=== PATIENT | female | born 1940 ===

== ENCOUNTER 2020-01-18 08:56 | Outpatient (REF) | payer MEDICARE, SELFPAY | END 2020-01-18 08:57 | disposition home or self-care (01) | LOC: HO.LAB 08:56 | PROVIDERS: Visit Provider Internal Medicine | DX: Z20.828 Contact with and (suspected) exposure to other viral communicable diseases (principal) | CPT/HCPCS: C9803; U0003 ==

== ENCOUNTER 2020-02-14 12:32 | Outpatient (REF) | payer MEDICARE, SELFPAY | END 2020-02-14 12:33 | disposition home or self-care (01) | LOC: HO.LAB 12:32 | PROVIDERS: Visit Provider Internal Medicine | DX: Z20.828 Contact with and (suspected) exposure to other viral communicable diseases (principal) | CPT/HCPCS: C9803; U0003 ==

== ENCOUNTER → 2020-02-21 10:24 | Outpatient (BNV) | payer MEDICARE, SELFPAY | PROVIDERS: PCP Internal Medicine Geriatric Medicine; Visit Provider Internal Medicine Medical Oncology | DX: D51.9 Vitamin B12 deficiency anemia, unspecified (principal) | CPT/HCPCS: 99212; 99213; 99214; G2252 ==

== ENCOUNTER 2020-03-14 14:54 | Outpatient (REF) | payer MEDICARE, SELFPAY | END 2020-03-14 14:55 | disposition home or self-care (01) | LOC: HO.LAB 14:54 | PROVIDERS: Visit Provider Internal Medicine | DX: Z20.822 Contact with and (suspected) exposure to COVID-19 (principal) | CPT/HCPCS: 36415; C9803; U0003 ==

== ENCOUNTER → 2020-03-18 10:37 | Outpatient (BNVA) | payer MEDICARE, SELFPAY | PROVIDERS: PCP Internal Medicine Geriatric Medicine; Visit Provider Surgery | DX: D05.11 Intraductal carcinoma in situ of right breast (principal); N64.4 Mastodynia | CPT/HCPCS: 99212 ==

== ENCOUNTER 2020-06-03 10:45 | Outpatient (REF) | payer MEDICARE, MEDICAID, SELFPAY ==
--- NOTE | ~2020-06-03 | US_ITS ---
EXAMINATION: US DIAGNOSTIC ULTRASOUND BREAST, RIGHT CLINICAL INFORMATION: Right breast pain/lump upper quadrant. COMPARISON: Mammography of same day as well as studies dating back to November 04, 2011. TECHNIQUE: Ultrasound of the breast is performed with real-time galvan scale imaging and color Doppler. FINDINGS: Targeted right breast ultrasound did not demonstrate any abnormal cystic or solid mass or region of abnormal distal sound shadowing in region of pain/lump. Clinical follow-up is recommended. Results are discussed with the patient at time of visit. US/US breast RT limited IMPRESSION: Stable left breast calcifications. No new mammographic or ultrasound abnormalities of the right breast. Bilateral surgical change. ASSESSMENT: BI-RADS 2: Benign RECOMMENDATION: 1. Patient should be managed based on the clinical impression. 2. Otherwise, routine annual screening mammography.
--- NOTE | ~2020-06-03 | MM_ITS ---
EXAMINATION: MM DIAGNOSTIC DIGITAL BREAST TOMOSYNTHESIS, BILATERAL RIGHT BREAST ULTRASOUND CLINICAL INFORMATION: Right mastodynia. Status post right lumpectomy 2012. COMPARISON: Mammography: 07/21/2018 and studies dating back to 11/04/2011. TECHNIQUE: Digital breast tomosynthesis is performed in both the craniocaudal and mediolateral oblique views along with computer-aided detection (CAD). Synthesized 2D images are generated from the tomosynthesis. Additional left breast spot magnification views in craniocaudal and 90 degree mediolateral views performed. Targeted right breast ultrasound. FINDINGS: There are scattered areas of fibroglandular density (ACR BI-RADS breast composition Category b). LEFT BREAST: There are postsurgical changes again noted within the upper outer aspect of the left breast. There are noted to be calcifications about the upper outer aspect of the left breast difficult to tell if unchanged from previous studies on initial imaging. The calcifications are stable compared to previous study of 06/08/2011 on magnification views. No new abnormal dominant mass or suspicious grouping of microcalcifications. RIGHT BREAST: Postsurgical change is present from previous lumpectomy. No new abnormal dominant mass or suspicious grouping of microcalcifications identified. Targeted right breast ultrasound did not demonstrate any abnormal cystic or solid mass or region of abnormal distal sound shadowing in region of pain/lump. Clinical followup is recommended. Results are discussed with the patient at time of visit. MM/MM tomosynthesis diagnostic BI IMPRESSION: Stable left breast calcifications. No new mammographic or ultrasound abnormalities of the right breast. Bilateral surgical change. ASSESSMENT: BI-RADS 2: Benign. RECOMMENDATION: 1. Patient should be managed based on the clinical impression. 2. Otherwise, routine annual screening mammography. This patient's information was entered into a reminder system with a target due date for their next mammogram.
== END 2020-06-03 10:46 | disposition home or self-care (01) ==
LOC: HO.MAMMO 10:45
PROVIDERS: PCP Internal Medicine Geriatric Medicine; Visit Provider Surgery
DX: N64.4 Mastodynia (principal)
CPT/HCPCS: 76642; 77062; 77066

== ENCOUNTER → 2020-06-20 12:58 | Outpatient (BNVA) | payer MEDICARE, SELFPAY | PROVIDERS: PCP Internal Medicine Geriatric Medicine; Visit Provider Urology | DX: N32.81 Overactive bladder (principal); R39.15 Urgency of urination | CPT/HCPCS: 99212 ==

== ENCOUNTER 2020-12-04 08:45 | Outpatient (REF) | payer MEDICARE, SELFPAY | END 2020-12-04 08:46 | disposition home or self-care (01) | LOC: HO.MAMMO 08:45 | PROVIDERS: PCP Internal Medicine Geriatric Medicine; Visit Provider Surgery | DX: Z13.89 Encounter for screening for other disorder (principal) ==

== ENCOUNTER 2020-12-08 12:10 | Outpatient (REF) | payer MEDICARE, SELFPAY ==
--- NOTE | ~2020-12-08 | MR_ITS ---
EXAMINATION: MR BRAIN WITHOUT AND WITH CONTRAST CLINICAL INFORMATION: Chronic headaches. COMPARISON: MRI scan of the brain 04/06/2019. TECHNIQUE: Multiplanar, multisequence MRI of the brain was obtained before and after the intravenous administration of 8 mL Gadavist. FINDINGS: No diffusion abnormalities are identified to suggest an acute or subacute infarct. No mass effect or midline shift is seen. There is mild commensurate prominence of the ventricles and sulci consistent with diffuse volume loss. There are scattered areas of increased T2 and FLAIR signal in the periventricular and subcortical white matter, which are most consistent with chronic microvascular ischemic changes. No extra-axial fluid collections are seen. The brainstem appears normal. On postcontrast imaging, there is no abnormal parenchymal or leptomeningeal enhancement. There is now a small focus of low gradient signal in the anterior left centrum semiovale body, which is nonspecific. The cerebellar tonsils have normal contour and position, and the craniocervical junction appears normal. Marrow signal is normal. There is a partially empty sella. There have been bilateral lens extractions. The major intracranial flow-voids at the level of the k[place] of [place] are preserved. The dural venous sinus flow-voids are maintained. There has been interval increase in the bilateral mastoid effusions there is mucoperiosteal thickening the bilateral ethmoid sinuses. There may be a small polyp in the posterior left nasal cavity.. MR/MR head/brain wo/w con IMPRESSION: 1. There are no acute bleeds or territorial infarcts. No masses are demonstrated. There is no abnormal enhancement. 2. There are chronic microvascular ischemic changes and there is diffuse volume loss. 3. There has been slight interval increase in the bilateral mastoid effusions. There may be a small polyp in the posterior left nasal cavity. Correlate clinically.
[2020-12-08 12:45] LABS: Blood Urea Nitrogen 20 mg/dL (9-16); Estimated Glomerular Filt Rate 43
== END 2020-12-08 12:11 | disposition home or self-care (01) ==
LOC: HO.MRI 12:10
PROVIDERS: PCP Internal Medicine Geriatric Medicine; Visit Provider Psychiatry & Neurology Neurology
DX: R51.9 Headache, unspecified (principal)
CPT/HCPCS: 36415; 70553; 82565; 84520; A9585

== ENCOUNTER 2021-05-27 10:35 | Outpatient (REF) | payer MEDICARE, MEDICAID, SELFPAY ==
--- NOTE | ~2021-05-27 | XR_ITS ---
EXAMINATION: XR HIP, RIGHT CLINICAL INFORMATION: Pain COMPARISON: None TECHNIQUE: Two views of the right hip. FINDINGS: Bone alignment is normal. No fracture or dislocation is seen. There is a small superior lateral acetabular osteophyte. There may be mild chondrocalcinosis. There is a small soft tissue calcification adjacent to the greater trochanter. XR/XR hip RT min 2V IMPRESSION: Mild degenerative changes of the right hip joint.
== END 2021-05-27 10:36 | disposition home or self-care (01) ==
LOC: HO.XRAY 10:35
PROVIDERS: Absent Provider Internal Medicine Geriatric Medicine; PCP Internal Medicine Geriatric Medicine; Visit Provider Emergency Medicine
DX: M25.551 Pain in right hip (principal)
CPT/HCPCS: 73502

== ENCOUNTER 2021-06-15 10:31 | Outpatient (REF) | payer MEDICARE, MEDICAID, SELFPAY ==
--- NOTE | ~2021-06-15 | MM_ITS ---
EXAMINATION: MM SCREENING DIGITAL BREAST TOMOSYNTHESIS, BILATERAL CLINICAL INFORMATION: Screening. Asymptomatic. Right lumpectomy for breast cancer, 2013. COMPARISON: Mammography: 06/03/2020, 07/21/2018, 05/27/2017, targeted right breast ultrasound 06/03/2020. TECHNIQUE: Digital breast tomosynthesis is performed in both the craniocaudal and mediolateral oblique views along with computer-aided detection (CAD). Synthesized 2D images are generated from the tomosynthesis. FINDINGS: There are scattered areas of fibroglandular density (ACR BI-RADS breast composition Category b). There are post therapy changes on the right with mild reduced breast size and old scarring. Neither breast shows interval developing density or significant mass or interval architectural abnormality. No abnormal calcifications. No significant changes. MM/MM tomosynthesis screening BI IMPRESSION: -No mammographic evidence of malignancy. -Post therapy changes right breast ASSESSMENT: BI-RADS 2: Benign RECOMMENDATION: Routine annual mammography screening. This patient's information was entered into a reminder system with a target due date for their next mammogram.
== END 2021-06-15 10:32 | disposition home or self-care (01) ==
LOC: HO.MAMMO 10:31
PROVIDERS: PCP Internal Medicine Geriatric Medicine; Visit Provider Internal Medicine Geriatric Medicine
DX: Z12.31 Encounter for screening mammogram for malignant neoplasm of breast (principal)
CPT/HCPCS: 77063; 77067

== ENCOUNTER → 2021-06-30 12:51 | Outpatient (BNVA) | payer MEDICARE, MEDICAID, SELFPAY | PROVIDERS: PCP Internal Medicine Geriatric Medicine; Visit Provider Physician Assistant | DX: M54.16 Radiculopathy, lumbar region (principal) | CPT/HCPCS: 99212 ==

== ENCOUNTER 2021-09-02 14:17 | Outpatient (REF) | payer OTHER, SELFPAY ==
--- NOTE | ~2021-09-02 | MM_ITS ---
EXAMINATION: BONE DENSITOMETRY CLINICAL INDICATION: Menopausal. COMPARISON: Previous BD dated 10/06/2018 and baseline BD dated 09/23/2011. TECHNIQUE: Using a JOOR DXA System (software version: 13.1) manufactured by [employer], dual-energy x-ray absorptiometry was performed of the lumbar spine and left hip. The images are of good technical quality. Summary results are attached. FINDINGS: AP SPINE L1-L2 (excluding L3 and L4): The data of L1-L4 has been changed to exclude the L3 and L4 vertebral bodies, because degenerative changes at these levels may cause overestimation of lumbar spine density. Current: BMD 0.930 g/cm2, Z-score -0.4, T-score -2.0, osteopenia, 1.3% increase from previous, 6.2% increase from baseline (<5% change is not significant). Prior: BMD 0.918 g/cm2. Baseline: BMD 0.876 g/cm2. LEFT FEMUR, NECK: Current: BMD 0.725 g/cm2, Z-score -0.2, T-score -2.3, osteopenia. Prior: BMD 0.820 g/cm2. Baseline: BMD 0.815 g/cm2. LEFT FEMUR, TOTAL: Current: BMD 0.793 g/cm2, Z-score 0.2, T-score -1.7, osteopenia, 5.4% decrease from previous, 6.9% decrease from baseline (<5% change is not significant). Prior: BMD 0.838 g/cm2. Baseline: BMD 0.852 g/cm2. IDENTIFIED RISK FACTORS: Menopause. HISTORY OF FRACTURE: None listed. MEDICATIONS: Calcium supplements or multivitamin, vitamin D. MM/XR DEXA axial skeleton IMPRESSION: 1. DIAGNOSIS: Osteopenia based on the lowest T-score value of -2.3 in the femoral neck applying World Health Organization criteria. 2. 10-YEAR FRACTURE RISK PREDICTION, FRAX: Major osteoporotic fracture (clinical spine, forearm, hip or shoulder) 10.6%. Hip fracture 3.5%. 3. Treatment Recommendations: NOF guidelines recommend consideration for treatment in postmenopausal women and men age 50 and older presenting with the following: -A hip or vertebral (clinical or morphometric) fracture. -T-score less than or equal to -2.5 at the femoral neck or spine after appropriate evaluation to exclude secondary causes. -Low bone mass at the hip or spine and a 10-year fracture probability by FRAX of greater than or equal to 3% for hip fracture or greater than or equal to 20% for major osteoporotic fracture based on the [place] adapted WHO algorithm. 4. Other Recommendations: All treatment decisions require clinical judgment and consideration of individual patient factors, including patient preferences, comorbidities, previous drug use, risk factors not captured in the FRAX model (e.g. frailty, falls, vitamin D deficiency, increased bone turnover, interval significant decline in bone density) and possible under or overestimation of fracture risk by FRAX. Additional medical evaluation for secondary cause of low bone mineral density may be appropriate. FUTURE SCAN RECOMMENDATION: People with diagnosed cases of osteoporosis or at high risk for fracture should have regular bone mineral density tests. For patients eligible for Medicare, routine testing is allowed once every 2 years. The testing frequency can be increased to one year for patients who have rapidly progressing disease, those who are receiving or discontinuing medical therapy to restore bone mass, or have additional risk factors.
== END 2021-09-02 14:18 | disposition home or self-care (01) ==
LOC: HO.MAMMO 14:17
PROVIDERS: Visit Provider Registered Nurse
DX: Z13.820 Encounter for screening for osteoporosis (principal); Z78.0 Asymptomatic menopausal state; M85.80 Other specified disorders of bone density and structure, unspecified site
CPT/HCPCS: 77080

== ENCOUNTER 2021-09-21 13:46 | Emergency (ER) | payer OTHER, SELFPAY ==
--- NOTE | ~2021-09-21 | CT_ITS ---
EXAMINATION: CT angio head neck CLINICAL INFORMATION: Cervical spine fracture status post fall. Question dissection. Question bleed. COMPARISON: MRI brain 12/08/2020. TECHNIQUE: Manipulative Therapy Specialist images were obtained. A CT angiogram of the head and neck was performed in the arterial phase after the intravenous administration of 70 mL Omnipaque 350. Pre and delayed postcontrast images of the head were also obtained. MIP reconstructions were generated in multiple orientations at the acquisition workstation. Multiple three-dimensional surface rendered images and maximum intensity projection images were generated on a dedicated 3-D lab workstation. Arterial stenoses are measured in accordance with NASCET criteria or similar method if applicable. This CT examination was performed using dose optimization techniques as appropriate, including one or more of the following: Automated exposure control, iterative reconstruction, and adjustment of technique factors (mA and/or kVp) according to patient size (this includes techniques or standardized protocols for targeted exams where dose is matched to indication/reason for exam). Total exam dose-length product 3160 mGy-cm FINDINGS: Head: There is no acute intracranial hemorrhage or abnormal extra-axial collection. Postcontrast images reveal a small nonspecific focus of intraparenchymal enhancement located within the left temporal lobe best depicted on axial image 48 of 65 series 24. No intracranial mass effect or midline shift. Lateral and third ventricles are normal. No hydrocephalus. Scattered ill-defined foci of hypoattenuation are visualized within the periventricular white matter. Padilla-white matter differentiation is otherwise preserved and there is no evidence of acute territorial infarct. CT angiogram neck: The aortic arch apex is normal. Origins of the major aortic branches are widely patent. Common carotid arteries and carotid bifurcations are normal. No stenosis of the extracranial internal carotid arteries. The cervical vertebral arteries are patent. No evidence of acute vascular dissection within the neck. CT angiogram head: Intracranial internal carotid arteries are normal. The intradural vertebral artery segments and basilar artery are normal. 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 Anterior, middle, and posterior cerebral artery complexes are otherwise unremarkable. Other: There are a few a slightly prominent left level II cervical lymph nodes possibly is secondary to odontogenic disease given the presence of periapical erosions and mixed sclerotic changes within the left mandibular body. Visualized lung apices demonstrate mosaic attenuation with a few areas of atelectasis and/or opacification. 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 The venous drainage is difficult to accurately assess on the basis of this examination. There is no evidence of acute territorial infarct and no acute intraparenchymal hemorrhage. The CT angiogram of the head and neck is unremarkable in that there is no stenosis of the cervical carotid or vertebral arteries. No evidence of acute arterial dissection. No intracranial large vessel occlusion. There is asymmetric adenopathy within the left anterior neck that appears to be reactive and secondary to odontogenic disease. Specifically there are periapical erosions involving multiple maxillary teeth and asymmetric sclerotic changes within the bone marrow of the left mandibular body.
--- NOTE | ~2021-09-21 | CT_ITS ---
EXAMINATION: CT CHEST, ABDOMEN AND PELVIS WITH CONTRAST CLINICAL INFORMATION: Trauma after fall COMPARISON: CT chest 11/27/2015 TECHNIQUE: Multidetector volumetric imaging was performed from the thoracic inlet through the pubic symphysis following administration of 70 mL of Omnipaque 350. Sagittal and coronal reformatted images were obtained on the technologist's workstation. This CT examination was performed using dose optimization techniques as appropriate, variously including the following: *Automated exposure control *Adjustment of mA and/or kV according to patient size (this includes techniques or standardized protocols for targeted exams where dose is matched to indication/reason for exam; i.e. extremities or head) *Use of iterative reconstruction technique DLP: 250 mGy-cm FINDINGS: CHEST: Lung: There are some masslike areas of infiltrate seen in the left upper lobe (35:104) measuring 1.6 x 0.5 x 0.7 cm as well as in the right upper lobe posteriorly measuring about 1.5 x 1.3 x 0.5 cm (35:157). These probably represent resolving infiltrates. Small nodular densities are seen, the largest measuring 6 mm (35:246). Lynne images of all abnormalities have been saved. Mediastinum: The thyroid is enlarged with some nodules including a calcified nodule in the left lower pole. There is mild cardiac enlargement with the heart larger than seen on the 2016 study. The central vascular structures are otherwise unremarkable. No evidence of an aortic tear although evaluation of the aorta is not optimal secondary to timing of contrast. No hilar or mediastinal lymphadenopathy. Pericardium/Pleura: No significant effusion. No pleural mass or thickening. Chest Wall/Axilla: Degenerative changes are present in the thoracic spine. ABDOMEN/PELVIS: Peritoneal Space: No significant free air or free fluid identified. Liver, Gallbladder, Biliary Tree: The liver is normal in size, shape, and attenuation. No focal hepatic lesion or biliary ductal dilatation is present. The gallbladder is unremarkable with no evidence of radiopaque gallstones, gallbladder wall thickening, or obvious pericholecystic inflammatory changes. Pancreas: Unremarkable Spleen: Unremarkable Adrenal Glands: Unremarkable Kidneys and Ureters: The kidneys are normal in size, shape, and attenuation. No hydronephrosis, hydroureter, or calculi seen. No perinephric stranding. Bladder: Unremarkable Gastrointestinal Tract: The small and large bowel are unremarkable. The appendix is unremarkable. Abdominal Wall: No significant hernia is appreciated. Lymph Nodes: No lymphadenopathy. Vascular: The aorta appears normal.. The IVC appears unremarkable. PELVIC VISCERA: Surgically removed OSSEUS STRUCTURES: Marked degenerative changes are noted in the spine at L3-L4. Generative changes present at the facet joints at L4-L5 and L5-S1. No bony destructive lesions are seen. CT/CT abdomen pelvis w con IMPRESSION: 1. No evidence of an acute traumatic injury in the chest abdomen or pelvis. 2. Pulmonary masses/infiltrates. These are new when compared to the prior 2016 CT scan. 2017 Fleischner Society Recommendations for Lung Nodule(s): Follow-Up based on size (average of long- and short-axis diameters). Use most suspicious nodule for followup. Multiple Solid lung nodules > 8 mm: Follow up management based on most suspicious nodule. In a low-risk patient, recommend a non-contrast Chest CT at 3-6 months, then consider another non-contrast Chest CT at 18-24 months. In a high-risk patient, recommend a non-contrast Chest CT at 3-6 months, then another non-contrast Chest CT at 18-24 months. These guidelines do not apply to patients younger than 35 years, immunocompromised patients, and patients with cancer. F/u in patients with significant comorbidities as clinically warranted. For lung cancer screening, adhere to Lung-RADS guidelines. Reference: Radiology. 2017 Hussain; 284(1):228-243 3. Incidental findings as described above including thyroid goiter, mild cardiac enlargement, degenerative changes in the spine and prior hysterectomy. Fleischner guidelines were followed.
--- NOTE | ~2021-09-21 | XR_ITS ---
EXAMINATION: XR SHOULDER, LEFT CLINICAL INFORMATION: Pain post fall COMPARISON: CT scan of the chest partially including the shoulder earlier today TECHNIQUE: AP external rotation, Grashey, and scapular Y views of the left shoulder. FINDINGS: Humeral head is well-seated in the glenoid fossa. I do not appreciate any acute fracture or dislocation. Degenerative changes are seen in the glenohumeral and acromioclavicular joint. Likely calcific tendinitis in the region of the supraspinatus tendon. Visualized left chest and ribs unremarkable XR/XR shoulder LT min 2V IMPRESSION: Degenerative changes in the left shoulder without acute fracture or dislocation.
[2021-09-21 14:11] VITALS: BP 148/64; PULSE 52; O2SAT 96
[2021-09-21 14:15] VITALS: BP 148/64; PULSE 56; RESP 18; TEMP 36.7; O2SAT 96; BMI 30.6
[2021-09-21] MEDS: iohexoL 350 MG/ML 100 ML INFUS..BTL IV (15:19)
--- NOTE | 2021-09-21 15:43 | ECG_ITS ---
Test Reason : fall Blood Pressure : / mmHG Vent. Rate : 066 BPM Atrial Rate : 066 BPM P-R Int : 232 ms QRS Dur : 108 ms QT Int : 432 ms P-R-T Axes : 067 -47 039 degrees QTc Int : 452 ms Sinus rhythm with 1st degree A-V block Left anterior fascicular block Minimal voltage criteria for LVH, may be normal variant ( Josh product ) Poor R wave progression Abnormal ECG When compared with ECG of 24-OCT-2015 09:37, VA interval has increased Referred By: Gabino Bills Electronically Signed By:Vadim Chandra
--- NOTE | 2021-09-21 16:26 | ED_ITS ---
HPI - Fall General Chief Complaint: Fall Stated Complaint: FALL Time Seen by Provider: 09/21/21 14:11 Source: patient Mode of arrival: ambulatory Limitations: no limitations History of Present Illness HPI Narrative: 81-year-old female presents to ED for fall which occurred around 08:00 this morning. patient states this morning he got up her bed and was trying to walk and then she tripped over her sandals which caused her to hit her chin and anterior neck onto the edge of the table which caused her to pass out. Patient admits to having whiplash movement of the neck. Home health aide came to see to patient house later and patient states she woke up but her head was leaning to the left patient denies any rectal bleeding, vomiting blood, chest pain, or abdominal pain since trauma. Related Data Home Medications Medication Instructions Recorded Confirmed ascorbic acid (vitamin C) 500 mg 1 tab PO BEDTIME 02/21/20 03/26/21 tablet (Vitamin C) atorvastatin 40 mg tablet 40 mg PO DAILY 02/21/20 03/26/21 clopidogrel 75 mg tablet 1 tab PO DAILY 02/21/20 03/26/21 donepezil 10 mg tablet 10 mg PO DAILY 02/21/20 03/26/21 esomeprazole magnesium 40 mg 1 cap PO QAM 02/21/20 03/26/21 capsule,delayed release ferrous sulfate 325 mg (65 mg 1 tab PO BEDTIME 02/21/20 03/26/21 iron) tablet glipizide 10 mg tablet, extended 1 tab PO DAILY 02/21/20 03/26/21 release 24 hr metformin 1,000 mg tablet 1 tab PO BID 02/21/20 03/26/21 metoprolol tartrate 25 mg tablet 1 tab PO BID 02/21/20 03/26/21 sertraline 50 mg tablet 1 tab PO QAM 02/21/20 03/26/21 calcium carbonate 600 mg-vitamin 1 tab PO TID 06/19/20 03/26/21 D3 10 mcg (400 unit) tablet (Calcium 600 + D(3)) trazodone 50 mg tablet 25 mg PO BEDTIME PRN Insomnia 06/19/20 03/26/21 tramadol 10 mg PO BID PRN Pain 09/19/20 03/26/21 divalproex 250 mg tablet,delayed 250 mg PO BID 03/26/21 03/26/21 release losartan 25 mg tablet 25 mg PO DAILY 03/26/21 03/26/21 Previous Rx's Medication Instructions Recorded solifenacin 10 mg tablet 10 mg PO DAILY 90 days #90 tabs 07/22/21 Allergies Allergy/AdvReac Type Severity Reaction Status Date / Time aspirin [ASA] AdvReac Unknown Verified 03/26/21 10:22 Review of Systems Review of Systems: Anterior and posterior neck pain. Fall Yes all other systems are reviewed and are negative [facility] Past Medical History Medical History (Updated 09/21/21 @ 18:59 by AKANKSHA Singleton) B12 deficiency Ductal carcinoma in situ (DCIS) of right breast Surgical History History of cystoscopy (~2015) History of lumpectomy of right breast (~10/09/13) Hx of angioplasty Hx of breast biopsy Hx of cataract extraction (~10/11/16) Hx of total hypophysectomy (~1994) Family History Family History (Updated 09/19/20 @ 10:55 by Donya Chambers RN) Maternal Uncle Hx of cancer of lung Mother Hx of cancer of lung Diabetes Sister Diabetes Brother Diabetes Social History Social History (Updated 09/19/20 @ 10:55 by Donya Chambers RN) Alcohol intake: never Patient Tobacco Use Status: Never used Tobacco e-Cigarette/Vaping Use: Never Used Advance Directives: No Advance Directives Information Provided: No Physical Exam Vital Signs: Vital Signs: Last Vital Signs Temp 96.7 F L 09/21/21 18:48 Pulse 58 09/21/21 18:48 Resp 16 09/21/21 18:48 BP 158/81 H 09/21/21 18:48 Pulse Ox 99 09/21/21 18:48 O2 Del Method 09/21/21 18:48 BMI result Body Mass Index 30.6 Const: General: cooperative, healthy appearing, comfortable, no acute distre ss, well developed, alert, awake and Physically active Orientation/consciousness: oriented to time and patient oriented x3 HEENT: Head: Yes normal to inspection, Yes No palpable skull fracture present, Yes normocephalic, Yes atraumatic and No abrasion Eyes: General: appearance normal, both eyes and all related structures Neck: Neck: Yes normal visual inspection, Yes full ROM, Yes no lymphadenopathy, Yes no meningeal signs, Yes trachea midline, Yes supple, No anterior neck swelling and Yes tender Neck images: 1. positive for ecchymosis and tenderness on palpation. Negative for swelling. Patient speaking in full sentences 2. positive for cervical spine tenderness on palpation. patient's head and neck leaning to the left Chest: Chest palpation & inspection: normal inspection of the chest and normal palpation of entire chest wall Resp: Effort & Inspection: normal respiratory effort and able to speak in complete sentences Auscultation: clear to auscultation bilaterally Cardio: Jugular venous distension: no JVD Heart sounds: S1 normal heart sound present and S2 normal heart sound present GI: Inspection: Yes normal to inspection and No abdominal wall ecchymosis Palpation (GI): Soft to palpation, not firm, nontender, no guarding and not rigid : General: No CVA tenderness and Yes no CVA tenderness Back/Spine/Pelvis: Back: no CVA tenderness, No CVA tenderness and No back tenderness Skin: General skin exam: no rashes or lesions noted and elasticity normal Neuro: General: oriented to time, patient oriented x3, gait normal and no meningeal signs Cranial nerves: Yes CN's II-XII intact bilaterally Extrem: General: Yes normal to inspection and Yes full ROM Psych: Appearance: grossly normal, well kempt and not disheveled Course Course Course Narrative: patient sent from the images and labs Reevaluation(s) Reevaluation #1: EKG negative STEMI. Head CT scan cervical spine came back normal and negative for any carotid dissection, cervical spine fracture or subluxation. Patient is neurologically intact has complete range of motion of all extremities. patient eating food and is comfortalbe. Patieint now able to move head in all directions with no leaning of head to the left. Head CT negative for signs of trauma does shows masslike infiltrates that are resolving as per CT scan. patient does not have any URI symptoms. I do not suspect a pneumonia. Patient given copy of labs and images including CT scan of the chest for follow-up of masses for further evaluation and workup. Abdomen CT scan normal. EKG negative STEMI. Troponin negative after falling over 6 hours ago Time: 18:51 MDM - Fall MDM Narrative Medical decision making narrative: fall Lab Data Result diagrams: 09/21/21 17:52 09/21/21 16:35 Labs: Lab Results 09/21/21 09/21/21 09/21/21 Range/Units 16:35 16:35 17:52 WBC 8.8 (4.8-10.8) X10*3/uL RBC 3.68 L (4.20-5.50) X10*6/uL Hgb 10.7 L (12.0-16.0) g/dl Hct 33.5 L (37.0-47.0) % MCV 91.0 (80.0-98.0) fL MCH 29.1 (27.0-33.0) pg MCHC 31.9 (31.0-35.0) g/dl RDW 13.4 (11.0-16.0) % Plt Count 190 (160-400) X10*3/uL MPV 10.5 (9.4-12.3) fL Immature Gran % (Auto) 0.5 H (0.0-0.4) % Neut % (Auto) 72.6 (45-73) % Lymph % (Auto) 16.6 L (20-40) % [place] % (Auto) 8.7 (2-11) % Eos % (Auto) 1.3 (0-4) % Baso % (Auto) 0.3 (0-2) % Lymph # (Auto) 1.5 (1.2-4.9) X10*3/uL [place] # (Auto) 0.8 (0.1-1.2) X10*3/uL Eos # (Auto) 0.1 (0.0-0.4) X10*3/uL Baso # (Auto) 0.0 (0.0-0.2) X10*3/uL Abs Immat Gran (auto) 0.04 H (0.00-0.03) X10*3/uL Absolute Neuts (auto) 6.4 (2.0-8.3) x10*3/uL Absolute Nucleated RBC 0.000 (0.0-0.012) X10*3/uL Nucleated RBC % (auto) 0.0 (0.0-0.2) /100WBC PT (10.0-13.1) SEC INR (0.9-1.1) APTT (24.1-38.0) SEC Sodium 141 (135-145) mmol/L Potassium 5.0 (3.3-5.1) mmol/L Chloride 104 (96-108) mmol/L Carbon Dioxide 29 (22-29) mmol/L Anion Gap 13 (12-20) BUN 23 H (9-16) mg/dL Creatinine 1.13 (0.5-1.4) mg/dL Estim Creat Clear Calc 34.5 Estimated GFR 46 Random Glucose 63 (60-115) mg/dL Calcium 9.1 D (8.4-10.2) mg/dL Total Bilirubin 0.6 (0.0-1.0) mg/dL AST 12 (5-31) U/L ALT 9 (0-31) U/L Alkaline Phosphatase 76 D (39-117) U/L Troponin I High Sens < 3.5 (<3.5-17.0) ng/L Total Protein 6.9 (6.5-8.0) g/dL Albumin 4.5 (3.5-5.0) g/dL 09/21/21 Range/Units 17:52 WBC (4.8-10.8) X10*3/uL RBC (4.20-5.50) X10*6/uL Hgb (12.0-16.0) g/dl Hct (37.0-47.0) % MCV (80.0-98.0) fL MCH (27.0-33.0) pg MCHC (31.0-35.0) g/dl RDW (11.0-16.0) % Plt Count (160-400) X10*3/uL MPV (9.4-12.3) fL Immature Gran % (Auto) (0.0-0.4) % Neut % (Auto) (45-73) % Lymph % (Auto) (20-40) % [place] % (Auto) (2-11) % Eos % (Auto) (0-4) % Baso % (Auto) (0-2) % Lymph # (Auto) (1.2-4.9) X10*3/uL [place] # (Auto) (0.1-1.2) X10*3/uL Eos # (Auto) (0.0-0.4) X10*3/uL Baso # (Auto) (0.0-0.2) X10*3/uL Abs Immat Gran (auto) (0.00-0.03) X10*3/uL Absolute Neuts (auto) (2.0-8.3) x10*3/uL Absolute Nucleated RBC (0.0-0.012) X10*3/uL Nucleated RBC % (auto) (0.0-0.2) /100WBC PT 11.0 (10.0-13.1) SEC INR 1.0 (0.9-1.1) APTT 33.3 (24.1-38.0) SEC Sodium (135-145) mmol/L Potassium (3.3-5.1) mmol/L Chloride (96-108) mmol/L Carbon Dioxide (22-29) mmol/L Anion Gap (12-20) BUN (9-16) mg/dL Creatinine (0.5-1.4) mg/dL Estim Creat Clear Calc Estimated GFR Random Glucose (60-115) mg/dL Calcium (8.4-10.2) mg/dL Total Bilirubin (0.0-1.0) mg/dL AST (5-31) U/L ALT (0-31) U/L Alkaline Phosphatase (39-117) U/L Troponin I High Sens (<3.5-17.0) ng/L Total Protein (6.5-8.0) g/dL Albumin (3.5-5.0) g/dL ECG Data Interpretation: normal sinus rhythm. sinus rhythm with first-degree block. Left anterior fascicular block. Ventricular rate 66. Pr interval 233. QRS on 8. QTC 452. Negative STEMI. Patient has previous EKGs which shows left anterior fascicular block and septal infarct. Discharge Plan Discharge Clinical Impression: Fall, Contusion of neck, Cervical sprain Patient Disposition: Home, Self-Care Instructions: Fall Prevention for Older Adults (ED), Contusion in Adults (ED), Cervical Sprain (ED) Additional Instructions: your images came back negative for any fractures in your chest abdomen or neck. Negative for brain bleed or bleeding elsewhere in the body. Chest CT scan shows masses that will need further workup. He will be given copy of labs and images. Because you on Plavix do not take NSAIDs. Return to the ED immediately for swelling of neck, change in voice, worsening blue discoloration of neck, headache, dizziness, chest pain, shortness of breath, nausea, vomiting, rectal bleeding, vomiting blood, or any other concerning symptoms. Continue to take tramadol for pain relief. Tylenol can also be taking. Prescriptions: No Action solifenacin 10 mg tablet 10 mg PO DAILY 90 Days Qty: 90 2RF atorvastatin 40 mg Tablet 40 mg PO DAILY glipizide 10 mg tablet extended release 24hr 1 tab PO DAILY donepezil 10 mg Tablet 10 mg PO DAILY clopidogrel 75 mg tablet 1 tab PO DAILY ascorbic acid (vitamin C) [Vitamin C] 500 mg tablet 1 tab PO BEDTIME ferrous sulfate 325 mg (65 mg iron) tablet 1 tab PO BEDTIME metformin 1,000 mg tablet 1 tab PO BID esomeprazole magnesium 40 mg capsule,delayed release(DR/EC) 1 cap PO QAM sertraline 50 mg tablet 1 tab PO QAM metoprolol tartrate 25 mg tablet 1 tab PO BID trazodone 50 mg Tablet 25 mg PO BEDTIME PRN (Reason: Insomnia) calcium carbonate-vitamin D3 [Calcium 600 + D(3)] 600 mg(1,500mg) -400 unit Tablet 1 tab PO TID tramadol 10 mg PO BID PRN (Reason: Pain) divalproex 250 mg Tablet,Delayed Release (Dr/Ec) 250 mg PO BID losartan 25 mg Tablet 25 mg PO DAILY Referrals: Name,MD Tyson [Primary Care Provider] - ( Fall. Neck contusion.) Interventions: ED Discharge Assessment Last Done: 09/21/21 19:10 Discharge Date/Time: 09/21/21 19:11 Print Language: [place]
[2021-09-21 17:02] LABS: Alanine Aminotransferase 9 U/L (0-31); Albumin Level 4.5 g/dL (3.5-5.0); Alkaline Phosphatase 76 U/L (39-117); Anion Gap 13 (12-20); Aspartate Amino Transferase 12 U/L (5-31); Bilirubin Total 0.6 mg/dL (0.0-1.0); Blood Urea Nitrogen 23 mg/dL (9-16); Calcium 9.1 mg/dL (8.4-10.2); Carbon Dioxide 29 mmol/L (22-29); Chloride 104 mmol/L (96-108); Creatinine Clr Calc Pharmacy 34.5; Estimated Glomerular Filt Rate 46; Glucose Random 63 mg/dL (60-115); Sodium 141 mmol/L (135-145); Total Protein 6.9 g/dL (6.5-8.0)
[2021-09-21 17:06] LABS: Troponin-I High Sensitivity < 3.5 ng/L (<3.5-17.0)
[2021-09-21 18:03] LABS: Basophils Percent Auto 0.3 % (0-2); Eosinophils Absolute Auto 0.1 X10*3/uL (0.0-0.4); Eosinophils Percent Auto 1.3 % (0-4); Hematocrit 33.5 % (37.0-47.0); Hemoglobin 10.7 g/dl (12.0-16.0); Imm Gran Abs Auto 0.04 X10*3/uL (0.00-0.03); Imm Gran Pct Auto 0.5 % (0.0-0.4); Lymphocytes Absolute Auto 1.5 X10*3/uL (1.2-4.9); Lymphocytes Percent Auto 16.6 % (20-40); Mean Corpuscular HGB Conc 31.9 g/dl (31.0-35.0); Mean Corpuscular Hemoglobin 29.1 pg (27.0-33.0); Mean Platelet Volume 10.5 fL (9.4-12.3); Monocytes Absolute Auto 0.8 X10*3/uL (0.1-1.2); Monocytes Percent Auto 8.7 % (2-11); Neutrophils Absolute Auto 6.4 x10*3/uL (2.0-8.3); Neutrophils Percent Auto 72.6 % (45-73); Platelet Count 190 X10*3/uL (160-400); Red Blood Count 3.68 X10*6/uL (4.20-5.50); Red Cell Distribution Width 13.4 % (11.0-16.0); White Blood Count 8.8 X10*3/uL (4.8-10.8)
[2021-09-21] MEDS: Acetaminophen 325 MG TABLET 975 MG PO (18:06)
[2021-09-21 18:15] LABS: Partial Thromboplastin Time 33.3 SEC (24.1-38.0)
[2021-09-21 18:48] VITALS: BP 158/81; PULSE 58; RESP 16; TEMP 35.9; O2SAT 99
== END 2021-09-21 19:11 | disposition home or self-care (01) ==
PROVIDERS: Physician Assistant; Emergency Provider Emergency Medicine; PCP Internal Medicine Geriatric Medicine
DX: S10.93XA Contusion of unspecified part of neck, initial encounter (principal); S13.9XXA Sprain of joints and ligaments of unspecified parts of neck, initial encounter; M54.2 Cervicalgia; M25.512 Pain in left shoulder; R51.9 Headache, unspecified; W01.0XXA Fall on same level from slipping, tripping and stumbling without subsequent striking against object, initial encounter; Y93.9 Activity, unspecified; Y92.9 Unspecified place or not applicable; Y99.9 Unspecified external cause status; Z79.899 Other long term (current) drug therapy
CPT/HCPCS: 36415; 70496; 70498; 71260; 73030; 74177; 80053; 84484; 85025; 85610; 85730; 93005; 99284; Q9967

== ENCOUNTER → 2021-10-02 14:16 | Outpatient (BNVA) | payer OTHER, SELFPAY | PROVIDERS: PCP Internal Medicine Geriatric Medicine | DX: N32.81 Overactive bladder (principal) | CPT/HCPCS: 51798; 99212 ==

== ENCOUNTER → 2021-11-02 11:19 | Outpatient (BNVA) | payer OTHER, SELFPAY | PROVIDERS: PCP Internal Medicine Geriatric Medicine; Visit Provider Internal Medicine Pulmonary Disease | DX: R93.89 Abnormal findings on diagnostic imaging of other specified body structures (principal); R06.09 Other forms of dyspnea | CPT/HCPCS: 99202 ==

== ENCOUNTER 2021-11-20 16:18 | Outpatient (REF) | payer OTHER, SELFPAY ==
--- NOTE | ~2021-11-20 | CT_ITS ---
EXAMINATION: CT CHEST WITHOUT CONTRAST CLINICAL INFORMATION: Abnormal findings on diagnostic imaging. COMPARISON: CT chest 09/21/2021. TECHNIQUE: Multidetector volumetric CT imaging of the chest was done. Axial MIP volume rendering provided. Sagittal and coronal reformatted images were obtained. This CT examination was performed using dose optimization techniques as appropriate, variously including the following: *Automated exposure control *Adjustment of mA and/or kV according to patient size (this includes techniques or standardized protocols for targeted exams where dose is matched to indication/reason for exam; i.e. extremities or head) *Use of iterative reconstruction technique DLP: 280 mGy-cm FINDINGS: SENIOR DATA QUALITY ANALYST: Unremarkable LUNGS: The lungs are well-expanded with a bandlike density left upper lobe posterior apex measuring 1.4 cm in length and 6 mm in thickness, it appears stable. Subpleural 7 mm ground-glass attenuation seen in right lower lobe axial image 35/8, ill-defined groundglass attenuations right lower lobe axial image 19/5, 20/5, 22/5. Multiple small reticular nodular densities are seen in the right middle lobe, largest nodule measuring 3 mm axial image 242/9, bandlike density/atelectasis seen anteriorly in right middle lobe and lingula. Several small nodules in the range of 2 to 3 mm are seen in both lower lobes. They appear stable. MEDIASTINUM: The thyroid lobes are symmetric and normal. The central trachea and the bronchi are widely patent. The heart size and the great vessels are normal caliber. There is no pericardial effusion. No abnormal size mediastinal or hilar lymph nodes seen. CORONARY ARTERY CALCIFICATION: None visualized on this study. PLEURA: There is no pleural effusion. No pleural mass or thickening. AXILLA: No abnormal axillary lymph nodes seen. UPPER ABDOMEN: Visualized liver, spleen, pancreas appear unremarkable. OSSEOUS STRUCTURES: No aggressive lytic or sclerotic process seen. CT/CT chest wo IV con IMPRESSION: Scattered patchy opacities/masslike are stable compared to previous study. Multiple bilateral lower, right middle and lingular lung nodules and ill-defined ground-glass attenuations are stable. No new findings are seen. Recommend long-term follow up in 6-12 months. Fleischner guidelines were followed.
== END 2021-11-20 16:19 | disposition home or self-care (01) ==
LOC: HO.CT 16:18
PROVIDERS: Visit Provider Internal Medicine Pulmonary Disease
DX: R93.89 Abnormal findings on diagnostic imaging of other specified body structures (principal)
CPT/HCPCS: 71250

== ENCOUNTER → 2022-01-04 10:39 | Outpatient (BNVA) | payer OTHER, SELFPAY | PROVIDERS: PCP Internal Medicine Geriatric Medicine; Visit Provider Internal Medicine Pulmonary Disease | DX: R93.89 Abnormal findings on diagnostic imaging of other specified body structures (principal) | CPT/HCPCS: 99212 ==

== ENCOUNTER 2022-07-23 11:37 | Outpatient (REF) | payer OTHER, SELFPAY ==
--- NOTE | ~2022-07-23 | MM_ITS ---
EXAMINATION: MM SCREENING DIGITAL BREAST TOMOSYNTHESIS, BILATERAL CLINICAL INFORMATION: Due for yearly. Right lumpectomy for breast cancer, 2012. COMPARISON: Mammography: 06/15/2021, 06/03/2020, 07/21/2018 TECHNIQUE: Digital breast tomosynthesis is performed in both the craniocaudal and mediolateral oblique views along with computer-aided detection (CAD). Synthesized 2D images are generated from the tomosynthesis. FINDINGS: There are scattered areas of fibroglandular density (ACR BI-RADS breast composition Category b). Right breast post therapy changes is similar to prior exams. There is mild reduced breast size and stable scarring. Neither breast shows significant changes from prior studies. There is no developing density or interval architectural abnormality, mass, or abnormal calcifications. The axilla are unremarkable. MM/MM tomosynthesis screening BI IMPRESSION: -No significant changes from prior exams. -Post therapy changes right breast. ASSESSMENT: BI-RADS 2: Benign RECOMMENDATION: Routine annual mammography screening. This patient's information was entered into a reminder system with a target due date for their next mammogram.
== END 2022-07-23 11:38 | disposition home or self-care (01) ==
LOC: HO.MAMMO 11:37
PROVIDERS: PCP Internal Medicine Geriatric Medicine; Visit Provider Internal Medicine Geriatric Medicine
DX: Z12.31 Encounter for screening mammogram for malignant neoplasm of breast (principal)
CPT/HCPCS: 77063; 77067

== ENCOUNTER 2022-08-17 15:13 | Outpatient (REF) | payer OTHER, SELFPAY ==
--- NOTE | ~2022-08-17 | CT_ITS ---
EXAMINATION: CT CHEST WITHOUT CONTRAST CLINICAL INFORMATION: Pulmonary nodules COMPARISON: Previous chest CT most recent November 2021 TECHNIQUE: Multidetector volumetric CT imaging of the chest was done. Axial MIP volume rendering provided. Sagittal and coronal reformatted images were obtained. This CT examination was performed using dose optimization techniques as appropriate, variously including the following: *Automated exposure control *Adjustment of mA and/or kV according to patient size (this includes techniques or standardized protocols for targeted exams where dose is matched to indication/reason for exam; i.e. extremities or head) *Use of iterative reconstruction technique DLP: 140 mGy-cm FINDINGS: EMBRYOLOGY PROFESSOR: Unremarkable LUNGS: There is mixed appearance of pulmonary nodules and nodular opacities. There is interval decrease in nodular opacity in the apical posterior segment of the left upper lobe with residual linear scarring for example axial image 107 series 5. There is slight interval decrease in density of the nodular opacity in the posterior segment of the right upper lobe adjacent to the major fissure for example axial image 146 series 5. There is interval increase in tubular branching opacity in the lateral posterior segment of the right upper lobe probably representing bronchial soft tissue opacification axial image 189 series 5, in the lateral right lower lobe axial image 237 series 5, lateral left upper lobe/lingula adjacent to the fissure axial image 237 series 5 and peripheral left lower lobe axial image 263 series 5. Other nodules and nodular opacities are stable. MEDIASTINUM: Stable left thyroid calcification. The mediastinum is normal. CORONARY ARTERY CALCIFICATION: None visualized on this study. PLEURA: There is no pleural effusion. No pleural mass or thickening. AXILLA: No lymphadenopathy. UPPER ABDOMEN: Gallstone. OSSEOUS STRUCTURES: Degenerative changes of the spine. CT/CT chest wo IV con IMPRESSION: Mixed appearance of bilateral pulmonary nodules and nodular opacities. This favors an infectious or inflammatory process. Fleischner guidelines were followed.
== END 2022-08-17 15:14 | disposition home or self-care (01) ==
LOC: HO.CT 15:13
PROVIDERS: PCP Internal Medicine Geriatric Medicine; Visit Provider Internal Medicine Pulmonary Disease
DX: R93.89 Abnormal findings on diagnostic imaging of other specified body structures (principal)
CPT/HCPCS: 71250

== ENCOUNTER → 2022-08-31 14:21 | Outpatient (BNVA) | payer OTHER, SELFPAY | PROVIDERS: PCP Internal Medicine Geriatric Medicine; Visit Provider Internal Medicine Pulmonary Disease | DX: R93.89 Abnormal findings on diagnostic imaging of other specified body structures (principal) | CPT/HCPCS: 99212 ==

== ENCOUNTER 2022-10-01 11:03 | Outpatient (AMB) | payer OTHER, SELFPAY ==
--- NOTE | 2022-10-01 11:16 | A.OFFVIS_ITS ---
Intake Intake Visit Reasons: 1 year follow up OAB Intake Note: Patient is present for yearly follow up OAB Urology medications: Solifenacin Blood Thinner: PVR: 0ml's Seal Extrusion Operator Required: Yes Accompanied by: Grand Child Allergies aspirin [ASA] Adverse Reaction (Verified 10/06/22 21:05) Unknown Medication List - Last Reconciled 10/06/22 by ANAT CormierP-BC albuterol sulfate 90 mcg/actuation 2 puffs inhalation Q4-6H PRN 30 days ascorbic acid (vitamin C) (Vitamin C) 1 tab PO BEDTIME atorvastatin 40 mg PO DAILY blood sugar diagnostic ([employer] Fluid [employer]uch Ultra Test strips) As directed calcium carbonate-vitamin D3 600 mg-10 mcg (400 unit) (Calcium 600 + D(3)) 1 tab PO TID clopidogrel 1 tab PO DAILY donepezil 10 mg PO DAILY esomeprazole magnesium 1 cap PO QAM ferrous sulfate 1 tab PO BEDTIME glipizide ER 1 tab PO DAILY lancets ([employer] Delica Plus Lancet) As directed losartan 25 mg PO DAILY melatonin 5 mg PO BEDTIME metformin 1 tab PO BID metoprolol tartrate 1 tab PO BID raloxifene 60 mg PO DAILY sertraline 1 tab PO QAM solifenacin 10 mg PO DAILY 90 days [tramadol 10 mg PO BID PRN] trazodone 50 mg PO BEDTIME PRN verapamil 40 mg PO DAILY HPI HPI Comments History of Present Illness Details Nadine is a very pleasant 82 year old [place] Citizen speaking female patient of Dr. March who is accompanied by her grandaughter at todays visit. 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 She presents to the office today for a follow up of her overactive bladder. When asked she reports to be doing and feeling well. She reports significant improvement in urinary urgency, frequency and episodes of incontinence if not near a bathroom on Vesicare 10mg daily. She currently denies urinary urgency, urinary frequency, incontinence, nocturia, hematuria, dysuria, foul smelling urine, changes to urinary stream, flank pain, fever, and or chills. She is happy with her current voiding parameters on Vesicare daily. In office urinalysis results reviewed with the patient today. PVR 0ml's. She otherwise offers no issues or concerns at this time. PFSH Medical History B12 deficiency Ductal carcinoma in situ (DCIS) of right breast Surgical History History of cystoscopy (~2015) History of lumpectomy of right breast (~10/09/13) Hx of angioplasty Hx of breast biopsy Hx of cataract extraction (~10/11/16) Hx of total hypophysectomy (~1994) Family History Maternal Uncle Hx of cancer of lung Mother Hx of cancer of lung Diabetes Sister Diabetes Brother Diabetes Social History Household Members: Other Household Members Other:: [facility] Housing: House Are you a primary home day care provider to a significant other at home: No Do you presently have visiting nurse or other home services: Yes Alcohol intake: never Patient Tobacco Use Status: Never used Tobacco e-Cigarette/Vaping Use: Never Used service: No Current occupational status: retired Review of Systems Const Reports as per HPI Eyes Reports no additional complaints ENT Reports no additional complaints Card Reports as per HPI Resp Reports no additional complaints GI Reports no additional complaints Reports as per HPI Musc Reports no additional complaints Neuro Reports as per HPI Psych Reports as per HPI Oni/Lymph Reports as per HPI Physical Exam Const General: cooperative, healthy appearing, comfortable, no acute distress, well developed, alert and awake Orientation/consciousness: patient oriented x3 HEENT Head: Yes normal to inspection, Yes normocephalic and Yes atraumatic Ears: hearing grossly normal bilaterally Eyes General: appearance normal, both eyes and all related structures Neck Neck: Yes normal visual inspection and Yes trachea midline Chest Chest palpation & inspection: normal inspection of the chest Resp Effort & Inspection: normal respiratory effort and able to speak in complete sentences Cardio Rate: regular rate GI Inspection: Yes normal to inspection General: Yes no CVA tenderness Back/Spine/Pelvis Back: no CVA tenderness Skin General skin exam: no rashes or lesions noted Neuro General: patient oriented x3 Extrem General: Yes normal to inspection Psych Appearance: grossly normal and well kempt Mental Status: mental status grossly normal Speech and movement: Normal speech and movement present and Clear speech present Affect: normal affect Attitude: cooperative Thought process: Normal thought process present Thought content: Normal thought content present Insight: Fair insight present (Psych) Judgement: Fair judgement present (Psych) Assessment & Plan Assessment & Plan (1) Overactive bladder: Code(s): N32.81 - Overactive bladder Plan In office UA results reviewed with the patient today; as noted above PVR 0ml's Patient reports to be happy with current voiding parameters on Vesicare 10mg da shanique Continue Vesicare as discussed and prescribed Will obtain retroparitoneal ultrasound for further assessment and evaluation Discussed at length importance of managing diabetes for improvement in urinary symptoms as well as for overall health and well being. Follow up in one year with PVR; or sooner with any issues, concerns, or questions. Orders: Orders AMB Urinalysis Automated 10/01/22 Z13.9 - Encounter for screening, unspecified AMB Post Void Residual by ultrasound 10/01/22 N32.81 - Overactive bladder Patient Instructions: The patient had an opportunity to ask questions regarding the treatment plan. All questions were answered. Physical exam, labs, and imaging were discussed and reviewed in detail. As well as risks, benefits, and discussion of treatment choices. No major barriers to understanding were identified. The patient expressed understanding and agreement with the above treatment plan. The patient was made aware they should contact our office by phone for worsening of their current condition, the appearance of new symptoms, or with any questions or concerns. Compliance is encouraged with any medications and follow up testing that is ordered. It is a privilege to be allowed the opportunity to participate in? your urological care.? Again, if you have any questions or concerns If you have any questions or concerns please do not hesitate to contact me. The office is [phone]. This note is constructed using voice recognition software. While every effort has been made to ensure accuracy dynamometer repairer errors may have been included. Yours sincerely, ALISE Cormier Coding Level of Care Code Est Pt Level 3 (36751) Diagnoses Overactive bladder N32.81
== END 2022-10-01 11:51 | disposition home or self-care (01) ==
PROVIDERS: Visit Provider Nurse Practitioner Family
DX: N32.81 Overactive bladder (principal)
CPT/HCPCS: 99213

== ENCOUNTER → 2022-10-01 11:03 | Outpatient (BNVA) | payer OTHER, SELFPAY | PROVIDERS: Visit Provider Nurse Practitioner Family | DX: N32.81 Overactive bladder (principal) | CPT/HCPCS: 99212 ==

== ENCOUNTER 2022-11-19 09:10 | Outpatient (REF) | payer OTHER, SELFPAY ==
[2022-11-19 11:31] LABS: MANUAL DIFF FLAG NO
[2022-11-19 11:35] LABS: Basophils Percent Auto 0.6 % (0-2); Eosinophils Absolute Auto 0.1 X10*3/uL (0.0-0.4); Eosinophils Percent Auto 2.5 % (0-4); Hematocrit 36.1 % (37.0-47.0); Hemoglobin 11.5 g/dl (12.0-16.0); Imm Gran Abs Auto 0.02 X10*3/uL (0.00-0.03); Imm Gran Pct Auto 0.4 % (0.0-0.4); Lymphocytes Absolute Auto 1.3 X10*3/uL (1.2-4.9); Lymphocytes Percent Auto 27.1 % (20-40); Mean Corpuscular HGB Conc 31.9 g/dl (31.0-35.0); Mean Corpuscular Hemoglobin 29.3 pg (27.0-33.0); Mean Corpuscular Volume 92.1 fL (80.0-98.0); Mean Platelet Volume 11.1 fL (9.4-12.3); Monocytes Absolute Auto 0.4 X10*3/uL (0.1-1.2); Monocytes Percent Auto 9.2 % (2-11); Neutrophils Absolute Auto 2.9 x10*3/uL (2.0-8.3); Neutrophils Percent Auto 60.2 % (45-73); Platelet Count 198 X10*3/uL (160-400); Red Blood Count 3.92 X10*6/uL (4.20-5.50); Red Cell Distribution Width 13.2 % (11.0-16.0); White Blood Count 4.8 X10*3/uL (4.8-10.8)
[2022-11-19 12:14] LABS: Alanine Aminotransferase 8 U/L (0-31); Albumin Level 4.1 g/dL (3.5-5.0); Alkaline Phosphatase 67 U/L (39-117); Anion Gap 14 (12-20); Aspartate Amino Transferase 15 U/L (5-31); Bilirubin Total 0.5 mg/dL (0.0-1.0); Blood Urea Nitrogen 14 mg/dL (9-16); Calcium 9.4 mg/dL (8.4-10.2); Carbon Dioxide 26 mmol/L (22-29); Chloride 109 mmol/L (96-108); Estimated Glomerular Filt Rate 50; Glucose Random 121 mg/dL (60-115); Potassium 4.5 mmol/L (3.3-5.1); Sodium 144 mmol/L (135-145); Total Protein 6.7 g/dL (6.5-8.0)
[2022-11-19 13:55] LABS: Cholesterol 133 mg/dL (<200); HDL Cholesterol 67 mg/dL (>40); LDL Cholesterol Calculated 44 mg/dL (<100); Triglycerides 111 mg/dL (<150)
[2022-11-19 14:15] LABS: TSH reflex Free T4 1.08 uIU/mL (0.32-4.0)
== END 2022-11-19 09:11 | disposition home or self-care (01) ==
LOC: HO.HHCL 09:10
PROVIDERS: Internal Medicine Medical Oncology; Visit Provider Internal Medicine Geriatric Medicine
DX: D05.11 Intraductal carcinoma in situ of right breast (principal); G47.00 Insomnia, unspecified; R63.0 Anorexia; Z79.899 Other long term (current) drug therapy
CPT/HCPCS: 36415; 80053; 80061; 84443; 85025

== ENCOUNTER 2023-02-01 10:40 | Outpatient (REF) | payer OTHER, SELFPAY ==
--- NOTE | ~2023-02-01 | XR_ITS ---
STUDY: Standing knees and right knee INDICATION: Knee pain COMPARISON: 07/24/2018 TECHNIQUE: AP standing knees, view right knee FINDINGS: On standing knee view, left knee remains slightly higher than the right. Bilateral mild medial knee joint narrowings again seen. Mild right patellofemoral narrowing identified. No fracture, dislocation or right joint effusion. XR/XR knee RT 2V IMPRESSION: Mild degenerative changes.
--- NOTE | ~2023-02-01 | XR_ITS ---
STUDY: Standing knees and right knee INDICATION: Knee pain COMPARISON: 07/24/2018 TECHNIQUE: AP standing knees, view right knee FINDINGS: On standing knee view, left knee remains slightly higher than the right. Bilateral mild medial knee joint narrowings again seen. Mild right patellofemoral narrowing identified. No fracture, dislocation or right joint effusion. XR/XR knee standing BI IMPRESSION: Mild degenerative changes.
--- NOTE | ~2023-02-01 | XR_ITS ---
STUDY: Standing knees and right knee INDICATION: Knee pain COMPARISON: 07/24/2018 TECHNIQUE: AP standing knees, 2 view right knee FINDINGS: On standing knee view, left knee remains slightly higher than the right. Bilateral mild medial knee joint narrowings again seen. Mild right patellofemoral narrowing identified. No fracture, dislocation or right joint effusion. XR/XR knee LT 2V IMPRESSION: Mild degenerative changes.
== END 2023-02-01 10:41 | disposition home or self-care (01) ==
LOC: HO.HOSX 10:40
PROVIDERS: Visit Provider Physician Assistant
DX: M17.12 Unilateral primary osteoarthritis, left knee (principal); M25.561 Pain in right knee; E11.9 Type 2 diabetes mellitus without complications
CPT/HCPCS: 20610; 73560; 73565; 99212; J0665; J1020; J1100

== ENCOUNTER 2023-02-01 15:08 | Outpatient (AMB) | payer OTHER, SELFPAY ==
--- NOTE | 2023-02-01 15:18 | A.OFFVIS_ITS ---
Intake Intake Visit Reasons: Newprob-B/L Knee pain Intake Note: Nadine is an 82 year old female who presents today for a new problem visit with complaints of right knee pain. Patient rpeorts that the right knee has been painful for many years now. She has history of injection in 2019 with Edis and she would like to repeat injection today. Allergies aspirin [ASA] Adverse Reaction (Verified 12/20/22 13:04) Unknown HPI Newprob-B/L Knee pain HPI Details 82-year-old female who presents in the [facility] today for an evaluation of left knee pain. The patient reports the left knee has had pain for many years. She confirms a history of cortisone injection in [address] Randhawa. She would like a repeat injection today. She presents with a family member who is translating for her. [facility] Medical History (Updated 02/01/23 @ 15:53 by Carmen Luna) Osteoarthritis of left knee B12 deficiency Ductal carcinoma in situ (DCIS) of right breast Surgical History History of cystoscopy (~2015) Hx of cataract extraction (~10/11/16) History of lumpectomy of right breast (~10/09/13) Hx of breast biopsy Hx of angioplasty Hx of total hypophysectomy (~1994) Family History Maternal Uncle Hx of cancer of lung Mother Hx of cancer of lung Diabetes Sister Diabetes Brother Diabetes Social History Household Members: Other Household Members Other:: [facility] Housing: House Are you a primary career advisor to a significant other at home: No Do you presently have visiting nurse or other home services: Yes Alcohol intake: never Patient Tobacco Use Status: Never used Tobacco e-Cigarette/Vaping Use: Never Used service: No Current occupational status: retired Review of Systems Const All systems reviewed & are unremarkable except as noted in HPI and below Physical Exam Const General: cooperative and no acute distress Orientation/consciousness: patient oriented x3 Resp Effort & Inspection: normal respiratory effort and able to speak in complete sentences Cardio Peripheral pulses: Peripheral pulses 2+ throughout Skin General skin exam: no rashes or lesions noted Neuro General: patient oriented x3 Extrem Other: Left knee: Normal to inspection. No ecchymosis, erythema, or joint effusion. Full knee flexion and extension. No tenderness to palpation along the medial or lateral joint lines. NVI. Office Procedures Joint Injection/Drain Joint Injection/Drain Primary Site: left knee Prep: site was prepped using aseptic technique, ethochloride spray was applied and injection warnings given Injected: 40 mg of, DepoMedrol, with 4 mL of (2% plain lido ) and 0.25% bupivacaine (4cc) Approach Used: anterolateral Procedure: The patient tolerated the procedure well, but had some pain with the injection and there was some relief with the local anesthesia Coding 73824 - Large joint Procedure code (CPT) selection complete Assessment & Plan Assessment & Plan (1) Osteoarthritis of left knee: Code(s): M17.12 - Unilateral primary osteoarthritis, left knee Qualifiers: Osteoarthritis type: unspecified Qualified Code(s): M17.12 - Unilateral primary osteoarthritis, left knee (2) Diabetes mellitus: Code(s): E11.9 - Type 2 diabetes mellitus without complications Plan Ms. Clement is an 82-year-old female who presents in the office today for an evaluation of left knee pain. The patient reports the left knee has had pain for many years. She confirms a history of cortisone injection in [address] Randhawa. She would like a repeat injection today. She presents with a family member who is translating for her. The patient was offered a cortisone injection in the left knee with 40 mg of DepoMedrol. The patient was explained the risk, benefits, and alternatives to receiving this injection. After receiving consent for the injection, the patient had the procedure done while in office today. The patient tolerated the procedure well with no complications. Due to the patient?s history of diabetes, they were instructed to monitor her blood glucose level. The patient was informed that they could see a rise in their numbers and if the numbers became too high, they were instructed to call their PCP. The patient was also informed that they could have facial flushing as a side effect of the injection but this will pass. Follow up will be PRN, or sooner if needed. X-rays of the left knees which were obtained while in the office today and were reviewed by me, Kelsea Carr PA-C, revealed osteoarthritis. Orders: Orders XR knee standing BI 02/01/23 M25.569 - Pain in unspecified knee XR knee RT 2V 02/01/23 M25.569 - Pain in unspecified knee XR knee LT 2V 02/01/23 M25.569 - Pain in unspecified knee Patient Instructions: Scribed for Kelsea Carr PA-C by Carmen Luna medical numerical control operator, on 02/01/2023 at 3:24 pm, EST. Coding Level of Care Code Est Pt Level 4 (72846) Diagnoses Osteoarthritis of left knee, unspecified osteoarthritis type M17.12 Osteoarthritis type: unspecified Diabetes mellitus E11.9 CPT Codes Coding - 85206 Large joint: 56930 - Large joint ([id number])
== END 2023-02-01 15:40 | disposition home or self-care (01) ==
LOC: HO.HOS 15:08
PROVIDERS: PCP Internal Medicine Geriatric Medicine; Visit Provider Physician Assistant
DX: M17.12 Unilateral primary osteoarthritis, left knee (principal)
CPT/HCPCS: 20610; 99214

== ENCOUNTER 2023-02-07 10:11 | Outpatient (REF) | payer OTHER, SELFPAY ==
[2023-02-07 12:19] LABS: Microalbum/Creatinine Ratio Ur 10.6 ug/mg cr (<30)
== END 2023-02-07 10:12 | disposition home or self-care (01) ==
LOC: HO.HHCL 10:11
PROVIDERS: Visit Provider Internal Medicine Geriatric Medicine
DX: E11.69 Type 2 diabetes mellitus with other specified complication (principal)
CPT/HCPCS: 82043; 82570

== ENCOUNTER 2023-02-25 15:05 | Outpatient (REF) | payer OTHER, SELFPAY | END 2023-02-25 15:06 | disposition home or self-care (01) | LOC: HO.CT 15:05 | PROVIDERS: PCP Internal Medicine Geriatric Medicine; Visit Provider Internal Medicine Pulmonary Disease | DX: R93.89 Abnormal findings on diagnostic imaging of other specified body structures (principal) | CPT/HCPCS: 71250 ==

== ENCOUNTER 2023-03-18 11:19 | Outpatient (AMB) | payer OTHER, SELFPAY ==
[2023-03-18 11:20] VITALS: BP 127/64; PULSE 81; O2SAT 96; BMI 28.9
--- NOTE | 2023-03-18 11:20 | A.OFFVIS_ITS ---
Intake Vital Signs 03/18/23 11:20 Height 5 ft 4 in Weight 168 lb 10.458 oz BMI 28.9 BP 127/64 Blood Pressure Location Rt brachial Position Sitting Pulse 81 Pulse Source Doppler Pulse Oximetry (%) 96 Oxygen Delivery Method Room Air Intake Visit Reasons: abnormal ct scan Allergies aspirin [ASA] Adverse Reaction (Verified 03/18/23 11:25) Unknown HPI abnormal ct scan HPI Details 82-year-old lady, lifetime nonsmoker, wi th prior history of treated breast cancer, referred for evaluation of abnormal CT scan that demonstrated bilateral upper lobes densities not previously seen on CT chest obtained in 2016.? Patient denies unintended weight loss.? After the last office visit she has had another follow-up CT chest that continues to show waxing waning character of her underlying pulmonary infiltrate, that are likely inflammatory in origin. Patient did have recent flu and does complain of bronchitic symptoms. [facility] Medical History (Updated 03/18/23 @ 11:38 by Melquiades Ramos MD) Osteoarthritis of left knee B12 deficiency Ductal carcinoma in situ (DCIS) of right breast Surgical History History of cystoscopy (~2015) Hx of cataract extraction (~10/11/16) History of lumpectomy of right breast (~10/09/13) Hx of breast biopsy Hx of angioplasty Hx of total hypophysectomy (~1994) Family History Maternal Uncle Hx of cancer of lung Mother Hx of cancer of lung Diabetes Sister Diabetes Brother Diabetes Social History Household Members: Other Household Members Other:: [facility] Housing: House Are you a primary managed care liaison to a significant other at home: No Do you presently have visiting nurse or other home services: Yes Alcohol intake: never Patient Tobacco Use Status: Never used Tobacco e-Cigarette/Vaping Use: Never Used service: No Current occupational status: retired Review of Systems Const Denies daytime sleepiness, Denies excessive sweating, Denies fatigue, Denies fever(s), Denies lethargy, Denies malaise, Denies night sweats, Denies snoring and Denies weight loss Eyes Denies blurry vision and Denies itchy eyes ENT Denies nasal congestion, Denies post nasal drip, Denies sinus pain, Denies sinus pressure and Denies other ( Thrush) Card Denies chest pain, Denies pedal edema, Denies dyspnea, Denies orthopnea and Denies paroxysmal nocturnal dyspnea Resp Reports cough, Denies hemoptysis, Denies excessive phlegm production, Denies dyspnea, Denies snoring and Denies wheezing GI Denies abdominal pain and Denies heartburn Musc Denies myalgias, Denies arthralgias and Denies joint swelling Skin/Breast Denies rash Neuro Denies memory loss and Denies seizure-like activity Psych Denies abnormal sleep pattern, Denies anxiety and Denies memory loss Endo Denies excessive sweating, Denies fatigue and Denies heat intolerance Oni/Lymph Denies easy bruising Aller/Immun Denies itchy eyes, Denies seasonal rhinorrhea and Denies wheezing Physical Exam Vital Signs: Last Vital Signs Pulse 81 03/18/23 11:20 BP 127/64 03/18/23 11:20 Pulse Ox 96 03/18/23 11:20 Oxygen Delivery Method Room Air 03/18/23 11:20 BMI result Body Mass Index 28.9 Const General: no acute distress and alert Nutritional Appearance: not obese Orientation/consciousness: Other orientation findings ( oriented) HEENT Head: Yes atraumatic Eyes General: appearance normal, both eyes and all related structures Sclerae: sclerae normal EOM: EOMs intact bilaterally Neck Neck: Yes supple Lymphatic: no lymphadenopathy noted Resp Effort & Inspection: normal respiratory effort and no use of accessory muscles Auscultation: clear to auscultation bilaterally Cardio Rate: regular rate Rhythm: regular rhythm Heart sounds: no gallops, no murmurs and no rubs Skin General skin exam: other ( warm) Extrem General: No clubbing, No cyanosis and No edema Assessment & Plan Assessment & Plan (1) Abnormal CT scan, chest: Code(s): R93.89 - Abnormal findings on diagnostic imaging of other specified body structures Plan: Results of CT chest from February of 2023 reviewed - images continue to demonstrate waxing waning appearance of underlying pulmonary nodules that most likely inflammatory/infectious in origin. Will continue to monitor with CT scan in 6 months. (2) Bronchitis: Code(s): J40 - Bronchitis, not specified as acute or chronic Plan: Will treat with a course of prednisone and Augmentin. Orders: Orders CT chest wo IV con 07/29/23 R93.89 - Abnormal findings on diagnostic imaging of other specified body structures Medications: New prednisone 40 mg (2 x 20 mg) PO DAILY 14 tabs 0RF amoxicillin-pot clavulanate 875-125 mg 1 tab PO BID 14 tabs 0RF Coding Level of Care Code Est Pt Level 4 (28702) Diagnoses Abnormal CT scan, chest R93.89 Bronchitis J40
== END 2023-03-18 11:30 | disposition home or self-care (01) ==
PROVIDERS: PCP Internal Medicine Geriatric Medicine; Visit Provider Internal Medicine Pulmonary Disease
DX: R93.89 Abnormal findings on diagnostic imaging of other specified body structures (principal); J40 Bronchitis, not specified as acute or chronic
CPT/HCPCS: 99214

== ENCOUNTER → 2023-03-18 11:19 | Outpatient (BNVA) | payer OTHER, SELFPAY | PROVIDERS: PCP Internal Medicine Geriatric Medicine; Visit Provider Internal Medicine Pulmonary Disease | DX: R93.89 Abnormal findings on diagnostic imaging of other specified body structures (principal); J40 Bronchitis, not specified as acute or chronic | CPT/HCPCS: 99212 ==

== ENCOUNTER 2023-07-29 07:27 | Outpatient (REF) | payer OTHER, SELFPAY ==
--- NOTE | ~2023-07-29 | CT_ITS ---
EXAMINATION: CT CHEST WITHOUT CONTRAST CLINICAL INFORMATION: Multiple lung nodules COMPARISON: 02/25/2023 and 08/17/2022 TECHNIQUE: Multidetector volumetric CT imaging of the chest was done. Axial MIP volume rendering provided. Sagittal and coronal reformatted images were obtained. This CT examination was performed using dose optimization techniques as appropriate, variously including the following: *Automated exposure control *Adjustment of mA and/or kV according to patient size (this includes techniques or standardized protocols for targeted exams where dose is matched to indication/reason for exam; i.e. 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 The spiculated nodule in the left upper lobe measured on the previous examination 1.2 x 1.1 cm is significantly smaller on the current study, measured approximately is 0.6 cm only. Another nodule in the lateral left upper lobe seen on image 241 series 4, measured 0.3 cm, stable since previous study. There is ill-defined consolidation in the medial aspect of the left lower lobe measured 2.8 x 1.0 x 1.3 cm new since previous examination On the right, there are few small lung nodules scattered through the entire lobe, with the largest nodule in the right upper lobe seen on image 201 series 4, measured 0.6 cm MEDIASTINUM: Calcifications seen in the left thyroid lobe. There is no aortic dilatation. There is questionably prominent pulmonary arteries. Correlate with clinical history. There is no pericardial effusion. There is no mediastinal or hilar lymphadenopathy. CORONARY ARTERY CALCIFICATION: None visualized on this study. PLEURA: There is no pleural effusion. No pleural mass or thickening. AXILLA: No lymphadenopathy. UPPER ABDOMEN: Unremarkable OSSEOUS STRUCTURES: Unremarkable. CT/CT chest wo IV con IMPRESSION: 1. Decrease in size of left upper lobe lung nodule. Waxing and waning lung nodules bilaterally 2. New ill-defined consolidation in the medial aspect of the left lower lobe. 3. Multiple small lung nodules bilaterally. 4. Questionable prominence of pulmonary arteries. Correlate with clinical history. There are Fleischner guidelines were followed.
== END 2023-07-29 07:28 | disposition home or self-care (01) ==
LOC: HO.CT 07:27
PROVIDERS: PCP Internal Medicine Geriatric Medicine; Visit Provider Internal Medicine Pulmonary Disease
DX: R93.89 Abnormal findings on diagnostic imaging of other specified body structures (principal)
CPT/HCPCS: 71250

== ENCOUNTER 2023-09-09 10:20 | Outpatient (REF) | payer OTHER, SELFPAY ==
--- NOTE | ~2023-09-09 | MM_ITS ---
EXAMINATION: MM SCREENING DIGITAL BREAST TOMOSYNTHESIS, BILATERAL CLINICAL INFORMATION: Screening. Asymptomatic. The patient has a history of surgically treated right breast cancer. COMPARISON: Mammography: This study is compared with prior exams dating back to 2019. TECHNIQUE: Digital breast tomosynthesis is performed in both the craniocaudal and mediolateral oblique views along with computer-aided detection (CAD). Synthesized 2D images are generated from the tomosynthesis. FINDINGS: There are scattered areas of fibroglandular density (ACR BI-RADS breast composition Category b). There are no significant masses, abnormal calcifications, or other abnormalities. Postsurgical changes are present in the upper outer quadrant of the right breast. MM/MM tomosynthesis screening BI IMPRESSION: No mammographic evidence of malignancy. ASSESSMENT: BI-RADS BI-RADS 2 - Benign Findings RECOMMENDATION: Routine annual mammography screening. 1 year F/U This examination should not preclude the clinical evaluation of a suspicious palpable abnormality. This patient's information was entered into a reminder system with a target due date for their next mammogram.
--- NOTE | ~2023-09-09 | MM_ITS ---
EXAMINATION: BONE DENSITOMETRY CLINICAL INDICATION: Osteopenia. COMPARISON: Previous BD dated 09/02/2021 and baseline BD dated 09/23/2011. TECHNIQUE: Using a [employer] DXA System (software version: 13.1) manufactured by [employer], dual-energy x-ray absorptiometry was performed of the lumbar spine and left hip. The images are of good technical quality. Summary results are attached. FINDINGS: LEFT FEMUR, NECK: Current: BMD 0.754 g/cm2, Z-score 0.1, T-score -2.0, osteopenia. Prior: BMD 0.725 g/cm2. Baseline: BMD 0.815 g/cm2. LEFT FEMUR, TOTAL: Current: BMD 0.760 g/cm2, Z-score 0.0, T-score -2.0, osteopenia, 4.2% decrease from previous, 10.8% decrease from baseline (<5% change is not significant). Prior: BMD 0.793 g/cm2. Baseline: BMD 0.852 g/cm2. AP SPINE L1-L2 (excluding L3 and L4): The data of L1-L4 has been changed to exclude the L3 and L4 vertebral bodies, because degenerative sclerosis at these levels may cause overestimation of lumbar spine density. Current: BMD 0.875 g/cm2, Z-score -0.9, T-score -2.4, osteopenia, 5.9% decrease from previous, 0.1% decrease from baseline (<5% change is not significant). Prior: BMD 0.930 g/cm2. Baseline: BMD 0.876 g/cm2. IDENTIFIED RISK FACTORS: Menopause. HISTORY OF FRACTURE: None listed. MEDICATIONS: Calcium, vitamin D. MM/XR DEXA axial skeleton IMPRESSION: 1. DIAGNOSIS: Osteopenia based on the lowest T-score value of -2.4 in the lumbar spine applying World Health Organization criteria. 2. 10-YEAR FRACTURE RISK PREDICTION, FRAX: Major osteoporotic fracture (clinical spine, forearm, hip or shoulder) 10.0%. Hip fracture 3.0%. 3. Treatment Recommendations: NOF guidelines recommend consideration for treatment in postmenopausal women and men age 50 and older presenting with the following: -A hip or vertebral (clinical or morphometric) fracture. -T-score less than or equal to -2.5 at the femoral neck or spine after appropriate evaluation to exclude secondary causes. -Low bone mass at the hip or spine and a 10-year fracture probability by FRAX of greater than or equal to 3% for hip fracture or greater than or equal to 20% for major osteoporotic fracture based on the [place] adapted WHO algorithm. 4. Other Recommendations: All treatment decisions require clinical judgment and consideration of individual patient factors, including patient preferences, comorbidities, previous drug use, risk factors not captured in the FRAX model (e.g. frailty, falls, vitamin D deficiency, increased bone turnover, interval significant decline in bone density) and possible under or overestimation of fracture risk by FRAX. Additional medical evaluation for secondary cause of low bone mineral density may be appropriate. FUTURE SCAN RECOMMENDATION: People with diagnosed cases of osteoporosis or at high risk for fracture should have regular bone mineral density tests. For patients eligible for Medicare, routine testing is allowed once every 2 years. The testing frequency can be increased to one year for patients who have rapidly progressing disease, those who are receiving or discontinuing medical therapy to restore bone mass, or have additional risk factors.
== END 2023-09-09 10:21 | disposition home or self-care (01) ==
LOC: HO.MAMMO 10:20
PROVIDERS: PCP Internal Medicine Geriatric Medicine; Visit Provider Internal Medicine Medical Oncology
DX: Z12.31 Encounter for screening mammogram for malignant neoplasm of breast (principal); Z13.820 Encounter for screening for osteoporosis; Z78.0 Asymptomatic menopausal state; M85.80 Other specified disorders of bone density and structure, unspecified site
CPT/HCPCS: 77063; 77067; 77080

== ENCOUNTER → 2023-09-09 10:45 | Outpatient (BNV) | payer OTHER, SELFPAY | PROVIDERS: PCP Internal Medicine Geriatric Medicine; Visit Provider Radiology Diagnostic Radiology | DX: Z12.31 Encounter for screening mammogram for malignant neoplasm of breast (principal) | CPT/HCPCS: 77063; 77067 ==

== ENCOUNTER 2023-11-22 15:50 | Outpatient (AMB) | payer OTHER, SELFPAY ==
--- NOTE | 2023-11-22 16:08 | A.OFFVIS_ITS ---
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: Yes Accompanied by: Daughter Allergies aspirin [ASA] Adverse Reaction (Verified 11/22/23 21:50) Unknown Medication List - Last Reconciled 11/22/23 by VEGA Cormier-LEONOR albuterol sulfate 90 mcg/actuation 2 puffs inhalation Q4-6H PRN 30 days ascorbic acid (vitamin C) (Vitamin C) 1 tab PO BEDTIME atorvastatin 40 mg PO DAILY blood sugar diagnostic (JumpCamuch Ultra Test strips) As directed calcium carbonate-vitamin D3 600 mg-10 mcg (400 unit) (Calcium 600 + D(3)) 1 tab PO TID clopidogrel 1 tab PO DAILY cyanocobalamin (vitamin B-12) 1,000 mcg sublingual DAILY donepezil 10 mg PO DAILY esomeprazole magnesium 1 cap PO QAM ferrous sulfate 1 tab PO BEDTIME lancets (OneTouch Delica Plus Lancet) As directed losartan 25 mg PO DAILY memantine 5 mg PO metformin 500 mg PO metoprolol tartrate 1 tab PO BID mirtazapine 30 mg PO BEDTIME raloxifene 60 mg PO DAILY sertraline 50 mg PO QAM verapamil 40 mg PO DAILY HPI Comments Details: Nadine is a very pleasant 83 year old French speaking female patient of Dr. March who is accompanied by her grandaughter at todays visit. 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 She presents to the office today for a follow up of her overactive bladder. In discussion with the patient today she reports she had been doing well up until approximately 3 months ago when she started experiencing intermittent episodes of dysuria as well as lower ab dominal discomfort. She reports compliance with VESIcare as prescribed. Unable to obtain urine for urinalysis as patient unable to to void at today's office visit. However PVR 214 mL. We discussed potential causes for symptoms patient is experiencing. We discussed discontinuation of VESIcare at this time given increase in postvoid residual. Discussed obtaining retroperitoneal ultrasound for further assessment evaluation. When asked she denies urinary urgency, urinary frequency, incontinence, nocturia, hematuria, dysuria, foul smelling urine, changes to urinary stream, flank pain, fever, and or chills. She otherwise offers no issues or concerns at this time. FORMERLY [facility] Medical History Osteoarthritis of left knee B12 deficiency Ductal carcinoma in situ (DCIS) of right breast Surgical History History of cystoscopy (~2015) Hx of cataract extraction (~10/11/16) History of lumpectomy of right breast (~10/09/13) Hx of breast biopsy Hx of angioplasty Hx of total hypophysectomy (~1994) Family History Maternal Uncle Hx of cancer of lung Mother Hx of cancer of lung Diabetes Sister Diabetes Brother Diabetes Social History Household Members: Other Household Members Other:: [facility] Housing: House Are you a primary care partner to a significant other at home: No Do you presently have visiting nurse or other home services: Yes Alcohol intake: never Patient Tobacco Use Status: Never used Tobacco e-Cigarette/Vaping Use: Never Used service: No Current occupational status: retired Review of Systems Const Reports as per HPI Eyes Reports no additional complaints ENT Reports no additional complaints Card Reports as per HPI Resp Reports no additional complaints GI Reports no additional complaints Reports as per HPI Musc Reports no additional complaints Neuro Reports as per HPI Psych Reports as per HPI Oni/Lymph Reports as per HPI Physical Exam Const General: cooperative, healthy appearing, comfortable, no acute distress, well developed, alert and awake Nutritional Appearance: average body habitus Orientation/consciousness: patient oriented x3 Limitations: no limitations HEENT Head: Yes normal to inspection, Yes normocephalic and Yes atraumatic Ears: hearing grossly normal bilaterally Eyes General: appearance normal, both eyes and all related structures Neck Neck: Yes normal visual inspection and Yes trachea midline Chest Chest palpation & inspection: normal inspection of the chest Resp Effort & Inspection: normal respiratory effort and able to speak in complete sentences Cardio Rate: regular rate GI Inspection: Yes normal to inspection General: Yes no CVA tenderness Back/Spine/Pelvis Back: no CVA tenderness Skin General skin exam: no rashes or lesions noted Neuro General: patient oriented x3 Extrem General: Yes normal to inspection Psych Appearance: grossly normal and well kempt Mental Status: mental status grossly normal Speech and movement: Normal speech and movement present and Clear speech present Affect: normal affect Attitude: cooperative Thought process: Normal thought process present Thought content: Normal thought content present Insight: Fair insight present (Psych) Judgement: Fair judgement present (Psych) Office Procedures Post Void Residual Post Residual Void Post Void Residual (PVR): 214 [id number] Void Residual by ultrasound Assessment & Plan Assessment & Plan (1) Dysuria: Code(s): R30.0 - Dysuria Category: Medical (2) Incomplete bladder emptying: Code(s): R33.9 - Retention of urine, unspecified Category: Medical (3) Overactive bladder: Code(s): N32.81 - Overactive bladder Category: Medical Plan Orders submitted for urinalysis; patient states she will go tomorrow to drop off urine; will await results for potential treatment. Discussed at length potential causes for lower urinary tract symptoms patient is experiencing. Will obtain retroperitoneal ultrasound for further assessment evaluation. Stop VESIcare as discussed and prescribed. Discussed seeking medical treatment for worsening symptoms. Discussed attempting to double void to assist with incomplete bladder emptying. Follow-up in 1-3 months with imaging and PVR to be completed prior; or sooner with any issues, concerns, and or questions. Orders: Orders UA CC w/rflx Micro + Cult Today R30.0 - Dysuria US retroperitoneal comp Today R30.0 - Dysuria, R33.9 - Retention of urine, unspecified AMB Post Void Residual by ultrasound Today N32.81 - Overactive bladder Medications: Discontinued solifenacin Discontinued Reason: Doctor's Order 10 mg PO DAILY 90 days 90 tabs 1RF Patient Instructions: The patient had an opportunity to ask questions regarding the treatment plan. All questions were answered. Physical exam, labs, and imaging were discussed and reviewed in detail. As well as risks, benefits, and discussion of treatment choices. No major barriers to understanding were identified. The patient expressed understanding and agreement with the above treatment plan. The patient was made aware they should contact our office by phone for worsening of their current condition, the appearance of new symptoms, or with any questions or concerns. Compliance is encouraged with any medications and follow up testing that is ordered. It is a privilege to be allowed the opportunity to participate in? your urological care.? Again, if you have any questions or concerns If you have any questions or concerns please do not hesitate to contact me. The office is [phone]. This note is constructed using voice recognition software. While every effort has been made to ensure accuracy inspector tool errors may have been included. Yours sincerely, ALISE Cormier Coding Level of Care Code Est Pt Level 3 (62886) Complex EM visit Add On G2211 Diagnoses Dysuria R30.0 Incomplete bladder emptying R33.9 Overactive bladder N32.81 CPT Codes Post Residual Void - PVR CPT Code: 46837-Hade Void Residual by ultrasound ([id number])
== END 2023-11-22 16:21 | disposition home or self-care (01) ==
PROVIDERS: PCP Internal Medicine Geriatric Medicine; Visit Provider Nurse Practitioner Family
DX: R30.0 Dysuria (principal); R33.9 Retention of urine, unspecified; N32.81 Overactive bladder
CPT/HCPCS: 99213; G2211

== ENCOUNTER → 2023-11-22 15:50 | Outpatient (BNVA) | payer OTHER, SELFPAY | PROVIDERS: PCP Internal Medicine Geriatric Medicine; Visit Provider Nurse Practitioner Family | DX: R30.0 Dysuria (principal); R33.9 Retention of urine, unspecified; N32.81 Overactive bladder | CPT/HCPCS: 51798; 99212 ==

== ENCOUNTER 2023-11-23 15:39 | Outpatient (REF) | payer OTHER, SELFPAY ==
[2023-11-23 16:03] LABS: Appearance Urine Clear; Color Urine Yellow; Glucose Urine UA Negative (Negative); Leukocyte Esterase Urine Moderate (2+) (Negative); Nitrite Urine Negative (Negative); PH 5.5 (5.0-9.0); Specific Gravity - Urine <= 1.005 (1.005-1.025); UMIC TRIGGER UACC YES; Urine Blood Negative (Negative); Urine Ketones Negative (Negative); Urine Protein Negative (Neg-Trace)
[2023-11-23 16:22] LABS: Bacteria Urine Trace (None Seen); Hyaline Casts Urine 0-2 /LPF (0-2); RBC Urine 0-2 /HPF (0-2); UACC Culture Trigger YES; WBC Urine 21-50 /HPF (0-5)
== END 2023-11-23 15:40 | disposition home or self-care (01) ==
LOC: HO.LNP 15:39
PROVIDERS: Visit Provider Nurse Practitioner Family
DX: R30.0 Dysuria (principal)
CPT/HCPCS: 81001; 81003; 87086

== ENCOUNTER 2023-12-07 13:34 | Outpatient (AMB) | payer OTHER, SELFPAY ==
[2023-12-07 13:37] VITALS: BP 138/68; PULSE 78; O2SAT 97; BMI 28.4
--- NOTE | 2023-12-07 13:37 | MHC.OFFVIS ---
Vital Signs 12/07/23 13:37 Height 5 ft 4 in Weight 165 lb 5.547 oz BMI 28.4 BP 138/68 Blood Pressure Location Rt brachial Position Sitting Pulse 78 Pulse Source Doppler Pulse Oximetry (%) 97 Oxygen Delivery Method Room Air Intake Visit Reasons: copd Allergies aspirin [ASA] Adverse Reaction (Verified 12/07/23 13:44) Unknown HPI HPI copd: Details: 83-year-old lady, lifetime nonsmoker, with prior history of treated breast cancer, referred for evaluation of abnormal CT scan that demonstrated bilateral upper lobes densities not previously seen on CT chest obtained in 2016.? Patient denies unintended weight loss.? After the last office visit she has had another follow-up CT chest that continues to show waxing waning character of her underlying pulmonary infiltrate, that are likely inflammatory in origin. She continues to complain of thoracic back pain. [facility]LY [facility] Medical History Osteoarthritis of left knee B12 deficiency Ductal carcinoma in situ (DCIS) of right breast Surgical History History of cystoscopy (~2015) Hx of cataract extraction (~10/11/16) History of lumpectomy of right breast (~10/09/13) Hx of breast biopsy Hx of angioplasty Hx of total hypophysectomy (~1994) Family History Maternal Uncle Hx of cancer of lung Mother Hx of cancer of lung Diabetes Sister Diabetes Brother Diabetes Social History Household Members: Other Household Members Other:: [facility] Housing: House Are you a primary physician assistant primary care to a significant other at home: No Do you presently have visiting nurse or other home services: Yes Alcohol intake: never Patient Tobacco Use Status: Never used Tobacco e-Cigarette/Vaping Use: Never Used service: No Current occupational status: retired Review of Systems Const Denies daytime sleepiness, Denies excessive sweating, Denies fatigue, Denies fever(s), Denies lethargy, Denies malaise, Denies night sweats, Denies snoring and Denies weight loss Eyes Denies blurry vision and Denies itchy eyes ENT Denies nasal congestion, Denies post nasal drip, Denies sinus pain, Denies sinus pressure and Denies other ( Thrush) Card Denies chest pain, Denies pedal edema, Denies dyspnea, Denies orthopnea and Denies paroxysmal nocturnal dyspnea Resp Denies cough, Denies hemoptysis, Denies excessive phlegm production, Denies dyspnea, Denies snoring and Denies wheezing GI Denies abdominal pain and Denies heartburn Musc Denies myalgias, Denies arthralgias and Denies joint swelling Skin/Breast Denies rash Neuro Denies memory loss and Denies seizure-like activity Psych Denies abnormal sleep pattern, Denies anxiety and Denies memory loss Endo Denies excessive sweating, Denies fatigue and Denies heat intolerance Oni/Lymph Denies easy bruising Aller/Immun Denies itchy eyes, Denies seasonal rhinorrhea and Denies wheezing Physical Exam Vital Signs: Last Vital Signs Pulse 78 12/07/23 13:37 BP 138/68 12/07/23 13:37 Pulse Ox 97 12/07/23 13:37 Oxygen Delivery Method Room Air 12/07/23 13:37 BMI result Body Mass Index 28.4 Const General: no acute distress and alert Nutritional Appearance: not obese Orientation/consciousness: Other orientation findings ( oriented) HEENT Head: Yes atraumatic Eyes General: appearance normal, both eyes and all related structures Sclerae: sclerae normal EOM: EOMs intact bilaterally Neck Neck: Yes supple Lymphatic: no lymphadenopathy noted Resp Effort & Inspection: normal respiratory effort and no use of accessory muscles Auscultation: clear to auscultation bilaterally Cardio Rate: regular rate Rhythm: regular rhythm Heart sounds: no gallops, no murmurs and no rubs Skin General skin exam: other ( warm) Extrem General: No clubbing, No cyanosis and No edema Assessment & Plan Assessment & Plan (1) Abnormal CT scan, chest: Code(s): R93.89 - Abnormal findings on diagnostic imaging of other specified body structures Category: Medical Plan: Results of CT chest from July of 2023 reviewed, fleeting waxing/waning pulmonary nodules/infiltrates. Appear to have inflammatory etiology. Continue to monitor clinically. Repeat CT chest in July of 2024. (2) Back pain: Code(s): M54.9 - Dorsalgia, unspecified Category: Medical Plan: Refer to pain management. Orders: Orders CT chest wo IV con 07/06/24 R93.89 - Abnormal findings on diagnostic imaging of other specified body structures Referrals Pain Management Referral M54.9 - Dorsalgia, unspecified Coding Level of Care Code Est Pt Level 4 (86622) Diagnoses Abnormal CT scan, chest R93.89 Back pain M54.9
== END 2023-12-07 14:01 | disposition home or self-care (01) ==
PROVIDERS: PCP Internal Medicine Geriatric Medicine; Visit Provider Internal Medicine Pulmonary Disease
DX: R93.89 Abnormal findings on diagnostic imaging of other specified body structures (principal); M54.9 Dorsalgia, unspecified
CPT/HCPCS: 99214

== ENCOUNTER → 2023-12-07 13:34 | Outpatient (BNVA) | payer OTHER, SELFPAY | PROVIDERS: PCP Internal Medicine Geriatric Medicine; Visit Provider Internal Medicine Pulmonary Disease | DX: R93.89 Abnormal findings on diagnostic imaging of other specified body structures (principal); M54.9 Dorsalgia, unspecified | CPT/HCPCS: 99212 ==

== ENCOUNTER 2023-12-08 10:05 | Outpatient (REF) | payer OTHER, SELFPAY ==
[2023-12-08 11:18] LABS: MANUAL DIFF FLAG NO
[2023-12-08 11:27] LABS: Basophils Percent Auto 0.7 % (0-2); Eosinophils Absolute Auto 0.1 X10*3/uL (0.0-0.4); Eosinophils Percent Auto 1.2 % (0-4); Hematocrit 34.7 % (37.0-47.0); Imm Gran Abs Auto 0.04 X10*3/uL (0.00-0.03); Imm Gran Pct Auto 0.7 % (0.0-0.4); Lymphocytes Absolute Auto 1.3 X10*3/uL (1.2-4.9); Lymphocytes Percent Auto 21.1 % (20-40); Mean Corpuscular HGB Conc 31.7 g/dl (31.0-35.0); Mean Corpuscular Hemoglobin 28.7 pg (27.0-33.0); Mean Corpuscular Volume 90.6 fL (80.0-98.0); Mean Platelet Volume 11.3 fL (9.4-12.3); Monocytes Absolute Auto 0.6 X10*3/uL (0.1-1.2); Monocytes Percent Auto 9.4 % (2-11); Neutrophils Percent Auto 66.9 % (45-73); Platelet Count 176 X10*3/uL (160-400); Red Blood Count 3.83 X10*6/uL (4.20-5.50); Red Cell Distribution Width 13.1 % (11.0-16.0)
[2023-12-08 11:47] LABS: Alanine Aminotransferase 11 U/L (0-31); Albumin Level 4.1 g/dL (3.5-5.0); Alkaline Phosphatase 72 U/L (39-117); Anion Gap 12 (12-20); Aspartate Amino Transferase 15 U/L (5-31); Bilirubin Total 0.6 mg/dL (0.0-1.0); Blood Urea Nitrogen 18 mg/dL (9-16); Calcium 9.2 mg/dL (8.4-10.2); Carbon Dioxide 26 mmol/L (22-29); Chloride 108 mmol/L (96-108); Cholesterol 123 mg/dL (<200); Estimated Glomerular Filt Rate 52; Glucose Random 133 mg/dL (60-115); HDL Cholesterol 60 mg/dL (>40); LDL Cholesterol Calculated 47 mg/dL (<100); Potassium 4.2 mmol/L (3.3-5.1); Sodium 142 mmol/L (135-145); Total Protein 6.8 g/dL (6.5-8.0); Triglycerides 82 mg/dL (<150)
== END 2023-12-08 10:06 | disposition home or self-care (01) ==
LOC: HO.HHCL 10:05
PROVIDERS: Visit Provider Internal Medicine Geriatric Medicine
DX: E11.69 Type 2 diabetes mellitus with other specified complication (principal); M25.569 Pain in unspecified knee; G89.29 Other chronic pain; I87.2 Venous insufficiency (chronic) (peripheral)
CPT/HCPCS: 36415; 80053; 80061; 85025

== ENCOUNTER 2024-02-17 09:56 | Outpatient (REF) | payer OTHER, SELFPAY ==
--- OUTSIDE RECORDS SUMMARY | 2024-02-17 09:58 | XMS_ITS | Data Portability ---
Author Organization [place] - [facility], Allergy Address [address] [place] [id number] Care Team Providers Care Qualitative Field Project Manager Name Role Phone NAME, KATYA Primary Care Provider [phone] Assessment No assessment recorded. Plan of Treatment Reminders Order Date Submit Date Provider Last Modified By Organization Details Last Modified Time Details Appointments Establish ed 30 2024 10:30A M MARTINA Silva MD Not available Not available Not available Lab None recorded. Referral None recorded. Procedures None recorded. Surgeries None recorded. Imaging None recorded. Medication Orders None recorded. Patient TargetsNo targets recorded. Patient InstructionsNo instructions recorded. Reason for Referral None Reported. Problems Name Problem SNOMED Code Status Onset Date Resolution Date Notes Provider Name and Address Organization Details Recorded Time Mixed conductiv e and sensorine ural hearing loss of left ear 50899524506 107 Active 2021 Mixed conductiv e and sensorine ural hearing loss, unilatera l, left ear with restricte d hearing on the contralat eral side; Note: Date Diagnosed : 06/12/2021 2:25 PM (H90.A32) Not Available [facility] 4 03:18:06 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 100980747 Active 2021 Nasal polyp, unspecifi ed; Note: Date Diagnosed : 06/12/2021 1:57 PM (J33.9) Not Available [facility] 4 03:18:06 Bilateral chronic serous otitis 635796199 Active 2021 Chronic serous otitis media, bilateral ; Note: Date Diagnosed : 06/12/2021 1:50 PM (H65.23) Not Available [facility] 4 03:18:07 Sensorine ural hearing loss in right ear 63857415332 100 Active 2021 Sensorine ural hearing loss, unilatera l, right ear, with restricte d hearing on the contralat eral side; Note: Date Diagnosed : 06/12/2021 2:25 PM (H90.A21) Not Available [facility] 4 03:18:06 Tinnitus of left ear 49334768595 06 Active 2021 Tinnitus, left ear; Note: Date Diagnosed : 06/12/2021 1:57 PM (H93.12) Not Available [facility] 4 03:18:07 Disorder of nasal sinus 7473597 Active 2023 Other specified disorders of nose and nasal sinuses; Note: Date Diagnosed : 04/01/2023 4:38 PM (J34.89) Not Available [facility] 4 03:18:06 Disorder of the nose 75073297 Active 2023 Other specified disorders of nose and nasal sinuses; Note: Date Diagnosed : 04/01/2023 4:38 PM (J34.89) Not Available [facility] 4 03:18:06 Polyp of nasal cavity 463421231 Active 2023 MARTINA SIMMONS MD [address] [place] [address], [facility] [place], [phone] , [facility] 4 13:09:18 Nasal congestio n 21513820 Active 2023 MARTINA SIMMONS MD [address] [place] [address], [phone] , [facility] 4 13:15:27 Problem Notes None recorded. Procedures Surgical History Date Name Laterality Status Provider Name and Address Organization Details Recorded Time 12/26/2023 NasalEndos copy_DP completed MARTINA SIMMONS MD [address] [place] [address], [phone], [facility] 12/26/2023 13:15:08 Imaging Results None recorded. Procedure Notes None recorded. Medical Equipment None Reported. Allergies Allergen ID Allergen Name Allergen Category Reaction Reaction Severity Criticality Documentation Date Start Date Code Code System Note Provider Name and Address Organization Details Recorded Time 02555 aspirin medicatio n other Not available Not available 07/19/2023 1191 RxNorm React ion: Unkno wn; Not Available [facility] 4 00:48:40 Medications Name Sig Start Date Stop Date Status Note LastModified by Organization Details LastModified Time medbox status USE DIRECTED active Not Available Not Available No t Available atorvastat in 40 mg tablet TAKE 1 TABLET BY MOUTH EVERY EVENING active Not Available Not Available No t Available metformin 500 mg tablet TAKE 1 TABLET TWICE DAILY IN THE MORNING AND IN THE EVENING WITH FOOD active Not Available Not Available No t Available verapamil 40 mg tablet TAKE 1 TABLET BY MOUTH TWICE DAILY IN THE MORNING AND IN THE EVENING active Not Available Not Available No t Available divalproex 250 mg tablet,del ayed release active Medicatio n ID: [id number] Br and Name: divalproe x Send Method: E-Prescri bed Subs Allowed: subs OK Specia l Instructi on: TAKE 1 TABLET BY MOUTH TWICE DAILY IN THE MORNING AND AT BEDTIME M edication GenericNa me: divalproe x Not Available Not Available Not Available Vitamin C 500 mg tablet TAKE 1 TABLET BY MOUTH EVERY EVENING active Not Available Not Available No t Available trazodone 50 mg tablet active Medicatio n ID: [id number] Br and Name: trazodone Send Method: E-Prescri bed Subs Allowed: subs OK Specia l Instructi on: TAKE 1/2 TABLET BY MOUTH AT BEDTIME M edication GenericNa me: trazodone Not Available Not Available Not Available glipizide ER 10 mg tablet, extended release 24 hr active Medicatio n ID: [id number] Br and Name: glipizide Send Method: E-Prescri bed Subs Allowed: subs OK Specia l Instructi on: TAKE 1 TABLET BY MOUTH EVERYDAY AT NOON Medi cationGen ericName: glipizide Not Available Not Available Not Available donepezil 10 mg tablet TAKE 1 TABLET BY MOUTH AT BEDTIME active Not Available Not Available No t Available prednisone 20 mg tablet TAKE 2 TABLETS BY MOUTH EVERY DAY active Not Available Not Available No t Available clopidogre l 75 mg tablet TAKE 1 TABLET BY MOUTH EVERYDAY AT NOON active Not Available Not Available No t Available tramadol 50 mg tablet TAKE 1/2 TABLET BY MOUTH TWICE DAILY IN THE MORNING AND AT BEDTIME NEEDED FOR SEVERE PAIN active Not Available Not Available No t Available OneTouch Ultra Test strips TEST BLOOD SUGAR TWICE DAILY DIRECTED active Not Available Not Available No t Available mirtazapin e 30 mg tablet TAKE 1 TABLET BY MOUTH AT BEDTIME active Not Available Not Available No t Available metformin 1,000 mg tablet active Medicatio n ID: [id number] Br and Name: metformin Send Method: E-Prescri bed Subs Allowed: subs OK Specia l Instructi on: TAKE 1 TABLET BY MOUTH TWICE DAILY AT NOON AND IN THE EVENING WITH MEALS Med icationGe nericName : metformin Not Available Not Available Not Available esomeprazo le magnesium 40 mg capsule,de layed release TAKE 1 CAPSULE BY MOUTH EVERY MORNING active Not Available Not Available No t Available lisinopril 10 mg tablet active Medicatio n ID: [id number] Br and Name: lisinopri l Send Method: E-Prescri bed Subs Allowed: subs OK Specia l Instructi on: TAKE 1 TABLET BY MOUTH EVERY EVENING M edication GenericNa me: lisinopri l Not Available Not Available Not Available losartan 25 mg tablet TAKE 1 TABLET BY MOUTH EVERY EVENING active Not Available Not Available No t Available nitroglyce rin 0.4 mg sublingual tablet DISSOLVE 1 TABLET UNDER THE TONGUE EVERY 5 MINUTES NEEDED FOR CHEST PAIN. CALL 911 IF NO RELIEF active Not Available Not Available No t Available raloxifene 60 mg tablet TAKE 1 TABLET BY MOUTH EVERY MORNING active Not Available Not Available No t Available cyanocobal [place] (vit B-12) 1,000 mcg sublingual tablet TAKE [address] UNDER THE TONGUE EVERY DAY active Not Available Not Available No t Available sertraline 50 mg tablet TAKE 1 TABLET BY MOUTH EVERY MORNING active Not Available Not Available No t Available amoxicilli n 875 mg-potassi um clavulanat e 125 mg tablet TAKE 1 TABLET BY MOUTH TWICE DAILY active Not Available Not Available No t Available memantine 5 mg tablet TAKE 1 TABLET BY MOUTH TWICE DAILY IN THE MORNING AND IN THE EVENING active Not Available Not Available No t Available metoprolol tartrate 25 mg tablet TAKE 1 TABLET BY MOUTH TWICE DAILY AT NOON AND IN THE EVENING active Not Available Not Available No t Available solifenaci n 10 mg tablet TAKE 1 TABLET BY MOUTH EVERYDAY AT NOON active Not Available Not Available No t Available calcium 600 mg (as carbonate) -vitamin D3 10 mcg (400 unit) tablet TAKE 1 TABLET BY MOUTH THREE TIMES DAILY IN THE MORNING, AT NOON, AND IN THE EVENING active Not Available Not Available No t Available FeroSul 325 mg (65 mg iron) tablet TAKE 1 TABLET BY MOUTH EVERY EVENING active Not Available Not Available No t Available melatonin 5 mg tablet active Medicatio n ID: [id number] Br and Name: melatonin Send Method: E-Prescri bed Subs Allowed: subs OK Specia l Instructi on: TAKE 2 TABLETS BY MOUTH EVERY DAY AT BEDTIME M edication GenericNa me: melatonin Not Available Not Available Not Available OneTouch Ultra2 Meter active Medicatio n ID: [id number] Br and Name: OneTouch Ultra2 Meter Sen d Method: E-Prescri bed Subs Allowed: subs OK Specia l Instructi on: TEST BLOOD SUGAR THREE TIMES DAILY DIRECTED Medicatio nGenericN bandar: OneTouch Ultra2 Meter Not Available Not Available Not Available OneTouch Delica Plus Lancet 33 gauge TEST BLOOD SUGAR TWICE DAILY active Not Available Not Available No t Available Vitals Date Recorded Body height Body mass index (BMI) Body weight Provider Name and Address Organization Details Last Updated DateTime 12/26/2023 157.48 cm 30.7 kg/m2 32199.52 g Doreen Mary [place] - [facility] 12/26/2023 13:06:36 Social History None recorded. Functional Status None recorded. Mental Status None recorded. Family History Nothing Reported. Medical History No medical history recorded. Gynecological HistoryNo gynecological history recorded. Obstetrics History GPAL:G 0 P 0 0 0 0 Past Encounters Encounter ID Performer Location Encounter Start Date Encounter Closed Date Diagnosis/Indication Diagnosis SNOMED-CT Code Diagnosis ICD10 Code [id number] MARTINA SIMMONS MD [facility] [address] [phone] 12/26/2023 12:51:33 12/26/2023 13:20:22 Polyp of nasal cavity 896372730 J33.0 Nasal congestion 4938074 0 R09.81 Health Concerns Section Related Observation LastModified by Organization Detai ls LastModified Time None Recorded Concern Status LastModified by Organization Details LastModified Time None Recorded Advance Directives Directive None Recorded Payers Encounter Date Sequence Insurance Name Policy Number Policy Malik Covered Member ID Malik Member ID Guarantor Name 12/26/2023 1 [facility] (MEDICARE REPLACEMENT/A DVANTAGE - HMO) Nadine Clement [facility] [id number] Nadine Clement Notes Date Note Type Note Provider Name and Address Organization Details Recorded Time 12/26/2023 text/html Nasal polypShe h ad an MRI brain with contrast at [facility] which showed bilateral mastoid effusions and concern for a left nasal polyp in 2020. We obtained a CT which showed a left nasal polyp 15mm without destructive features. Denies epistaxis. Denies facial pain. Still on plavix. Biopsy wasdeferred due to plavix. MARTINA SIMMONS MD [address] [place] [address], [phone], [facility] - [facility] 12/26/2023 13:15:55 OBGyn Episode No OBEpisode recorded.
== END 2024-02-17 09:57 | disposition home or self-care (01) ==
LOC: HO.US 09:56
PROVIDERS: PCP Internal Medicine Geriatric Medicine; Visit Provider Nurse Practitioner Family
DX: R30.0 Dysuria (principal); R33.9 Retention of urine, unspecified
CPT/HCPCS: 76770

== ENCOUNTER 2024-03-22 13:55 | Outpatient (AMB) | payer OTHER, SELFPAY ==
--- NOTE | 2024-03-22 14:11 | A.OFFVIS_ITS ---
Intake Visit Reasons: 1-3 months follow up US(set) Intake Note: Patient is Present for Follow Up PVR/Ultrasound follow up Urology Medication: Vesicare was stopped at last visit Antibiotic Allergies: None Blood Thinners: Plavix Last PVR:214ml Todays PVR:0ml Tractor Operator Laser Leveling Required: No Inbound Customer Service Representative: Inbound Customer Service Representative Present Accompanied by: Daughter Allergies aspirin [ASA] Adverse Reaction (Verified 03/22/24 14:42) Unknown Medication List - Last Reconciled 03/22/24 by ALISE Cormier albuterol sulfate 90 mcg/actuation 2 puffs inhalation Q4-6H PRN 30 days ascorbic acid (vitamin C) (Vitamin C) 1 tab PO BEDTIME atorvastatin 40 mg PO DAILY blood sugar diagnostic ([employer] Ultra Test strips) As directed calcium carbonate-vitamin D3 600 mg-10 mcg (400 unit) (Calcium 600 + D(3)) 1 tab PO TID clopidogrel 1 tab PO DAILY cyanocobalamin (vitamin B-12) 1,000 mcg sublingual DAILY donepezil 10 mg PO DAILY esomeprazole magnesium 1 cap PO QAM ferrous sulfate 1 tab PO BEDTIME furosemide (Lasix) 20 mg PO DAILY lancets (ProfigTouch Delica Plus Lancet) As directed losartan 25 mg PO DAILY memantine 5 mg PO metformin 500 mg PO metoprolol tartrate 1 tab PO BID mirtazapine 30 mg PO BEDTIME raloxifene 60 mg PO DAILY sertraline 50 mg PO QAM verapamil 40 mg PO DAILY HPI Comments Details: Nadine is a very pleasant 83 year old Georgian speaking female patient of Dr. March who is accompanied by her grandaughter at todays visit. 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 She presents to the office today for a follow up of her overactive bladder. Of note, patient was last seen approximately 4 months ago at which time VESIcare was discontinued and a retroperitoneal ultrasound was ordered for further assessment evaluation as patient was noted to have increased PVR of 214 mL at last office visit. Recent unofficial retroperitoneal ultrasound results reviewed with the patient and her granddaughter today. Bilateral kidneys with dilated pyramids otherwise no calculi, lesions, and or hydronephrosis. Pre void bladder volume is approximately 240 mL. Postvoid bladder volume was approximately 50 mL. Patient reports having recently followed up with cardiology and has started diuretic due to right lower extremity edema. She reports noting episodes of urinary frequency after consuming her diuretic. She otherwise denies any bothersome urinary issues or concerns. We discussed further treatment options and risks and benefits of these treatment options. In office urinalysis results reviewed with the patient today. PVR 0 mL. We discussed significant improvement in decrease in PVR since last office visit with discontinuation of VESIcare 10 mg. When asked she denies incontinence, nocturia, hematuria, dysuria, foul smelling urine, changes to urinary stream, flank pain, fever, and or chills. She otherwise offers no issues or concerns at this time. [facility] Medical History Osteoarthritis of left knee B12 deficiency Ductal carcinoma in situ (DCIS) of right breast Surgical History History of cystoscopy (~2015) Hx of cataract extraction (~10/11/16) History of lumpectomy of right breast (~10/09/13) Hx of breast biopsy Hx of angioplasty Hx of total hypophysectomy (~1994) Family History Maternal Uncle Hx of cancer of lung Mother Hx of cancer of lung Diabetes Sister Diabetes Brother Diabetes Social History Household Members: Other Household Members Other:: [facility] Housing: House Are you a primary palliative care specialist to a significant other at home: No Do you presently have visiting nurse or other home services: Yes Alcohol intake: never Patient Tobacco Use Status: Never used Tobacco e-Cigarette/Vaping Use: Never Used service: No Current occupational status: retired Review of Systems Const Reports as per HPI Eyes Reports no additional complaints ENT Reports no additional complaints Card Reports as per HPI Resp Reports no additional complaints GI Reports no additional complaints Reports as per HPI Musc Reports no additional complaints Neuro Reports as per HPI Psych Reports as per HPI Oni/Lymph Reports as per HPI Physical Exam Const General: cooperative, healthy appearing, comfortable, no acute distress, well developed, alert and awake Nutritional Appearance: average body habitus Orientation/consciousness: patient oriented x3 Limitations: no limitations HEENT Head: Yes normal to inspection, Yes normocephalic and Yes atraumatic Ears: hearing grossly normal bilaterally Eyes General: appearance normal, both eyes and all related structures Neck Neck: Yes normal visual inspection and Yes trachea midline Chest Chest palpation & inspection: normal inspection of the chest Resp Effort & Inspection: normal respiratory effort and able to speak in complete sentences Cardio Rate: regular rate GI Inspection: Yes normal to inspection General: Yes no CVA tenderness Back/Spine/Pelvis Back: no CVA tenderness Skin General skin exam: no rashes or lesions noted Neuro General: patient oriented x3 Extrem General: Yes normal to inspection Psych Appearance: grossly normal and well kempt Mental Status: mental status grossly normal Speech and movement: Normal speech and movement present and Clear speech present Affect: normal affect Attitude: cooperative Thought process: Normal thought process present Thought content: Normal thought content present Insight: Fair insight present (Psych) Judgement: Fair judgement present (Psych) Office Procedures Post Void Residual Post Residual Void Post Void Residual (PVR): 0 28507-Fltj Void Residual by ultrasound Results AMB Urinalysis, Automated UA Leukoctes 70 [place]andon/uL Last Edit by Faith Dotson [facility] on 03/22/24 14:36 UA Nitrite Negative Last Edit by Faith Dotson [facility] on 03/22/24 14:36 UA Urobilinogen 0.2 mg/dL Last Edit by Faith Dotson [facility] on 03/22/24 14:3 6 UA Protein 0 mg/dL Last Edit by Faith Dotson [facility] on 03/22/24 14:36 UA pH 5.5 Last Edit by Faith Dotson [facility] on 03/22/24 14:36 UA Blood 0 Nael/uL Last Edit by Faith Dotson [facility] on 03/22/24 14:36 UA Specific [place] 1.015 Last Edit by Faith Dotson [facility] on 03/22/24 14: 36 UA Ketone Negative Last Edit by Faith Dotson [facility] on 03/22/24 14:36 UA Bilirubin 0 mg/dL Last Edit by Faith Dotson [facility] on 03/22/24 14:36 UA Glucose 0 mg/dL Last Edit by Faith Dotson [facility] on 03/22/24 14:36 Results Reviewed Results Reviewed: Laboratory Last Values Urine pH (Auto) 5.5 03/22/24 14:35 Specific [place] (Auto) 1.015 03/22/24 14:35 Urine Protein (Auto) 0 mg/dL 03/22/24 14:35 Glucose (UA)(Auto) 0 mg/dL 03/22/24 14:35 Urine Ketones (Auto) Negative 03/22/24 14:35 Urine Blood (Auto) 0 Nael/uL 03/22/24 14:35 Urine Nitrite (Auto) Negative 03/22/24 14:35 Urine Bilirubin (Auto) 0 mg/dL 03/22/24 14:35 Urine Urobilinogen (Auto) 0.2 mg/dL 03/22/24 14:35 Leukocyte Esterase (Auto) 70 [place]/uL 03/22/24 14:35 Assessment & Plan Assessment & Plan (1) Incomplete bladder emptying: Code(s): R33.9 - Retention of urine, unspecified Category: Medical (2) Overactive bladder: Code(s): N32.81 - Overactive bladder Category: Medical Plan In office urinalysis results reviewed with the patient today; as noted above. PVR 0 mL. Recent retroperitoneal ultrasound results reviewed with the patient today; as noted above. Will continue with surveillance monitoring at this time. Patient currently denies any bothersome urinary issues or concerns. She is happy with current voiding parameters. Follow-up in 3 months with PVR; or sooner with any issues, concerns, and or questions. Orders: Orders AMB Post Void Residual by ultrasound 03/22/24 R33.9 - Retention of urine, unspecified AMB Urinalysis Automated 03/22/24 Z13.9 - Encounter for screening, unspecified Patient Instructions: The patient had an opportunity to ask questions regarding the treatment plan. All questions were answered. Physical exam, labs, and imaging were discussed and reviewed in detail. As well as risks, benefits, and discussion of treatment choices. No major barriers to understanding were identified. The patient expressed understanding and agreement with the above treatment plan. The patient was made aware they should contact our office by phone for worsening of their current condition, the appearance of new symptoms, or with any questions or concerns. Compliance is encouraged with any medications and follow up testing that is ordered. It is a privilege to be allowed the opportunity to participate in? your urological care.? Again, if you have any questions or concerns If you have any questions or concerns please do not hesitate to contact me. The office is [phone]. This note is constructed using voice recognition software. While every effort has been made to ensure accuracy rabbler errors may have been included. Yours sincerely, ALISE Cormier Coding Level of Care Code Est Pt Level 3 (41154) Complex EM visit Add On G2211 Diagnoses Incomplete bladder emptying R33.9 Overactive bladder N32.81 CPT Codes Post Residual Void - PVR CPT Code: 29824-Uhnz Void Residual by ultrasound ([id number])
--- OUTSIDE RECORDS SUMMARY | 2024-03-22 18:20 | XMS_ITS | Continuity of Care Document ---
Author Organization [place] - [facility], [facility] Address [address] [place] [address] Care Team Providers Care Communications Superintendent Name Role Phone NAME, KATYA Primary Care Provider [phone] Assessment No assessment recorded. 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 [id number] 107 Active 2021 Mixed conductiv e and sensorine ural hearing loss, unilatera l, left ear with restricte d hearing on the contralat eral side; Note: Date Diagnosed : 06/12/2021 2:25 PM (H90.A32) Not Available [facility] 4 03:18:06 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 055732280 Active 2021 Nasal polyp, unspecifi ed; Note: Date Diagnosed : 06/12/2021 1:57 PM (J33.9) Not Available [facility] 4 03:18:06 Bilateral chronic serous otitis 831983310 Active 2021 Chronic serous otitis media, bilateral ; Note: Date Diagnosed : 06/12/2021 1:50 PM (H65.23) Not Available [facility] 4 03:18:07 Sensorine ural hearing loss in right ear 00336854974 100 Active 2021 Sensorine ural hearing loss, unilatera l, right ear, with restricte d hearing on the contralat eral side; Note: Date Diagnosed : 06/12/2021 2:25 PM (H90.A21) Not Available [facility] 4 03:18:06 Tinnitus of left ear 10539039113 06 Active 2021 Tinnitus, left ear; Note: Date Diagnosed : 06/12/2021 1:57 PM (H93.12) Not Available [facility] 4 03:18:07 Disorder of nasal sinus 1425206 Active 2023 Other specified disorders of nose and nasal sinuses; Note: Date Diagnosed : 04/01/2023 4:38 PM (J34.89) Not Available [facility] 4 03:18:06 Disorder of the nose 33206536 Active 2023 Other specified disorders of nose and nasal sinuses; Note: Date Diagnosed : 04/01/2023 4:38 PM (J34.89) Not Available [facility] 4 03:18:06 Polyp of nasal cavity 361359829 Active 2023 MARTINA SIMMONS MD [address] [place] [address], [phone] , [facility] 4 13:09:18 Nasal congestio n 87940053 Active 2023 MARTINA SIMMONS MD [address] [place] [address], [phone] , [facility] 4 13:15:27 Problem Notes None recorded. Procedures Surgical History Date Name Laterality Status Provider Name and Address Organization Details Recorded Time 12/26/2023 NasalEndos copy_DP completed MARTINA SIMMONS MD [address] [place] [address], [phone], [facility] 12/26/2023 13:15:08 Imaging Results None recorded. Procedure Notes None recorded. Medical Equipment None Reported. Allergies Allergen ID Allergen Name Allergen Category Reaction Reaction Severity Criticality Documentation Date Start Date Code Code System Note Provider Name and Address Organization Details Recorded Time 90657 aspirin medicatio n other Not available Not available 07/19/2023 1191 RxNorm React ion: Unkno wn; Not Available [facility] 4 00:48:40 Medications Name Sig Start Date [...] tablet,del ayed release active Medicatio n ID: [id number] Br and Name: divalproe x Send Method: [...] 50 mg tablet active Medicatio n ID: [id number] Br and Name: trazodone Send Method: E-Prescri bed Subs Allowed: subs OK Specia l Instructi on: TAKE 1/2 TABLET BY MOUTH AT BEDTIME M edication GenericNa me: trazodone Not Available Not Available Not Available glipizide ER 10 mg tablet, extended release 24 hr active Medicatio n ID: [id number] Br and Name: glipizide Send Method: E-Prescri [...] 1,000 mg tablet active Medicatio n ID: [id number] Br and Name: metformin Send Method: E-Prescri [...] 10 mg tablet active Medicatio n ID: [id number] Br and Name: lisinopri l Send Method: [...] 5 mg tablet active Medicatio n ID: [id number] Br and Name: melatonin Send Method: E-Prescri bed Subs Allowed: subs OK Specia l Instructi on: TAKE 2 TABLETS BY MOUTH EVERY DAY AT BEDTIME M edication GenericNa me: melatonin Not Available Not Available Not Available OneTouch Ultra2 Meter active Medicatio n ID: [id number] Br and Name: OneTouch Ultra2 Meter Sen [...] Updated DateTime 12/26/2023 157.48 cm 30.7 kg/m2 91461.52 g Doreen Mary [place] - [facility] 12/26/2023 13:06:36 Social History None recorded. Functional Status None recorded. Mental Status None recorded. Family History Nothing Reported. Medical History No medical history recorded. Gynecological HistoryNo gynecological history recorded. Obstetrics History GPAL:G 0 P 0 0 0 0 Past Encounters Encounter ID Performer Location Encounter Start Date Encounter Closed Date Diagnosis/Indication Diagnosis SNOMED-CT Code Diagnosis ICD10 Code Diagnosis Note [id number] MARTINA SIMMONS MD [facility] [address] [place] [address] 12/26/2023 12:51:33 12/26/2023 13:20:22 Polyp of nasal cavity [id number] J33.0 Nasal endo was notable for a small benign appearing polyp medial to the left MT which is stable. She is on plavix due to blood clots. We again discussed biopsy ofthe polyp to confirm it is not a neoplasm, inverted papilloma or cancer but given the lack of progressio n of the polyp and that she is on plavix we agreed the risks ofcoming off plavix for a biopsy outweighs the benefit of a biopsy given it's benign behavior. We will plan to reevaluate in 6 months. She will call if she developsep istaxis, increased nasal congestion or facial pain. Nasal congestion 2055496 0 R09.81 No signfician t congesiton . I asked her to call if she develops worsening congestion . Health Concerns Section Related Observation LastModified by Organization Detai ls LastModified Time None Recorded Concern Status LastModified by Organization Details LastModified Time None Recorded Payers Encounter Date Sequence Insurance Name Policy Number Policy Malik Covered Member ID Malik Member ID Guarantor Name 12/26/2023 1 [facility] (MEDICARE REPLACEMENT/A DVANTAGE - HMO) Nadine Morris [id number] Nadine Clement Notes Date Note Type Note Provider Name and Address Organization Details Recorded Time 12/26/2023 text/html Nasal polypShe h ad an MRI brain with contrast at [facility] which showed bilateral mastoid effusions and concern for a left nasal polyp in 2020. We obtained a CT which showed a left nasal polyp 15mm without destructive features. Denies epistaxis. Denies facial pain. Still on plavix. Biopsy wasdeferred due to plavix. MARTINA SIMMONS MD [address] [place] [address], [place], [address], [facility] - [facility] 12/26/2023 13:15:55 OBGyn Episode No OBEpisode recorded.
== END 2024-03-22 14:51 | disposition home or self-care (01) ==
PROVIDERS: PCP Internal Medicine Geriatric Medicine; Visit Provider Nurse Practitioner Family
DX: Z13.9 Encounter for screening, unspecified (principal)

== ENCOUNTER → 2024-03-22 13:55 | Outpatient (BNVA) | payer OTHER, SELFPAY | PROVIDERS: PCP Internal Medicine Geriatric Medicine; Visit Provider Nurse Practitioner Family | DX: N32.81 Overactive bladder (principal); R33.9 Retention of urine, unspecified | CPT/HCPCS: 51798; 81003; 99212 ==

== ENCOUNTER 2024-04-09 09:41 | Outpatient (REF) | payer OTHER, SELFPAY ==
--- OUTSIDE RECORDS SUMMARY | 2024-04-09 10:05 | XMS_ITS | Encounter Summary ---
Author Organization [employer] Address [address] [facility] [address] [place] [address] Care Team Providers Care Heel Shaver Name Role Phone Name, Tyson MCKINNON Primary Care Provider Encounter Details Date Type Department Care Team (Late st Contact Info) Description 05/14/2022 Orders Only [facility] PEDS [address] [place] [address] Faith Tavares LPN Social History Tobacco Use Types Packs/Day Years Used Date Smoking Tobacco: Never Assessed Comments Unknown Sex and Gender Information Value Date Recorded Sex Assigned at Female 01/04/2022 10:15 AM EDT Legal Sex Female 10:15 AM EDT Gender Identity Female 01/04/2022 10:15 AM EDT Sexual Orientation Straight 01/04/2022 10 :15 AM EDT documented as of this encounter Plan of Treatment Upcoming Encounters Date Type Department Care Team (Late st Contact Info) Description 04/10/2024 3:15 PM EST Office Visit [facility] MEDICINE [address] [place] [address] NameTyson MD [address] [place] [address] documented as of this encounter Visit Diagnoses Not on filedocumented in this encounter Care Teams Heel Shaver Relationship Specialty Start Date End Date Tyson March MD [address] [place] [address] PCP - General Family Medicine 01/18/19 documented as of this encounter
--- OUTSIDE RECORDS SUMMARY | 2024-04-09 10:05 | XMS_ITS | Encounter Summary ---
Author Organization [employer] Address [address] [facility] [address] [place] [address] Care Team Providers Care Epic Stork Specialists Name Role Phone Name, Tyson MCKINNON Primary Care Provider [phone] Encounter Details Date Type Department Care Team (Late Contact Info) Description 07/19/2022 Orders Only [facility] MED [facility] PEDS [address] [place], [place] [phone] Faith Tavares LPN Social History Tobacco Use Types Packs/Day Years Used Date Smoking Tobacco: Never Smokeless Tobacco: Never Alcohol Use Standard Drinks/Week Comments Never 0 (1 standard drink = 0.6 oz pur e alcohol) Depression Answer Date Recorded Patient Health Questionnaire-9 Score 10 07/02/2022 Depression Answer Date Recorded Patient Health Questionnaire-2 Score 2 07/02/2022 Comments Unknown Sex and Gender Information Value Date Recorded Sex Assigned at Female 01/04/2022 10:15 AM EDT Legal Sex Female 10:15 AM EDT Gender Identity Female 01/04/2022 10:15 AM EDT Sexual Orientation Straight 01/04/2022 10 :15 AM EDT COVID-19 Exposure Response Date Recorded In the last 10 days, have yo u been in contact with someone who was confirmed or suspected to have Coronavirus/COVID-19? No / Unsure 07/02/2022 11:09 AM EDT documented as of this encounter Plan of Treatment Upcoming Encounters Date Type Department Care Team (Late Contact Info) Description 04/10/2024 3:15 PM EST Office Visit [facility] [address] [place] [phone] Name, MD Tyson [address] [place], [place] [phone] documented as of this encounter Visit Diagnoses Not on filedocumented in this encounter Additional Health Concerns Assessment Noted Time PHQ-9 Depression Total Score: 10 023 11:45 AM EDT documented as of this encounter Care Teams Epic Stork Specialists Relationship Specialty Start Date End Date Name, MD Tyson [address] [place] [address] PCP - General Family Medicine 01/18/19 documented as of this encounter
--- OUTSIDE RECORDS SUMMARY | 2024-04-09 10:05 | XMS_ITS | Encounter Summary ---
Author Organization [employer] Address [address] [facility] [address] [place] [address] Care Team Providers Care Chinese Instructor Name Role Phone Name, Tyson MCKINNON Primary Care Provider [phone] Encounter Details Date Type Department Care Team (Late Contact Info) Description 10/18/2022 Orders Only [facility] MED & PEDS [address] [place], [place] [phone] Ernestine Aceves LPN Social History Tobacco Use Types Packs/Day [...] Description 04/10/2024 3:15 PM EST Office Visit [facility] MED[facility]INE [address] [place], [place] [phone] Name, MD Tyson [address] [place], [place] [phone] documented as of this encounter Visit Diagnoses Not on filedocumented in this encounter Additional Health Concerns Assessment Noted Time PHQ-9 Depression Total Score: 10 07/02/ 023 11:45 AM EDT documented as of this encounter Care Teams Chinese Instructor Relationship Specialty Start Date End Date Name, MD Tyson [address] [place] [address] PCP - General Family Medicine 01/18/19 documented as of this encounter
--- OUTSIDE RECORDS SUMMARY | 2024-04-09 10:05 | XMS_ITS | Encounter Summary ---
Author Organization [employer] Address [address] [facility] [address] [place] [address] Care Team Providers Care Senior Air Director Name Role Phone Name, Tyson MCKINNON Primary Care Provider [phone] Reason for Visit * Reason Comments Med Refill Encounter Details Date Type Department Care Team ([facility] st Contact Info) Description 11/17/2023 Refill [facility] [address] [place], [place] [phone] Name, MD Tyson [address] [place] [address] Social History Tobacco Use Types Packs/Day Years Used Date Smoking Tobacco: Never Smokeless Tobacco: Never Alcohol Use Standard Drinks/Week Comments Never 0 (1 standard drink = 0.6 oz pur e alcohol) Alcohol Answer Date Recorded Frequency of Alcohol Consumption Not on file 08/31/2023 Average Number of Drinks Not on file 024 Frequency of Binge Drinking Not on file 08/06 Score 0 08/31/2023 Depression Answer Date Recorded Patient Health Questionnaire-9 Score 0 05/17/2023 Patient Health Questionnaire-9 Score 0 05/17/2023 Last PHQ-9: Questionnaire Data Not on file 0 05/17/2023 Housing Stability Answer Date Recorded What is your housing situation today? I have yvon flanagan 08/31/[address] you li ve. Do you have problems with any of the following? None of the above 08/31/2023 Food Insecurity Answer Date Recorded Within the past 12 months, y ou worried that your food would run out before you got money to buy more: Never True 08/31/2023 Within the past 12 months,th e food you bought just didn't last and you didn't have enough money to get more: Never True Transportation Answer Date Recorded In the past 12 months, has l ack of transportation kept you from medical appts, meetings, work or from getting things needed for daily living? No 08/31/2023 Utilities Answer Date Recorded In the past 12 months, has t he electric, gas, oil or water company threatened to shut off services in your home? No 08/31/2023 Depression Answer Date Recorded Patient Health Questionnaire-2 Score 0 05/17/2023 Internet Access Answer Date Recorded Internet Access Q1 No 11/07/2023 Internet Access Q2 I do not want or need it 04/2023 Comments Unknown Sex and Gender Information Value [...] Description 04/10/2024 3:15 PM EST Office Visit [facility] [address] [place] [phone] Name, MD Tyson [address] [place] [address] documented as of this encounter Visit Diagnoses Not on filedocumented in this encounter Additional Health Concerns Assessment Noted Time PHQ-9 Depression Total Score: 0 05/17/19 24 2:27 PM EDT documented as of this encounter Care Teams Senior Air Director Relationship Specialty Start Date End Date Name, MD Tyson [address] [place] [address] PCP - General Family Medicine 01/18/19 documented as of this encounter
--- OUTSIDE RECORDS SUMMARY | 2024-04-09 10:05 | XMS_ITS | Encounter Summary ---
Author Organization [employer] [facility] Address [address] [facility] 7t [place] [address] Care Team Providers Care Assistant Director Of Financial Aid Name Role Phone Name, Tyson MCKINNON Primary Care Provider [phone] Reason for Visit * Reason Comments Med Refill Encounter Details Date Type Department Care Team (Late st Contact Info) Description 04/01/2022 Refill [facility] [address] [place] [address] NameTyson MD [address] [place] [address] Migraine, unspecified, not intractable, without status migrainosus Social History Tobacco Use Types Packs/Day Years [...] Description 04/10/2024 3:15 PM EST Office Visit [facility] [address] [place] [address] Tyson March MD [address] [place] [address] [phone] documented as of this encounter Visit Diagnoses Diagnosis Migraine, unspecified, not intractable, without status migrainosus documented in this encounter Care Teams Assistant Director Of Financial Aid Relationship Specialty Start Date End Date NameTyson MD [address] [place] [address] PCP - General Family Medicine 01/18/19 documented as of this encounter
--- OUTSIDE RECORDS SUMMARY | 2024-04-09 10:05 | XMS_ITS | Data Portability ---
Author Organization ID - [facility], Allergy Address [address] [place] [phone] Care Team Providers Care Civil Design Specialist Name Role Phone NAME, KATYA Primary Care Provider Assessment No assessment recorded. 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 325753555 Active 2021 Nasal polyp, unspecifi ed; Note: Date Diagnosed : 06/12/2021 1:57 PM (J33.9) Not Available [facility] 4 03:18:06 Bilateral chronic serous otitis 062739370 Active 2021 Chronic serous otitis media, bilateral ; Note: Date Diagnosed : 06/12/2021 1:50 PM (H65.23) Not Available [facility] 4 03:18:07 Sensorine ural hearing loss in right ear 03048337447 100 Active 2021 Sensorine ural hearing loss, unilatera l, right ear, with restricte d hearing on the contralat eral side; Note: Date Diagnosed : 06/12/2021 2:25 PM (H90.A21) Not Available [facility] 03:18[facility]06 Tinnitus of left ear 94982898128 06 Active 2021 Tinnitus, left ear; Note: Date Diagnosed : 06/12/2021 1:57 PM (H93.12) Not Available [facility] 4 03:18:07 Disorder of nasal sinus 1350966 Active 2023 Other specified disorders of nose and nasal sinuses; Note: Date Diagnosed : 04/01/2023 4:38 PM (J34.89) Not Available [facility] 4 03:18:06 Disorder of the nose 40390900 Active 2023 Other specified disorders of nose and nasal sinuses; Note: Date Diagnosed : 04/01/2023 4:38 PM (J34.89) Not Available [facility] 4 03:18:06 Polyp of nasal cavity 698942938 Active 2023 MARTINA SIMMONS MD [address] [place] [address], [facility] [place], [phone] , [facility] 4 13:09:18 Nasal congestio n 06172305 Active 2023 MARTINA SIMMONS MD [address] [place] [address], [phone] , [facility] 4 13:15:27 Problem Notes None recorded. Procedures Surgical History Date Name Laterality Status Provider Name and Address Organization Details Recorded Time 12/26/2023 NasalEndos copy_DP completed MARTINA SIMMONS MD [address] [place] [address], [phone], [facility] 12/26/2023 13:15:08 Imaging Results None recorded. Procedure Notes None recorded. Medical Equipment None Reported. Allergies Allergen ID Allergen Name Allergen Category Reaction Reaction Severity Criticality Documentation Date Start Date Code Code System Note Provider Name and Address Organization Details Recorded Time 01006 aspirin medicatio n other Not available Not available 07/19/2023 1191 RxNorm React ion: Unkno wn; Not Available [facility] 4 00:48:40 Medications Name Sig Start Date [...] tablet,del ayed release active Medicatio n ID: [id number] Br and Name: divalproe x Send Method: [...] 50 mg tablet active Medicatio n ID: [id number] Br and Name: trazodone Send Method: E-Prescri bed Subs Allowed: subs OK Specia l Instructi on: TAKE 1/2 TABLET BY MOUTH AT BEDTIME M edication GenericNa me: trazodone Not Available Not Available Not Available glipizide ER 10 mg tablet, extended release 24 hr active Medicatio n ID: [id number] Br and Name: glipizide Send Method: E-Prescri [...] 1,000 mg tablet active Medicatio n ID: [id number] Br and Name: metformin Send Method: E-Prescri [...] 10 mg tablet active Medicatio n ID: [id number] Br and Name: lisinopri l Send Method: [...] 5 mg tablet active Medicatio n ID: [id number] Br and Name: melatonin Send Method: E-Prescri bed Subs Allowed: subs OK Specia l Instructi on: TAKE 2 TABLETS BY MOUTH EVERY DAY AT BEDTIME M edication GenericNa me: melatonin Not Available Not Available Not Available OneTouch Ultra2 Meter active Medicatio n ID: [id number] Br and Name: OneTouch Ultra2 Meter Sen [...] Updated DateTime 12/26/2023 157.48 cm 30.7 kg/m2 28371.52 g Doreen Mary [place] - [facility] 12/26/2023 13:06:36 Social History None recorded. Functional Status None recorded. Mental Status None recorded. Family History Nothing Reported. Medical History No medical history recorded. Gynecological HistoryNo gynecological history recorded. Obstetrics History GPAL:G 0 P 0 0 0 0 Past Encounters Encounter ID Performer Location Encounter Start Date Encounter Closed Date Diagnosis/Indication Diagnosis SNOMED-CT Code Diagnosis ICD10 Code Diagnosis Note [id number] MARTINA SIMMONS MD [facility] [address] [phone] 12/26/2023 12:51:33 12/26/2023 13:20:22 Polyp of nasal cavity [id number] J33.0 Nasal endo was notable for a [...] nasal congestion or facial pain. Nasal congestion 8156699 0 R09.81 No signfician t congesiton . [...] Malik Member ID Guarantor Name 12/26/2023 1 [facility] (MEDICARE REPLACEMENT/A DVANTAGE - HMO) Nadine Morris [id number] Nadine Clement Notes Date Note Type Note Provider Name and Address Organization Details Recorded Time 12/26/2023 text/html Nasal polypShe h ad an MRI brain with contrast at [facility] which showed bilateral mastoid effusions and concern for a left nasal polyp in 2020. We obtained a CT which showed a left nasal polyp 15mm without destructive features. Denies epistaxis. Denies facial pain. Still on plavix. Biopsy wasdeferred due to plavix. MARTINA SIMMONS MD [address] [place] [address], [place], [phone], [facility] - [facility] 12/26/2023 13:15:55 OBGyn Episode No OBEpisode recorded.
--- OUTSIDE RECORDS SUMMARY | 2024-04-09 10:05 | XMS_ITS | Encounter Summary ---
Author Organization [employer] Address [address] [facility] 7t [place] [address] Care Team Providers Care Link Fabric Machine Operator Name Role Phone Name, Tyson MCKINNON Primary Care Provider [phone] Reason for Visit * Reason Comments Med Refill Encounter Details Date Type Department Care Team (Late st Contact Info) Description 03/27/2024 Refill [facility] [address] [place], [place] [phone] Pat Crocker, ANP [address] [place] [address] Type 2 diabetes mellitus with other specified complication, without long-term current use of insulin ([facility]) Social History Tobacco Use Types Packs/Day Years [...] 3:15 PM EST Office Visit [facility] [address] [place] [address] NameTyson MD [address] [place] [phone] documented as of this encounter Visit Diagnoses Diagnosis Type 2 diabetes mellitus with other specified complication, without long-term current use of insulin ([facility]) documented in this encounter Additional Health Concerns Assessment Noted Time PHQ-9 Depression Total Score: 0 05/17/19 24 2:27 PM EDT documented as of this encounter Care Teams Link Fabric Machine Operator Relationship Specialty Start Date End Date NameTyson MD [address] [place] [address] PCP - General Family Medicine 01/18/19 documented as of this encounter
--- OUTSIDE RECORDS SUMMARY | 2024-04-09 10:05 | XMS_ITS | Encounter Summary ---
Author Organization [employer] [facility] Address [address] [facility] 7t [place] [address] Care Team Providers Care Emissions Technician Name Role Phone Name, Tyson MCKINNON Primary Care Provider [phone] Encounter Details Date Type Department Care Team (Late st Contact Info) Description 07/01/2022 Orders Only [facility] [address] [place] [address] [phone] Ernestine Aceves LPN Social History Tobacco Use Types Packs/Day Years Used Date Smoking Tobacco: Never Assessed Depression Answer Date Recorded Patient Health Questionnaire-9 [...] Description 04/10/2024 3:15 PM EST Office Visit [facility] [address] [place] [address] [phone] Name, MD Tyson [address] [place] [address] [phone] documented as of this encounter Visit Diagnoses Not on filedocumented in this encounter Care Teams Emissions Technician Relationship Specialty Start Date End Date Name, MD Tyson [address] [place] [address] PCP - General Family Medicine 01/18/19 documented as of this encounter
--- OUTSIDE RECORDS SUMMARY | 2024-04-09 10:05 | XMS_ITS | Encounter Summary ---
Author Organization [employer] Address [address] 7[address] [place] [address] Care Team Providers Care Computer Animator Name Role Phone Name, Tyson MCKINNON Primary Care Provider [phone] Reason for Visit * Reason Onset Date Comments Med Refill 03/20/2024 Encounter Details Date Type Department Care Team (Late st Contact Info) Description 03/20/2024 Refill [facility] [address] [place], [place] [phone] Name, MD Tyson [address] [place] [address] Chronic pain of both knees Social History Tobacco Use Types Packs/Day Years [...] AM EDT documented as of this encounter Miscellaneous Notes * Addendum Note - Ketan Ellis RN - 03/20/2024 3:45 PM ESTAddended by: KETAN ELLIS on: 03/20/2024 03:45 PM Modules accepted: Orders * Telephone Encounter - Ernestine Aceves LPN - 03/20/2024 3:18 PM EST Received request on traMADol (Ultram) 50 MG tablet documented in this encounter Plan of Treatment Upcoming Encounters Date Type Department Care Team (Late st Contact Info) Description 04/10/2024 3:15 PM EST Office Visit [facility] [address] [place], [place] [phone] Name, MD Tyson [address] [place] [address] documented as of this encounter Visit Diagnoses Diagnosis Chronic pain of both knees documented in this encounter Additional Health Concerns Assessment Noted Time PHQ-9 Depression Total Score: 0 05/17/19 24 2:27 PM EDT documented as of this encounter Care Teams Computer Animator Relationship Specialty Start Date End Date Name, MD Tyson [address] [place] [address] PCP - General Family Medicine 01/18/19 documented as of this encounter
--- OUTSIDE RECORDS SUMMARY | 2024-04-09 10:05 | XMS_ITS | Encounter Summary ---
Author Organization [employer] Address [address] [facility] 7t [place] [address] Care Team Providers Care Career Resource Technician Name Role Phone Name, Tyson MCKINNON Primary Care Provider [phone] Reason for Visit * Reason Comments Med Refill Encounter Details Date Type Department Care Team (Late st Contact Info) Description 04/05/2024 Refill [facility] [address] [place], [place] [phone] Name, MD Tyson [address] [place] [address] Type 2 diabetes mellitus with other specified complication, unspecified whether skilled nursing insulin use ([facility]) Social History Tobacco Use Types Packs/Day Years [...] Description 04/10/2024 3:15 PM EST Office Visit [facility] [address] [place] [phone] NameTyson MD [address] [place] [address] documented as of this encounter Visit Diagnoses Diagnosis Type 2 diabetes mellitus with other specified complication, unspecified whether exterminator insulin use ([facility]) documented in this encounter Additional Health Concerns Assessment Noted Time PHQ-9 Depression Total Score: 0 05/17/19 24 2:27 PM EDT documented as of this encounter Care Teams Career Resource Technician Relationship Specialty Start Date End Date NameTyson MD [address] [place] [address] [phone] PCP - General Family Medicine 01/18/19 documented as of this encounter
--- OUTSIDE RECORDS SUMMARY | 2024-04-09 10:05 | XMS_ITS | Encounter Summary ---
Author Organization [employer] Address [address] [facility] 7[address] [place] [address] Care Team Providers Care Patients Transporter Name Role Phone Name, Tyson MCKINNON Primary Care Provider [phone] Encounter Details Date Type Department Care Team (Late st Contact Info) Description 04/15/2022 Orders Only [facility] [address] [place] [address] Faith Tavares LPN Social History Tobacco Use [...] Description 04/10/2024 3:15 PM EST Office Visit [facility] [address] [place] [address] NameTyson MD [address] [place] [address] documented as of this encounter Visit Diagnoses Not on filedocumented in this encounter Care Teams Patients Transporter Relationship Specialty Start Date End Date Tyson March MD [address] [place] [address] PCP - General Family Medicine 01/18/19 documented as of this encounter
--- OUTSIDE RECORDS SUMMARY | 2024-04-09 10:05 | XMS_ITS | Clinical Summary ---
Author Organization [employer] Address [address] [facility] 7[address] [place] [address] Care Team Providers Care Molding Plasterer Name Role Phone Name, Tyson MCKINNON Primary Care Provider [phone] Allergies Active Allergy Reactions Criticality Noted Date Comments Aspirin 10/07/2011 Medications verapamil (Calan) 40 MG tabletIndicatio ns:Hypertension , unspecified type TAKE 1 TABLET BY MOUTH TWICE DAILY IN THE MORNING AND IN THE EVENING 60 tablet 2 04/02/19 23 Active acetaminophen (Tylenol 8 Hour) 650 MG ER tablet TAKE 1 TABLET BY MOUTH EVERY 8 HOURS NEEDED MILD PAIN DO NOT BREAK, CRUSH, DISSOLVE OR CHEW 30 tablet 11/03/19 23 Active memantine (Namenda) 5 MG tablet Take 5 mg by mouth 2 times daily. 11/04/19 23 Active donepezil (Aricept) 10 MG tabletIndicatio ns:Hypertension , unspecified type TAKE 1 TABLET BY MOUTH EVERY EVENING 30 tablet 2 01/18/20 23 Active raloxifene (Evista) 60 MG tablet Take 60 mg by mouth in the morning. 12/25/19 23 Active atorvastatin (Lipitor) 40 MG tabletIndicatio ns:High cholesterol TAKE 1 TABLET BY MOUTH EVERY EVENING 90 tablet 3 05/10/19 24 Active esomeprazole (NexIUM) [address] capsuleIndicati ons:High cholesterol TAKE 1 CAPSULE BY MOUTH EVERY MORNING 90 capsule 3 05/13/19 24 Active Ascorbic Acid (vitamin C) 500 MG tabletIndicatio ns:High cholesterol TAKE 1 TABLET BY MOUTH EVERY EVENING 90 tablet 3 05/13/19 24 Active metFORMIN (Glucophage) 500 MG tablet Take 1 tablet (500 mg) by mouth with breakfast and with evening meal. 60 tablet 11 05/17/19 24 025 Active nitroglycerin (Nitrostat) 0.[address] 1 tablet (0.4 mg) under the tongue every 5 (five) minutes if needed for chest pain. 90 tablet 12 08/31/19 24 025 Active mirtazapine (Remeron) 30 MG tablet Take 1 tablet (30 mg) by mouth at bedtime. 30 tablet 11/18/19 24 Active OneTouch Ultra Test test strip USE DIRECTED TO TEST BLOOD SUGAR TWICE DAILY DIRECTED 50 strip 11 11/29/19 24 Active divalproex (Depakote ER) 250 MG 24 hr tablet Take 1 tablet (250 mg) by mouth Once per day. Do not crush, chew, or split. 12/02/19 24 025 Active sertraline (Zoloft) 50 MG tablet Take 1 tablet (50 mg) by mouth Once per day. 12/02/19 24 Active clopidogrel (Plavix) 75 MG tablet TAKE 1 TABLET BY MOUTH AT BEDTIME 90 tablet 01/13/20 24 Active Calcium Carb-Cholecalci ferol 600-10 MG-MCG tablet TAKE 1 TABLET BY MOUTH THREE TIMES DAILY IN THE MORNING, AT NOON, AND IN THE EVENING 270 tablet 01/13/20 24 Active metoprolol tartrate (Lopressor) 25 MG tabletIndicatio ns:Hypertension , unspecified type TAKE 1 TABLET BY MOUTH TWICE DAILY AT NOON AND IN THE EVENING 180 tablet 3 02/06/20 24 Active mirtazapine (Remeron) 30 MG tablet TAKE 1 TABLET BY MOUTH AT BEDTIME 30 tablet 1 03/09/19 25 Active traMADol (Ultram) 50 MG tabletIndicatio ns:Chronic pain of both knees Take 0.5 tablets (25 mg) by mouth every 12 (twelve) hours if needed for severe pain for up to 28 days. 28 tablet 03/20/19 25 025 Active Lancets (Quyi NetworkTouch Delica Plus [id number]) miscIndications :Type 2 diabetes mellitus with other specified complication, without long-term current use of insulin ([facility]) TEST BLOOD SUGAR TWICE DAILY 100 each 3 03/27/19 25 Active losartan (Cozaar) 25 MG tabletIndicatio ns:Hypertension , unspecified type TAKE 1 TABLET BY MOUTH EVERY EVENING 90 tablet 3 04/02/19 25 Active Ferrous Sulfate (iron) 325 (65 Fe) MG tabletIndicatio ns:Type 2 diabetes mellitus with other specified complication, unspecified whether chcf insulin use ([facility]) TAKE 1 TABLET BY MOUTH EVERY EVENING 90 tablet 3 04/05/19 25 Active losartan (Cozaar) 25 MG tabletIndicatio ns:Hypertension , unspecified type TAKE 1 TABLET BY MOUTH EVERY EVENING 90 tablet 3 04/11/19 24 025 Discontinued FeroSul 325 (65 Fe) MG tabletIndicatio ns:Type 2 diabetes mellitus with other specified complication, unspecified whether terminal operator insulin use ([facility]) TAKE 1 TABLET BY MOUTH EVERY EVENING 90 tablet 3 04/13/19 24 025 Discontinued Lancets (OneTouch Delica Plus [id number]) miscIndications :Type 2 diabetes mellitus with other specified complication, without long-term current use of insulin ([facility]) TEST BLOOD SUGAR TWICE DAILY 100 each 3 08/09/19 24 025 Discontinued traMADol (Ultram) 50 MG tabletIndicatio ns:Chronic pain of both knees TAKE 1/2 TABLET BY MOUTH TWICE DAILY IN THE MORNING AND AT BEDTIME NEEDED FOR SEVERE PAIN 30 tablet 12/21/19 24 025 Discontinued(Re order (will not trigger notification to Pharmacy)) Active Problems Problem Noted Date Diagnosed Date Primary osteoarthritis of both knees 12/05/2023 B12 deficiency 2022 Anemia 07/02/2022 Daily headache 07/02/2022 Mild cognitive disorder 07/02/2022 Stage 3a chronic kidney disease 07/02/2022 Knee pain 07/06/2018 Type 2 diabetes mellitus 04/11/2018 Psychophysiologic insomnia 08/03/2017 Depressive disorder 04/12/2014 Intraductal carcinoma in situ of breast 09/04/19 14 Onychomycosis 01/21/2012 Non-compliance 12/22/2011 Coronary artery disease involving [place] coronar y artery 09/20/2011 Hiatal hernia 09/20/2011 Mixed hyperlipidemia 08/12/2011 Jo's esophagus 07/21/2011 Chest pain 07/20/2011 Dizziness and giddiness 07/20/2011 Essential hypertension 07/20/2011 Migraine 07/20/2011 Osteopenia 08/09/2005 Encounters Date Type Department Care Team Description 04/05/2024 Refill [facility] [address] [facility] [place] [address] Tyson March MD Type 2 diabetes mellitus with other specified complication, unspecified whether terminal operator insulin use ([facility]) 04/01/2024 Refill [facility] [address] [facility] [place] [address] Tyson March MD Hypertension, unspecified type 03/27/2024 Refill [facility] [address] [place] [address] Pat Crocker ANP Type 2 diabetes mellitus with other specified complication, without long-term current use of insulin ([facility]) 03/20/2024 Refill [facility] [address] [place] [address] Tyson March MD Chronic pain of both knees 03/09/2024 Refill [facility] [address] [place] [address] Tyson March MD 02/13/2024 Refill [facility] [address] [place] [address] Tyson March MD 02/02/2024 Refill [facility] [address] [place] [address] Tyson March MD Hypertension, unspecified type 01/20/2024 Orders Only [facility] [address] [place] [address] Corinna Pelayo MD 01/13/2024 Refill [facility] [address] [place] [address] Tyson March MD from Last 3 Months Immunizations Name Administration Dates Next Due Hep A, Adult 04/12/2012,08/12/2011 Hep B, adult 04/12/2012,09/10/2011,08/12/2011 Influenza High-dose Quadriva lent Preservative Free 11/29/2022,11/28/2019 Influenza injectable quadriv alent IIV4 with preservative 02/10/2017 Influenza injectable quadriv alent preservative free 01/26/2022,02/23/2018 Influenza, High Dose Seasona l, Preservative Free 12/02/2023,02/15/2019 Influenza, IIV3, injectable 01/07/2014 Influenza, Injectable, MDCK, preservative free 01/24/2015 Influenza, Split (incl. margie fied surface antigen) 01/21/2012 Influenza, seasonal, injecta ble, preservative free 01/21/2016 Pfizer Covid-19 Vaccine 12+ 12/02/2023 Pneumococcal Conjugate PCV 13 10/29/2020 Pneumococcal Polysaccharide PPSV23 01/24/2015, TD (adult), 2 Lf tetanus tox oid, preservative free, adsorbed 12/09/1999 Tdap 02/14/2023,08/12/2011 Zoster, live 02/03/2015 Social History Tobacco Use Types Packs/Day Years Used Date Smoking Tobacco: Never Smokeless Tobacco: Never Tobacco Cessation:Counseling Given: Not Answered Alcohol Use Standard Drinks/Week Comments Never 0 [...] the past 12 months, has t he [employer] gas, oil or water company threatened to [...] Orientation Straight 01/04/2022 10 :15 AM EDT Last Filed Vital Signs Vital Sign Reading Time Taken Comments Blood Pressure 154/65 12/02/2023 1:21 PM EDT Pulse 71 12/02/2023 1:21 PM EDT Temperature 36.7 ??C (98.1 ??F) 12/02/2023 1:21 PM ED T Respiratory Rate 18 12/02/2023 1:21 PM EDT Oxygen Saturation 94% 12/02/2023 1:21 PM EDT Inhaled Oxygen Concentration - - Weight 74 kg (163 lb 3.2 oz) 12/02/2023 1:21 PM EDT Height 157.5 cm (5' 2 ) 12/02/2023 1:21 PM EDT Body Mass Index 29.85 12/02/2023 1:21 PM EDT Plan of Treatment Upcoming Encounters Date Type Department Care Team (Late st Contact Info) Description 04/10/2024 3:15 PM EST Office Visit [facility] [address] [place] [address] Name, MD Tyson [address] [place] [phone] Health Maintenance Due Date Last Done Comments Eye Exam 1948 RSV Patients and Patients Aged 60 years or older (1 - 1-dose 75+ series) 2013 Dental Prophylaxis 10/29/2013 04/30/2013, 08/14/2012 Zoster Vaccines (2 of 3) 03/31/2015 02/03/2015 Dental Oral Exam 04/11/2021 10/08/2020, 02/14/2013 Dental X-Ray: Bitewings 10/09/2021 10/08/2020, 02/14 Dental X-Ray: Full Mouth 10/10/2023 10/08/2020 Diabetes: Urine Protein Screening 02/08/2024 02/07/2023, 02/01/2022, 08/07/2021, Additional history exists Diabetes: Hemoglobin A1C 03/02/2024 024, 08/31/2023, 05/17/2023, Additional history exists Depression Screening 05/16/2024 05/17/2023, 05/17/19 24 Alcohol/Substance Use Screening 08/30/2024 08/31/2023 SDOH Screening 08/30/2024 08/31/2023 Diabetes: Foot Exam 12/01/2024 12/02/2023, 12/02/2023, 12/02/2023, Additional history exists Tobacco Screening 12/01/2024 12/02/2023 Lipid Panel 12/07/2024 12/08/2023, 11/05, 02/01/2022, Additional history exists DTaP/Tdap/Td Vaccines (3 - Td or Tdap) 02/14/2033 02/14/2023, 08/12/2011, 12/09/1999 Hepatitis A Vaccines Aged Out 04/12/2012, 08/12/19 12 No longer eligible based on patient's age to complete this topic Hepatitis B Vaccines Completed 04/12/2012, 09/10/2011, 08/12/2011 Pneumococcal Vaccine: 50+ Years Completed 10/29/2020, 01/24/2015, 03/10/2005 COVID-19 Vaccine Completed 12/02/2023, 01/2022, 09/09/2020, Additional history exists Influenza Vaccine Completed 12/02/2023, , 01/26/2022, Additional history exists HIB Vaccines Aged Out No longer eligi ble based on patient's age to complete this topic HPV Vaccines Aged Out No longer eligi ble based on patient's age to complete this topic IPV Vaccines Aged Out No longer eligi ble based on patient's age to complete this topic Meningococcal Vaccine Aged Out No julian ignacio eligible based on patient's age to complete this topic RSV under 20 months Aged Out No longe r eligible based on patient's age to complete this topic Rotavirus Vaccines Aged Out No longer eligible based on patient's age to complete this topic Procedures Procedure Name Priority Date/Time Associated Diagnosis Comments US RETROPERITONEAL COMPLETE Routine 02/17/2024 10:17 AM EST LIPID PANEL, STANDARD Routine 12/08/2023 10:10 AM EDT Type 2 diabetes mellitus with other specified complication, without long-term current use of insulin (CMS/HCC) Chronic knee pain, unspecified laterality Venous insufficiency of both lower extremities POCT GLYCATED HEMOGLOBIN, TOTAL Routine 12/02/2023 1:24 PM EDT Type 2 diabetes mellitus with other specified complication, without long-term current use of insulin (CMS/HCC) ALBUMIN, RANDOM URINE W/CREATININE Routine 02/07/2023 10:15 AM EST DIAGNOSTIC - DIAGNOSTIC IMAGING - INTRAORAL - COMPREHENSIVE SERIES OF RADIOGRAPHIC IMAGES Routine 10/08/2020 12:00 AM EDT COMPREHENSIVE ORAL EVALUATION - NEW OR ESTABLISHED PATIENT Routine 10/08/2020 12:00 AM EDT PROPHYLAXIS - ADULT Routine 04/30/2013 1 2:00 AM EST from Last 3 Months or Most Recently Relevant to Health Maintenance Results * US Retroperitoneal Complete (02/17/2024 10:17 AM EST) Anatomical Region Laterality Modality Ultrasound 02/17/2024 10:1 7 AM EST Narrative 03/26/2024 1:38 PM EST ? [facility] ?[address] ?[place] [address] ? Ultrasound Report ? Signed ? Patient: Ubrano,Nadine ?MR#: [id number] ?? 67 ? : 1940 ?Acct:[id number] ? Age/Sex: 83 / F ?ADM Date: 12/13/24 ? Loc: HO.US ? Attending Dr: Nivia CARRERO ? Ordering Physician: Nivia Guy ?? Date of Service: 02/17/24 ?? Procedure(s): US retroperitoneal comp ?? Accession Number(s): [id number] ? cc: Nivia Guy; Name,Tyson MCKINNON ? EXAMINATION: ?? US RETROPERITONEAL COMPLETE (RENAL) ? CLINICAL INFORMATION: ?? Dysuria. ? COMPARISON: ?? CT abdomen and pelvis 09/21/2021. Ultrasound abdomen 02/19/2011. ? TECHNIQUE: ?? Real-time imaging of the kidneys and bladder. Limited visualization due ?? to bowel gas. . ? FINDINGS: ? RIGHT KIDNEY: 10.0 x 3.8 x 4.7 cm (SAG x AP x TRV). No renal calculi. ?? Renal cortical thickness is normal. Dilated renal pyramids. ? LEFT KIDNEY: 11.6 x 5.7 x 5.2 cm (SAG x AP x TRV). No renal calculi. ?? Renal cortical thickness is normal. Dilated renal pyramids. ? BLADDER: Well distended. Bilateral ureteral jets are demonstrated. ?? Prevoid bladder volume is 240.8 mL. Postvoid bladder volume is 48.7 mL. ? US/US retroperitoneal comp ?? IMPRESSION: ?? 1. Bilateral dilated renal pyramids. No obstructing renal calculi. ? 2. Postvoid bladder volume of 48.7 mL. ? Electronically signed by: ??Angelika Bello MD ??03/26/2024 01:35 PM EST ?? RP ? Dictated By: ?Angelika Bello MD ? Signed By: ?<Electronically signed by Angelika Bello MD in OV> ? 03/26/24 1335 ? DD/ 1017 ? TD/TT: 02/17/24 1030 ? Wheel Buffer: ? Procedure Note Chuckie Adams - 03/26/[address] [address] Ultrasound Report Signed Patient: Nadine ClementMR#: [id number] [birth year] : 9Acct:[id number] Age/Sex: 83 / FADM Date: 02/17/24 Loc: HO.US Attending Dr: Nivia CARRERO Ordering Physician: Nivia Guy Date of Service: 02/17/24 Procedure(s): US retroperitoneal comp Accession Number(s): [id number] cc: Nivia Guy; Name,Tyson MCKINNON EXAMINATION: US RETROPERITONEAL COMPLETE (RENAL) CLINICAL INFORMATION: Dysuria. COMPARISON: CT abdomen and pelvis 09/21/2021. Ultrasound abdomen 02/19/2011. TECHNIQUE: Real-time imaging of the kidneys and bladder. Limited visualization due to bowel gas. . FINDINGS: RIGHT KIDNEY: 10.0 x 3.8 x 4.7 cm (SAG x AP x TRV). No renal calculi. Renal cortical thickness is normal. Dilated renal pyramids. LEFT KIDNEY: 11.6 x 5.7 x 5.2 cm (SAG x AP x TRV). No renal calculi. Renal cortical thickness is normal. Dilated renal pyramids. BLADDER: Well distended. Bilateral ureteral jets are demonstrated. Prevoid bladder volume is 240.8 mL. Postvoid bladder volume is 48.7 mL. US/US retroperitoneal comp IMPRESSION: 1. Bilateral dilated renal pyramids. No obstructing renal calculi. 2. Postvoid bladder volume of 48.7 mL. Electronically signed by: Angelika Bello MD 03/26/2024 01:35 PM [facility] Dictated By: Angelika Bello MD Signed By: <Electronically signed by Angelika Bello MD in OV> 03/26/24 1335 DD/ 1017 TD/TT: 02/17/24 1030 Wheel Buffer: us [facility] External Provider IMG US PROCEDURES Final Result * Lipid Panel, Standard (12/08/2023 10:10 AM EDT) Triglycerides 82 <150 mg/dL [facility] Comment:Desirable Triglyceri de: less than 150 mg/dLBorderline High Triglyceride 150-199 mg/dLHigh Triglyceride: 200-499 mg/dLVery High Triglyceride: greater than or equal to 5OO mg/dL Cholesterol 123 <200 mg/dL [facility] Comment:Desirable Cholestero l: less than 200 mg/dLBorderline High Cholesterol: 200-239 mg/dLHigh Cholesterol: greater than 239 mg/dL LDL Cholesterol Calculated 47 <100 mg/dL [facility] Comment:Desirable LDL: less than 100 mg/dLNear Optimal/Above Optimal LDL: 110- 129 mg/dLBorderline High LDL: 130-159 mg/dLHigh LDL: 160-189 mg/dLVery High LDL: greater than or equal to 190 mg/dL HDL Cholesterol 60 >40 mg/dL [facility] Comment:Desirable HDL: great er than 40 mg/dL Note: This HDL assay may give artificially low results in patients with liver disease. Blood Venous blood specimen / Unknown 12/08/2023 10:10 AM EDT 12/08/2023 11:16 AM EDT us Tyson March MD LAB BLOOD ORDERABLES Final Resul t [facility] [address] [place] [phone] * (ABNORMAL) POCT HGB A1C (12/02/2023 1:24 PM EDT) Hemoglobin A1C 7.1(A) 4.0 - 6.0 % QC Media Lot # [id number] Lot# Expiration Date Blood 12/02/2023 1:24 PM EDT Result Xander March MD POINT OF CARE TEST ENTER/EDIT OR DERABLES Final Result * Albumin, Random Urine W/Creatinine (02/07/2023 10:15 AM EST) Creatinine, Urine 75.20 mg/dL [facility] Microalbumin Urine 8.0 mg/L [facility] Microalbum Creatinine Ratio Ur 10.6 <30 ug/mg cr [facility] Comment:Albumin/Creatinine R atio Reference Ranges: Normal: < 30 ug/mg creatinine Microalbuminuria: 30 - 300 ug/mg creatinineClinical Albuminuria: > 300 ug/mg creatinine 02/07/2023 10:1 5 AM EST 02/07/2023 11:06 AM EST us Tyson March MD LAB URINE ORDERABLES Final Resul t [facility] [address] [place] [address] [phone] from Last 3 Months or Most Recently Relevant to Health Maintenance Insurance [facility] [employer] [facility] [facility] DUAL COMPLETE DENTAL-[facility] MEDICAID STAND ADULT [facility] Care Teams Molding Plasterer Relationship Specialty Start Date End Date Name, MD Tyson [address] [place] [address] PCP - General Family Medicine 01/18/19
--- OUTSIDE RECORDS SUMMARY | 2024-04-09 10:05 | XMS_ITS | Encounter Summary ---
Author Organization [employer] Address [address] [facility] [address] [place] [address] Care Team Providers Care Intelligence Engineer Name Role Phone Name, Tyson MCKINNON Primary Care Provider Reason for Visit * Reason Comments Med Refill Encounter Details Date Type Department Care Team (Late st Contact Info) Description 04/01/2024 Refill [facility] [address] [place], [place] [phone] Name, MD Tyson [address] [place] [address] Hypertension, unspecified type Social History Tobacco Use Types Packs/Day Years [...] Description 04/10/2024 3:15 PM EST Office Visit [facility] [address] [place] [phone] NameTyson MD [address] [place] [address] documented as of this encounter Visit Diagnoses Diagnosis Hypertension, unspecified type documented in this encounter Additional Health Concerns Assessment Noted Time PHQ-9 Depression Total Score: 0 05/17/19 24 2:27 PM EDT documented as of this encounter Care Teams Intelligence Engineer Relationship Specialty Start Date End Date NameTyson MD [address] [place] [phone] PCP - General Family Medicine 01/18/19 documented as of this encounter
[2024-04-09 11:46] LABS: B Type Natriuretic Peptide 51 pg/mL (<100)
[2024-04-09 12:11] LABS: Anion Gap 14 (12-20); Blood Urea Nitrogen 34 mg/dL (9-16); Carbon Dioxide 27 mmol/L (22-29); Chloride 106 mmol/L (96-108); Estimated Glomerular Filt Rate 49; Glucose Random 131 mg/dL (60-115); Potassium 4.5 mmol/L (3.3-5.1); Sodium 142 mmol/L (135-145)
== END 2024-04-09 09:42 | disposition home or self-care (01) ==
LOC: HO.HHCL 09:41
PROVIDERS: Visit Provider Internal Medicine Cardiovascular Disease
DX: I25.10 Atherosclerotic heart disease of native coronary artery without angina pectoris (principal)
CPT/HCPCS: 36415; 80048; 83880

== ENCOUNTER 2024-04-21 17:31 | Emergency (ER) | payer OTHER, SELFPAY ==
--- NOTE | ~2024-04-21 | CT_ITS ---
CLINICAL HISTORY: trauma CT head without contrast Comparison: CT/REG/FL/SR - CT ANGIO HEAD NECK - 09/21/21 14:33 EDT MR/REG - MR HEAD/BRAIN WO/W CON - 12/08/20 13:07 EDT Findings: No intra-axial mass, midline shift, hydrocephalus, or acute hemorrhage. Mild cerebral atrophy. Low attenuation in the periventricular white matter consistent with chronic small-vessel ischemic gliosis. The visualized paranasal sinuses and mastoid air cells are normal. The orbits are within normal limits. There is no acute fracture. IMPRESSION: 1. No acute intracranial findings. This document has been electronically signed by: Nash Munoz MD on 04/21/2024 19:30:11
--- NOTE | ~2024-04-21 | CT_ITS ---
CLINICAL HISTORY: trauma CT cervical spine without contrast Comparison: CT/PA - CT ANGIO HEAD NECK - 09/21/21 14:57 EDT Findings: Vertebral alignment is within normal limits. Multilevel degenerative change of the cervical spine. No acute fractures or dislocations. Visualized intracranial contents are unremarkable. There is a dense calcification measuring 7 mm within the left lobe of the thyroid gland. There is a nodule in the posterior right lung apex measuring 4 mm along the pleural surface, unchanged from prior. There is a cluster of nodules in the anterior right upper lobe, this area was not imaged on prior study. Largest nodule in the cluster measures 5 mm. There is a partially visualized 5 mm nodular density in the posterior aspect of the left lung, in the superior segment of the left lower lobe. IMPRESSION: 1. No cervical spine fracture. 2. Cluster of nodules in the anterior right upper lobe, which may be residua related to previous infection. This document has been electronically signed by: Nash Munoz MD on 04/21/2024 19:28:47
[2024-04-21 17:53] VITALS: BP 142/70; PULSE 65; RESP 20; TEMP 36.8; O2SAT 99; BMI 26.6
[2024-04-21 20:03] VITALS: BP 152/65; PULSE 62; RESP 18; TEMP 36.9; O2SAT 98
--- NOTE | 2024-04-21 20:17 | ED_ITS ---
HPI - General Adult General Chief complaint: Fall Stated complaint: Fall Time Seen by Provider: 04/21/24 19:52 Source: patient, family (daughter) and RN notes reviewed Mode of arrival: EMS Limitations: language barrier (declined interpreting services) History of Present Illness ED Provider: Raimundo HPI narrative: 83-year-old female with past medical history significant for diabetes, breast cancer. Patient reports that she slipped in the kitchen and hit the back of her head on the ground. She did not lose consciousness. She reports that she takes Plavix but I do not see this and her external medication reconciliation She denies any headache or neck pain currently. She denies any prodrome of dizziness, lightheadedness No other complaints or concerns at this time Related Data Home Medications ?Medication ?Instructions ?Recorded ?Confirmed ascorbic acid (vitamin C) 500 mg 1 tab PO BEDTIME 02/21/20 03/22/24 tablet (Vitamin C) atorvastatin 40 mg tablet 40 mg PO DAILY 02/21/20 03/22/24 clopidogrel 75 mg tablet 1 tab PO DAILY 02/21/20 03/22/24 donepezil 10 mg tablet 10 mg PO DAILY 02/21/20 03/22/24 esomeprazole magnesium 40 mg 1 cap PO QAM 02/21/20 03/22/24 capsule,delayed release ferrous sulfate 325 mg (65 mg 1 tab PO BEDTIME 02/21/20 03/22/24 iron) tablet metoprolol tartrate 25 mg tablet 1 tab PO BID 02/21/20 03/22/24 calcium 600 mg (as 1 tab PO TID 06/19/20 03/22/24 carbonate)-vitamin D3 10 mcg (400 unit) tablet (Calcium 600 + D(3)) losartan 25 mg tablet 25 mg PO DAILY 03/26/21 03/22/24 blood sugar diagnostic (OneTouch #10 ea 10/02/21 03/22/24 Ultra Test strips) lancets 33 gauge (OneTouch Delalissa #100 ea 10/02/21 03/22/24 Plus Lancet) verapamil 40 mg tablet 40 mg PO DAILY 10/02/21 03/22/24 memantine 5 mg tablet 5 mg PO 11/22/23 03/22/24 metformin 500 mg tablet 500 mg PO 11/22/23 03/22/24 mirtazapine 30 mg tablet 30 mg PO BEDTIME 11/22/23 03/22/24 sertraline 50 mg tablet 50 mg PO QAM 11/22/23 03/22/24 furosemide 20 mg tablet (Lasix) 20 mg PO DAILY 03/22/24 03/22/24 Previous Rx's ?Medication ?Instructions ?Recorded albuterol sulfate 90 mcg/actuation 2 puff inhalation Q4-6H PRN 11/02/21 aerosol inhaler shortness of breath or wheezing 30 days #1 ea cyanocobalamin (vitamin B-12) 1,000 mcg sublingual DAILY #90 ea 08/05/23 1,000 mcg sublingual lozenge raloxifene 60 mg tablet 60 mg PO DAILY #90 tabs 01/03/24 Allergies Allergy/AdvReac Type Severity Reaction Status Date / Time aspirin [ASA] AdvReac Unknown Verified 04/21/24 17:55 Review of Systems Constitutional: Constitutional: Denies chills, Denies fever(s) and Denies frequent falls Eyes: Eyes: Denies blurry vision ENT: Denies vertigo and Denies dizziness Cardiovascular: Cardiovascular: Denies chest pain and Denies chest pain at rest Respiratory: Respiratory: Denies cough Gastrointestinal: Gastrointestinal: Denies abdominal pain, Denies nausea and Denies vomiting Musculoskeletal: Musculoskeletal: Denies back pain Integumentary/Breasts: Skin/Breast: Denies rash Neurologic: Denies vertigo, Denies dizziness and Denies frequent falls PMFSH Past Medical History Medical History Osteoarthritis of left knee B12 deficiency Ductal carcinoma in situ (DCIS) of right breast Surgical History History of cystoscopy (~2015) Hx of cataract extraction (~10/11/16) History of lumpectomy of right breast (~10/09/13) Hx of breast biopsy Hx of angioplasty Hx of total hypophysectomy (~1994) Family History Family History Maternal Uncle Hx of cancer of lung Mother Hx of cancer of lung Diabetes Sister Diabetes Brother Diabetes Social History Social History Household Members: Other Household Members Other:: [facility] Housing: House Are you a primary post acute care registered nurse to a significant other at home: No Do you presently have visiting nurse or other home services: Yes Alcohol intake: never Patient Tobacco Use Status: Never used Tobacco e-Cigarette/Vaping Use: Never Used Advance Directives: No Advance Directives Information Provided: Yes service: No Current occupational status: retired Physical Exam ED Vital Signs: Vital Signs - 24 hr 04/21/24 17:53 04/21/24 20:03 04/21/24 20:51 Temperature 98.3 F 98.4 F 98.2 F Pulse Rate 65 62 61 Respiratory Rate 20 18 16 Blood Pressure 142/70 H 152/65 H 135/51 L Pulse Oximetry 99 98 97 Oxygen Delivery Method Room Air Room Air Room Air BMI result Body Mass Index 26.6 Const General: healthy appearing, comfortable, no acute distress, alert and awake Nutritional Appearance: well nourished Orientation/consciousness: patient oriented x3 HENMT Head: Yes normocephalic and Yes atraumatic Eyes Eyelids: Yes eyelids normal Conjunctivae: conjunctivae normal Sclerae: sclerae normal Corneas: corneas normal Pupils: Equal, round and reactive pupils present EOM: EOMs intact bilaterally Neck Neck: Yes full ROM Resp Effort & Inspection: normal respiratory effort, able to speak in complete sent ences and not labored Skin General skin exam: elasticity normal Neuro General: patient oriented x3 Cranial nerves: Yes Equal, round and reactive pupils present and Yes Bilaterally intact EOM present Cognition (Neuro): normal cognition Extrem Other: Moving all extremities well without any obvious deformities Medical Decision Making Medical Decision Making MDM Narrative: 83-year-old female presents for evaluation after a fall. She describes a nonsyncopal fall and reports slipping while in the kitchen. There was no loss of consciousness. I did scan her head and she reports being on Plavix. This does not show any evidence of traumatic injury or bleeding. Cervical spine CT was also unremarkable. The patient is able to move all extremities, she has no tenderness with manipulation of the hips or pelvis. She was ambulatory to the bathroom without any difficulty. She is currently asymptomatic, her vital signs are stable, I do not see any indication for further workup at this time. Differential Diagnosis Differential Diagnoses: The differential diagnosis associated with the presentation includes Mechanical fall Contusion TBI Laceration Intracranial hemorrhage Lab Data Labs: Lab Results 04/21/24 Range/Units 20:00 Urine Color Yellow Urine Appearance Cloudy Urine pH 5.5 (5.0-9.0) Ur Specific [place] <= 1.005 (1.005-1.025) Urine Protein Negative (Neg-Trace) mg/dL Urine Glucose (UA) Negative (Negative) mg/dL Urine Ketones Negative (Negative) mg/dL Urine Blood Negative (Negative) Urine Nitrite Negative (Negative) Ur Leukocyte Esterase Large (3+) H (Negative) Urine RBC 0-2 (0-2) /HPF Urine WBC >50 H (0-5) /HPF Ur Squamous Epith Cells 3-5 (0-2) /HPF Urine Bacteria Trace (None Seen) Hyaline Casts 0-2 (0-2) /LPF Radiology Impression Discussion of test interpretation with radiology: I have reviewed the radiologist's reading. Radiologist Impression: Findings: No intra-axial mass, midline shift, hydrocephalus, or acute hemorrhage. Mild cerebral atrophy. Low attenuation in the periventricular white matter consistent with chronic small-vessel ischemic gliosis. The visualized paranasal sinuses and mastoid air cells are normal. The orbits are within normal limits. There is no acute fracture. IMPRESSION: 1. No acute intracranial findings. This document has been electronically signed by: Nash Munoz MD on 04/21/2024 19:30:11 Findings: Vertebral alignment is within normal limits. Multilevel degenerative change of the cervical spine. No acute fractures or dislocations. Visualized intracranial contents are unremarkable. There is a dense calcification measuring 7 mm within the left lobe of the thyroid gland. There is a nodule in the posterior right lung apex measuring 4 mm along the pleural surface, unchanged from prior. There is a cluster of nodules in the anterior right upper lobe, this area was not imaged on prior study. Largest nodule in the cluster measures 5 mm. There is a partially visualized 5 mm nodular density in the posterior aspect of the left lung, in the superior segment of the left lower lobe. IMPRESSION: 1. No cervical spine fracture. 2. Cluster of nodules in the anterior right upper lobe, which may be residua related to previous infection. This document has been electronically signed by: Nash Munoz MD on 04/21/2024 19:28:47 Discharge Plan Discharge Clinical Impression: Accident due to mechanical fall without injury Patient Disposition: Home, Self-Care Instructions: Fall Prevention for Older Adults (ED) Additional Instructions: Your CT scans did not show any evidence of traumatic injury. There was an incidental finding of nodules in the right upper lobe. Talk to your primary doctor regarding follow-up You may use Tylenol as needed for pain Return for new or worsening symptoms Ordering Physician: Jamal Eubanks Date of Service: 04/21/24 Procedure(s): CT cervical spine wo IV con Accession Number(s): [id number] cc: Name,Tyson MCKINNON; Jamal Eubanks~ Report Number: [id number]: Total DLP = 863.00 mGy-cm CLINICAL HISTORY: trauma CT cervical spine without contrast Comparison: CT/IA - CT ANGIO HEAD NECK - 09/21/21 14:57 EDT Findings: Vertebral alignment is within normal limits. Multilevel degenerative change of the cervical spine. No acute fractures or dislocations. Visualized intracranial contents are unremarkable. There is a dense calcification measuring 7 mm within the left lobe of the thyroid gland. There is a nodule in the posterior right lung apex measuring 4 mm along the pleural surface, unchanged from prior. There is a cluster of nodules in the anterior right upper lobe, this area was not imaged on prior study. Largest nodule in the cluster measures 5 mm. There is a partially visualized 5 mm nodular density in the posterior aspect of the left lung, in the superior segment of the left lower lobe. IMPRESSION: 1. No cervical spine fracture. 2. Cluster of nodules in the anterior right upper lobe, which may be residua related to previous infection. Prescriptions: No Action raloxifene 60 mg Tablet 60 mg PO DAILY Qty: 90 4RF atorvastatin 40 mg Tablet 40 mg PO DAILY donepezil 10 mg Tablet 10 mg PO DAILY clopidogrel 75 mg tablet 1 tab PO DAILY ascorbic acid (vitamin C) [Vitamin C] 500 mg tablet 1 tab PO BEDTIME ferrous sulfate 325 mg (65 mg iron) tablet 1 tab PO BEDTIME esomeprazole magnesium 40 mg capsule,delayed release(DR/EC) 1 cap PO QAM metoprolol tartrate 25 mg tablet 1 tab PO BID calcium carbonate-vitamin D3 [Calcium 600 + D(3)] 600 mg(1,500mg) -400 unit Tablet 1 tab PO TID losartan 25 mg Tablet 25 mg PO DAILY cyanocobalamin (vitamin B-12) 1,000 mcg Lozenge 1,000 mcg SUBLINGUAL DAILY Qty: 90 5RF (DME) OneTouch Ultra Test Strip See Rx Instructions Not Applicable BID Qty: 10 Rx Instructions: As directed verapamil 40 mg tablet 40 mg PO DAILY (DME) lancets [OneTouch Delica Plus Lancet] 33 gauge misc See Rx Instructions Not Applicable BID Qty: 100 Rx Instructions: As directed albuterol sulfate 90 mcg/actuation HFA aerosol inhaler 2 puff inhalation Q4-6H PRN (Reason: shortness of breath or wheezing) 30 Days Qty: 1 6RF mirtazapine 30 mg tablet 30 mg PO BEDTIME sertraline 50 mg tablet 50 mg PO QAM memantine 5 mg tablet 5 mg PO metformin 500 mg tablet 500 mg PO furosemide [Lasix] 20 mg tablet 20 mg PO DAILY Interventions: ED Discharge Assessment Last Done: 04/21/24 20:51 Print Language: Chinese
[2024-04-21 20:18] LABS: Appearance Urine Cloudy; Color Urine Yellow; Glucose Urine UA Negative (Negative); Leukocyte Esterase Urine Large (3+) (Negative); Nitrite Urine Negative (Negative); PH 5.5 (5.0-9.0); Specific Gravity - Urine <= 1.005 (1.005-1.025); UMIC TRIGGER UACC YES; Urine Blood Negative (Negative); Urine Ketones Negative (Negative); Urine Protein Negative (Neg-Trace)
[2024-04-21 20:19] LABS: Bacteria Urine Trace (None Seen); Hyaline Casts Urine 0-2 /LPF (0-2); RBC Urine 0-2 /HPF (0-2); UACC Culture Trigger YES; WBC Urine >50 /HPF (0-5)
[2024-04-21 20:51] VITALS: BP 135/51; PULSE 61; RESP 16; TEMP 36.8; O2SAT 97
== END 2024-04-23 04:31 | disposition home or self-care (01) ==
PROVIDERS: Physician Assistant; Emergency Provider Emergency Medicine Emergency Medical Services; PCP Internal Medicine Geriatric Medicine
DX: S19.9XXA Unspecified injury of neck, initial encounter (principal); R55 Syncope and collapse; R51.9 Headache, unspecified; M54.2 Cervicalgia; W01.0XXA Fall on same level from slipping, tripping and stumbling without subsequent striking against object, initial encounter; Y93.9 Activity, unspecified; Y92.000 Kitchen of unspecified non-institutional (private) residence as the place of occurrence of the external cause; Y99.8 Other external cause status; Z79.899 Other long term (current) drug therapy
CPT/HCPCS: 70450; 72125; 81001; 87086; 99283; 99284

== ENCOUNTER → 2024-04-21 17:59 | Outpatient (BNV) | payer OTHER, SELFPAY | PROVIDERS: PCP Internal Medicine Geriatric Medicine; Visit Provider Radiology Diagnostic Radiology | DX: R91.1 Solitary pulmonary nodule (principal); T14.90XA Injury, unspecified, initial encounter | CPT/HCPCS: 70450; 72125 ==

== ENCOUNTER 2024-06-20 14:36 | Outpatient (AMB) | payer OTHER, SELFPAY ==
--- NOTE | 2024-06-20 14:38 | A.OFFVIS_ITS ---
Intake Visit Reasons: 3 month follow up/ PVR Intake Note: Patient presents today for follow up on: incomplete bladder emptying and OAB Urology Medication: none Antibiotic Allergies: None Blood Thinners: Plavix PVR: 0ml's Sheet Rock Finisher Required: Yes Sheet Rock Finisher Services: Sheet Rock Finisher Offered & Declined Laundry Presser: Laundry Presser Present Accompanied by: Daughter Allergies aspirin [ASA] Adverse Reaction (Verified 06/20/24 17:01) Unknown Medication List - Last Reconciled 06/20/24 by ALISE Cormier albuterol sulfate 90 mcg/actuation 2 puffs inhalation Q4-6H PRN 30 days ascorbic acid (vitamin C) (Vitamin C) 1 tab PO BEDTIME atorvastatin 40 mg PO DAILY blood sugar diagnostic (ZenDocuch Ultra Test strips) As directed calcium carbonate-vitamin D3 600 mg-10 mcg (400 unit) (Calcium 600 + D(3)) 1 tab PO TID clopidogrel 1 tab PO DAILY cyanocobalamin (vitamin B-12) 1,000 mcg sublingual DAILY donepezil 10 mg PO DAILY esomeprazole magnesium 1 cap PO QAM ferrous sulfate 1 tab PO BEDTIME furosemide (Lasix) 20 mg PO DAILY lancets (OneTouch Delica Plus Lancet) As directed losartan 25 mg PO DAILY memantine 5 mg PO DAILY metformin 500 mg PO DAILY metoprolol tartrate 1 tab PO BID mirtazapine 30 mg PO BEDTIME raloxifene 60 mg PO DAILY sertraline 50 mg PO QAM verapamil 40 mg PO DAILY HPI Comments Details: Nadine is a very pleasant 83 year old [place]se speaking female patient of Dr. March who is accompanied by her grandaughter at todays visit. 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 She presents to the office today for a follow up of her overactive bladder. In discussion with the patient today she reports to be doing and feeling well. She reports noting intermittent episodes of bladder pressure. She otherwise denies any bothersome urinary issues or concerns. She also does report noting episodes of urinary frequency after consuming her diuretic. Unable to obtain urine for urinalysis as patient unable to void however PVR 0 mL. Previous workup has included a retroperitoneal ultrasound noting bilateral kidneys with dilated pyramids otherwise no calculi, lesions, and or hydronephrosis. Pre void bladder volume is approximately 240 mL. Postvoid bladder volume was approximately 50 mL. We discussed at length potential causes of bladder pressure as well as correlation of urinary frequency and urgency with diuretic. Patient had previously trialed VESIcare for potential bladder spasms however experience incomplete bladder emptying with increase in PVR she otherwise denies incontinence, nocturia, hematuria, dysuria, foul smelling urine, changes to urinary stream, flank pain, fever, and or chills. She otherwise offers no issues or concerns at this time. [facility] Medical History Osteoarthritis of left knee B12 deficiency Ductal carcinoma in situ (DCIS) of right breast Surgical History History of cystoscopy (~2015) Hx of cataract extraction (~10/11/16) History of lumpectomy of right breast (~10/09/13) Hx of breast biopsy Hx of angioplasty Hx of total hypophysectomy (~1994) Family History Maternal Uncle Hx of cancer of lung Mother Hx of cancer of lung Diabetes Sister Diabetes Brother Diabetes Social History Household Members: Other Household Members Other:: [facility] Housing: House Are you a primary ocular care aide to a significant other at home: No Do you presently have visiting nurse or other home services: Yes Alcohol intake: never Patient Tobacco Use Status: Never used Tobacco e-Cigarette/Vaping Use: Never Used service: No Current occupational status: retired Review of Systems Const Reports as per HPI Eyes Reports no additional complaints ENT Reports no additional complaints Card Reports as per HPI Resp Reports no additional complaints GI Reports no additional complaints Reports as per HPI Musc Reports no additional complaints Neuro Reports as per HPI Psych Reports as per HPI Oni/Lymph Reports as per HPI Physical Exam Const General: cooperative, healthy appearing, comfortable, no acute distress, well developed, alert and awake Nutritional Appearance: average body habitus Orientation/consciousness: patient oriented x3 Limitations: no limitations HEENT Head: Yes normal to inspection, Yes normocephalic and Yes atraumatic Ears: hearing grossly normal bilaterally Eyes General: appearance normal, both eyes and all related structures Neck Neck: Yes normal visual inspection and Yes trachea midline Chest Chest palpation & inspection: normal inspection of the chest Resp Effort & Inspection: normal respiratory effort and able to speak in complete sentences Cardio Rate: regular rate GI Inspection: Yes normal to inspection General: Yes no CVA tenderness Back/Spine/Pelvis Back: no CVA tenderness Skin General skin exam: no rashes or lesions noted Neuro General: patient oriented x3 Extrem General: Yes normal to inspection Psych Appearance: grossly normal and well kempt Mental Status: mental status grossly normal Speech and movement: Normal speech and movement present and Clear speech present Affect: normal affect Attitude: cooperative Thought process: Normal thought process present Thought content: Normal thought content present Insight: Fair insight present (Psych) Judgement: Fair judgement present (Psych) Assessment & Plan Assessment & Plan (1) Sensation of pressure in bladder area: Code(s): R39.89 - Other symptoms and signs involving the genitourinary system Category: Medical (2) Incomplete bladder emptying: Code(s): R33.9 - Retention of urine, unspecified Category: Medical (3) Overactive bladder: Code(s): N32.81 - Overactive bladder Category: Medical Plan Unable to obtain urine for urinalysis as patient unable to void however PVR 0 mL. We discussed potential causes of bladder pressure as well as correlation of urinary frequency with diuretic. Will continue with surveillance monitoring at this time. Follow-up in 3 months with PVR; or sooner with any issues, concerns, and or questions. Orders: Orders AMB Post Void Residual by ultrasound Today R33.9 - Retention of urine, unspecified UA CC w/rflx Micro + Cult Today R39.89 - Other symptoms and signs involving the genitourinary system Patient Instructions: The patient had an opportunity to ask questions regarding the treatment plan. All questions were answered. Physical exam, labs, and imaging were discussed and reviewed in detail. As well as risks, benefits, and discussion of treatment choices. No major barriers to understanding were identified. The patient expressed understanding and agreement with the above treatment plan. The patient was made aware they should contact our office by phone for worsening of their current condition, the appearance of new symptoms, or with any questions or concerns. Compliance is encouraged with any medications and follow up testing that is ordered. It is a privilege to be allowed the opportunity to participate in? your urological care.? Again, if you have any questions or concerns If you have any questions or concerns please do not hesitate to contact me. The office is [phone]. This note is constructed using voice recognition software. While every effort has been made to ensure accuracy postal service clerk errors may have been included. Yours sincerely, ALISE Cormier Coding Level of Care Code Est Pt Level 3 (06039) Complex EM visit Add On G2211 Diagnoses Sensation of pressure in bladder area R39.89 Incomplete bladder emptying R33.9 Overactive bladder N32.81
--- OUTSIDE RECORDS SUMMARY | 2024-06-20 17:20 | XMS_ITS | Encounter Summary ---
Author Organization [employer] Address [address] [place] [address] Care Team Providers Care Analyst Geochemical Prospecting Name Role Phone Name, Tyson MCKINNON Primary Care Provider [phone] Encounter Details Date Type Department Care Team ([facility] st Contact Info) Description 04/15/2022 Orders Only [facility] MED & PED[facility] [address] [place] [address] Faith Tavares LPN Social History Tobacco Use Types Packs/Day Years Used Date Smoking Tobacco: Never Assessed Comments Unknown Sex and Gender Information Value Date Recorded Sex Assigned at Female 01/04/2022 10:15 AM EDT Legal Sex Female 10:15 AM EDT Gender Identity Female 01/04/2022 10:15 AM EDT Sexual Orientation Straight 01/04/2022 10 :15 AM EDT documented as of this encounter Plan of Treatment Not on file documented as of this encounter Visit Diagnoses Not on filedocumented in this encounter Care Teams Analyst Geochemical Prospecting Relationship Specialty Start Date End Date Name, MD Tyson [address] [place] [address] PCP - General Family Medicine 01/18/19 documented as of this encounter
--- OUTSIDE RECORDS SUMMARY | 2024-06-20 17:20 | XMS_ITS ---
Author Name Chery MARCOSHerlinda Address [address] [place] [address] Phone [phone] Organization [facility] Care Team Providers Care Blue Prints Trimmer Name Role Phone Herlinda Chery Unavailable [phone] NameTyson Unavailable [phone] Reason for Referral Not Available Allergies, adverse reactions, alerts Allergen Type Reaction Severity Status Onset Date Aspirin Allergy to substance (disorder) issues with her stomach Unknown Active N/A History of medication use Medication Class Instructions Start Date End Date Clopidogrel Bisulfate 75 mg Tab TAKE 1 TABLET BY MOUTH EVERYDAY AT NOON 2021-07-29 No Data Available glipiZIDE ER 10 mg Tab ER 24hr TAKE 1 TABLET BY MOUTH EVERYDAY AT NOON 2021-05-11 2022-10-04 Paxlovid (300/100) 20 x 150 mg & 10 x 100 mg Tab Therapy Pack TAKE one nirmatrelvir 150mg TABLET WITH one ritonavir 100mg TABLET BY MOUTH TWICE DAILY FOR 5 DAYS 2021-07-29 No Data Available Losartan Potassium 25 mg Tab TAKE 1 TABL ET BY MOUTH EVERY EVENING 2021-07-02 No Data Available Sertraline 50 mg Tab TAKE 1 TABLET BY MO UTH EVERY MORNING 2021-06-16 2022-10-04 Donepezil 10 mg Tab TAKE 1 TABLET BY TYRELL TH EVERY EVENING 2021-08-05 No Data Available FeroSul 325 (65 Fe) MG Tab TAKE 1 TABLET BY MOUTH EVERY EVENING 2021-05-11 No Data Available OneTouch Delica Plus [id number] Miscellaneous TEST BLOOD SUGAR TWICE DAILY 2021-05-15 No Data Available OneTouch Ultra Strip TEST BLOOD SUGAR TW ICE DAILY DIRECTED 2020-12-26 No Data Available traZODone 50 mg Tab TAKE 1 TABLET BY TYRELL TH AT BEDTIME 2021-08-07 2022-10-04 Verapamil 40 mg Tab TAKE 1 TABLET BY TYRELL TH TWICE DAILY IN THE MORNING AND IN THE EVENING 2021-07-15 No Data Available Atorvastatin Calcium 40 mg Tab TAKE 1 TABLET BY MOUTH EVERY EVENING 2021-06-04 No Data Available Esomeprazole Magnesium 40 mg Cap delayed rel TAKE 1 CAPSULE BY MOUTH EVERY MORNING 2021-08-31 No Data Available metFORMIN 500 mg Tab Take 1 tablet PO daily. 2021-05-07 1 No Data Available Metoprolol Tartrate 25 mg Tab TAKE 1 TAB LET BY MOUTH TWICE DAILY AT NOON AND IN THE EVENING 2021-03-11 No Data Available Vitamin C 500 mg Tab TAKE 1 CAPSULE BY M OUTH EVERY EVENING 2021-06-04 No Data Available Raloxifene 60 mg Tab TAKE 1 TABLET BY MO UTH EVERY MORNING 2021-09-30 No Data Available traMADol 50 mg Tab TAKE 1 TABLET BY TYRELL TH EVERY TWELVE HOURS NEEDED 2021-10-05 No Data Available Solifenacin Succinate 10 mg Tab TAKE 1 TABLET BY MOUTH EVERYDAY AT NOON 2021-07-22 No Data Available Albuterol Sulfate HFA 108 (9 0 Base) MCG/ACT Aerosol Solution INHALE 2 PUFFS BY MOUTH EVERY 4 TO 6 HOURS NEEDED FOR COUGH, WHEEZING, OR SHORTNESS OF BREATH 2021-11-02 No Data Available Lidocaine 5 % Oint APPLY 1-3G (INCHES) TO THE AFFECTED AREA 3-4 TIMES A DAY. (RIGHT HIP) APPLY SECOND 2021-06-30 No Data Available traMADol 50 mg Tab 1 tablet orally TID prn Pain- rarely uses 2022-01-25 No Data Available Medbox Status USE DIRECTED 2022-01-25 No Data Juanita ilable Mirtazapine 30 mg Tab TAKE 1 TABLET BY M OUTH AT BEDTIME 2022-07-02 No Data Available Acetaminophen ER 650 mg Tab ER TAKE 1 TABLET BY MOUTH EVERY 8 HOURS NEEDED FOR MILD PAIN. DO NOT BREAK, CRUSH, DISSOLVE OR CHEW 2022 No Data Available Memantine 5 mg Tab TAKE 1 TABLET BY TYRELL TH TWICE DAILY IN THE MORNING AND IN THE EVENING 2022-11-03 No Data Available predniSONE 20 mg Tab TAKE 2 TABLETS BY M OUTH EVERY DAY 2023-03-18 No Data Available Amoxicillin-Pot Clavulanate 875/125 mg Tab TAKE 1 TABLET BY MOUTH TWICE DAILY 2023-03-18 No Data Available Nitrostat 0.3 mg Tab Sublingual 1 tablet sublingually one time for chest pain every 5 minutes for up to 3 doses 2023-03-24 No Data Available cyanocobalamin (vit B-12) 1,000 mcg sublingual tablet TAKE [address] UNDER THE TONGUE EVERY DAY 2023-08-05 No Data Available Sertraline 50 mg Tab TAKE 1 TABLET BY [facility] EVERY MORNING 2023-09-21 No Data Available calcium 600 mg (as carbonate)-vitamin D3 10 mcg (400 unit) tablet TAKE 1 TABLET BY MOUTH TWICE DAILY IN THE MORNING AND IN THE EVENING 2024-01-13 No Data Available Divalproex Sodium ER 250 mg Tab ER 24hr TAKE 1 TABLET BY MOUTH AT BEDTIME 2023-10-06 No Data Available Furosemide 20 mg Tab TAKE 1 TABLET BY MO [facility] EVERY MORNING 2024-03-20 No Data Available Problem List Problem Status Onset Date Resolved Date HX: breast cancer Active 2022-01-25 N/A GERD (gastroesophageal reflux disease) Active 26-01-21 N/A Other problems related to [facility] facilities and other health care Active 2023-05-17 N/A Type 2 diabetes mellitus wit h diabetic chronic kidney disease, CKD stage G3a/A1 Active 2022-01-25 N/A PVD (peripheral vascular dis ease)type 2 DM with diabetic peripheral angiopathy without gangrene Active 2022-10-04 N/A Hyperlipidemia associated wi th type 2 diabetes mellitus Active 2022-01-25 N/A Insomnia Active 2022-01-25 N/A Hypertensive heart disease w ith stage 3a chronic kidney disease Active 2022-01-25 N/A Osteoporosis Active 2022-01-25 N/A OAB (overactive bladder) Active 2022-01-25 N/A Dementia Active 2022-01-25 N/A Hypercoagulability due to atrial fibrillation Active 2022-01-25 N/A Stage 3a chronic kidney disease (CKD) Resolved 05-11-30 2024-05-01 SOB (shortness of breath)COPD Active 2022-01-25 N/A Encounters Encounters Type Facility Date of Service Diagnosis/Co mplaint Pain Assessment - Pain Documented on a Pain Scale (1125F) [facility] ([place]20[place] Pain Assessment - Pain Documented on a Pain Scale (1125F) [facility] [place]20[place] Pain Assessment - Pain Documented on a Pain Scale (1125F) [facility] [place]20[place] Pain Assessment - Pain Documented on a Pain Scale (1125F) [facility] [place]20[place] Pain Assessment - Pain Documented on a Pain Scale (1125F) [facility] [place]20[place] Pain Assessment - Pain Documented on a Pain Scale (1125F) [facility] [place]2022 Pain Assessment - Pain Documented on a Pain Scale (1125F) [facility] [place]2022 Hyperlipidemia, unspecifiedGastro-esophageal reflux disease without esophagitisInsomnia, unspecifiedType 2 diabetes mellitus without complicationsEssential (primary) hypertensionAge-related osteoporosis without current pathological fractureOveractive bladderShortness of breathUnspecified dementia without behavioral disturbanceOther thrombophiliaUnspecified atrial fibrillationPersonal history of malignant neoplasm of breast Pain Assessment - Pain Documented on a Pain Scale (1125F) [facility] [place] Pain Assessment - Pain Documented on a Pain Scale (1125F) [facility] [place] Estab. patient 30-39min; chronic exacerbation, 2 stable chronic or 1 acute illness add add modifier 95 for video, (do not use for phone, instead use [id number]) [facility] [place]2022 Type 2 diabetes mellitus wit h diabetic chronic kidney diseaseHypertensive chronic kidney disease w stg 1-4/unsp chr kdnyChronic kidney disease, stage 3aHyperlipidemia, unspecifiedGastro-esophageal reflux disease without esophagitisInsomnia, unspecifiedAge-related osteoporosis without current pathological fractureOveractive bladderShortness of breathOther thrombophiliaUnspecified atrial fibrillationPersonal history of malignant neoplasm of breastType 2 diabetes w diabetic peripheral angiopath w/o gangreneUnspecified dementia without behavioral disturbance Estab. patient 30-39min; chronic exacerbation, 2 stable chronic or 1 acute illness add add modifier 95 for video, (do not use for phone, instead use [id number]) [facility] ([place]) [place]/20[place] Estab. patient 30-39min; chronic exacerbation, 2 stable chronic or 1 acute illness add add modifier 95 for video, (do not use for phone, instead use 17634-98) [facility] [place]/20[place] Estab. patient 30-39min; chronic exacerbation, 2 stable chronic or 1 acute illness add add modifier 95 for video, (do not use for phone, instead use [id number]) [facility] ([place] Estab. patient 30-39min; chronic exacerbation, 2 stable chronic or 1 acute illness add add modifier 95 for video, (do not use for phone, instead use 04855-55) [facility] [place] Estab. patient 30-39min; chronic exacerbation, 2 stable chronic or 1 acute illness add add modifier 95 for video, (do not use for phone, instead use [id number]) [facility] [place]/20[place] Estab. patient 30-39min; chronic exacerbation, 2 stable chronic or 1 acute illness add add modifier 95 for video, (do not use for phone, instead use [id number]) [facility] [place] Estab. patient 30-39min; chronic exacerbation, 2 stable chronic or 1 acute illness add add modifier 95 for video, (do not use for phone, instead use 66034-36) [facility] [place]20[place] Estab. patient 30-39min; chronic exacerbation, 2 stable chronic or 1 acute illness add add modifier 95 for video, (do not use for phone, instead use 54846-92) [facility] [place]20[place] Estab. patient 30-39min; chronic exacerbation, 2 stable chronic or 1 acute illness add add modifier 95 for video, (do not use for phone, instead use 83318-35) [facility] [place]20[place] Estab. patient 30-39min; chronic exacerbation, 2 stable chronic or 1 acute illness add add modifier 95 for video, (do not use for phone, instead use [id number]) [facility] [place] 03[place]/2023 Type 2 diabetes mellitus wit h diabetic chronic kidney diseaseHypertensive chronic kidney disease w stg 1-4/unsp chr kdnyChronic kidney disease, stage 3aHyperlipidemia, unspecifiedGastro-esophageal reflux disease without esophagitisInsomnia, unspecifiedAge-related osteoporosis without current pathological fractureOveractive bladderShortness of breathChronic obstructive pulmonary disease, unspecifiedUnspecified dementia without behavioral disturbanceOther thrombophiliaUnspecified atrial fibrillationPersonal history of malignant neoplasm of breastType 2 diabetes w diabetic peripheral angiopath w/o gangrene Estab. patient 30-39min; chronic exacerbation, 2 stable chronic or 1 acute illness add add modifier 95 for video, (do not use for phone, instead use [id number]) [facility] ([place] 03[place]/20[place] Estab. patient 30-39min; chronic exacerbation, 2 stable chronic or 1 acute illness add add modifier 95 for video, (do not use for phone, instead use 19432-14) [facility] [place] 03[place]24/20[place] Estab. patient 30-39min; chronic exacerbation, 2 stable chronic or 1 acute illness add add modifier 95 for video, (do not use for phone, instead use [id number]) [facility] [place] 03[place]/20[place] Estab. patient 30-39min; chronic exacerbation, 2 stable chronic or 1 acute illness add add modifier 95 for video, (do not use for phone, instead use 96316-52) [facility] [place] 03[place]/20[place] Estab. patient 30-39min; chronic exacerbation, 2 stable chronic or 1 acute illness add add modifier 95 for video, (do not use for phone, instead use 90171-24) [facility] [place] 03[place]/20[place] Estab. patient 30-39min; chronic exacerbation, 2 stable chronic or 1 acute illness add add modifier 95 for video, (do not use for phone, instead use 98264-17) [facility] ([place] 03[place]/20[place] Estab. patient 30-39min; chronic exacerbation, 2 stable chronic or 1 acute illness add add modifier 95 for video, (do not use for phone, instead use 52293-18) [facility] ([place] 03/24/2023 Estab. patient 30-39min; chronic exacerbation, 2 stable chronic or 1 acute illness add add modifier 95 for video, (do not use for phone, instead use 53098-69) [facility] ([place] 03/24/20[place] Estab. patient 30-39min; chronic exacerbation, 2 stable chronic or 1 acute illness add add modifier 95 for video, (do not use for phone, instead use 92403-71) [facility] [place] 03/24/2023 Estab. patient 20-29min; 1 stable chronic or 2 minor; add add modifier 95 for video, modifier 93 for phone [facility] [place] 05/01/2024 Type 2 diabetes mellitus wit h other specified complicationHyperlipidemia, unspecifiedOther problems related to medical facilities and other health careGastro-esophageal reflux disease without esophagitisInsomnia, unspecifiedType 2 diabetes mellitus with diabetic chronic kidney diseaseHyp hrt & chr kdny dis w/o hrt fail, w stg 1-4/unsp chr kdnyChronic kidney disease, stage 3aAge-related osteoporosis without current pathological fractureOveractive bladderShortness of breathChronic obstructive pulmonary disease, unspecifiedUnspecified dementia without behavioral disturbanceOther thrombophiliaUnspecified atrial fibrillationPersonal history of malignant neoplasm of breastType 2 diabetes w diabetic peripheral angiopath w/o gangrene Estab. patient 20-29min; 1 stable chronic or 2 minor; add add modifier 95 for video, modifier 93 for phone [facility] ([place] 05/01/20[place] Estab. patient 20-29min; 1 stable chronic or 2 minor; add add modifier 95 for video, modifier 93 for [facility] [place] 05/01/20[place] Estab. patient 20-29min; 1 stable chronic or 2 minor; add add modifier 95 for video, modifier 93 for [facility], [place] 05/01/2024 Estab. patient 20-29min; 1 stable chronic or 2 minor; add add modifier 95 for video, modifier 93 for [facility] [place] 05/01/2024 Estab. patient 20-29min; 1 stable chronic or 2 minor; add add modifier 95 for video, modifier 93 for [facility] [place] 05/01/2024 Estab. patient 20-29min; 1 stable chronic or 2 minor; add add modifier 95 for video, modifier 93 for phone [facility] [place] 05/01/20[place] Estab. patient 20-29min; 1 stable chronic or 2 minor; add add modifier 95 for video, modifier 93 for phone [facility] [place] 05/01/2024 Estab. patient 20-29min; 1 stable chronic or 2 minor; add add modifier 95 for video, modifier 93 for phone [facility] [place] 05/01/2024 Vital Signs Date of Collection Vitals 2022-01-25 12:47:14 Height - 154.94 cmWe ight - 72.58 kgBody Mass Index (BMI) - 30.23 kg/m2BP Diastolic - 77.0 mm[Hg]BP Systolic - 159.0 mm[Hg] 2022-10-04 11:34:45 Height - 157.48 cmWe ight - 73.03 kgBody Mass Index (BMI) - 29.45 kg/m2BP Diastolic - 69.0 mm[Hg]BP Systolic - 132.0 mm[Hg]Pain Scale - 0.0 {score} 2023-03-24 13:16:15 Height - 157.48 cmWe ight - 76.2 kgBody Mass Index (BMI) - 30.73 kg/m2BP Diastolic - 65.0 mm[Hg]BP Systolic - 116.0 mm[Hg]Pain Scale - 2.0 {score} 2024-05-01 12:21:21 Height - 157.48 cmWe ight - 68.95 kgBody Mass Index (BMI) - 27.8 kg/m2BP Diastolic - 90.0 mm[Hg]BP Systolic - 150.0 mm[Hg]Pain Scale - 7.0 {score} Social History Social History Social History Observation Description Effec tive Time Current Smoking Status Never smoker 2024-06-05 4 Sex Female History of Procedures Procedures Service Procedure code Service date Servicing provider Phone# Pain Assessment - Pain Documented on a Pain Scale (1125F) 1125F 2022-01-25 No Data Available No Data Juanita ilable Medication List Documented (1159F) 1159F 2022-01-25 No Data Available No Data Juanita ilable Medication Review by prescribing provider or pharmacist documented (1160F) 1160F 2022-01-25 No Data Available No Data Juanita ilable Functional Status Assessed (1170F) 1170F 2022-01-25 No Data Available No Data Avail able Advance Care Directive Advance care planning discussion documented in the medical record (1158F) 1158F 2022-01-25 No Data Available No Data Availa ble BMI obtained (3008F) 3008F 2022-01-25 No Data Availab le No Data Available New patient 15-29min; 1 minor problem; add modifier 95 for video, modifier 93 for phone [id number] 2022-01-25 No Data Available No Data Availa ble DBP <80 (3078F) 3078F 2022-01-25 No Data Available No Data Available SBP >= 140 3077F 2022-01-25 No Data Available No Data Available Estab. patient 30-39min; chronic exacerbation, 2 stable chronic or 1 acute illness add add modifier 95 for video, (do not use for phone, instead use [id number]) 24095 2022-10-04 No Data Available No Data Availa ble Medication List Documented (1159F) 1159F 2022-10-04 No Data Available No Data Juanita ilable Medication Review by prescribing provider or pharmacist documented (1160F) 1160F 2022-10-04 No Data Available No Data Juanita ilable Functional Status Assessed (1170F) 1170F 2022-10-04 No Data Available No Data Avail able Pain Assessment - NO pain present (1126F) 1126F 2022-10-04 No Data Available No Data A vailable BMI obtained (3008F) 3008F 2022-10-04 No Data Availab le No Data Available SBP 130-139 (3075F) 3075F 2022-10-04 No Data Availabl e No Data Available DBP <80 (3078F) 3078F 2022-10-04 No Data Available No Data Available Most recent A1c (HbA1c) or GMI level <7% (3044F) 3044F 2022-10-04 No Data Available No Data Availa ble Advance care planning discussed and documented ? advance care plan or surrogate decision-maker was documented in the medical record. (1123F) 1123F 2022-10-04 No Data Available No Data Availa ble Estab. patient 30-39min; chronic exacerbation, 2 stable chronic or 1 acute illness add add modifier 95 for video, (do not use for phone, instead use 90489-94) 59823 2023-03-24 No Data Available No Data Availa ble Medication List Documented (1159F) 1159F 2023-03-24 No Data Available No Data Juanita ilable Medication Review by prescribing provider or pharmacist documented (1160F) 1160F 2023-03-24 No Data Available No Data Juanita ilable Functional Status Assessed (1170F) 1170F 2023-03-24 No Data Available No Data Avail able Pain Assessment - Pain Documented on a Pain Scale (1125F) 1125F 2023-03-24 No Data Available No Data Juanita ilable BMI obtained (3008F) 3008F 2023-03-24 No Data Availab le No Data Available SBP < 130 (3074F) 3074F 2023-03-24 No Data Available No Data Available DBP <80 (3078F) 3078F 2023-03-24 No Data Available No Data Available Most recent A1c (HbA1c) or GMI level 7-7.9% (3051F) 3051F 2023-03-24 No Data Available No Data Availa ble Advance care planning discussed and documented ? advance care plan or surrogate decision-maker was documented in the medical record. (1123F) 1123F 2023-03-24 No Data Available No Data Availa ble Estab. patient 20-29min; 1 stable chronic or 2 minor; add add modifier 95 for video, modifier 93 for phone [id number] 2024-05-01 No Data Available No Data Availa ble Medication List Documented (1159F) 1159F 2024-05-01 No Data Available No Data Juanita ilable Medication Review by prescribing provider or pharmacist documented (1160F) 1160F 2024-05-01 No Data Available No Data Juanita ilable Functional Status Assessed (1170F) 1170F 2024-05-01 No Data Available No Data Avail able Advance Care Directive Advance care planning discussion documented in the medical record (1158F) 1158F 2024-05-01 No Data Available No Data Availa ble Advance care planning discussed and documented ? advance care plan or surrogate decision-maker was documented in the medical record. (1123F) 1123F 2024-05-01 No Data Available No Data Availa ble Pain Assessment - Pain Documented on a Pain Scale (1125F) 1125F 2024-05-01 No Data Available No Data Juanita ilable SBP >= 140 3077F 2024-05-01 No Data Available No Data Available DBP >=90 3080F 2024-05-01 No Data Available No Data Available Functional Status Functional Category Effective Dates has walker and cane 2022-01-25 has shower chair 2022-01-25 ADL: Bathing Needs Assistanc e , Dressing Needs Assistance , Eating Independent , Ambulation Needs Assistance , Transferring Needs Assistance and Toileting Needs Assistance 2022-01-25 Cognition Status: Dementia 2022-01-25 Falls in last 6 Months: Yes, last Saturd ay and was taken to the ED 2024-05-01 Social Supports - lives with daughter an d grandson 2022-01-25 [employer] is her grand daughter 2022-10-04 Mental Status Status Date dementia 2022-01-25 Assessments Date of Service Assessments 2022-01-25 12:47:14 HLD (hyperlipidemia) GERD (gastroesophageal reflux disease)InsomniaDM2 (diabetes mellitus, type 2)HTN (hypertension)OsteoporosisOAB (overactive bladder)SOB (shortness of breath)DementiaHypercoagulability due to atrial fibrillationHX: breast cancer 2022-10-04 11:34:45 HLD (hyperlipidemia) GERD (gastroesophageal reflux disease)InsomniaType 2 diabetes mellitus with diabetic chronic kidney disease, CKD stage G3a/A1HTN (hypertension)OsteoporosisOAB (overactive bladder)SOB (shortness of breath)Hypercoagulability due to atrial fibrillationHX: breast cancerPVD (peripheral vascular disease)Stage 3a chronic kidney disease (CKD)Dementia 2023-03-24 13:16:15 HLD (hyperlipidemia) GERD (gastroesophageal reflux disease)InsomniaType 2 diabetes mellitus with diabetic chronic kidney disease, CKD stage G3a/A1HTN (hypertension)OsteoporosisOAB (overactive bladder)SOB (shortness of breath)/COPDDementiaHypercoagulability due to atrial fibrillationHX: breast cancerStage 3a chronic kidney disease (CKD)PVD (peripheral vascular disease)type 2 DM with diabetic peripheral angiopathy without gangrene 2024-05-01 12:21:21 Hyperlipidemia assoc iated with type 2 diabetes mellitusOther problems related to medical facilities and other health careGERD (gastroesophageal reflux disease)InsomniaType 2 diabetes mellitus with diabetic chronic kidney disease, CKD stage G3a/Z2Dptfpxahonqn heart disease with stage 3a chronic kidney diseaseOsteoporosisOAB (overactive bladder)SOB (shortness of breath)/COPDDementiaHypercoagulability due to atrial fibrillationHX: breast cancerPVD (peripheral vascular disease)type 2 DM with diabetic peripheral angiopathy without gangrene Plan of Care Date of Service Plans 2022-01-25 12:47:14 Medication Review by prescribing provider or pharmacist documented (1160F)Medication List Documented (1159F)Functional Status Assessed (1170F)Advance Care Directive Advance care planning discussion documented in the medical record (1158F)BMI obtained (3008F)sbdbPain Assessment - Pain Documented (1125F)Televideo new patient 15-29min; 1 minor problem; add modifier 95Continue to see PCP. Follow-up with [facility] as needed for any acute or disease education needs that may arise.atorvastatinesomeprazolemelatonin prntrazodone qhsglipizide metforminlosartan metoprolol tartrate BID verapamilraloxifenesolifenacinprn albuterol inhalerfollows with pulmonologydonepezil early dementia per PCP per CG reportmetoprolol tartrate BID on Plavix (h/o RI- clot to heart vessel per CG- aprx 20 years ago)in remissionfollows with oncologist s/p surgery/removal of cancerous lesion 2022-10-04 11:34:45 Medication Review by prescribing provider or pharmacist documented (1160F)Medication List Documented (1159F)Functional Status Assessed (1170F)Advance Care Directive Advance care planning discussion documented in the medical record (1158F)BMI obtained (3008F)SBP 130-139 (3075F)DBP <80 (3078F)Televideo 30-39min; chronic exacerbation, 2 stable chronic or 1 acute illness add modifier 95Advance care planning discussed and documented ? advance care plan or surrogate decision-maker was documented in the medical record. (1123F)Pain Assessment - NO pain documented (1126F)Most recent hemoglobin A1c (HbA1c) level <7% (3044F)Continue to see PCP. Follow-up with [facility] as needed for any acute or disease education needs that may arise.atorvastatin Advised to eat a healthy diet include emphasizing fruits, vegetables, whole grains, poultry, fish and nuts and limiting sugary foods and beverages. Eating this way may help increase fiber, which is also beneficial. A diet high in fiber can help lower cholesterol levels by as much as 10 percent. DASH diet. Increase exercise to 30-45 min q day. Decrease sugary drinks, stop soda intake. Limit ETOH intake. If you smoke, quit smoking.esomeprazole Recommend famotidine 20 mg twice daily as needed for dyspepsia-- Smoking cessation encouranged-- Dietary and life style changes encouraged-- Calcium/Vit D and osteoporosis surveillance stressed-- Risk of assisted PPI use discussed-- Antireflux diet: avoid tomatoes, citrus fruits, carbonated or caffeinated beverages, chocolate, peppermints, fatty foods.-- Elevate head of bed 6 on a brick or telephone bookmelatonin prntrazodone qhsSleep hygiene discussed - consistent bedtime, limiting television/email/social media in hours before bedtime - replace with reading/writing or taking a walk; soothing herbal tea at bedtime - limit caffeine; if unable to sleep get up and leave bedroom - participate in other activity until tired again.Rx glipizide and metformin A1c = 6.3 H 02/01/2022 A1c- 6.2GFR = 53 02/01/2022 Avoid nephrotoxic medications (NSAIDS, high dose Gabapentin, Baclofen, Fleet Enema, Morphine/Codeine) *Suggest stopping sulfonylurea (glipizide) or switching to an alternative class with a more favorable risk? benefit ratio, such as a lower risk of hypoglycemia. Note to PCP 06/2022losartan metoprolol tartrate BID verapamil Recommend DASH diet. Increase exercise to 30-45 min q day. Eat a healthy diet: try to eat whole foods, green leafy vegetables and whole grains. Decrease fast foods and processed foods. Decrease sugary drinks, stop soda intake. Limit ETOH intake. If you smoke, quit smoking. Decrease caffeine intake. Decrease stress by: meditating, deep breathing, laughing, going for walks. Monitor BP at home: keep a BP journal. Record you BP's in the AM and after dinner; bring your log in next visit.raloxifene TIPS for Bone Health: If you smoke, quit smoking (this will contribute to bone loss). Avoid ETOH. Ecouraged weight-bearing exercises, such as walking, and climbing stairs, can help you build strong bones and slow bone loss. Add good sources of calcium- dairy products, almonds, broccoli, kale, canned salmon with bones, sardines and soy products, such as tofu. 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 Eating this way may help increase fiber, which is also beneficial. A diet high in fiber can help lower cholesterol levels by as much as 10 percent. DASH diet. Increase exercise to 30-45 min q day. Decrease sugary drinks, stop soda intake. Limit ETOH intake. If you smoke, quit smoking.avoid nephrotoxic medicationstay hydrated encouraged A1c control and bp controldonepezil early dementia per PCP per CG report FAST SCORE: 4 10/04/22 2023-03-24 13:16:15 Medication Review by prescribing provider or pharmacist documented (1160F)Medication List Documented (1159F)Functional Status Assessed (1170F)Advance Care Directive Advance care planning discussion documented in the medical record (1158F)BMI obtained (3008F)SBP < 130 (3074F)DBP <80 (3078F)Televideo 30-39min; chronic exacerbation, 2 stable chronic or 1 acute illness add modifier 95Advance care planning discussed and documented ? advance care plan or surrogate decision-maker was documented in the medical record. (1123F)Pain Assessment - Pain Documented (1125F)Most recent hemoglobin A1c (HbA1c) level 7-7.9% (3051F)Continue to see PCP. Follow-up with [facility] as needed for any acute or disease education needs that may arise.atorvastatin Advised to eat a healthy diet include emphasizing fruits, vegetables, whole grains, poultry, fish and nuts and limiting sugary foods and beverages. Eating this way may help increase fiber, which is also beneficial. A diet high in fiber can help lower cholesterol levels by as much as 10 percent. DASH diet. Increase exercise to 30-45 min q day. Decrease sugary drinks, stop soda intake. Limit ETOH intake. If you smoke, quit smoking.esomeprazole Recommend famotidine 20 mg twice daily as needed for dyspepsia-- Smoking cessation encouranged-- Dietary and life style changes encouraged-- Calcium/Vit D and osteoporosis surveillance stressed-- Risk of bed bug exterminator PPI use discussed-- Antireflux diet: avoid tomatoes, citrus fruits, carbonated or caffeinated beverages, chocolate, peppermints, fatty foods.-- Elevate head of bed 6 on a brick or telephone bookmelatonin prntrazodone qhsSleep hygiene discussed - consistent bedtime, limiting television/email/social media in hours before bedtime - replace with reading/writing or taking a walk; soothing herbal tea at bedtime - limit caffeine; if unable to sleep get up and leave bedroom - participate in other activity until tired again.03/24/23: metformin decreased to metformin 500 QDAY d/ t hypoglycemia Lab ResultsComponent Value DonpPNCW1G 7.8 (A) 02/14/2023HGBA1C 6.3 (H) 02/01/2022Lab ResultsComponent Value DateGLUCOSE 121 (H) 11/19/2022NA 144 3K 4.5 3CO2 26 11/19/2022L 109 (H) 11/19/2022UN 14 11/19/2022REATININE 1.05 3GFR = 53 02/01/2022 Avoid nephrotoxic medications (NSAIDS, high dose Gabapentin, Baclofen, Fleet Enema, Morphine/Codeine) *Suggest stopping sulfonylurea (glipizide) or switching to an alternative class with a more favorable risk? benefit ratio, such as a lower risk of hypoglycemia. Note to PCP 06/2022losartan metoprolol tartrate BID verapamil Recommend DASH diet. Increase exercise to 30-45 min q day. Eat a healthy diet: try to eat whole foods, green leafy vegetables and whole grains. Decrease fast foods and processed foods. Decrease sugary drinks, stop soda intake. Limit ETOH intake. If you smoke, quit smoking. Decrease caffeine intake. Decrease stress by: meditating, deep breathing, laughing, going for walks. Monitor BP at home: keep a BP journal. Record you BP's in the AM and after dinner; bring your log in next visit.Lab ResultsComponent Value AsinSUTE0K 7.8 (A) 02/14/2023HGBA1C 6.3 (H) 02/01/2022Lab ResultsComponent Value DateGLUCOSE 121 (H) 11/19/2022NA 144 3K 4.5 11/19/2022CO2 26 11/19/2022L 109 (H) 11/19/2022UN 14 11/19/2022REATININE 1.05 11/19/2022raloxifene TIPS for Bone Health: If you smoke, quit smoking (this will contribute to bone loss). Avoid ETOH. Ecouraged weight-bearing exercises, such as walking, and climbing stairs, can help you build strong bones and slow bone loss. Add good sources of calcium- dairy products, almonds, broccoli, kale, canned salmon with bones, sardines and soy products, such as tofu. 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 Eating this way may help increase fiber, which is also beneficial. A diet high in fiber can help lower cholesterol levels by as much as 10 percent. DASH diet. Increase exercise to 30-45 min q day. Decrease sugary drinks, stop soda intake. Limit ETOH intake. If you smoke, quit smoking.03/24/23: metformin decreased to metformin 500 QDAY d/ t hypoglycemia Lab ResultsComponent Value CrflGFMK3A 7.8 (A) 02/14/2023HGBA1C 6.3 (H) 02/01/2022 2024-05-01 12:21:21 Functional Status As sessed (1170F)Advance Care Directive Advance care planning discussion documented in the medical record (1158F)Advance care planning discussed and documented ? advance care plan or surrogate decision-maker was documented in the medical record. (1123F)SBPDBPEstab. patient 20-29min; 1 stable chronic or 2 minor; add add modifier 95 for video, modifier 93 for phoneMedication List Documented (1159F)Medication Review by prescribing provider or pharmacist documented (1160F)Pain Assessment - Pain Documented on a Pain Scale (1125F)Continue to see PCP. Follow-up with [facility] as needed for any acute or disease education needs that may arise.atorvastatin Advised to eat a healthy diet include emphasizing fruits, vegetables, whole grains, poultry, fish and nuts and limiting sugary foods and beverages. Eating this way may help increase fiber, which is also beneficial. A diet high in fiber can help lower cholesterol levels by as much as 10 percent. DASH diet. Increase exercise to 30-45 min q day. Decrease sugary drinks, stop soda intake. Limit ETOH intake. If you smoke, quit smoking.05/01/24-Rx: atorvastatinContinue CV medications as directedRecommend low sodium/fat dietExercise as toleratedRoutine pcp follow up with labs for surveillance/medication titrationLimiting alcohol and sodium Avoiding smokingWhen member to call: 1. If bp is elevated sbp>150; dbp>90 or symptomatic-h/a, dizziness, cp, sob. 2. if there is a fall 3. if BS >300 or BS<90 or symptomatic; i.e., dizzy, off balance , shaky, general weakness. 4. if UTI symptoms arise-urinary frequency, dysuria, low abd pain. 5. if pain in knees increases/ or joint pain increased [facility] or disease education needs that may arise 27/09.what should be done when the member calls: see each individual diagnosis for contingency planesomeprazole Recommend famotidine 20 mg twice daily as needed for dyspepsia-- Smoking cessation encouranged-- Dietary and life style changes encouraged-- Calcium/Vit D and osteoporosis surveillance stressed-- Risk of assisted PPI use discussed-- Antireflux diet: avoid tomatoes, citrus fruits, carbonated or caffeinated beverages, chocolate, peppermints, fatty foods.-- Elevate head of bed 6 on a brick or telephone bookmelatonin prntrazodone qhsSleep hygiene discussed - consistent bedtime, limiting television/email/social media in hours before bedtime - replace with reading/writing or taking a walk; soothing herbal tea at bedtime - limit caffeine; if unable to sleep get up and leave bedroom - participate in other activity until tired again.05/01/24-Rx: mirtazapine, melatonin prn, no longer on trazodone Avoid alcohol, caffeine, chocolate, and nicotine in the late afternoon and evening. Limit liquids in the evening before going to bed.Turn off the TV one hour before bedtime. Listen to quiet music or take a warm bath. If you worry or can't turn your brain off when you try to sleep, schedule a ? worry time? to help get over rumination. Set aside a ? wind-down? time. Follow up prn.03/24/23: metformin decreased to metformin 500 QDAY d/ t hypoglycemia Lab ResultsComponent Value TjjkVKCV1Z 7.8 (A) 02/14/2023HGBA1C 6.3 (H) 02/01/2022Lab ResultsComponent Value DateGLUCOSE 121 (H) 11/19/2022NA 144 11/19/2022 4.5 3CO2 26 11/19/2022L 109 (H) 11/19/2022UN 14 11/19/2022REATININE 1.05 11/19/2022FR = 53 02/01/2022 Avoid nephrotoxic medications (NSAIDS, high dose Gabapentin, Baclofen, Fleet Enema, Morphine/Codeine) *Suggest stopping sulfonylurea (glipizide) or switching to an alternative class with a more favorable risk? benefit ratio, such as a lower risk of hypoglycemia. Note to PCP -daughter reports A1C TWO WEEKS AGO IN THE 7'Slosartan metoprolol tartrate BID verapamil Recommend DASH diet. Increase exercise to 30-45 min q day. Eat a healthy diet: try to eat whole foods, green leafy vegetables and whole grains. Decrease fast foods and processed foods. Decrease sugary drinks, stop soda intake. Limit ETOH intake. If you smoke, quit smoking. Decrease caffeine intake. Decrease stress by: meditating, deep breathing, laughing, going for walks. Monitor BP at home: keep a BP journal. Record you BP's in the AM and after dinner; bring your log in next visit.05/01/2024Monitor Bp dailyContinue CV medication as directedAvoid nephrotoxic agentsDiet with low sodiumExercise as toleratedRoutine follow up with labsHYPERTENSION CONTINGENCY PLANLast updated: 05/01/2024Member to call for the following symptoms: BP >180/100??/ Headache/ HR >100??Planned intervention: Assess for signs of end organ damage (headache, vision changes, chest pain)/ Die Grinder on proper BP monitoring technique and reassess/ Increase current medication dose:/ Encourage low sodium diet/ Discuss breathing exercises/ Encourage medication adherenceraloxifene TIPS for Bone Health: If you smoke, quit smoking (this will contribute to bone loss). Avoid ETOH. Ecouraged weight-bearing exercises, such as walking, and climbing stairs, can help you build strong bones and slow bone loss. Add good sources of calcium- dairy products, almonds, broccoli, kale, canned salmon with bones, sardines and soy products, such as tofu. If you are vit D deficient; take Vit D3 daily 2,000 IU-5,000 IU. 05/01/24-Eat a balanced diet with enough calcium, vitamin D, and protein. Good sources of protein include plant proteins like beans and nuts, low-fat dairy, fish, skinless poultry, and lean cuts of meat. Participate in regular physical activity, such as weight-bearing exercises, to help keep bones strong and lower the risk of falls. Keep routine follow up with local provider as scheduled and follow up with CB prn.solifenacin followed by urology 05/01/24-Drink enough fluids: Drink water and other fluids throughout the day, but avoid drinking too much or too little. Limit bladder-irritating foods and drinks: Avoid caffeine, alcohol, carbonated drinks, citrus juice, chocolate, spicy foods, and tomatoes. Maintain a healthy weight: Being overweight can put pressure on your bladder. Manage constipation: Constipation can make OAB worse. Quit smoking: Smoking can make OAB worse.Exercise: Regular physical activity and Kegel exercises can help strengthen your pelvic floor muscles. Follow up with CB prn.prn albuterol inhalerfollows with pulmonologydonepezil early dementia per PCP per CG report FAST SCORE: 4 03/24/2401-Family / CG supportCalm and supportive environment, keep a consistent routine with ADLs engaging in physical activities such as walking can decrease mood / behavior issues. 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 Follow up with CB prn.in remissionfollows with oncologist s/p surgery/removal of cancerous lesionAdvised to eat a healthy diet include emphasizing fruits, vegetables, whole grains, poultry, fish and nuts and limiting sugary foods and beverages. Eating this way may help increase fiber, which is also beneficial. A diet high in fiber can help lower cholesterol levels by as much as 10 percent. DASH diet. Increase exercise to 30-45 min q day. Decrease sugary drinks, stop soda intake. Limit ETOH intake. If you smoke, quit smoking.03/24/23: metformin decreased to metformin 500 QDAY d/ t hypoglycemia Lab ResultsComponent Value XlvgSGJM4K 7.8 (A) 02/14/2023HGBA1C 6.3 (H) 02/01/2022 Goals Date Goal 2022-01-25 Follow-up with Saskia ayon as needed Health Concerns Date Concern 2024-05-01 Visit completed in g audio and video. Patient/Guardian agreed to visit via telehealth. Today, patient has chief complaint of: follow up care and comprehensive review.Reviewed Allergies, Medications, Active Medical conditions, past medical/surgical history, Social history. 2024-05-01 Most recent hospital stay(s) or ER visit(s) and precipitating factors: 04/21/2024-04/23/2024-s/p GLF 2024-05-01 Open HEDIS Measure r eview: 2024-05-01 Advance Care Plan Co nversationDate of Conversation: 05/01/2024Life Limiting Diagnosis: Diagnosis: DementiaCurrently on Hospice NoCode Status: YES CPR: Attempt ResuscitationGoals of Care: Curative: Attempt to sustain life by all medically effective meansNutrition goals: Feeding through new or existing surgically placed tube is okDo you have a Durable Power of Digital Measurement Advisor for Healthcare, or Healthcare Proxy Or Guardianship? Yes, preferred proxy but not named BAUTISTAf so, Who? HCP: grand daughter Kerry Waldrop Do you have a written Advance Directive?Other details of discussion: (Who was present, patients description of wishes/goals)Today's plan:1123F : AD or surrogate was documented in the medical record.
--- OUTSIDE RECORDS SUMMARY | 2024-06-20 17:20 | XMS_ITS | Encounter Summary ---
Author Organization [employer] Address [address] [place] [address] Care Team Providers Care General Freight Agent Name Role Phone Name, Tyson MCKINNON Primary Care Provider [phone] Reason for Visit * Reason Comments Med Refill Encounter Details Date Type Department Care Team (Late st Contact Info) Description 06/18/2024 Refill [facility] [address] [place], [place] [phone] Rose Quintana, MARCOS [address] [place], [place] [phone] Chronic pain of both knees Social History [...] documented as of this encounter Care Teams General Freight Agent Relationship Specialty Start Date End Date Name, MD Tyson [address] [place] [address] PCP - General Family Medicine 01/18/19 documented as of this encounter
--- OUTSIDE RECORDS SUMMARY | 2024-06-20 17:20 | XMS_ITS | Clinical Summary ---
Author Organization [employer] Address [address] [facility] 7t [place] [address] Care Team Providers Care Marina Sales And Service Supervisor Name Role Phone Name, Tyson MCKINNON Primary Care Provider [phone] Allergies Active Allergy Reactions Criticality Noted Date [...] mouth in the morning. 12/25/19 23 Active nitroglycerin (Nitrostat) 0.[address] 1 tablet (0.4 mg) under the tongue every 5 (five) minutes if needed for chest pain. 90 tablet 12 08/31/19 24 025 Active OneTouch Ultra Test test strip USE [...] mouth Once per day. 12/02/19 24 Active metoprolol tartrate (Lopressor) 25 MG tabletIndicatio ns:Hypertension , unspecified type TAKE 1 TABLET BY MOUTH TWICE DAILY AT NOON AND IN THE EVENING 180 tablet 3 02/06/20 24 Active Lancets (OneTouch Delica Plus [id number]) miscIndications :Type 2 diabetes mellitus with other specified complication, without long-term current use of insulin ([facility]) TEST BLOOD SUGAR TWICE DAILY 100 each 3 03/27/19 25 Active losartan (Cozaar) 25 MG tabletIndicatio ns:Hypertension , unspecified type TAKE 1 TABLET BY MOUTH EVERY EVENING 90 tablet 3 04/02/19 25 Active Ferrous Sulfate (iron) 325 (65 Fe) MG tabletIndicatio ns:Type 2 diabetes mellitus with other specified complication, unspecified whether mcfp insulin use ([facility]) TAKE 1 TABLET BY MOUTH EVERY EVENING 90 tablet 3 04/05/19 25 Active clopidogrel (Plavix) 75 MG tablet Take 1 tablet (75 mg) by mouth at bedtime. 90 tablet 04/10/19 25 Active Calcium Carb-Cholecalci ferol 600-10 MG-MCG tablet Take 1 tablet by mouth 2 times daily. 270 tablet 04/10/19 25 026 Active furosemide (Lasix) 20 MG tablet Take 20 mg by mouth in the morning. 03/20/19 25 Active mirtazapine (Remeron) 30 MG tablet TAKE 1 TABLET BY MOUTH AT BEDTIME 30 tablet 1 05/04/19 25 Active atorvastatin (Lipitor) 40 MG tabletIndicatio ns:High cholesterol TAKE 1 TABLET BY MOUTH EVERY EVENING 90 tablet 3 05/08/19 25 Active Ascorbic Acid (vitamin C) 500 MG tabletIndicatio ns:High cholesterol TAKE 1 TABLET BY MOUTH EVERY EVENING 90 tablet 3 05/08/19 25 Active esomeprazole (NexIUM) [address] capsuleIndicati ons:High cholesterol TAKE 1 CAPSULE BY MOUTH EVERY MORNING 90 capsule 3 05/08/19 25 Active metFORMIN (Glucophage) 500 MG tablet TAKE 1 TABLET TWICE DAILY IN THE MORNING AND IN THE EVENING WITH FOOD 60 tablet 11 06/05/19 25 Active traMADol (Ultram) 50 MG tabletIndicatio ns:Chronic knee pain, unspecified laterality Take 0.5 tablets (25 mg) by mouth every 12 (twelve) hours if needed for severe pain. 28 tablet 06/19/19 25 Active metFORMIN (Glucophage) 500 MG tablet Take 1 tablet (500 mg) by mouth with breakfast and with evening meal. 60 tablet 11 05/17/19 24 025 Discontinued traMADol (Ultram) 50 MG tablet Take 50 mg by mouth. 025 Discontinued(Re order (will not trigger notification [...] 01/21/2012 Non-compliance 12/22/2011 Coronary artery disease involving [place] coronar y artery 09/20/2011 Hiatal hernia 09/20/2011 Mixed hyperlipidemia 08/12/2011 Jo's esophagus 07/21/2011 Chest pain 07/20/2011 Dizziness and giddiness 07/20/2011 Essential hypertension 07/20/2011 Migraine 07/20/2011 Osteopenia of multiple sites 08/09/2005 Encounters Date Type Department Care Team Description 06/18/2024 Refill [facility] MED & PEDS [address] [place] [address] Rose Quintana NP Chronic pain of both knees 06/18/2024 Refill [facility] MEDICINE [address] [place] [address] NameTyson MD Chronic knee pain, unspecified laterality (Primary Dx) 06/03/2024 Refill [facility] MEDICINE [address] [place] [address] NameTyson MD 05/30/2024 Refill [facility] MED & PEDS [address] [place] [address] Rose Quintana NP Chronic pain of both knees 05/10/2024 Orders Only [facility] [address] [place] [address] Tyson March MD 05/06/2024 Refill [facility] MEDICINE [address] [place] [address] Tyson March MD High cholesterol 05/03/2024 Refill [facility] MEDICINE [address] [place] [address] Tyson March MD 04/21/2024 Orders Only [facility] External Provider, [facility] 04/10/2024 3:15 PM EST Office Visit [facility] MEDICINE [address] [place] [address] NameTyson MD Type 2 diabetes mellitus with other specified complication, without long-term current use of insulin ([facility]) (Primary Dx); Essential hypertension; Diarrhea, unspecified type 04/10/2024 Telephone [facility] MEDICINE [address] [place] [phone] Ramila Banks RN 04/10/2024 Refill [facility] MED & PEDS [address] [place] [address] Name, MD Tyson 04/05/2024 Refill [facility] MEDICINE [address] [place] [address] Tyson March MD Type 2 diabetes mellitus with other specified complication, unspecified whether mcfp insulin use (CMS/HCC) 04/01/2024 Refill [facility] MEDICINE [address] [place] [address] Tyson March MD Hypertension, unspecified type 03/27/2024 Refill [facility] MEDICINE [address] [place] [address] Pat Crocker ANP Type 2 diabetes mellitus with other specified complication, without long-term current use of insulin (CMS/[facility]) from Last 3 Months Immunizations Name Administration [...] Sign Reading Time Taken Comments Blood Pressure 132/59 04/10/2024 3:37 PM EST Pulse 67 04/10/2024 3:12 PM EST Temperature 35.4 ??C (95.8 ??F) 04/10/2024 3:12 PM ES T Respiratory Rate 16 04/10/2024 3:12 PM EST Oxygen Saturation 97% 04/10/2024 3:12 PM EST Inhaled Oxygen Concentration - - Weight 71.4 kg (157 lb 6.4 oz) 04/10/2024 3:12 P M EST Height 157.5 cm (5' 2 ) 12/02/2023 1:21 PM EDT Body Mass Index 28.79 12/02/2023 1:21 PM EDT Plan of Treatment Health Maintenance Due Date Last Done Comments [...] 02/08/2024 02/07/2023, 02/01/2022, 08/07/2021, Additional history exists Depression Screening 05/16/2024 05/17/2023, 05/17/19 24 Alcohol/Substance Use Screening 08/30/2024 08/31/2023 SDOH Screening 08/30/2024 08/31/2023 Diabetes: Hemoglobin A1C 10/08/2024 02 025, 12/02/2023, 08/31/2023, Additional history exists Diabetes: Foot Exam 12/01/2024 12/02/2023, 12/02/2023, 12/02/2023, [...] Procedure Name Priority Date/Time Associated Diagnosis Comments URINALYSIS, COMPLETE, WITH REFLEX TO CULTURE Routine 04/21/2024 8:00 PM EST CULTURE, URINE, ROUTINE Routine 04/21/2024 8:[address] HEAD WO CONTRAST Routine 04/21/2024 7 :[address] CERVICAL SPINE WO CONTRAST Routine 04/21/2024 7:28 PM EST POCT GLYCATED HEMOGLOBIN, TOTAL Routine 04/10/2024 3:23 PM EST Type 2 diabetes mellitus with other specified complication, without long-term current use of insulin ([facility]) POCT GLUCOSE Routine 04/10/2024 3:21 PM EST Type 2 diabetes mellitus with other specified complication, without long-term current use of insulin ([facility]) LIPID PANEL, STANDARD Routine 12/08/2023 10:10 AM EDT Type 2 diabetes mellitus with other specified complication, without long-term current use of insulin ([facility]) Chronic knee pain, unspecified laterality Venous insufficiency of both lower extremities ALBUMIN, RANDOM URINE W/CREATININE Routine 02/07/2023 10:15 AM EST INTRAORAL - COMPLETE SERIES OF RADIOGRAPHIC IMAGES Routine 10/08/2020 12:00 AM EDT COMPREHENSIVE ORAL EVALUATION - NEW OR ESTABLISHED PATIENT Routine 10/08/2020 12:00 AM EDT PROPHYLAXIS - ADULT Routine 04/30/2013 1 2:00 AM EST from Last 3 Months or Most Recently Relevant to Health Maintenance Results * Culture, Urine, Routine (04/21/2024 8:00 PM EST) Urine Urine specimen obtained by clean catch procedure / Unknown 04/21/2024 8:00 PM EST 04/21/2024 8:31 PM EST Comment:[facility] - 04/23/2024 11:54 AM EST Urine Culture Report Result Urine Culture 10,000 to 50,000 cfu/ml Urine Culture Mixed bacterial maria a characteristic of Urine Culture urogenital contamination. Specimen Source: Urine clean catch us Generic External Data Provider LAB MICROBIOLOGY - GENERAL ORDERABLES Final Result [facility] [address] [place] [address] [phone] * CT Head w/o Contrast (04/21/2024 7:30 PM EST) Anatomical Region Laterality Modality Head, Neck Computed Tomogra phy 04/21/2024 7:30 PM EST Narrative 04/21/2024 7:31 PM EST ? [facility] ?[address] ?[place] [address] ? CT Scan Report ? Signed ? Patient: Urbano,Nadine ?MR#: [id number] ?? 67 ? : 1940 ?Acct:[id number] ? Age/Sex: 83 / F ?ADM Date: 04/21/24 ? Loc: HO.ED ? Attending Dr: ? Ordering Physician: Jamal Eubanks ?? Date of Service: 04/21/24 ?? Procedure(s): CT head/brain wo IV con ?? Accession Number(s): [id number] ? cc: Name,Tyson MCKINNON; Jamal Eubanks ? Report Number: ?? [id number]: Total DLP = ?0.00 mGy-cm ? CLINICAL HISTORY: trauma ? CT head without contrast ? Comparison: CT/REG/DE/SR - CT ANGIO HEAD NECK - 09/21/21 14:33 EDT ?? MR/REG - MR HEAD/BRAIN WO/W CON - 12/08/20 13:07 EDT ? Findings: ?? No intra-axial mass, midline shift, hydrocephalus, or acute hemorrhage. ?? Mild cerebral atrophy. Low attenuation in the periventricular white matter ?? consistent with chronic small-vessel ischemic gliosis. ? The visualized paranasal sinuses and mastoid air cells are normal. ?? The orbits are within normal limits. ?? There is no acute fracture. ? IMPRESSION: ?? 1. No acute intracranial findings. ? This document has been electronically signed by: Nash Munoz MD on ?? 04/21/2024 19:30:11 ? Dictated By: ?Nash Munoz MD ? Signed By: ?<Electronically signed by Nash Munoz MD in OV> ? 04/21/241930 ? DD/ 193 ? TD/TT: 04/21/24 193 ? Tire Maintenance Technician: ? Procedure Note Donotuseinterpreter, Image - 04/22/[address] [address] [address] Scan Report Signed Patient: Nadine ClementMR#: [id number] [birth year] : 9Acct:[id number] Age/Sex: 83 / FADM Date: 04/21/24 Loc: HO.ED Attending Dr: Ordering Physician: Jamal Eubanks Date of Service: 04/21/24 Procedure(s): CT head/brain wo IV con Accession Number(s): [id number] cc: Name,Tyson MCKINNON; Jamal Eubanks Report Number: [id number]: Total DLP = 0.00 mGy-cm CLINICAL HISTORY: trauma CT head without contrast Comparison: CT/REG/DE/SR - CT ANGIO HEAD NECK - 09/21/21 14:33 EDT MR/REG - MR HEAD/BRAIN WO/W CON - 12/08/20 13:07 EDT Findings: No intra-axial mass, midline shift, hydrocephalus, or acute hemorrhage. Mild cerebral atrophy. Low attenuation in the periventricular white matter consistent with chronic small-vessel ischemic gliosis. The visualized paranasal sinuses and mastoid air cells are normal. The orbits are within normal limits. There is no acute fracture. IMPRESSION: 1. No acute intracranial findings. This document has been electronically signed by: Nash Munoz MD on 04/21/2024 19:30:11 Dictated By: Nash Munoz MD Signed By: <Electronically signed by Nash Munoz MD in OV> 04/21/241930 DD/ 29 TD/TT: 04/21/241929 Tire Maintenance Technician: [facility] External Provider IMG CT PROCEDURES Final Result * CT Cervical Spine w/o Contrast (04/21/2024 7:28 PM EST) Anatomical Region Laterality Modality Spine, C-spine Computed Tomogra phy 04/21/2024 7:28 PM EST Narrative 04/21/2024 7:29 PM EST ? [facility] ?[address] ?[place] [address] ? CT Scan Report ? Signed ? Patient: Urbano,Nadine ?MR#: [id number] ?? 67 ? : 1940 ?Acct:[id number] ? Age/Sex: 83 / F ?ADM Date: 04/21/24 ? Loc: HO.ED ? Attending Dr: ? Ordering Physician: Jamal Eubanks ?? Date of Service: 04/21/24 ?? Procedure(s): CT cervical spine wo IV con ?? Accession Number(s): [id number] ? cc: Name,Tyson MCKINNON; Jamal Eubanks ? Report Number: ?? [id number]: Total DLP = ??863.00 mGy-cm ? CLINICAL HISTORY: trauma ? CT cervical spine without contrast ? Comparison: CT/DE - CT ANGIO HEAD NECK - 09/21/21 14:57 EDT ? Findings: ?? Vertebral alignment is within normal limits. ?? Multilevel degenerative change of the cervical spine. ?? No acute fractures or dislocations. ? Visualized intracranial contents are unremarkable. ?? There is a dense calcification measuring 7 mm within the left lobe of the ?? thyroid gland. ?? There is a nodule in the posterior right lung apex measuring 4 mm along ?? the pleural surface, unchanged from prior. ?? There is a cluster of nodules in the anterior right upper lobe, this area ?? was not imaged on prior study. Largest nodule in the cluster measures 5 ?? mm. There is a partially visualized 5 mm nodular density in the posterior ?? aspect of the left lung, in the superior segment of the left lower lobe. ? IMPRESSION: ?? 1. No cervical spine fracture. ?? 2. Cluster of nodules in the anterior right upper lobe, which may be ?? residua related to previous infection. ? This document has been electronically signed by: Nash Munoz MD on ?? 04/21/2024 19:28:47 ? Dictated By: ?Nash Munoz MD ? Signed By: ?<Electronically signed by Nash Munoz MD in OV> ? 04/21/241928 ? DD/ 27 ? TD/TT: 04/21/241927 ? Tire Maintenance Technician: ? Procedure Note Donotuseinterpreter, Image - 04/22/[address] [address] [address] Scan Report Signed Patient: Nadine ClementMR#: [id number] [birth year] : 9Acct:[id number] Age/Sex: 83 / FADM Date: 04/21/24 Loc: HO.ED Attending Dr: Ordering Physician: Jamal Eubanks Date of Service: 04/21/24 Procedure(s): CT cervical spine wo IV con Accession Number(s): [id number] cc: Name,Tyson MCKINNON; Jamal Eubanks Report Number: [id number]: Total DLP = 863.00 mGy-cm CLINICAL HISTORY: trauma CT cervical spine without contrast Comparison: CT/DE - CT ANGIO HEAD NECK - 09/21/21 14:57 EDT Findings: Vertebral alignment is within normal limits. Multilevel degenerative change of the cervical spine. No acute fractures or dislocations. Visualized intracranial contents are unremarkable. There is a dense calcification measuring 7 mm within the left lobe of the thyroid gland. There is a nodule in the posterior right lung apex measuring 4 mm along the pleural surface, unchanged from prior. There is a cluster of nodules in the anterior right upper lobe, this area was not imaged on prior study. Largest nodule in the cluster measures 5 mm. There is a partially visualized 5 mm nodular density in the posterior aspect of the left lung, in the superior segment of the left lower lobe. IMPRESSION: 1. No cervical spine fracture. 2. Cluster of nodules in the anterior right upper lobe, which may be residua related to previous infection. This document has been electronically signed by: Nash Munoz MD on 04/21/2024 19:28:47 Dictated By: Nash Munoz MD Signed By: <Electronically signed by Nash Munoz MD in OV> 04/21/241928 DD/ 27 TD/TT: 04/21/241927 Tire Maintenance Technician: [facility] External Provider IMG CT PROCEDURES Edited Result - Final * (ABNORMAL) POCT HGB A1C (04/10/2024 3:23 PM EST) Hemoglobin A1C 6.8(A) 4.0 - 6.0 % QC Media Lot # [id number] Lot# Expiration Date Blood 04/10/2024 3:23 PM EST Tyson March MD POINT OF CARE TEST ENTER/EDIT OR DERABLES Final Result * POCT Glucose (04/10/2024 3:21 PM EST) Pathologist [facility] Glucose Blood, POC 122 60 - 200 mg/dL QC Media Lot # [id number] Lot# Expiration Date ,025 Blood Capillary blood specimen / Unknown 04/10/2024 3:21 PM EST us Tyson March MD POINT OF CARE TEST ENTER/EDIT OR DERABLES Final Result * Lipid Panel, Standard (12/08/2023 10:10 AM EDT) Pathologist [facility] Triglycerides 82 <150 mg/dL [facility] Comment:Desirable Triglyceri de: less than 150 mg/dLBorderline High Triglyceride 150-199 mg/dLHigh Triglyceride: 200-499 mg/dLVery High Triglyceride: greater than or equal to 5OO mg/dL Cholesterol 123 <200 mg/dL [facility] Comment:Desirable Cholestero l: less than 200 mg/dLBorderline High Cholesterol: 200-239 mg/dLHigh Cholesterol: greater than 239 mg/dL LDL Cholesterol Calculated 47 <100 mg/dL [facility] Comment:Desirable LDL: less than 100 mg/dLNear Optimal/Above Optimal LDL: 110- 129 mg/dLBorderline High LDL: 130-159 mg/dLHigh LDL: 160-189 mg/dLVery High LDL: greater than or equal to 190 mg/dL HDL Cholesterol 60 >40 mg/dL [facility] Comment:Desirable HDL: great er than 40 mg/dL Note: This HDL assay may give artificially low results in patients with liver disease. Blood Venous blood specimen / Unknown 12/08/2023 10:10 AM EDT 12/08/2023 11:16 AM EDT Tyson March MD LAB BLOOD ORDERABLES Final Resul t Performing Organization Address [facility] Co de Phone Number [facility] [address] [place] [phone] * Albumin, Random Urine W/Creatinine (02/07/2023 10:15 AM EST) Creatinine, Urine 75.20 mg/dL [facility] Microalbumin Urine 8.0 mg/L [facility] Microalbum Creatinine Ratio Ur 10.6 <30 ug/mg cr [facility] Comment:Albumin/Creatinine R atio Reference Ranges: Normal: < 30 ug/mg creatinine Microalbuminuria: 30 - 300 ug/mg creatinineClinical Albuminuria: > 300 ug/mg creatinine 02/07/2023 10:1 5 AM EST 02/07/2023 11:06 AM EST Tyson March MD LAB URINE ORDERABLES Final Resul t Performing Organization Address [facility] Co de Phone Number [facility] [address] [place] [phone] from Last 3 Months or Most Recently Relevant to Health Maintenance Insurance [facility] - [facility] [employer] Member Subscriber Plan / Payer (Ef fective 2019-Present) Name:Nadine Clement Relation to Subscriber:Self Name:Nadine Clement Payer ID:Not on file Group ID:[id number] Type:Not on file Address: [address] [facility] Care Teams Marina Sales And Service Supervisor Relationship Specialty Start Date End Date Name, MD Tyson [address] [place] [address] [place], [place] PCP - General Family Medicine 01/18/19
--- OUTSIDE RECORDS SUMMARY | 2024-06-20 17:20 | XMS_ITS | Encounter Summary ---
Author Organization [employer] Address [address] [facility] [address] [place] [address] Care Team Providers Care Quality Control Tester Name Role Phone Name, Tyson MCKINNON Primary Care Provider [phone] Encounter Details Date Type Department Care Team ([facility] st Contact Info) Description 10/18/2022 Orders Only [facility] MED & PEDS [address] [place], [place] [phone] Ernestine Aceves LPN Social History Tobacco Use [...] documented as of this encounter Care Teams Quality Control Tester Relationship Specialty Start Date End Date Name, MD Tyson [address] [place] [address] PCP - General Family Medicine 01/18/19 documented as of this encounter
--- OUTSIDE RECORDS SUMMARY | 2024-06-20 17:20 | XMS_ITS | Encounter Summary ---
Author Organization [employer] Address [address] [facility] [address] [place] [address] Care Team Providers Care Steel Erector Name Role Phone Name, Tyson MCKINNON Primary Care Provider [phone] Reason for Visit * Reason Onset Date Comments Med Refill 06/18/2024 Encounter Details Date Type Department Care Team (Late st Contact Info) Description 06/18/2024 Refill [facility] [address] [place], [place] [phone] Name, MD Tyson [address] [place], [place] [phone] Chronic knee pain, unspecified laterality (Primary Dx) Social History Tobacco Use Types Packs/Day Years [...] as of this encounter Miscellaneous Notes * Telephone Encounter - Evette Figueroa RN - 06/18/2024 9:06 AM EDT [employer] checked by account underwriter on 06/18/24. Pt picked up a 28 day supply of traMADol (Ultram) 50 MG tablet on 03/27/24. Pt due for refill. Message forwarded to PCP to review and advise. * Telephone Encounter - Mart Shin - 06/18/2024 8:46 AM EDT TC from pt requesting medication refill. Medications needing refill : traMADol (Ultram) 50 MG tablet To be sent to: [facility] [place] - [address] documented in this encounter Plan of Treatment Not on file documented as of this encounter Visit Diagnoses Diagnosis Chronic knee pain, unspecified laterality- Primary documented in this encounter Additional Health Concerns Assessment Noted Time PHQ-9 Depression Total Score: 0 05/17/19 24 2:27 PM EDT documented as of this encounter Care Teams Steel Erector Relationship Specialty Start Date End Date Name, MD Tyson [address] [place] [address] PCP - General Family Medicine 01/18/19 documented as of this encounter
--- OUTSIDE RECORDS SUMMARY | 2024-06-20 17:20 | XMS_ITS | Encounter Summary ---
Author Organization [facility] Address [address] [facility] [address]t [place] [address] Care Team Providers Care Speed Reading Teacher Name Role Phone Name, Tyson MCKINNON Primary Care Provider [phone] Reason for Visit * Reason Comments Med Refill Encounter Details Date Type Department Care Team (Late st Contact Info) Description 04/01/2022 Refill [facility] MED[facility] [address] [place], [place] [phone] Name, MD Tyson [address] [place] [phone] Migraine, unspecified, not intractable, without status migrainosus [...] migrainosus documented in this encounter Care Teams Speed Reading Teacher Relationship Specialty Start Date End Date Name, MD Tyson [address] [place] [phone] PCP - General Family Medicine 01/18/19 documented as of this encounter
--- OUTSIDE RECORDS SUMMARY | 2024-06-20 17:20 | XMS_ITS | Encounter Summary ---
Author Organization [employer] Address [address] [facility] [address] [place] [address] Care Team Providers Care Glass Cutter Name Role Phone Name, Tyson MCKINNON Primary Care Provider [phone] Encounter Details Date Type Department Care Team ([facility] Contact Info) Description 07/19/2022 Orders Only [facility] MED & PEDS [address] [place] [address] Faith Tavares LPN Social History Tobacco Use [...] documented as of this encounter Care Teams Glass Cutter Relationship Specialty Start Date End Date Name, MD Tyson [address] [place] [address] PCP - General Family Medicine 01/18/19 documented as of this encounter
--- OUTSIDE RECORDS SUMMARY | 2024-06-20 17:20 | XMS_ITS | Data Portability ---
Author Organization [place] [facility], Allergy Address [address] [place] [address] Care Team Providers Care Director Payment Name Role Phone NAME, KATYA Primary Care Provider Assessment No assessment recorded. Plan of Treatment Reminders Order Date Submit Date Provider Last Modified By Organization Details Last Modified Time Details Appointments FOLLOW UP 15 2024 03:30P M RAHUL SMITH PA-C Not available Not available Not available Lab None recorded . Referral None recorded . Procedures None recorded . Surgeries None recorded . Imaging None recorded . Medication Orders None recorded . Patient TargetsNo targets recorded. Patient InstructionsNo instructions recorded. Reason for Referral None Reported. Problems Name Problem SNOMED Code Status Onset Date Resolution Date Notes Provider Name and Address Organization Details Recorded Time Mixed conductiv e and sensorine ural hearing loss of left ear 85659762895 107 Active 2021 Mixed conductiv e and sensorine ural hearing loss, unilatera l, left ear with restricte d hearing on the contralat eral side; Note: Date Diagnosed : 06/12/2021 2:25 PM (H90.A32) Not Available [facility] 4 03:18:06 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 538067261 Active 2021 Nasal polyp, unspecifi ed; Note: Date Diagnosed : 06/12/2021 1:57 PM (J33.9) [facility] Available [facility] 4 03:18:06 Bilateral chronic serous otitis 417800584 Active 2021 Chronic serous otitis media, bilateral ; Note: Date Diagnosed : 06/12/2021 1:50 PM (H65.23) Not Available [facility] 4 03:18:07 Sensorine ural hearing loss in right ear 82048411027 100 Active 2021 Sensorine ural hearing loss, unilatera l, right ear, with restricte d hearing on the contralat eral side; Note: Date Diagnosed : 06/12/2021 2:25 PM (H90.A21) Not Available [facility] 4 03:18:06 Tinnitus of left ear 80305731171 06 Active 2021 Tinnitus, left ear; Note: Date Diagnosed : 06/12/2021 1:57 PM (H93.12) Not Available [facility] 4 03:18:07 Disorder of nasal sinus 8286385 Active 2023 Other specified disorders of nose and nasal sinuses; Note: Date Diagnosed : 04/01/2023 4:38 PM (J34.89) Not Available [facility] 4 03:18:06 Disorder of the nose 72592784 Active 2023 Other specified disorders of nose and nasal sinuses; Note: Date Diagnosed : 04/01/2023 4:38 PM (J34.89) Not Available [facility] 4 03:18:06 Polyp of nasal cavity 332562700 Active 2023 MARTINA SIMMONS MD [address] [place] [address], [place] [place], [address] , [facility] 4 13:09:18 Nasal congestio n 14083400 Active 2023 MARTINA SIMMONS MD [address] [place] [address] [place], [address] , [facility] 4 13:15:27 Problem Notes None recorded. Procedures Surgical History Date Name Laterality Status Provider Name and Address Organization Details Recorded Time 12/26/2023 NasalEndos copy_DP completed MARTINA SIMMONS MD [address] [place] [address], [phone], [facility] 12/26/2023 13:15:08 Imaging Results None recorded. Procedure Notes None recorded. Medical Equipment None Reported. Allergies Allergen ID Allergen Name Allergen Category Reaction Reaction Severity Criticality Documentation Date Start Date Code Code System Note Provider Name and Address Organization Details Recorded Time 53350 aspirin medicatio n other Not available Not available 07/19/2023 1191 RxNorm React ion: Unkno wn; Not Available [facility] 4 00:48:40 Medications Name Sig Start Date [...] tablet,del ayed release active Medicatio n ID: [id number] Br and Name: divalproe x Send Method: [...] 50 mg tablet active Medicatio n ID: [id number] Br and Name: trazodone Send Method: E-Prescri bed Subs Allowed: subs OK Specia l Instructi on: TAKE 1/2 TABLET BY MOUTH AT BEDTIME M edication GenericNa me: trazodone Not Available Not Available Not Available glipizide ER 10 mg tablet, extended release 24 hr active Medicatio n ID: [id number] Br and Name: glipizide Send Method: E-Prescri [...] 1,000 mg tablet active Medicatio n ID: [id number] Br and Name: metformin Send Method: E-Prescri [...] 10 mg tablet active Medicatio n ID: [id number] Br and Name: lisinopri l Send Method: [...] 5 mg tablet active Medicatio n ID: [id number] Br and Name: melatonin Send Method: E-Prescri bed Subs Allowed: subs OK Specia l Instructi on: TAKE 2 TABLETS BY MOUTH EVERY DAY AT BEDTIME M edication GenericNa me: melatonin Not Available Not Available Not Available OneTouch Ultra2 Meter active Medicatio n ID: [id number] Br and Name: OneTouch Ultra2 Meter Sen [...] Updated DateTime 12/26/2023 157.48 cm 30.7 kg/m2 23032.52 g Doreen Mary [place] - [facility] 12/26/2023 13:06:36 Social History None recorded. Functional Status None recorded. Mental Status None recorded. Family History Nothing Reported. Medical History No medical history recorded. Gynecological HistoryNo gynecological history recorded. Obstetrics History GPAL:G 0 P 0 0 0 0 Past Encounters Encounter ID Performer Location Encounter Start Date Encounter Closed Date Diagnosis/Indication Diagnosis SNOMED-CT Code Diagnosis ICD10 Code Diagnosis Note [id number] MARTINA SIMMONS MD [facility] [address] [address] 12/26/2023 12:51:33 12/26/2023 13:20:22 Polyp of nasal cavity 674103786 J33.0 Nasal endo was notable for a [...] nasal congestion or facial pain. Nasal congestion 1219102 0 R09.81 No signfician t congesiton . [...] Malik Member ID Guarantor Name 12/26/2023 1 [facility] (MEDICARE REPLACEMENT/A DVANTAGE - HMO) Nadine Morris [id number] Nadine Clement Notes Date Note Type Note Provider Name and Address Organization Details Recorded Time 12/26/2023 text/html Nasal polypShe h ad an MRI brain with contrast at [facility] which showed bilateral mastoid effusions and concern for a left nasal polyp in 2020. We obtained a CT which showed a left nasal polyp 15mm without destructive features. Denies epistaxis. Denies facial pain. Still on plavix. Biopsy wasdeferred due to plavix. MARTINA SIMMONS MD [address] [place] [address], [place], [address], [facility] - [facility] 12/26/2023 13:15:55 OBGyn Episode No OBEpisode recorded.
--- OUTSIDE RECORDS SUMMARY | 2024-06-20 17:20 | XMS_ITS | Encounter Summary ---
Author Organization [employer] Address [address] [facility] 7t [place] [address] Care Team Providers Care Radar Technician Name Role Phone Name, Tyson MCKINNON Primary Care Provider [phone] Encounter Details Date Type Department Care Team ([facility] st Contact Info) Description 05/14/2022 Orders Only [facility] MED & PEDS [address] [place] [address] Faith Tavares LPN Social History Tobacco Use [...] on filedocumented in this encounter Care Teams Radar Technician Relationship Specialty Start Date End Date Name, MD Tyson [address] [place] [address] PCP - General Family Medicine 01/18/19 documented as of this encounter
--- OUTSIDE RECORDS SUMMARY | 2024-06-20 17:20 | XMS_ITS | Encounter Summary ---
Author Organization [employer] Address [address] [facility] [address]t [place] [address] Care Team Providers Care Flight Test Shop Mechanic Name Role Phone Name, Tyson MCKINNON Primary Care Provider [phone] Reason for Visit * Reason Comments Med Refill Encounter Details Date Type Department Care Team ([facility] st Contact Info) Description 11/17/2023 Refill [facility] MEDICINE [address] [place], [place] [phone] Name, MD Tyson [address] [place] [address] Social History Tobacco Use Types Packs/Day Years [...] documented as of this encounter Care Teams Flight Test Shop Mechanic Relationship Specialty Start Date End Date Name, MD Tyson [address] [place] [address] PCP - General Family Medicine 01/18/19 documented as of this encounter
--- OUTSIDE RECORDS SUMMARY | 2024-06-20 17:20 | XMS_ITS | Encounter Summary ---
Author Organization [facility] Address [address] [facility] 7t [place] [address] Care Team Providers Care Functional Tester Name Role Phone Name, Tyson MCKINNON Primary Care Provider [phone] Encounter Details Date Type Department Care Team (Late st Contact Info) Description 07/01/2022 Orders Only [facility] MEDICINE [address] [place], [place] [phone] Ernestine Aceves LPN Social History Tobacco Use [...] on filedocumented in this encounter Care Teams Functional Tester Relationship Specialty Start Date End Date Name, MD Tyson [address] [place] [address] PCP - General Family Medicine 01/18/19 documented as of this encounter
== END 2024-06-20 15:01 | disposition home or self-care (01) ==
LOC: HO.HUSH 14:36
PROVIDERS: PCP Internal Medicine Geriatric Medicine; Visit Provider Nurse Practitioner Family
DX: R39.89 Other symptoms and signs involving the genitourinary system (principal); R33.9 Retention of urine, unspecified; N32.81 Overactive bladder
CPT/HCPCS: 99213; G2211

== ENCOUNTER → 2024-06-20 14:36 | Outpatient (BNVA) | payer OTHER, SELFPAY | PROVIDERS: PCP Internal Medicine Geriatric Medicine; Visit Provider Nurse Practitioner Family | DX: R33.9 Retention of urine, unspecified (principal); N32.81 Overactive bladder; R39.89 Other symptoms and signs involving the genitourinary system | CPT/HCPCS: 99212 ==

== ENCOUNTER 2024-06-22 10:22 | Outpatient (REF) | payer OTHER, SELFPAY ==
[2024-06-22 10:59] LABS: Appearance Urine Clear; Color Urine Yellow; Glucose Urine UA Negative (Negative); Leukocyte Esterase Urine Large (3+) (Negative); Nitrite Urine Negative (Negative); PH 5.5 (5.0-9.0); Specific Gravity - Urine 1.015 (1.005-1.025); UMIC TRIGGER UACC YES; Urine Blood Negative (Negative); Urine Ketones Negative (Negative); Urine Protein Negative (Neg-Trace)
[2024-06-22 11:05] LABS: Bacteria Urine Trace (None Seen); Hyaline Casts Urine 0-2 /LPF (0-2); RBC Urine 0-2 /HPF (0-2); UACC Culture Trigger YES; WBC Urine 21-50 /HPF (0-5)
--- OUTSIDE RECORDS SUMMARY | 2024-06-22 11:16 | XMS_ITS | Encounter Summary ---
Author Organization [employer] Address [address] [facility] [address]t [place] [address] Care Team Providers Care Lead Radiation Therapist Name Role Phone Name, Tyson MCKINNON Primary Care Provider [phone] Reason for Visit * Reason Comments Med Refill Encounter Details Date Type Department Care Team ([facility] st Contact Info) Description 11/17/2023 Refill [facility] MEDICINE [address] [place], [place] [phone] Name, MD Tyson [address] [place] [address] Social History Tobacco Use Types Packs/Day Years [...] documented as of this encounter Care Teams Lead Radiation Therapist Relationship Specialty Start Date End Date Name, MD Tyson [address] [place] [address] PCP - General Family Medicine 01/18/19 documented as of this encounter
--- OUTSIDE RECORDS SUMMARY | 2024-06-22 11:16 | XMS_ITS | Encounter Summary ---
Author Organization [employer] [facility] Address [address] [facility] 7t [place] [address] Care Team Providers Care Dining Room Attendant Cafeteria Name Role Phone Name, Tyson MCKINNON Primary Care Provider [phone] Reason for Visit * Reason Comments Med Refill Encounter Details Date Type Department Care Team (Late st Contact Info) Description 04/01/2022 Refill [facility] MEDICINE [address] [place], [place] [phone] Name, MD Tyson [address] [place] [address] Migraine, unspecified, not intractable, without status migrainosus [...] migrainosus documented in this encounter Care Teams Dining Room Attendant Cafeteria Relationship Specialty Start Date End Date Name, MD Tyson [address] [place] [id number] PCP - General Family Medicine 01/18/19 documented as of this encounter
--- OUTSIDE RECORDS SUMMARY | 2024-06-22 11:16 | XMS_ITS | Data Portability ---
Author Organization [place] [facility], Allergy Address [address] [place] [address] Care Team Providers Care Pick Pulling Machine Operator Name Role Phone NAME, KATYA Primary Care Provider [phone] Assessment No assessment recorded. 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 53135410085 107 Active 2021 Mixed conductiv e and sensorine ural hearing loss, unilatera l, left ear with restricte d hearing on the contralat eral side; Note: Date Diagnosed : 06/12/2021 2:25 PM (H90.A32) Not Available [facility] 4 03:18:06 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 219339289 Active 2021 Nasal polyp, unspecifi ed; Note: Date Diagnosed : 06/12/2021 1:57 PM (J33.9) [facility] Available [facility] 4 03:18:06 Bilateral chronic serous otitis 567318302 Active 2021 Chronic serous otitis media, bilateral ; Note: Date Diagnosed : 06/12/2021 1:50 PM (H65.23) Not Available [facility] 4 03:18:07 Sensorine ural hearing loss in right ear 19653740182 100 Active 2021 Sensorine ural hearing loss, unilatera l, right ear, with restricte d hearing on the contralat eral side; Note: Date Diagnosed : 06/12/2021 2:25 PM (H90.A21) Not Available [facility] 4 03:18:06 Tinnitus of left ear 76206282703 06 Active 2021 Tinnitus, left ear; Note: Date Diagnosed : 06/12/2021 1:57 PM (H93.12) Not Available [facility] 4 03:18:07 Disorder of nasal sinus 5078985 Active 2023 Other specified disorders of nose and nasal sinuses; Note: Date Diagnosed : 04/01/2023 4:38 PM (J34.89) Not Available [facility] 4 03:18:06 Disorder of the nose 88226525 Active 2023 Other specified disorders of nose and nasal sinuses; Note: Date Diagnosed : 04/01/2023 4:38 PM (J34.89) Not Available [facility] 4 03:18:06 Polyp of nasal cavity 728654000 Active 2023 MARTINA SIMMONS MD [address] [place] [address], [facility] [place], [address] , [facility] 4 13:09:18 Nasal congestio n 92329020 Active 2023 MARTINA SIMMONS MD [address] [place] [address] [place], [address] , [facility] 4 13:15:27 Problem Notes None recorded. Procedures Surgical History Date Name Laterality Status Provider Name and Address Organization Details Recorded Time 12/26/2023 NasalEndos copy_DP completed MARTINA SIMMONS MD [address] [place] [address], [phone], [facility] 12/26/2023 13:15:08 Imaging Results None recorded. Procedure Notes None recorded. Medical Equipment None Reported. Allergies Allergen ID Allergen Name Allergen Category Reaction Reaction Severity Criticality Documentation Date Start Date Code Code System Note Provider Name and Address Organization Details Recorded Time 41558 aspirin medicatio n other Not available Not available 07/19/2023 1191 RxNorm React ion: Unkno wn; Not Available [facility] 4 00:48:40 Medications Name Sig [...] tablet,del ayed release active Medicatio n ID: [id number] Br and Name: divalproe x Send Method: [...] 50 mg tablet active Medicatio n ID: [id number] Br and Name: trazodone Send Method: E-Prescri bed Subs Allowed: subs OK Specia l Instructi on: TAKE 1/2 TABLET BY MOUTH AT BEDTIME M edication GenericNa me: trazodone Not Available Not Available Not Available glipizide ER 10 mg tablet, extended release 24 hr active Medicatio n ID: [id number] Br and Name: glipizide Send Method: E-Prescri [...] 1,000 mg tablet active Medicatio n ID: [id number] Br and Name: metformin Send Method: E-Prescri [...] 10 mg tablet active Medicatio n ID: [id number] Br and Name: lisinopri l Send Method: [...] 5 mg tablet active Medicatio n ID: [id number] Br and Name: melatonin Send Method: E-Prescri bed Subs Allowed: subs OK Specia l Instructi on: TAKE 2 TABLETS BY MOUTH EVERY DAY AT BEDTIME M edication GenericNa me: melatonin Not Available Not Available Not Available OneTouch Ultra2 Meter active Medicatio n ID: [id number] Br and Name: OneTouch Ultra2 Meter Sen [...] Updated DateTime 12/26/2023 157.48 cm 30.7 kg/m2 98734.52 g Doreen Mary [place] - [facility] 12/26/2023 13:06:36 Social History None recorded. Functional Status None recorded. Mental Status None recorded. Family History Nothing Reported. Medical History No medical history recorded. Gynecological HistoryNo gynecological history recorded. Obstetrics History GPAL:G 0 P 0 0 0 0 Past Encounters Encounter ID Performer Location Encounter Start Date Encounter Closed Date Diagnosis/Indication Diagnosis SNOMED-CT Code Diagnosis ICD10 Code Diagnosis Note [id number] MARTINA SIMMONS MD [facility] [address] [address] 12/26/2023 12:51:33 12/26/2023 13:20:22 Polyp of nasal cavity 869161757 J33.0 Nasal endo was notable for a [...] nasal congestion or facial pain. Nasal congestion 3410566 0 R09.81 No signfician t congesiton . [...] Malik Member ID Guarantor Name 12/26/2023 1 [facility] (MEDICARE REPLACEMENT/A DVANTAGE - HMO) Nadine Morris [id number] Nadine Clement Notes Date Note Type Note [...] wasdeferred due to plavix. MARTINA SIMMONS MD [address] [place] [address], [place], [address], [facility] - [facility] 12/26/2023 13:15:55 OBGyn Episode No OBEpisode recorded.
--- OUTSIDE RECORDS SUMMARY | 2024-06-22 11:16 | XMS_ITS | Encounter Summary ---
Author Organization [employer] Address [address] [facility] 7t [place] [address] Care Team Providers Care Wax Pourer Name Role Phone Name, Tyson MCKINNON Primary Care Provider [phone] Reason for Visit * Reason Comments Med Refill Encounter Details Date Type Department Care Team (Late st Contact Info) Description 06/18/2024 Refill [facility] MED & PEDS [address] [place], [place] [phone] Rose Quintana, MARCOS [address] [place], [place] [phone] Chronic pain of both knees Social History [...] documented as of this encounter Care Teams Wax Pourer Relationship Specialty Start Date End Date Name, MD Tyson [address] [place] [address] PCP - General Family Medicine 01/18/19 documented as of this encounter
--- OUTSIDE RECORDS SUMMARY | 2024-06-22 11:16 | XMS_ITS | Encounter Summary ---
Author Organization [employer] Address [address] [facility] 7t [place] [address] Care Team Providers Care Air Cargo Agent Name Role Phone Name, Tyson MCKINNON Primary Care Provider [phone] Encounter Details Date Type Department Care Team ([facility] st Contact Info) Description 04/15/2022 Orders Only [facility] MED & PEDS [address] [place] [address] Faith Tavares LPN Social History Tobacco Use [...] on filedocumented in this encounter Care Teams Air Cargo Agent Relationship Specialty Start Date End Date Name, MD Tyson [address] [place] [address] PCP - General Family Medicine 01/18/19 documented as of this encounter
--- OUTSIDE RECORDS SUMMARY | 2024-06-22 11:16 | XMS_ITS | Encounter Summary ---
Author Organization [employer] Address [address] [facility] 7t [place] [address] Care Team Providers Care Computer Equipment Installer Name Role Phone Name, Tyson MCKINNON Primary Care Provider [phone] Encounter Details Date Type Department Care Team ([facility] st Contact Info) Description 10/18/2022 Orders Only [facility] MED & PEDS [address] [place], [place] [phone] Ernestine Aceves LPN Social History Tobacco Use [...] as of this encounter Care Teams Computer Equipment Installer Relationship Specialty Start Date End Date Name, MD Tyson [address] [place] [address] PCP - General Family Medicine 01/18/19 documented as of this encounter
--- OUTSIDE RECORDS SUMMARY | 2024-06-22 11:16 | XMS_ITS | Encounter Summary ---
Author Organization [employer] Address [address] [facility] 7t [place] [address] Care Team Providers Care Crude Unit Operator Name Role Phone Name, Tyson MCKINNON Primary Care Provider [phone] Encounter Details Date Type Department Care Team ([facility] Contact Info) Description 07/19/2022 Orders Only [facility] MED & PEDS [address] [place] [address] Faith Tavares LPN Social History Tobacco Use [...] documented as of this encounter Care Teams Crude Unit Operator Relationship Specialty Start Date End Date Name, MD Tyson [address] [place] [address] PCP - General Family Medicine 01/18/19 documented as of this encounter
--- OUTSIDE RECORDS SUMMARY | 2024-06-22 11:16 | XMS_ITS | Clinical Summary ---
Author Organization [employer] Address [address] [facility] [address]t [place] [address] Care Team Providers Care Minute Clerk For Basic Traffic Name Role Phone Name, Tyson MCKINNON Primary Care Provider [phone] Allergies Active Allergy Reactions Criticality Noted Date [...] 02/06/20 24 Active Lancets (OneTouch Delica Plus [id number]) miscIndications :Type 2 diabetes mellitus with other specified complication, without long-term current use of insulin ([facility]) TEST BLOOD SUGAR TWICE DAILY 100 each 3 03/27/19 25 Active losartan (Cozaar) 25 MG tabletIndicatio ns:Hypertension , unspecified type TAKE 1 TABLET BY MOUTH EVERY EVENING 90 tablet 3 04/02/19 25 Active Ferrous Sulfate (iron) 325 (65 Fe) MG tabletIndicatio ns:Type 2 diabetes mellitus with other specified complication, unspecified whether group home insulin use ([facility]) TAKE 1 TABLET BY MOUTH EVERY EVENING [...] mouth in the morning. 03/20/19 25 Active atorvastatin (Lipitor) 40 MG tabletIndicatio [...] severe pain. 28 tablet 06/19/19 25 Active mirtazapine (Remeron) 30 MG tablet TAKE 1 TABLET BY MOUTH AT BEDTIME 30 tablet 1 06/23/19 25 Active metFORMIN (Glucophage) 500 MG tablet Take 1 tablet (500 mg) by mouth with breakfast and with evening meal. 60 tablet 11 05/17/19 24 025 Discontinued mirtazapine (Remeron) 30 MG tablet TAKE 1 TABLET BY MOUTH AT BEDTIME 30 tablet 1 05/04/19 25 025 Discontinued traMADol (Ultram) 50 MG tablet [...] 01/21/2012 Non-compliance 12/22/2011 Coronary artery disease involving [place] coronar y artery 09/20/2011 Hiatal hernia 09/20/2011 Mixed hyperlipidemia 08/12/2011 Jo's esophagus 07/21/2011 Chest pain 07/20/2011 Dizziness and giddiness 07/20/2011 Essential hypertension 07/20/2011 Migraine 07/20/2011 Osteopenia of multiple sites 08/09/2005 Encounters Date Type Department Care Team Description 06/22/2024 Refill [facility] [address] [place] [address] Name, MD Tyson 06/18/2024 Refill [facility] [address] [place] [address] Rose Quintana NP Chronic pain of both knees 06/18/2024 Refill [facility] [address], [place] [phone] Name, MD Tyson Chronic knee pain, unspecified laterality (Primary Dx) 06/03/2024 Refill [facility] [address], [place] [phone] Tyson March MD 05/30/2024 Refill [facility] [address] [place], [place] [phone] Rose Quintana, MARCOS Chronic pain of both knees 05/10/2024 Orders Only [facility] [address] [place] [address] NameTyson MD 05/06/2024 Refill [facility] [address] [place] [address] NameTyson MD High cholesterol 05/03/2024 Refill [facility] [address] [place] [address] NameTyson MD 04/21/2024 Orders Only [facility] External Provider, [facility] 04/10/2024 3:15 PM EST Office Visit [facility] [address] [place] [address] NameTyson MD Type 2 diabetes mellitus with other specified complication, without long-term current use of insulin (CMS/HCC) (Primary Dx); Essential hypertension; Diarrhea, unspecified type 04/10/2024 Telephone [facility] [address] [place] [phone] Ramila Banks, JUSTEN 04/10/2024 Refill [facility] [address] [place] [address] Tyson March MD 04/05/2024 Refill [facility] [address] [place] [address] Tyson March MD Type 2 diabetes mellitus with other specified complication, unspecified whether group home insulin use (CMS/HCC) 04/01/2024 Refill [facility] [address] [place] [address] Tyson March MD Hypertension, unspecified type 03/27/2024 Refill [facility] [address] [place] [address] Pat Crocker ANP Type 2 diabetes mellitus with other specified complication, without long-term current use of insulin (CMS/HCC) from Last 3 Months Immunizations Name Administration [...] Screening 08/30/2024 08/31/2023 Diabetes: Hemoglobin A1C 10/08/2024 025, 12/02/2023, 08/31/2023, Additional history exists Diabetes: [...] complication, without long-term current use of insulin ([facility]/HCC) POCT GLUCOSE Routine 04/10/2024 3:21 PM EST Type 2 diabetes mellitus with other specified complication, without long-term current use of insulin (CMS/HCC) LIPID PANEL, STANDARD Routine 12/08/2023 10:10 AM EDT Type 2 diabetes mellitus with other specified complication, without long-term current use of insulin ([facility]) Chronic knee pain, unspecified laterality Venous insufficiency [...] 8:00 PM EST 04/21/2024 8:31 PM EST Comment:[facility] - 04/23/2024 11:54 AM EST Urine Culture Report Result Urine Culture 10,000 to 50,000 cfu/ml Urine Culture Mixed bacterial maria a characteristic of Urine Culture urogenital contamination. Specimen Source: Urine clean catch us Generic External Data Provider LAB MICROBIOLOGY - GENERAL ORDERABLES Final Result [facility] [address] [place] [address] [phone] * CT Head w/o Contrast (04/21/2024 7:30 PM EST) Anatomical Region Laterality Modality Head, Neck Computed Tomogra phy 04/21/2024 7:30 PM EST Narrative 04/21/2024 7:31 PM EST ? [facility] ?[address] ?[place] [address] ? CT Scan Report ? Signed ? Patient: Urbano,Nadine ?MR#: [id number] ?? 67 ? : 1940 ?Acct:[id number] ? Age/Sex: 83 / F ?ADM Date: 04/21/24 ? Loc: HO.ED ? Attending Dr: ? Ordering Physician: Jamal Eubanks ?? Date of Service: 04/21/24 ?? Procedure(s): CT head/brain wo IV con ?? Accession Number(s): [id number] ? cc: Name,Tyson MCKINNON; Jamal Eubanks ? Report Number: ?? [id number]: Total DLP = ?0.00 mGy-cm ? CLINICAL HISTORY: trauma ? CT head without contrast ? Comparison: CT/REG/UT/SR - CT ANGIO HEAD NECK - 09/21/21 [...] MD in OV> ? 04/21/241930 ? DD/ 29 ? TD/TT: 04/21/241929 ? Implementation Technician: ? Procedure Note Donotuseinterpreter, Image - 04/22/[address] [place] [address] [address] Scan Report Signed Patient: Nadine ClementMR#: [id number] 67 : 9Acct:[id number] Age/Sex: 83 / FADM Date: 04/21/24 Loc: HO.ED Attending Dr: Ordering Physician: Jamal Eubanks Date of Service: 04/21/24 Procedure(s): CT head/brain wo IV con Accession Number(s): [id number] cc: Name,Tyson MCKINNON; Jamal Eubanks Report Number: [id number]: Total DLP = 0.00 mGy-cm CLINICAL HISTORY: trauma CT head without contrast Comparison: CT/REG/UT/SR - CT ANGIO HEAD NECK - 09/21/21 [...] in OV> 04/21/241930 DD/ 29 TD/TT: 04/21/241929 Implementation Technician: [facility] External Provider IMG CT PROCEDURES Final Result * CT Cervical Spine w/o Contrast (04/21/2024 7:28 PM EST) Anatomical Region Laterality Modality Spine, C-spine Computed Tomogra phy 04/21/2024 7:28 PM EST Narrative 04/21/2024 7:29 PM EST ? [facility] ?[address] ?[place] [address] ? CT Scan Report ? Signed ? Patient: Urbano,Nadine ?MR#: [id number] ?? 67 ? : 1940 ?Acct:[id number] ? Age/Sex: 83 / F ?ADM Date: 04/21/24 ? Loc: HO.ED ? Attending Dr: ? Ordering Physician: Jmaal Eubanks ?? Date of Service: 04/21/24 ?? Procedure(s): CT cervical spine wo IV con ?? Accession Number(s): [id number] ? cc: Name,Tyson MCKINNON; Jamal Eubanks ? Report Number: ?? [id number]: Total DLP = ??863.00 mGy-cm ? CLINICAL HISTORY: trauma ? CT cervical spine without contrast ? Comparison: CT/UT - CT ANGIO HEAD NECK - 09/21/21 [...] ? DD/ 27 ? TD/TT: 04/21/241927 ? Implementation Technician: ? Procedure Note Donotuseinterpreter, Image - 04/22/[address] [place] [address] [address] Scan Report Signed Patient: Nadine ClementMR#: [id number] 67 : 9Acct:[id number] Age/Sex: 83 / FADM Date: 04/21/24 Loc: HO.ED Attending Dr: Ordering Physician: Jamal Eubanks Date of Service: 04/21/24 Procedure(s): CT cervical spine wo IV con Accession Number(s): [id number] cc: Name,Tyson MCKINNON; Jamal Eubanks Report Number: [id number]: Total DLP = 863.00 mGy-cm CLINICAL HISTORY: trauma CT cervical spine without contrast Comparison: CT/UT - CT ANGIO HEAD NECK - 09/21/21 [...] in OV> 04/21/241928 DD/ 27 TD/TT: 04/21/241927 Implementation Technician: [facility] External Provider IMG CT PROCEDURES Edited Result - Final * (ABNORMAL) POCT HGB A1C (04/10/2024 3:23 PM EST) Hemoglobin A1C 6.8(A) 4.0 - 6.0 % QC Media Lot # [id number] Lot# Expiration Date , Blood 04/10/2024 3:2 3 PM EST Tyson March MD POINT OF CARE TEST ENTER/EDIT OR DERABLES Final Result * POCT Glucose (04/10/2024 3:21 PM EST) Glucose Blood, POC 122 60 - 200 mg/dL QC Media Lot # [id number] Lot# Expiration Date ,162 Blood Capillary blood specimen / Unknown 04/10/2024 3:21 PM EST Tyson March MD POINT OF CARE TEST ENTER/EDIT OR DERABLES Final Result * Lipid Panel, Standard (12/08/2023 10:10 AM EDT) Triglycerides 82 <150 mg/dL [facility] Comment:Desirable Triglyceri de: less than 150 mg/dLBorderline High Triglyceride 150-199 mg/dLHigh Triglyceride: 200-499 mg/dLVery High Triglyceride: greater than or equal to 5OO mg/dL Cholesterol 123 <200 mg/dL [facility] Comment:Desirable Cholestero l: less than 200 mg/dLBorderline High Cholesterol: 200-239 mg/dLHigh Cholesterol: greater than 239 mg/dL LDL Cholesterol Calculated 47 <100 mg/dL [facility] Comment:Desirable LDL: less than 100 mg/dLNear Optimal/Above Optimal LDL: 110- 129 mg/dLBorderline High LDL: 130-159 mg/dLHigh LDL: 160-189 mg/dLVery High LDL: greater than or equal to 190 mg/dL HDL Cholesterol 60 >40 mg/dL [facility] Comment:Desirable HDL: great er than 40 mg/dL Note: This HDL assay may give artificially low results in patients with liver disease. Blood Venous blood specimen / Unknown 12/08/2023 10:10 AM EDT 12/08/2023 11:16 AM EDT Tyson March MD LAB BLOOD ORDERABLES Final Resul t Performing Organization Address [facility] Co de Phone Number [facility] [address] [place] [address] [phone] * Albumin, Random Urine W/Creatinine (02/07/2023 10:15 AM EST) Creatinine, Urine 75.20 mg/dL [facility] Microalbumin Urine 8.0 mg/L [facility] Microalbum Creatinine Ratio Ur 10.6 <30 ug/mg cr [facility] Comment:Albumin/Creatinine R atio Reference Ranges: Normal: < 30 ug/mg creatinine Microalbuminuria: 30 - 300 ug/mg creatinineClinical Albuminuria: > 300 ug/mg creatinine 02/07/2023 10:1 5 AM EST 02/07/2023 11:06 AM EST us Tyson March MD LAB URINE ORDERABLES Final Resul t Performing Organization Address [facility] de Phone Number [facility] [address] [place] [address] [phone] from Last 3 Months or Most Recently Relevant to Health Maintenance Insurance [facility] DUAL COMPLETE DENTAL[place] ST[place] [facility] Care Teams Minute Clerk For Basic Traffic Relationship Specialty Start Date End Date Name, MD Tyson [address] [place] [address] PCP - General Family Medicine 01/18/19
--- OUTSIDE RECORDS SUMMARY | 2024-06-22 11:16 | XMS_ITS | Encounter Summary ---
Author Organization [employer] Address [address] [facility] [address]t [place] [address] Care Team Providers Care Spooling Operator Name Role Phone Name, Tyson MCKINNON Primary Care Provider [phone] Reason for Visit * Reason Comments Med Refill Encounter Details Date Type Department Care Team (Late st Contact Info) Description 06/22/2024 Refill [facility] [address] [place], [place] [phone] Name, MD Tyson [address] [place] [address] Social History Tobacco Use Types Packs/Day Years [...] documented as of this encounter Care Teams Spooling Operator Relationship Specialty Start Date End Date Name, MD Tyson [address] [place] [address] PCP - General Family Medicine 01/18/19 documented as of this encounter
--- OUTSIDE RECORDS SUMMARY | 2024-06-22 11:16 | XMS_ITS | Encounter Summary ---
Author Organization [employer] Address [address] [facility] [address] [place] [address] Care Team Providers Care Licensed [employer] Real Estate Appraiser Name Role Phone Name, Tyson MCKINNON Primary Care Provider [phone] Encounter Details Date Type Department Care Team ([facility] st Contact Info) Description 05/14/2022 Orders Only [facility] [address] [place] [address] Faith Tavares LPN Social History Tobacco Use [...] on filedocumented in this encounter Care Teams Licensed [employer] Appraiser Relationship Specialty Start Date End Date Name, MD Tyson [address] [place] [address] PCP - General Family Medicine 01/18/19 documented as of this encounter
--- OUTSIDE RECORDS SUMMARY | 2024-06-22 11:16 | XMS_ITS | Encounter Summary ---
Author Organization [employer] Address [address] [facility] 7t [place] [address] Care Team Providers Care Flag Car Driver Name Role Phone Name, Tyson MCKINNON Primary Care Provider [phone] Reason for Visit * Reason Onset Date Comments Med Refill 06/18/2024 Encounter Details Date Type Department Care Team (Late st Contact Info) Description 06/18/[address] [facility] [address] [place], [place] [phone] Name, MD Tyson [address] [place], [place] [phone] Chronic knee pain, unspecified laterality (Primary Dx) [...] 06/18/2024 9:06 AM EDT [employer] checked by medical technical writer on 06/18/24. Pt picked up a 28 day supply of traMADol (Ultram) 50 MG tablet on 03/27/24. Pt due for refill. Message forwarded to PCP to review and advise. * Telephone Encounter - Mart Shin - 06/18/2024 8:46 AM EDT TC from pt requesting medication refill. Medications needing refill : traMADol (Ultram) 50 MG tablet To be sent to: [facility] [place] - [address] documented in this encounter Plan of Treatment Not on file documented as of this encounter Visit Diagnoses Diagnosis Chronic knee pain, unspecified laterality- Primary documented in this encounter Additional Health Concerns Assessment Noted Time PHQ-9 Depression Total Score: 0 05/17/19 24 2:27 PM EDT documented as of this encounter Care Teams Flag Car Driver Relationship Specialty Start Date End Date Name, MD Tyson [address] [place] [address] PCP - General Family Medicine 01/18/19 documented as of this encounter
--- OUTSIDE RECORDS SUMMARY | 2024-06-22 11:16 | XMS_ITS ---
Author Name Chery MARCOSHerlinda Address [address] [place] [address] Phone [phone] Organization [facility] Care Team Providers Care Instrument Technician Apprentice Name Role Phone Herlinda Chery Unavailable [phone] NameTyson Unavailable [phone] Reason for Referral Not Available Allergies, adverse [...] 2021-05-11 No Data Available OneTouch Delica Plus [id number] Miscellaneous TEST BLOOD SUGAR TWICE DAILY 2021-05-15 [...] 50 mg Tab TAKE 1 TABLET BY [facility] EVERY MORNING 2023-09-21 No Data [...] mg Tab TAKE 1 TABLET BY [facility] EVERY MORNING 2024-03-20 No Data Available Problem List Problem Status Onset Date Resolved Date HX: breast cancer Active 2022-01-25 N/A GERD (gastroesophageal reflux disease) Active 26-01-21 N/A Other problems related to [facility] facilities and other health care [...] Pain Documented on a Pain Scale (1125F) [facility] [place] Pain Assessment - Pain Documented on a Pain Scale (1125F) [facility] [place] Pain Assessment - Pain Documented on a Pain Scale (1125F) [facility] [place]22 Pain Assessment - Pain Documented on a Pain Scale (1125F) [facility] [place]22 Pain Assessment - Pain Documented on a Pain Scale (1125F) [facility] [place]22 Pain Assessment - Pain Documented on a Pain Scale (1125F) [facility] [place]22 Pain Assessment - Pain Documented on a Pain Scale (1125F) [facility] [place] 01[place]2022 Hyperlipidemia, unspecifiedGastro-esophageal reflux disease without esophagitisInsomnia, unspecifiedType 2 diabetes mellitus without complicationsEssential (primary) hypertensionAge-related osteoporosis without current pathological fractureOveractive bladderShortness of breathUnspecified dementia without behavioral disturbanceOther thrombophiliaUnspecified atrial fibrillationPersonal history of malignant neoplasm of breast Pain Assessment - Pain Documented on a Pain Scale (1125F) [facility] [place] Pain Assessment - Pain Documented on a Pain Scale (1125F) [facility] [place] 01[place] Estab. patient 30-39min; chronic exacerbation, 2 stable chronic or 1 acute illness add add modifier 95 for video, (do not use for phone, instead use 17369-85) [facility] [place] 10[place]04[place]2022 Type 2 diabetes mellitus wit [...] (do not use for phone, instead use 65769-60) [facility] [place] Estab. patient 30-39min; chronic exacerbation, 2 stable chronic or 1 acute illness add add modifier 95 for video, (do not use for phone, instead use 99938-48) [facility] Estab. patient 30-39min; chronic exacerbation, 2 stable chronic or 1 acute illness add add modifier 95 for video, (do not use for phone, instead use 35349-22) [facility] [place] Estab. patient 30-39min; chronic exacerbation, 2 stable chronic or 1 acute illness add add modifier 95 for video, (do not use for phone, instead use 67462-70) [facility] [place] Estab. patient 30-39min; chronic exacerbation, 2 stable chronic or 1 acute illness add add modifier 95 for video, (do not use for phone, instead use 07684-64) [facility] Estab. patient 30-39min; chronic exacerbation, 2 stable chronic or 1 acute illness add add modifier 95 for video, (do not use for phone, instead use 80430-22) [facility] [place] Estab. patient 30-39min; chronic exacerbation, 2 stable chronic or 1 acute illness add add modifier 95 for video, (do not use for phone, instead use 10688-40) [facility] [place] Estab. patient 30-39min; chronic exacerbation, 2 stable chronic or 1 acute illness add add modifier 95 for video, (do not use for phone, instead use 24876-42) [facility] [place] Estab. patient 30-39min; chronic exacerbation, 2 stable chronic or 1 acute illness add add modifier 95 for video, (do not use for phone, instead use 08580-07) [facility] [place] Estab. patient 30-39min; chronic exacerbation, 2 stable chronic or 1 acute illness add add modifier 95 for video, (do not use for phone, instead use 88402-98) [facility] [place] 03[place]/2023 Type 2 diabetes mellitus wit [...] (do not use for phone, instead use 39187-32) [facility] [place] 03[place]24/[place]23 Estab. patient 30-39min; chronic exacerbation, 2 stable chronic or 1 acute illness add add modifier 95 for video, (do not use for phone, instead use 03811-41) [facility] 03/24/2023 Estab. patient 30-39min; chronic exacerbation, 2 stable chronic or 1 acute illness add add modifier 95 for video, (do not use for phone, instead use 50377-60) [facility] 03[place] Estab. patient 30-39min; chronic exacerbation, 2 stable chronic or 1 acute illness add add modifier 95 for video, (do not use for phone, instead use 34894-72) [facility] [place] 03[place] Estab. patient 30-39min; chronic exacerbation, 2 stable chronic or 1 acute illness add add modifier 95 for video, (do not use for phone, instead use 27408-01) [facility] [place] 03[place]24/[place] Estab. patient 30-39min; chronic exacerbation, 2 stable chronic or 1 acute illness add add modifier 95 for video, (do not use for phone, instead use 97903-24) [facility] [place] 03[place] Estab. patient 30-39min; chronic exacerbation, 2 stable chronic or 1 acute illness add add modifier 95 for video, (do not use for phone, instead use 29765-64) [facility] [place] 03/24/[place]23 Estab. patient 30-39min; chronic exacerbation, 2 stable chronic or 1 acute illness add add modifier 95 for video, (do not use for phone, instead use 60371-77) [facility] [place] 03/24/2023 Estab. patient 30-39min; chronic exacerbation, 2 stable chronic or 1 acute illness add add modifier 95 for video, (do not use for phone, instead use 05590-22) [facility] [place] 03[place]24/2023 Estab. patient 20-29min; 1 stable chronic or 2 minor; add add modifier 95 for video, modifier 93 for phone [facility] 05/01/2024 Type 2 diabetes mellitus wit h [...] 95 for video, modifier 93 for phone [facility] [place] 05/01/2024 Estab. patient 20-29min; 1 stable chronic or 2 minor; add add modifier 95 for video, modifier 93 for [facility] 05/01/2024 Estab. patient 20-29min; 1 stable chronic or 2 minor; add add modifier 95 for video, modifier 93 for [facility] 05/01/2024 Estab. patient 20-29min; 1 stable chronic or 2 minor; add add modifier 95 for video, modifier 93 for [facility] 05/01/2024 Estab. patient 20-29min; 1 stable chronic or 2 minor; add add modifier 95 for video, modifier 93 for [facility] 05/01/2024 Estab. patient 20-29min; 1 stable chronic or 2 minor; add add modifier 95 for video, modifier 93 for phone [facility] [place] 05/01/2024 Estab. patient 20-29min; 1 stable chronic or 2 minor; add add modifier 95 for video, modifier 93 for phone [facility] [place] 05/01/2024 Estab. patient 20-29min; 1 stable chronic or 2 minor; add add modifier 95 for video, modifier 93 for phone [facility] [place] 05/01/2024 Vital Signs Date of Collection Vitals [...] Time Current Smoking Status Never smoker 2024-06-05 6 Sex Female History of Procedures Procedures Service [...] 95 for video, modifier 93 for phone 21098 2022-01-25 No Data Available No Data Availa ble DBP <80 (3078F) 3078F 2022-01-25 No Data Available No Data Available SBP >= 140 3077F 2022-01-25 No Data Available No Data Available Estab. 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 2022-10-04 Mental Status [...] with diabetic chronic kidney disease, CKD stage G3a/F5Kdqpjjzjifik heart disease with stage 3a chronic kidney [...] CG reportmetoprolol tartrate BID on Plavix (h/o [place]- clot to heart vessel per CG- aprx [...] D and osteoporosis surveillance stressed-- Risk of snf PPI use discussed-- Antireflux diet: avoid tomatoes, [...] with pulmonologymetoprolol tartrate BID on Plavix (h/o [place]- clot to heart vessel per CG- aprx [...] D and osteoporosis surveillance stressed-- Risk of termite exterminator PPI use discussed-- Antireflux diet: avoid [...] QDAY d/ t hypoglycemia Lab ResultsComponent Value BrzmJTRX1C 7.8 (A) 02/14/2023HGBA1C 6.3 (H) 02/01/2022Lab ResultsComponent [...] your log in next visit.Lab ResultsComponent Value KpaxAZHW7F 7.8 (A) 02/14/2023HGBA1C 6.3 (H) 02/01/2022Lab ResultsComponent [...] 4 03/24/23metoprolol tartrate BID on Plavix (h/o [place]- clot to heart vessel per CG- aprx 20 years ago)in remissionfollows with oncologist s/p surgery/removal of cancerous lesionavoid nephrotoxic medicationstay hydrated encouraged A1c control and bp control Lab ResultsComponent Value JidjOQLI3H 7.8 (A) 02/14/2023HGBA1C 6.3 (H) 02/01/2022Lab ResultsComponent [...] QDAY d/ t hypoglycemia Lab ResultsComponent Value BsnbBKNN5N 7.8 (A) 02/14/2023HGBA1C 6.3 (H) 02/01/2022 2024-05-01 [...] joint pain increased Please [facility] any [facility] or disease education needs that may arise 27/09.what should be done when the member calls: see each individual diagnosis for contingency planesomeprazole Recommend famotidine 20 mg twice daily as needed for dyspepsia-- Smoking cessation encouranged-- Dietary and life style changes encouraged-- Calcium/Vit D and osteoporosis surveillance stressed-- Risk of snf PPI use discussed-- Antireflux diet: avoid tomatoes, [...] QDAY d/ t hypoglycemia Lab ResultsComponent Value NqevVING2X 7.8 (A) 02/14/2023HGBA1C 6.3 (H) 02/01/2022Lab ResultsComponent [...] organ damage (headache, vision changes, chest pain)/ Manager Payroll on proper BP monitoring technique and reassess/ [...] up prn.metoprolol tartrate BID on Plavix (h/o [place]- clot to heart vessel per CG- aprx [...] QDAY d/ t hypoglycemia Lab ResultsComponent Value LtriLWAQ2A 7.8 (A) 02/14/2023HGBA1C 6.3 (H) 02/01/2022 Goals [...] okDo you have a Durable Power of Sewer Pipe Sorter for Healthcare, or Healthcare Proxy Or Guardianship? Yes, preferred proxy but not named BAUTISTAf so, Who? HCP: grand daughter Kerry Waldrop Do you have a written Advance Directive?Other details of discussion: (Who was present, patients description of wishes/goals)Today's plan:1123F : AD or surrogate was documented in the medical record.
--- OUTSIDE RECORDS SUMMARY | 2024-06-22 11:16 | XMS_ITS | Encounter Summary ---
Author Organization [facility] Address [address] [place] [address] Care Team Providers Care Credit Product Analyst Name Role Phone Name, Tyson MCKINNON Primary Care Provider [phone] Encounter Details Date Type Department Care Team (Late st Contact Info) Description 07/01/2022 Orders Only [facility] [address], [place] [id number] Ernestine Aceves LPN Social History Tobacco Use [...] on filedocumented in this encounter Care Teams Credit Product Analyst Relationship Specialty Start Date End Date Name, MD Tyson [address] [place] [address] PCP - General Family Medicine 01/18/19 documented as of this encounter
== END 2024-06-22 10:23 | disposition home or self-care (01) ==
LOC: HO.LNP 10:22
PROVIDERS: Visit Provider Nurse Practitioner Family
DX: R39.89 Other symptoms and signs involving the genitourinary system (principal)
CPT/HCPCS: 81001; 87086

== ENCOUNTER 2024-07-17 15:12 | Outpatient (REF) | payer OTHER, SELFPAY ==
--- NOTE | ~2024-07-17 | CT_ITS ---
CLINICAL HISTORY: R93.89 - Abnormal findings on diagnostic imaging of other specified body... CT chest without contrast Comparison: None Findings: The heart size is normal. The visualized thyroid and mediastinum are unremarkable. Multiple bilateral solid and ground-glass irregular nodular opacities associated with some scarring. Some of the clustered nodular opacities are in a tree in bud configuration suggesting evidence of bronchiolitis. A discrete 4 mm nodule is seen in the right lower lobe on image number 88 of series 5. A 6 mm nodule is seen in the right lower lobe on image number 78. Another discrete 4.7 mm nodule is seen in the left lower lobe on image number 97. Numerous additional 3-4 mm nodules are seen throughout the lung but particularly in the right middle lobe. The upper abdomen is unremarkable. No acute fractures. Impression: Multiple bilateral pulmonary nodules some of which are in a tree-in-bud configuration and in other areas there appears to be parenchymal scarring. I suspect that they are largely infectious/inflammatory in nature with areas of bronchiolitis. Please obtain follow-up CT scan in 12 months as below. According to the Fleischner criteria: 5 mm or smaller nodules need no follow-up in low risk, and [address] follow-up is optional in high risk patients. 6-8 mm nodules have optional [address] follow-up in low risk, and 6-[address] follow-up followed by 18-[address] follow-up if no change in high risk patients. IMPRESSION: 1. Unremarkable chest CT. This document has been electronically signed by: Mello Plata MD on 07/18/2024 11:55:54
--- OUTSIDE RECORDS SUMMARY | 2024-07-17 16:08 | XMS_ITS | Data Portability ---
Author Organization [place] [facility], [facility] Address [address] [address] Care Team Providers Care Applied Research Director Name Role Phone NAME, KATYA Primary Care Provider Assessment Encounter Date Assessment Date Assessment LastModified by Organization Details LastModified Time 06/28/2024 06/28/2024 Nasal endo was again notable for a small benign appearing polyp medial to the left middle turbinate which is stable. She is on plavix due to blood clots. Biopsy to confirm it is not a neoplasm, inverted papilloma or cancer is deferred secondary to Plavix. We will plan to reevaluate in 6 months. She will call if she develops epistaxis, increased nasal congestion or facial pain. [email or web address] Not available 06/28/2024 16:09:59 Plan of Treatment Reminders Order Date Submit Date Provider Last Modified By Organization Details Last Modified Time Details Appointments Establish ed 30 2024 02:30P M MARTINA Silva MD Not available Not [...] sensorine ural hearing loss of left ear 89098289143 107 Active 2021 Mixed conductiv e and sensorine ural hearing loss, unilatera l, left ear with restricte d hearing on the contralat eral side; Note: Date Diagnosed : 06/12/2021 2:25 PM (H90.A32) Not Available [facility] 4 03:18:06 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 183837274 Active 2021 Nasal polyp, unspecifi ed; Note: Date Diagnosed : 06/12/2021 1:57 PM (J33.9) Not Available [facility] 4 03:18:06 Bilateral chronic serous otitis 160349640 Active 2021 Chronic serous otitis media, bilateral ; Note: Date Diagnosed : 06/12/2021 1:50 PM (H65.23) Not Available [facility] 4 03:18:07 Sensorine ural hearing loss in right ear 50069680109 100 Active 2021 Sensorine ural hearing loss, unilatera l, right ear, with restricte d hearing on the contralat eral side; Note: Date Diagnosed : 06/12/2021 2:25 PM (H90.A21) Not Available [facility] 4 03:18:06 Tinnitus of left ear 73542163049 06 Active 2021 Tinnitus, left ear; Note: Date Diagnosed : 06/12/2021 1:57 PM (H93.12) Not Available [facility] 4 03:18:07 Disorder of nasal sinus 0659722 Active 2023 Other specified disorders of nose and nasal sinuses; Note: Date Diagnosed : 04/01/2023 4:38 PM (J34.89) Not Available [facility] 4 03:18:06 Disorder of the nose 35887186 Active 2023 Other specified disorders of nose and nasal sinuses; Note: Date Diagnosed : 04/01/2023 4:38 PM (J34.89) Not Available [facility] 4 03:18:06 Polyp of nasal cavity 186177857 Active 2023 MARTINA SIMMONS MD [address] [facility],[place] [address], [place], [address] , [facility] - [facility] 4 13:09:18 Nasal congestio n 25029117 Active 2023 MARTINA SIMMONS MD [address] [place] [address],[facility] [address], [place], [address] , [facility] 4 13:15:27 Problem Notes None recorded. Procedures Surgical History Date Name Laterality Status Provider Name and Address Organization Details Recorded Time 06/28/2024 NasalEndos copy_DP completed RAHUL SMITH PA-C [address], [address], [facility] 06/28/2024 16:08:32 12/26/2023 NasalEndos copy_DP completed MARTINA SIMMONS MD [address], [address], [facility] 12/26/2023 13:15:08 Imaging Results None recorded. Procedure Notes None recorded. Medical Equipment None Reported. Allergies Allergen ID Allergen Name Allergen Category Reaction Reaction Severity Criticality Documentation Date Start Date Code Code System Note Provider Name and Address Organization Details Recorded Time 82700 aspirin medicatio n other Not available Not available 07/19/2023 1191 RxNorm React ion: Unkno wn; Not Available [facility] 00:48:40 Medications Name Sig Start Date Stop Date Status Note LastModified by Organization Details LastModified Time medbox status USE DIRECTED active Not Available Not Available No t Available atorvasta tin 40 mg tablet TAKE 1 TABLET BY [...] Not Available Not Available No t Available divalproe x 250 mg tablet,de layed release active Medicati on ID: [id number] B rand Name: divalpro ex Send Method: E-Prescr ibed Sub s Allowed: subs OK Speci al Instruct ion: TAKE 1 TABLET BY MOUTH TWICE DAILY IN THE MORNING AND AT BEDTIME Medicati onGeneri cName: divalpro ex Not Available Not Available Not Available Vitamin C 500 mg tablet TAKE 1 TABLET BY MOUTH EVERY EVENING active Not Available Not Available No t Available trazodone 50 mg tablet active Medicati on ID: [id number] B rand Name: trazodon e Send Method: E-Prescr ibed Sub s Allowed: subs OK Speci al Instruct ion: TAKE 1/2 TABLET BY MOUTH AT BEDTIME Medicati onGeneri cName: trazodon e Not Available Not Available Not Available glipizide ER 10 mg tablet, extended release 24 hr active Medicati on ID: 141569 B rand Name: glipizid e Send Method: E-Prescr ibed Sub s Allowed: subs OK Speci al Instruct ion: TAKE 1 TABLET BY MOUTH EVERYDAY AT NOON [facility] me: glipizid e Not Available Not Available Not Available donepezil 10 mg tablet TAKE 1 TABLET BY MOUTH AT BEDTIME active Not Available Not Available No t Available prednison e 20 mg tablet TAKE 2 TABLETS BY MOUTH EVERY DAY 06/28 completed Not Available Not Available Not Available clopidogr el 75 mg tablet TAKE 1 TABLET BY [...] Not Available Not Available No t Available mirtazapi ne 30 mg tablet TAKE 1 TABLET BY MOUTH AT BEDTIME active Not Available Not Available No t Available metformin 1,000 mg tablet active Medicati on ID: 647335 B rand Name: metformi n Send Method: E-Prescr ibed Sub s Allowed: subs OK Speci al Instruct ion: TAKE 1 TABLET BY MOUTH TWICE DAILY AT NOON AND IN THE EVENING WITH MEALS Me dication GenericN bandar: metformi n Not Available Not Available Not Available esomepraz ole magnesium 40 mg capsule,d elayed release TAKE 1 CAPSULE BY MOUTH EVERY MORNING active Not Available Not Available No t Available lisinopri l 10 mg tablet active Medicati on ID: 340555 B rand Name: lisinopr il Send Method: E-Prescr ibed Sub s Allowed: subs OK Speci al Instruct ion: TAKE 1 TABLET BY MOUTH EVERY EVENING Medicati onGeneri cName: lisinopr il Not Available Not Available Not Available losartan 25 mg tablet TAKE 1 TABLET BY MOUTH EVERY EVENING active Not Available Not Available No t Available nitroglyc frank 0.4 mg sublingua l tablet DISSOLVE 1 TABLET UNDER THE TONGUE EVERY 5 MINUTES NEEDED FOR CHEST PAIN. CALL 911 IF NO RELIEF active Not Available Not Available No t Available raloxifen e 60 mg tablet TAKE 1 TABLET BY MOUTH EVERY MORNING active Not Available Not Available No t Available cyanocoba elen (vit B-12) 1,000 mcg sublingua l tablet TAKE [address] UNDER THE TONGUE EVERY DAY active Not Available Not Available No t Available sertralin e 50 mg tablet TAKE 1 TABLET BY MOUTH EVERY MORNING active Not Available Not Available No t Available amoxicill in 875 mg-potass ium clavulana te 125 mg tablet TAKE 1 TABLET BY MOUTH TWICE DAILY 06/28 completed Not Available Not Available Not Available memantine 5 mg tablet TAKE 1 TABLET BY MOUTH TWICE DAILY IN THE MORNING AND IN THE EVENING active Not Available Not Available No t Available metoprolo l tartrate 25 mg tablet TAKE 1 TABLET BY MOUTH TWICE DAILY AT NOON AND IN THE EVENING active Not Available Not Available No t Available solifenac in 10 mg tablet TAKE 1 TABLET BY MOUTH EVERYDAY AT NOON active Not Available Not Available No t Available calcium 600 mg (as carbonate )-vitamin D3 10 mcg (400 unit) tablet TAKE 1 TABLET BY MOUTH THREE TIMES DAILY IN THE MORNING, AT NOON, AND IN THE EVENING active Not Available Not Available No t Available FeroSul 325 mg (65 mg iron) tablet TAKE 1 TABLET BY MOUTH EVERY EVENING active Not Available Not Available No t Available melatonin 5 mg tablet active Medicati on ID: 064389 B rand Name: melatoni n Send Method: E-Prescr ibed Sub s Allowed: subs ANIYAH Sutherlandi al Instruct ion: TAKE 2 TABLETS BY MOUTH EVERY DAY AT BEDTIME Medicati onGeneri cName: melatoni n Not Available Not Available Not Available OneTouch Ultra2 Meter active Medicati on ID: 437691 B rand Name: OneTouch Ultra2 Meter Se nd Method: E-Prescr ibed Sub s Allowed: subs ANIYAH Smith al Instruct ion: TEST BLOOD SUGAR THREE TIMES DAILY DIRECTED Medicat ionGener icName: OneTouch Ultra2 Meter Not Available Not Available Not Available OneTouch Delica Plus Lancet 33 gauge TEST BLOOD SUGAR TWICE DAILY active Not Available Not Available No t Available Vitals Date Recorded Body height Provider Name an d Address Organization Details Last Updated DateTime 06/28/2024 157.48 cm EDDY BARTHOLOMEW [place] [facility] 06/28/2024 15:25:03 Date Recorded Body height Body mass index (BMI) Body weight Provider Name and Address Organization Details Last Updated DateTime 12/26/2023 157.48 cm 30.7 kg/m2 36866.52 g Doreen Mary [place] - [facility] 12/26/2023 13:06:36 Social History None recorded. Functional Status None recorded. Mental Status None recorded. Family History Nothing Reported. Medical History No medical history recorded. Gynecological HistoryNo gynecological history recorded. Obstetrics History GPAL:G 0 P 0 0 0 0 Past Encounters Encounter ID Performer Location Encounter Start Date Encounter Closed Date Diagnosis/Indication Diagnosis SNOMED-CT Code Diagnosis ICD10 Code Diagnosis Note [id number] MARTINA SIMMONS MD [facility] [address] [address] 12/26/2023 12:51:33 12/26/2023 13:20:22 Polyp of nasal cavity 603585206 J33.0 Nasal endo was notable for a [...] nasal congestion or facial pain. Nasal congestion 9589312 0 R09.81 No signfician t congesiton . I asked her to call if she develops worsening congestion . [id number] RAHUL SMITH PA-C [facility] [address] [address] 06/28/2024 15:19:17 06/28/2024 15:54:52 Polyp of nasal cavity 380221161 J33.0 Health Concerns Section Related Observation LastModified by Organization Detai ls LastModified Time None Recorded Concern Status LastModified by Organization Details LastModified Time None Recorded Advance Directives Directive None Recorded Payers Insurance Date Sequence Insurance Name Policy Number Policy Malik Covered Member ID Malik Member ID Guarantor Name 06/28/2024 1 [facility] (MEDICARE REPLACEMENT/ ADVANTAGE - HMO) Nadine Morris [id number] Nadine Clement 06/28/2024 2 [place] [facility] Genna Clement [id number] Nadine Clement Notes Date Note Type Note Provider Name and Address Organization Details Recorded Time 12/26/2023 text/html Nasal polypShe h ad an MRI brain with contrast at [facility] which showed bilateral mastoid effusions and concern for a left nasal polyp in 2020. We obtained a CT which showed a left nasal polyp 15mm without destructive features. Denies epistaxis. Denies facial pain. Still on plavix. Biopsy wasdeferred due to plavix. MARTINA SIMMONS MD [address] [facility],[address], [address], [facility] - [facility] 12/26/2023 13:15:55 06/28/2024 text/html 83 year old femtrev meng presents for routine follow up of left nasal polyp. Biopsy has been deferred due to Plavix. She denies nasal congestion. She does not use any nasal sprays. NAVEEN CARBONE MD [address] [place] [address],[address], [address], [facility] 07/01/2024 09:49:26 OBGyn Episode No OBEpisode recorded.
--- OUTSIDE RECORDS SUMMARY | 2024-07-17 16:08 | XMS_ITS ---
Author Name Chery MARCOSHerlinda Address [address] [place] [address] Phone [phone] Organization [facility] Care Team Providers Care Corn Chip Maker Name Role Phone Herlinda Chery Unavailable [phone] NameTyson Unavailable [phone] Reason for Referral Not Available Allergies, adverse [...] 2021-05-11 No Data Available OneTouch Delica Plus [id number] Miscellaneous TEST BLOOD SUGAR TWICE DAILY 2021-05-15 [...] 50 mg Tab TAKE 1 TABLET BY [facility] EVERY MORNING 2023-09-21 No Data Available [...] mg Tab TAKE 1 TABLET BY [facility] EVERY MORNING 2024-03-20 No Data Available Problem List Problem Status Onset Date Resolved Date HX: breast cancer Active 2022-01-25 N/A GERD (gastroesophageal reflux disease) Active 26-01-21 N/A Other problems related to [facility] facilities and other health care Active 2023-05-17 [...] Pain Documented on a Pain Scale (1125F) [facility] [place] Pain Assessment - Pain Documented on a Pain Scale (1125F) [facility] [place] Pain Assessment - Pain Documented on a Pain Scale (1125F) [facility] [place]/2022 Pain Assessment - Pain Documented on a Pain Scale (1125F) [facility] [place] 01/[place]/2022 Pain Assessment - Pain Documented on a Pain Scale (1125F) [facility] [place] 01/[place]/2022 Pain Assessment - Pain Documented on a Pain Scale (1125F) [facility] [place] 01/[place]/2022 Pain Assessment - Pain Documented on a Pain Scale (1125F) [facility] [place] 01/[place]2022 Hyperlipidemia, unspecifiedGastro-esophageal reflux disease without esophagitisInsomnia, unspecifiedType 2 diabetes mellitus without complicationsEssential (primary) hypertensionAge-related osteoporosis without current pathological fractureOveractive bladderShortness of breathUnspecified dementia without behavioral disturbanceOther thrombophiliaUnspecified atrial fibrillationPersonal history of malignant neoplasm of breast Pain Assessment - Pain Documented on a Pain Scale (1125F) [facility] [place] Pain Assessment - Pain Documented on a Pain Scale (1125F) [facility] [place] 01/[place]22 Estab. patient 30-39min; chronic exacerbation, 2 stable chronic or 1 acute illness add add modifier 95 for video, (do not use for phone, instead use 93829-33) [facility] [place]2022 Type 2 diabetes mellitus wit [...] (do not use for phone, instead use 26546-00) [facility] Estab. patient 30-39min; chronic exacerbation, 2 stable chronic or 1 acute illness add add modifier 95 for video, (do not use for phone, instead use 88758-16) [facility] Estab. patient 30-39min; chronic exacerbation, 2 stable chronic or 1 acute illness add add modifier 95 for video, (do not use for phone, instead use 98303-77) [facility] Estab. patient 30-39min; chronic exacerbation, 2 stable chronic or 1 acute illness add add modifier 95 for video, (do not use for phone, instead use 24637-84) [facility] Estab. patient 30-39min; chronic exacerbation, 2 stable chronic or 1 acute illness add add modifier 95 for video, (do not use for phone, instead use 50506-88) [facility] [place] 10[place]/2022 Estab. patient 30-39min; chronic exacerbation, 2 stable chronic or 1 acute illness add add modifier 95 for video, (do not use for phone, instead use 72036-07) [facility] Estab. patient 30-39min; chronic exacerbation, 2 stable chronic or 1 acute illness add add modifier 95 for video, (do not use for phone, instead use 76952-81) [facility] Estab. patient 30-39min; chronic exacerbation, 2 stable chronic or 1 acute illness add add modifier 95 for video, (do not use for phone, instead use 40445-79) [facility] Estab. patient 30-39min; chronic exacerbation, 2 stable chronic or 1 acute illness add add modifier 95 for video, (do not use for phone, instead use 48990-11) [facility] Estab. patient 30-39min; chronic exacerbation, 2 stable chronic or 1 acute illness add add modifier 95 for video, (do not use for phone, instead use 37538-05) [facility] 03/24/2023 Type 2 diabetes mellitus wit [...] (do not use for phone, instead use 88499-17) [facility] 03/24/2023 Estab. patient 30-39min; chronic exacerbation, 2 stable chronic or 1 acute illness add add modifier 95 for video, (do not use for phone, instead use 74168-17) [facility] 03/24/2023 Estab. patient 30-39min; chronic exacerbation, 2 stable chronic or 1 acute illness add add modifier 95 for video, (do not use for phone, instead use 92634-36) [facility] 03/24/2023 Estab. patient 30-39min; chronic exacerbation, 2 stable chronic or 1 acute illness add add modifier 95 for video, (do not use for phone, instead use 40589-48) [facility] 03/24/2023 Estab. patient 30-39min; chronic exacerbation, 2 stable chronic or 1 acute illness add add modifier 95 for video, (do not use for phone, instead use 96741-92) [facility] 03/24/2023 Estab. patient 30-39min; chronic exacerbation, 2 stable chronic or 1 acute illness add add modifier 95 for video, (do not use for phone, instead use 18253-62) [facility] 03/24/2023 Estab. patient 30-39min; chronic exacerbation, 2 stable chronic or 1 acute illness add add modifier 95 for video, (do not use for phone, instead use 37777-42) [facility] 03/24/2023 Estab. patient 30-39min; chronic exacerbation, 2 stable chronic or 1 acute illness add add modifier 95 for video, (do not use for phone, instead use 18726-35) [facility] 03/24/2023 Estab. patient 30-39min; chronic exacerbation, 2 stable chronic or 1 acute illness add add modifier 95 for video, (do not use for phone, instead use 12499-47) [facility] 03/24/2023 Estab. patient 20-29min; 1 stable chronic or 2 minor; add add modifier 95 for video, modifier 93 for phone [facility] 05/01/2024 Type 2 diabetes mellitus wit [...] 95 for video, modifier 93 for phone [facility] 05/01/2024 Estab. patient 20-29min; 1 stable chronic or 2 minor; add add modifier 95 for video, modifier 93 for [facility] 05/01/2024 Estab. patient 20-29min; 1 stable chronic or 2 minor; add add modifier 95 for video, modifier 93 for [facility] 05/01/2024 Estab. patient 20-29min; 1 stable chronic or 2 minor; add add modifier 95 for video, modifier 93 for [facility] 05/01/2024 Estab. patient 20-29min; 1 stable chronic or 2 minor; add add modifier 95 for video, modifier 93 for [facility] 05/01/2024 Estab. patient 20-29min; 1 stable chronic or 2 minor; add add modifier 95 for video, modifier 93 for phone [facility] 05/01/2024 Estab. patient 20-29min; 1 stable chronic or 2 minor; add add modifier 95 for video, modifier 93 for phone [facility] 05/01/2024 Estab. patient 20-29min; 1 stable chronic or 2 minor; add add modifier 95 for video, modifier 93 for phone [facility] 05/01/2024 Vital Signs Date of Collection [...] tive Time Current Smoking Status Never smoker 2024-07-05 3 Sex Female History of Procedures Procedures Service [...] 95 for video, modifier 93 for phone 80126 2022-01-25 No Data Available No Data Availa ble DBP <80 (3078F) 3078F 2022-01-25 No Data Available No Data Available SBP >= 140 3077F 2022-01-25 No Data Available No Data Available Estab. patient 30-39min; chronic exacerbation, 2 stable chronic or 1 acute illness add add modifier 95 for video, (do not use for phone, instead use 31278-29) 46926 2022-10-04 No Data Available No Data Availa [...] (do not use for phone, instead use 16784-49) 21182 2023-03-24 No Data Available No Data Availa [...] 95 for video, modifier 93 for phone 58767 2024-05-01 No Data Available No Data Availa [...] lives with daughter an d grandson 2022-01-25 SUPERINTENDENT LOCAL is her grand daughter 2022-10-04 Mental Status [...] with diabetic chronic kidney disease, CKD stage G3a/B0Poekkinwefsq heart disease with stage 3a chronic kidney [...] CG reportmetoprolol tartrate BID on Plavix (h/o [place]- clot to heart vessel per CG- aprx [...] D and osteoporosis surveillance stressed-- Risk of nursing home PPI use discussed-- Antireflux diet: avoid tomatoes, [...] with pulmonologymetoprolol tartrate BID on Plavix (h/o [place]- clot to heart vessel per CG- aprx [...] D and osteoporosis surveillance stressed-- Risk of nursing home PPI use discussed-- Antireflux diet: avoid tomatoes, [...] QDAY d/ t hypoglycemia Lab ResultsComponent Value UeeqXMLK4N 7.8 (A) 02/14/2023HGBA1C 6.3 (H) 02/01/2022Lab ResultsComponent [...] your log in next visit.Lab ResultsComponent Value CcamLRYG7Y 7.8 (A) 02/14/2023HGBA1C 6.3 (H) 02/01/2022Lab ResultsComponent [...] 4 03/24/23metoprolol tartrate BID on Plavix (h/o [place]- clot to heart vessel per CG- aprx 20 years ago)in remissionfollows with oncologist s/p surgery/removal of cancerous lesionavoid nephrotoxic medicationstay hydrated encouraged A1c control and bp control Lab ResultsComponent Value DnhtYGUT0I 7.8 (A) 02/14/2023HGBA1C 6.3 (H) 02/01/2022Lab ResultsComponent [...] QDAY d/ t hypoglycemia Lab ResultsComponent Value MaajATOA1Z 7.8 (A) 02/14/2023HGBA1C 6.3 (H) 02/01/2022 2024-05-01 [...] pain increased [facility]. [facility] any acute or disease education needs that may arise 27/09.what should be done when the member calls: see each individual diagnosis for contingency planesomeprazole Recommend famotidine 20 mg twice daily as needed for dyspepsia-- Smoking cessation encouranged-- Dietary and life style changes encouraged-- Calcium/Vit D and osteoporosis surveillance stressed-- Risk of nursing home PPI use discussed-- Antireflux diet: avoid tomatoes, [...] QDAY d/ t hypoglycemia Lab ResultsComponent Value HrncJQMH8Y 7.8 (A) 02/14/2023HGBA1C 6.3 (H) 02/01/2022Lab ResultsComponent [...] organ damage (headache, vision changes, chest pain)/ Corporate Treasury Analyst on proper BP monitoring technique and reassess/ [...] up prn.metoprolol tartrate BID on Plavix (h/o [place]- clot to heart vessel per CG- aprx [...] QDAY d/ t hypoglycemia Lab ResultsComponent Value QvhhYBLW2Q 7.8 (A) 02/14/2023HGBA1C 6.3 (H) 02/01/2022 Goals [...] okDo you have a Durable Power of Data Entry Specialist for Healthcare, or Healthcare Proxy Or Guardianship? Yes, preferred proxy but not named BAUTISTAf so, Who? HCP: grand daughter Kerry Waldrop Do you have a written Advance Directive?Other details of discussion: (Who was present, patients description of wishes/goals)Today's plan:1123F : AD or surrogate was documented in the medical record.
--- OUTSIDE RECORDS SUMMARY | 2024-07-17 16:09 | XMS_ITS | Encounter Summary ---
Author Organization [employer] Address [address] 7[address] [place] [address] Care Team Providers Care Salesperson Shoes Name Role Phone Name, Tyson MCKINNON Primary Care Provider [phone] Encounter Details Date Type Department Care Team ([facility] st Contact Info) Description 10/18/2022 Orders Only [facility] MED & PEDS [address] [place], [place] [phone] Ernestine Aceves LPN Social History Tobacco Use [...] documented as of this encounter Care Teams Salesperson Shoes Relationship Specialty Start Date End Date Name, MD Tyson [address] [place], [place] [phone] PCP - General Family Medicine 01/18/19 documented as of this encounter
--- OUTSIDE RECORDS SUMMARY | 2024-07-17 16:09 | XMS_ITS | Encounter Summary ---
Author Organization [employer] Address [address] [facility] 7[address] [place] [address] Care Team Providers Care Dough Brake Machine Operator Name Role Phone Name, Tyson MCKINNON Primary Care Provider [phone] Encounter Details Date Type Department Care Team (Late st Contact Info) Description 07/01/2022 Orders Only [facility] MEDICINE [address] [place], [place] [phone] Ernestine Aceves LPN Social History Tobacco Use [...] on filedocumented in this encounter Care Teams Dough Brake Machine Operator Relationship Specialty Start Date End Date Name, MD Tyson [address] [place] [address] PCP - General Family Medicine 01/18/19 documented as of this encounter
--- OUTSIDE RECORDS SUMMARY | 2024-07-17 16:09 | XMS_ITS | Encounter Summary ---
Author Organization [employer] Address [address] [place] [address] Care Team Providers Care Superior Court Justice Name Role Phone Name, Tyson MCKINNON Primary Care Provider [phone] Reason for Visit * Reason Comments Med Refill Encounter Details Date Type Department Care Team ([facility] st Contact Info) Description 06/18/2024 Refill [facility] MED & PEDS [address] [place], [place] [phone] Rose Quintana, MARCOS [address] [place], [place] [phone] Chronic pain of both knees Social History [...] documented as of this encounter Care Teams Superior Court Justice Relationship Specialty Start Date End Date Name, MD Tyson [address] [place] [address] PCP - General Family Medicine 01/18/19 documented as of this encounter
--- OUTSIDE RECORDS SUMMARY | 2024-07-17 16:09 | XMS_ITS | Clinical Summary ---
Author Organization [employer] Address [address] [facility] [address] [place] [address] Care Team Providers Care Drilling Assistant Name Role Phone Name, Tyson MCKINNON Primary Care Provider [phone] Allergies Active Allergy Reactions Criticality Noted Date [...] 02/06/20 24 Active Lancets (OneTouch Delica Plus Ezueis80I) miscIndications :Type 2 diabetes mellitus with other specified complication, without long-term current use of insulin ([facility]) TEST BLOOD SUGAR TWICE DAILY 100 each 3 03/27/19 25 Active losartan (Cozaar) 25 MG tabletIndicatio ns:Hypertension , unspecified type TAKE 1 TABLET BY MOUTH EVERY EVENING 90 tablet 3 04/02/19 25 Active Ferrous Sulfate (iron) 325 (65 Fe) MG tabletIndicatio ns:Type 2 diabetes mellitus with other specified complication, unspecified whether detention insulin use ([facility]) TAKE 1 TABLET BY MOUTH EVERY EVENING 90 tablet 3 04/05/19 25 Active furosemide (Lasix) 20 MG tablet Take [...] BEDTIME 30 tablet 1 06/23/19 25 Active clopidogrel (Plavix) 75 MG tablet TAKE 1 TABLET BY MOUTH AT BEDTIME 90 tablet 1 07/18/19 25 Active Calcium Carb-Cholecalci ferol 600-10 MG-MCG tablet TAKE 1 TABLET BY MOUTH TWICE DAILY IN THE MORNING AND IN THE EVENING 180 tablet 1 07/18/19 25 Active clopidogrel (Plavix) 75 MG tablet Take 1 tablet (75 mg) by mouth at bedtime. 90 tablet 04/10/19 25 025 Discontinued Calcium Carb-Cholecalci ferol 600-10 MG-MCG tablet Take 1 tablet by mouth 2 times daily. 270 tablet 04/10/19 25 025 Discontinued mirtazapine (Remeron) 30 MG tablet [...] 01/21/2012 Non-compliance 12/22/2011 Coronary artery disease involving [place] coronar y artery 09/20/2011 Hiatal hernia 09/20/2011 Mixed hyperlipidemia 08/12/2011 Jo's esophagus 07/21/2011 Chest pain 07/20/2011 Dizziness and giddiness 07/20/2011 Essential hypertension 07/20/2011 Migraine 07/20/2011 Osteopenia of multiple sites 08/09/2005 Encounters Date Type Department Care Team Description 07/16/2024 Refill [facility] CHC MED & PEDS [address], [place] [phone] Name, MD Tyson 06/22/2024 Refill [facility] MEDICINE [address] [place] [address] Name, MD Tyson 06/18/2024 Refill [facility] CH[facility] MED & PEDS [address], [place] [phone] Rose Quintana, ACADEMIC REGISTRAR Chronic pain of both knees 06/18/2024 Refill [facility] MEDICINE [address] [place] [address] Name, MD Tyson Chronic knee pain, unspecified laterality (Primary Dx) 06/03/2024 Refill [facility] MEDICINE [address] [place] [address] Name, MD Tyson 05/30/2024 Refill [facility] MED & PEDS [address] [place] [address] Rose Quintana, MARCOS Chronic pain of both knees 05/10/2024 Orders Only [facility] MEDICINE [address] [place] [address] Name, MD Tyson 05/06/2024 Refill [facility] MEDICINE [address] [place] [address] Name, MD Tyson High cholesterol 05/03/2024 Refill [facility] MEDICINE [address] [place] [address] Name, MD Tyson 04/21/2024 Orders Only [facility] External Provider, [facility] from Last 3 Months Immunizations Name Administration [...] complication, without long-term current use of insulin ([facility]) LIPID PANEL, STANDARD Routine 12/08/2023 10:10 AM EDT Type 2 diabetes mellitus with other specified complication, without long-term current use of insulin ([facility]) Chronic knee pain, unspecified laterality Venous [...] 8:00 PM EST 04/21/2024 8:31 PM EST Comment:UACC Narrative [facility] - 04/23/2024 11:54 AM EST Urine Culture Report Result Urine Culture 10,000 to 50,000 cfu/ml Urine Culture Mixed bacterial maria a characteristic of Urine Culture urogenital contamination. Specimen Source: Urine clean catch us Generic External Data Provider LAB MICROBIOLOGY - GENERAL ORDERABLES Final Result Performing Organization Address City/State/[facility] Co de Phone Number [facility] [address] [place] [phone] * CT Head w/o Contrast (04/21/2024 7:30 PM EST) Anatomical Region Laterality Modality Head, Neck Computed Tomogra phy 04/21/2024 7:30 PM EST Narrative 04/21/2024 7:31 PM EST ? [facility] ?[address] [place] [address] ?[place] [address] ? CT Scan Report ? Signed ? Patient: Urbano,Nadine ?MR#: [id number] ?? 67 ? : 1940 ?Acct:[id number] ? Age/Sex: 83 / F ?ADM Date: 02/15/25 ? Loc: HO.ED ? Attending Dr: ? Ordering Physician: Jamal Eubanks ?? Date of Service: 04/21/24 ?? Procedure(s): CT head/brain wo IV con ?? Accession Number(s): [id number] ? cc: Name,Tyson MCKINNON; Jamal Eubanks ? Report Number: ?? [id number]: Total DLP = ?0.00 mGy-cm ? CLINICAL HISTORY: trauma ? CT head without contrast ? Comparison: CT/REG/GA/SR - CT ANGIO HEAD NECK - 09/21/21 [...] by Nash Munoz MD in OV> ? 04/21/24 1931 ? DD/ 29 ? TD/TT: 04/21/241929 ? Store Keeper: ? Procedure Note Bryan, Chuckie - 04/22/[address] [place] [address] [address] Scan Report Signed Patient: Nadine ClementMR#: [id number] [birth year] : 9Acct:[id number] Age/Sex: 83 / FADM Date: 04/21/24 Loc: HO.ED Attending Dr: Ordering Physician: Jamal Eubanks Date of Service: 04/21/24 Procedure(s): CT head/brain wo IV con Accession Number(s): [id number] cc: Name,Tyson MCKINNON; Jamal Eubanks Report Number: [id number]: Total DLP = 0.00 mGy-cm CLINICAL HISTORY: trauma CT head without contrast Comparison: CT/REG/GA/SR - CT ANGIO HEAD NECK - 09/21/21 [...] document has been electronically signed by: Nash uMnoz MD on 04/21/2024 19:30:11 Dictated By: Nash Munoz MD Signed By: <Electronically signed by Nash Munoz MD in OV> 04/21/241930 DD/ 29 TD/TT: 04/21/241929 Store Keeper: [facility] External Provider IMG CT PROCEDURES Final Result * CT Cervical Spine w/o Contrast (04/21/2024 7:28 PM EST) Anatomical Region Laterality Modality Spine, C-spine Computed Tomogra phy 04/21/2024 7:28 PM EST Narrative 04/21/2024 7:29 PM EST ? [facility] ?[address] ?[place] [address] ? CT Scan Report ? Signed ? Patient: Nadine Clement ?MR#: [id number] ?? 67 ? : 1940 ?Acct:[id number] ? Age/Sex: 83 / F ?ADM Date: 04/21/24 ? Loc: HO.ED ? Attending Dr: ? Ordering Physician: Jamal Eubanks ?? Date of Service: 04/21/24 ?? Procedure(s): CT cervical spine wo IV con ?? Accession Number(s): [id number] ? cc: Name,Tyson MCKINNON; Jamal Eubanks ? Report Number: ?? [id number]: Total DLP = ??863.00 mGy-cm ? CLINICAL HISTORY: trauma ? CT cervical spine without contrast ? Comparison: CT/GA - CT ANGIO HEAD NECK - 09/21/21 [...] by Nash Munoz MD in OV> ? 02/15/25 1929 ? DD/ 27 ? TD/TT: 04/21/241927 ? Store Keeper: ? Procedure Note Chuckie Adams - 04/22/[address] [place] [address] [address] Scan Report Signed Patient: Nadine ClementMR#: [id number] [birth year] : 9Acct:[id number] Age/Sex: 83 / FADM Date: 04/21/24 Loc: HO.ED Attending Dr: Ordering Physician: Jamal Eubanks Date of Service: 04/21/24 Procedure(s): CT cervical spine wo IV con Accession Number(s): [id number] cc: Tyson March MD; Jamal Eubanks Report Number: [id number]: Total DLP = 863.00 mGy-cm CLINICAL HISTORY: trauma CT cervical spine without contrast Comparison: CT/GA - CT ANGIO HEAD NECK - 09/21/21 [...] in OV> 04/21/241928 DD/ 27 TD/TT: 04/21/241927 Store Keeper: [facility] External Provider IMG CT PROCEDURES Edited Result - Final * (ABNORMAL) POCT HGB A1C (04/10/2024 3:23 PM EST) Hemoglobin A1C 6.8(A) 4.0 - 6.0 % QC Media Lot # [id number] Lot# Expiration Date [id number] Blood 04/10/2024 3:23 PM EST Tyson March MD POINT OF CARE TEST ENTER/EDIT OR DERABLES Final Result * Lipid Panel, Standard (12/08/2023 10:10 AM EDT) Triglycerides 82 <150 mg/dL [facility] Comment:Desirable Triglyceri de: less than 150 mg/dLBorderline High Triglyceride 150-199 mg/dLHigh Triglyceride: 200-499 mg/dLVery High Triglyceride: greater than or equal to 5OO mg/dL Cholesterol 123 <200 mg/dL [facility] Comment:Desirable Cholestero l: less than 200 mg/dLBorderline High Cholesterol: 200-239 mg/dLHigh Cholesterol: greater than 239 mg/dL LDL Cholesterol Calculated 47 <100 mg/dL [facility] Comment:Desirable LDL: less than 100 mg/dLNear Optimal/Above Optimal LDL: 110- 129 mg/dLBorderline High LDL: 130-159 mg/dLHigh LDL: 160-189 mg/dLVery High LDL: greater than or equal to 190 mg/dL HDL Cholesterol 60 >40 mg/dL [facility] Comment:Desirable HDL: great er than 40 mg/dL Note: This HDL assay may give artificially low results in patients with liver disease. Blood Venous blood specimen / Unknown 12/08/2023 10:10 AM EDT 12/08/2023 11:16 AM EDT us Tyson March MD LAB BLOOD ORDERABLES Final Resul t Performing Organization Address [facility] de Phone Number [facility] [address] [place] [phone] * Albumin, Random Urine W/Creatinine (02/07/2023 10:15 AM EST) Creatinine, Urine 75.20 mg/dL [facility] Microalbumin Urine 8.0 mg/L [facility] Microalbum Creatinine Ratio Ur 10.6 <30 ug/mg cr [facility] Comment:Albumin/Creatinine R atio Reference Ranges: Normal: < 30 ug/mg creatinine Microalbuminuria: 30 - 300 ug/mg creatinineClinical Albuminuria: > 300 ug/mg creatinine 02/07/2023 10:1 5 AM EST 02/07/2023 11:06 AM EST us Tyson March MD LAB URINE ORDERABLES Final Resul t Performing Organization Address [facility] Co de Phone Number [facility] [address] [place] [phone] from Last 3 Months or Most Recently Relevant to Health Maintenance Insurance [facility]O DUAL COMPLETE D[place]AL[place] STAND ADULT [facility]AL [facility] Care Teams Drilling Assistant Relationship Specialty Start Date End Date Name, MD Tyson [address] [place] [phone] PCP - General Family Medicine 01/18/19
--- OUTSIDE RECORDS SUMMARY | 2024-07-17 16:09 | XMS_ITS | Encounter Summary ---
Author Organization [employer] Address [address] [place] [address] Care Team Providers Care Insurance Claim Representative Name Role Phone Name, Tyson MCKINNON Primary Care Provider [phone] Reason for Visit * Reason Comments Med Refill Encounter Details Date Type Department Care Team ([facility] st Contact Info) Description 11/17/2023 Refill [facility] MEDICINE [address] [place], [place] [phone] Name, MD Tyson [address] [place] [address] Social History Tobacco Use Types Packs/Day Years [...] documented as of this encounter Care Teams Insurance Claim Representative Relationship Specialty Start Date End Date Name, MD Tyson [address] [place] [address] PCP - General Family Medicine 01/18/19 documented as of this encounter
--- OUTSIDE RECORDS SUMMARY | 2024-07-17 16:09 | XMS_ITS | Encounter Summary ---
Author Organization [employer] Address [address] [facility] 7[address] [place] [address] Care Team Providers Care Nitric Acid Plant Operator Name Role Phone Name, Tyson MCKINNON Primary Care Provider [phone] Encounter Details Date Type Department Care Team ([facility] st Contact Info) Description 05/14/2022 Orders Only [facility] CHC MED & PEDS [address] [place], [place] [phone] Faith Tavares LPN Social History Tobacco Use [...] on filedocumented in this encounter Care Teams Nitric Acid Plant Operator Relationship Specialty Start Date End Date Name, MD Tyson [address] [place] [address] PCP - General Family Medicine 01/18/19 documented as of this encounter
--- OUTSIDE RECORDS SUMMARY | 2024-07-17 16:09 | XMS_ITS | Encounter Summary ---
Author Organization [employer] Address [address] [facility] [address] [place] [address] Care Team Providers Care Egg Factory Worker Name Role Phone Name, Tyson MCKINNON Primary Care Provider [phone] Reason for Visit * Reason Comments Med Refill Encounter Details Date Type Department Care Team (Late st Contact Info) Description 04/01/2022 Refill [facility] MEDICINE [address] [place], [place] [phone] Name, MD Tyson [address] [place] [address] Migraine, unspecified, not intractable, without status migrainosus [...] migrainosus documented in this encounter Care Teams Egg Factory Worker Relationship Specialty Start Date End Date Name, MD Tyson [address] [place] [phone] PCP - General Family Medicine 01/18/19 documented as of this encounter
--- OUTSIDE RECORDS SUMMARY | 2024-07-17 16:09 | XMS_ITS | Encounter Summary ---
Author Organization [employer] Address [address] [facility] 7[address] [place] [address] Care Team Providers Care Center Maker Hand Name Role Phone Name, Tyson MCKINNON Primary Care Provider [phone] Encounter Details Date Type Department Care Team ([facility] st Contact Info) Description 04/15/2022 Orders Only [facility] CHC MED & PEDS [address] [place], [place] [phone] Faith Tavares LPN Social History Tobacco Use [...] on filedocumented in this encounter Care Teams Center Maker Hand Relationship Specialty Start Date End Date Name, MD Tyson [address] [place] [address] PCP - General Family Medicine 01/18/19 documented as of this encounter
--- OUTSIDE RECORDS SUMMARY | 2024-07-17 16:09 | XMS_ITS | Encounter Summary ---
Author Organization [employer] Address [address] [facility] [address] [place] [address] Care Team Providers Care Edger Automatic Name Role Phone Name, Tyson MCKINNON Primary Care Provider [phone] Encounter Details Date Type Department Care Team ([facility] st Contact Info) Description 07/19/2022 Orders Only [facility] CHC MED & PEDS [address] [place] [address] Faith Tavares LPN Social History Tobacco Use [...] documented as of this encounter Care Teams Edger Automatic Relationship Specialty Start Date End Date Name, MD Tyson [address] [place] [address] PCP - General Family Medicine 01/18/19 documented as of this encounter
--- OUTSIDE RECORDS SUMMARY | 2024-07-17 16:09 | XMS_ITS | Encounter Summary ---
Author Organization [employer] Address [address] [facility] [address] [place] [address] Care Team Providers Care Accident Report Clerk Name Role Phone Name, Tyson MCKINNON Primary Care Provider [phone] Reason for Visit * Reason Comments Med Refill Encounter Details Date Type Department Care Team ([facility] st Contact Info) Description 07/16/2024 Refill [facility] CHC MED & PEDS [address] [place], [place] [phone] Name, MD Tyson [address] [place], [place] [phone] Social History Tobacco Use Types Packs/Day Years [...] documented as of this encounter Care Teams Accident Report Clerk Relationship Specialty Start Date End Date Name, MD Tyson [address] [place] [address] PCP - General Family Medicine 01/18/19 documented as of this encounter
== END 2024-07-17 15:13 | disposition home or self-care (01) ==
LOC: HO.CT 15:12
PROVIDERS: PCP Internal Medicine Geriatric Medicine; Visit Provider Internal Medicine Pulmonary Disease
DX: R93.89 Abnormal findings on diagnostic imaging of other specified body structures (principal)
CPT/HCPCS: 71250

== ENCOUNTER → 2024-07-17 15:13 | Outpatient (BNV) | payer OTHER, SELFPAY | PROVIDERS: PCP Internal Medicine Geriatric Medicine; Visit Provider Radiology Diagnostic Radiology | DX: R91.8 Other nonspecific abnormal finding of lung field (principal) | CPT/HCPCS: 71250 ==

== ENCOUNTER 2024-08-20 14:49 | Outpatient (AMB) | payer OTHER, SELFPAY ==
--- NOTE | 2024-08-20 14:51 | A.OFFVIS_ITS ---
Vital Signs 08/20/24 14:55 Height 5 ft 4 in Weight 160 lb BMI 27.5 BP 134/63 Blood Pressure Location Lt brachial Position Sitting Pulse 61 Pulse Source Pulse Oximeter Pulse Oximetry (%) 97 Oxygen Delivery Method Room Air Intake Visit Reasons: Dorsalgia unspecified Intake Note: Pain today 08/14 Consumer Marketing Analyst Required: Yes Consumer Marketing Analyst Language: Nonprofit Fundraiser Services: Consumer Marketing Analyst Offered & Declined Consumer Marketing Analyst Name: DAVID Reyes Information Interpreted: non-clinical & clinical Accompanied by: Grand Child Allergies aspirin [ASA] Adverse Reaction (Verified 08/20/24 14:55) Unknown HPI Comments Details: The patient is an 83-year-old Congolese speaking female presenting with chronic right knee pain and lower back pain. The right knee pain has persisted for over a year, with an intensity that has significantly affected her daily activities and mobility. Past interventions included a cortisone shot in the left knee two years prior, with ongoing pain relief. She reports severity of her right knee pain primarily appears after extensive walking or bending her knee. She also experiences lower back pain without radiation into lower extremities, rated at a severity of 8-10/10, that tends to worsen after physical activity. Historical measures of relief included the application of hot water, while enhancements in the pain's intensity arise with extensive walking and daily activities. Additional concerns include osteopenia, type 2 diabetes mellitus (Hemoglobin A1c at 7%), hypertension, coronary artery disease with h/o angioplasty managed with Plavix, historical right breast cancer, and significant leg swelling that is under evaluation for venous intervention. - Onset and Timing: Chronic right knee pain lasting over a year. Low back pain, non-radiating. - Quality and Character: Aching, sharp, pinching, cramping, and sore. - Primary Location: Right knee, with additional significant pain in the lower back. - Exacerbating Factors: Activity, particularly walking and bending. - Relieving Factors: Hot water application provides some relief for back pain. - Activities Interfered: Ambulation and daily functional activities, with the most severe pain during afternoons post-exertion. - Affect: Pain impacts the patient's mobility and quality of life. - Analgesia: Currently uses Tramadol 25 mg and Tylenol as needed, with half a pill typically administered after outings. Avoids NSAIDs due to renal concerns. - Adverse Effects: Denies adverse effects from Tramadol. - Activities of Daily Living: Pain restricts the patient's ability to walk long distances and perform daily chores comfortably. - Aberrant Drug Related Behaviors: None reported, medication use appears appropriate and patient adheres to recommended limits. Oswestry Low Back Pain Disability Score=28 [facility] Medical History Osteoarthritis of left knee B12 deficiency Ductal carcinoma in situ (DCIS) of right breast Surgical History History of cystoscopy (~2015) Hx of cataract extraction (~10/11/16) History of lumpectomy of right breast (~10/09/13) Hx of breast biopsy Hx of angioplasty Hx of total hypophysectomy (~1994) Family History Maternal Uncle Hx of cancer of lung Mother Hx of cancer of lung Diabetes Sister Diabetes Brother Diabetes Social History Household Members: Other Household Members Other:: [facility] Housing: House Are you a primary special needs caregiver to a significant other at home: No Do you presently have visiting nurse or other home services: Yes Alcohol intake: never Patient Tobacco Use Status: Never used Tobacco e-Cigarette/Vaping Use: Never Used service: No Current occupational status: retired Review of Systems Const Details: - Musculoskeletal: Reports chronic knee pain, lower back pain. - Cardiovascular: History of coronary artery disease and h/o angioplasty, currently taking Plavix. - Endocrine: Type 2 Diabetes Mellitus. A1C at 7.0% - Other: Reports swelling in the right leg due to venous insufficiency. All systems reviewed & are unremarkable except as noted in HPI and below Physical Exam Vital Signs: Last Vital Signs Pulse 61 08/20/24 14:55 BP 134/63 08/20/24 14:55 Pulse Ox 97 08/20/24 14:55 Oxygen Delivery Method Room Air 08/20/24 14:55 BMI result Body Mass Index 27.5 General: Appears afebrile. Alert and oriented. Mood and affect appropriate. Follows and participates in conversation appropriately. Respiratory effort is unlabored. No cough. Able to transition from sit to stand unassisted. Ambulates with slow, antalgic gait. 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 General: Yes no CVA tenderness Back/Spine/Pelvis Other: Limited lumbar ROM due to pain. Lumbar extension and flexion reproduce moderate pain. Demonstrates 5/5 strength of quadriceps bilaterally as well as flexion/dorsiflexion of bilateral feet against resistance. 2+ pedal pulses bilaterally. Straight leg rise with dorsiflexion negative bilaterally. Diminished patellar and achilles reflexes bilaterally. Facet loading test positive bilaterally. No midline tenderness to palpation in the thoracic or cervical regions, mild to moderate TTP lower lumbar region. No groin pain with I/E hip rotations. Valsalva maneuver is negative. Back: no CVA tenderness Cervical Spine: cervical ROM normal, cervical muscular tenderness and No Cervical spine tenderness Thoracic/Lumbar Spine: thoracic and lumbar spine normal to inspection, No Thoracic/lumbar spine scar(s), Lasegue's sign negative, straight leg raise negative bilaterally, pain with thoraco-lumbar ROM, paraspinal muscle t enderness, thoraco-lumbar ROM limited, No thoracic spinal tenderness and lumbar spinal tenderness (L4-S1) Pelvis: no buttock tenderness Sacroiliac joints: bilaterally tender to palpation (mild) Extrem General: Yes capillary refill normal, No clubbing, No cyanosis and Yes edema (RLE nonpitting) Right lower extremity: knee (Limited ROM due to pain.) Details: tenderness Location: of the patella and of the lateral joint line, swelling Location: of the popliteal fossa (mild) and crepitus; no ecchymosis and no unusual warmth Results Reviewed Results Reviewed: XR knee standing BI 02/01/23 STUDY: Standing knees and right knee INDICATION: Knee pain COMPARISON: 07/24/2018 TECHNIQUE: AP standing knees, view right knee FINDINGS: On standing knee view, left knee remains slightly higher than the right. Bilateral mild medial knee joint narrowings again seen. Mild right patellofemoral narrowing identified. No fracture, dislocation or right joint effusion. CT abdomen pelvis w con 09/21/21 OSSEUS STRUCTURES: Marked degenerative changes are noted in the spine at L3-L4. Generative changes present at the facet joints at L4-L5 and L5-S1. No bony destructive lesions are seen. Assessment & Plan Assessment & Plan (1) Lumbosacral spondylosis: Code(s): M47.817 - Spondylosis without myelopathy or radiculopathy, lumbosacral region Category: Medical (2) Lumbar degenerative disc disease: Code(s): M51.369 - Other intervertebral disc degeneration, lumbar region without mention of lumbar back pain or lower extremity pain Category: Medical (3) Low back pain: Code(s): M54.50 - Low back pain, unspecified Category: Medical (4) Right knee pain: Code(s): M25.561 - Pain in right knee Category: Medical (5) Osteoarthritis of right knee: Code(s): M17.11 - Unilateral primary osteoarthritis, right knee Category: Medical Plan Our management approach for the musculoskeletal concerns includes diagnostic nerve blocks to potentially guide the use of radiofrequency ablation (RFA) vs peripheral nerve stimulator with Sprint PNS trial for longer-lasting pain relie f, pending insurance approval. Plans are in place for administration of a cortisone injection in the right knee and to assess possible nerve block efficacy for back pain relief. A coordinated plan with her carbon furnace operator helper or primary care physician is necessary to monitor and temporarily halt Plavix periprocedurally. A continued focus on current issues with swelling and scheduled venous procedures for her leg will also be addressed. Post- intervention monitoring for pain relief efficacy is a goal, subject to regular activity. Schedule Right knee steroid injection with local and fluoroscopy and Bilateral Diagnostic L3-L4 DR L5 MBB with local and fluoroscopy. Expectations, risks and benefits were reviewed. Patient is aware she will be contacted to schedule this procedure. Instructions will be provided to patient and family on when to pause with Plavix prescribing physician permission. All questions and concerns have been answered and patient agreed with the plan. Follow up after injections and sooner as needed. Patient was informed and verbally consented to the use of an ambient scribe for clinic note documentation during this visit. Orders: Orders XR lumbar spine 4V min 08/20/24 M47.817 - Spondylosis without myelopathy or r adiculopathy, lumbosacral region, M51.369 - Other intervertebral disc degeneration, lumbar region without mention of lumbar back pain or lower extremity pain, M54.50 - Low back pain, unspecified Coding Level of Care Code New Pt Level 4 (28232) Diagnoses Lumbosacral spondylosis M47.817 Lumbar degenerative disc disease M51.369 Low back pain M54.50 Right knee pain M25.561 Osteoarthritis of right knee M17.11
[2024-08-20 14:55] VITALS: BP 134/63; PULSE 61; O2SAT 97; BMI 27.5
--- OUTSIDE RECORDS SUMMARY | 2024-08-20 16:35 | XMS_ITS ---
Author Name Chery MARCOSHerlinda Address [address] [place] [address] Phone [phone] [facility] Care Team Providers Care Director Of Donor Relations Name Role Phone Herlinda Chery Unavailable [phone] NameTyson Unavailable [phone] Reason for Referral Not Available Allergies, adverse [...] 2021-05-11 No Data Available OneTouch Delica Plus [id number] Miscellaneous TEST BLOOD SUGAR TWICE DAILY 2021-05-15 [...] mg Tab TAKE 1 TABLET BY MO [facility] EVERY MORNING 2023-09-21 No Data Available calcium 600 mg (as carbonate)-vitamin D3 10 mcg (400 unit) tablet TAKE 1 TABLET BY MOUTH TWICE DAILY IN THE MORNING AND IN THE EVENING 2024-01-13 No Data Available Divalproex Sodium ER 250 mg Tab ER 24hr TAKE 1 TABLET BY MOUTH AT BEDTIME 2023-10-06 No Data Available Furosemide 20 mg Tab TAKE 1 TABLET BY MO [facility] EVERY MORNING 2024-03-20 No Data Available Problem List Problem Status Onset Date Resolved Date Synopsis HX: breast cancer Active 2022-01-25 N/A in everardo ssionfollows with oncologist s/p surgery/removal of cancerous lesion GERD (gastroesophageal reflux disease) Active 2022-01-25 N/A esomeprazole Rec ommend famotidine 20 mg twice daily as needed for dyspepsia-- Smoking cessation encouranged-- Dietary and life style changes encouraged-- Calcium/Vit D and osteoporosis surveillance stressed-- Risk of halfway PPI use discussed-- Antireflux diet: avoid tomatoes, citrus fruits, carbonated or caffeinated beverages, chocolate, peppermints, fatty foods.-- Elevate head of bed 6 on a brick or telephone book Other problems related to medical facilities and other health care Active 2023-05-17 N/A When member to call: 1. If bp is elevated sbp>150; dbp>90 or symptomatic-h/a, dizziness, cp, sob. 2. if there is a fall 3. if BS >300 or BS<90 or symptomatic; i.e., dizzy, off balance , shaky, general weakness. 4. if UTI symptoms arise-urinary frequency, dysuria, low abd pain. 5. if pain in knees increases/ or joint pain increased Please remember to call CBContinue to see PCP. Follow-up with [facility] as needed for any acute or disease education needs that may arise 27/09.what should be done when the member calls: see each individual diagnosis for contingency plan Type 2 diabetes mellitus with diabetic chronic kidney disease, CKD stage G3a/A1 Active 2022-01-25 N/A 03/24/23: metform in decreased to metformin 500 QDAY d/ t hypoglycemia Lab ResultsComponent Value PdypLKKG1N 7.8 (A) 02/14/2023HGBA1C 6.3 (H) 02/01/2022Lab ResultsComponent [...] reports A1C TWO WEEKS AGO IN THE 7'S PVD (peripheral vascular disease)type 2 DM with diabetic peripheral angiopathy without gangrene Active 2022-10-04 N/A Advised to eat a healthy diet include [...] QDAY d/ t hypoglycemia Lab ResultsComponent Value MdhgQZHT1O 7.8 (A) 02/14/2023HGBA1C 6.3 (H) 02/01/2022 Hyperlipidemia associated with type 2 diabetes mellitus Active 2022-01-25 N/A atorvastatin Adv ised to eat a healthy diet include emphasizing [...] for surveillance/medication titrationLimiting alcohol and sodium Avoiding smoking Insomnia Active 2022-01-25 N/A melatonin prnt razodone qhsSleep hygiene discussed - consistent bedtime, limiting [...] aside a ? wind-down? time. Follow up prn. Hypertensive heart disease with stage 3a chronic kidney disease Active 2022-01-25 N/A losartan metoprolol tartrate BID verapamil Recommend DASH diet. [...] organ damage (headache, vision changes, chest pain)/ Software Test Technician on proper BP monitoring technique and reassess/ Increase current medication dose:/ Encourage low sodium diet/ Discuss breathing exercises/ Encourage medication adherence Osteoporosis Active 2022-01-25 N/A raloxifene T IPS for Bone Health: If you smoke, quit [...] as scheduled and follow up with CB prn. OAB (overactive bladder) Active 2022-01-25 N/A solifenacin followed by urology 05/01/24-Drink enough fluids: Drink [...] pelvic floor muscles. Follow up with CB prn. Dementia Active 2022-01-25 N/A donepezil kentrell y dementia per PCP per CG report FAST SCORE: 4 03/24/2401-Family / CG supportCalm and supportive environment, keep a consistent routine with ADLs engaging in physical activities such as walking can decrease mood / behavior issues. Follow up prn. Hypercoagulability due to atrial fibrillation Active 2022-01-25 N/A metoprolol t artrate BID on Plavix (h/o ME- clot to heart vessel per CG- aprx 20 years ago) 05/01/24-Continue CV medication as directedKeep all scheduled follow up appts with Cardiology/Electrophysiolo gy Monitor and keep Bp less than 140/90, maintain a healthy weight, limit caffeine and find ways to manage stress. Follow up with CB prn. Stage 3a chronic kidney disease (CKD) Resolved 2022-10-04 2024-05-01 avoid nephrotoxi c medicationstay hydrated encouraged A1c control and bp control Lab ResultsComponent Value RdprVBSN4C 7.8 (A) 02/14/2023HGBA1C 6.3 (H) 02/01/2022Lab ResultsComponent Value DateGLUCOSE 121 (H) 11/19/2022NA 144 3K 4.5 3CO2 26 3CL 109 (H) 3BUN 14 11/19/2022REATININE 1.05 11/19/2022 SOB (shortness of breath)COPD Active 2022-01-25 N/A prn albuterol inhalerfollows with pulmonology Encounters Encounters Type Facility Date of Service Diagnosis/Co mplaint Pain Assessment - Pain Documented on a Pain Scale (1125F) [facility] ([place]) [place]2022 Pain Assessment - Pain Documented on a Pain Scale (1125F) [facility] [place]20[place] Pain Assessment - Pain Documented on a Pain Scale (1125F) [facility] [place] Pain Assessment - Pain Documented on a Pain Scale (1125F) [facility] [place]2022 Pain Assessment - Pain Documented on a Pain Scale (1125F) [facility]22 Pain Assessment - Pain Documented on a Pain Scale (1125F) [facility] [place]22 Pain Assessment - Pain Documented on a Pain Scale (1125F) [facility]2022 Hyperlipidemia, unspecifiedGastro-esophageal reflux disease without esophagitisInsomnia, unspecifiedType 2 diabetes mellitus without complicationsEssential (primary) hypertensionAge-related osteoporosis without current pathological fractureOveractive bladderShortness of breathUnspecified dementia without behavioral disturbanceOther thrombophiliaUnspecified atrial fibrillationPersonal history of malignant neoplasm of breast Pain Assessment - Pain Documented on a Pain Scale (1125F) [facility] [place]22 Pain Assessment - Pain Documented on a Pain Scale (1125F) [facility] [place]/20[place] Estab. patient 30-39min; chronic exacerbation, 2 stable chronic or 1 acute illness add add modifier 95 for video, (do not use for phone, instead use [id number]) [facility] ([place] 10[place]04/2022 Type 2 diabetes mellitus wit h [...] (do not use for phone, instead use [id number]) [facility] [place] Estab. patient 30-39min; chronic exacerbation, 2 stable chronic or 1 acute illness add add modifier 95 for video, (do not use for phone, instead use 94799-89) [facility] [place] Estab. patient 30-39min; chronic exacerbation, 2 stable chronic or 1 acute illness add add modifier 95 for video, (do not use for phone, instead use 10468-17) [facility]20[place] Estab. patient 30-39min; chronic exacerbation, 2 stable chronic or 1 acute illness add add modifier 95 for video, (do not use for phone, instead use 47332-75) [facility] [place]/2022 Estab. patient 30-39min; chronic exacerbation, 2 stable chronic or 1 acute illness add add modifier 95 for video, (do not use for phone, instead use 78228-01) [facility] [place]/2022 Estab. patient 30-39min; chronic exacerbation, 2 stable chronic or 1 acute illness add add modifier 95 for video, (do not use for phone, instead use 65203-95) [facility] [place]/2022 Estab. patient 30-39min; chronic exacerbation, 2 stable chronic or 1 acute illness add add modifier 95 for video, (do not use for phone, instead use 73799-22) [facility] [place]20[place] Estab. patient 30-39min; chronic exacerbation, 2 stable chronic or 1 acute illness add add modifier 95 for video, (do not use for phone, instead use 51463-99) [facility] [place]/2022 Estab. patient 30-39min; chronic exacerbation, 2 stable chronic or 1 acute illness add add modifier 95 for video, (do not use for phone, instead use 02988-45) [facility] Estab. patient 30-39min; chronic exacerbation, 2 stable chronic or 1 acute illness add add modifier 95 for video, (do not use for phone, instead use 73992-13) [facility] 03[place]/2023 Type 2 diabetes mellitus wit [...] (do not use for phone, instead use 44652-57) [facility] 03[place]24/20[place] Estab. patient 30-39min; chronic exacerbation, 2 stable chronic or 1 acute illness add add modifier 95 for video, (do not use for phone, instead use 63954-06) [facility] 03[place]24/2023 Estab. patient 30-39min; chronic exacerbation, 2 stable chronic or 1 acute illness add add modifier 95 for video, (do not use for phone, instead use 84365-54) [facility] 03[place]24/2023 Estab. patient 30-39min; chronic exacerbation, 2 stable chronic or 1 acute illness add add modifier 95 for video, (do not use for phone, instead use 68238-71) [facility] 03[place]24/2023 Estab. patient 30-39min; chronic exacerbation, 2 stable chronic or 1 acute illness add add modifier 95 for video, (do not use for phone, instead use 88456-13) [facility] 03[place]24/2023 Estab. patient 30-39min; chronic exacerbation, 2 stable chronic or 1 acute illness add add modifier 95 for video, (do not use for phone, instead use 79582-76) [facility] 03[place]24/2023 Estab. patient 30-39min; chronic exacerbation, 2 stable chronic or 1 acute illness add add modifier 95 for video, (do not use for phone, instead use 04444-68) [facility] 03[place]24/2023 Estab. patient 30-39min; chronic exacerbation, 2 stable chronic or 1 acute illness add add modifier 95 for video, (do not use for phone, instead use 40756-35) [facility] 03[place]24/2023 Estab. patient 30-39min; chronic exacerbation, 2 stable chronic or 1 acute illness add add modifier 95 for video, (do not use for phone, instead use 28112-79) [facility] 03[place]24/2023 Estab. patient 20-29min; 1 stable chronic or 2 minor; add add modifier 95 for video, modifier 93 for phone [facility] [place] 05/01/2024 Type 2 diabetes mellitus wit h [...] 95 for video, modifier 93 for phone [facility] [place]/01/20[place] Estab. patient 20-29min; 1 stable chronic or 2 minor; add add modifier 95 for video, modifier 93 for phone [facility]/01/2024 Estab. patient 20-29min; 1 stable chronic or 2 minor; add add modifier 95 for video, modifier 93 for phone [facility]/01/2024 Estab. patient 20-29min; 1 stable chronic or 2 minor; add add modifier 95 for video, modifier 93 for phone [facility] 05/01/2024 Estab. patient 20-29min; 1 stable chronic or 2 minor; add add modifier 95 for video, modifier 93 for phone [facility] [place] 05/01/2024 Estab. patient 20-29min; 1 stable chronic or 2 minor; add add modifier 95 for video, modifier 93 for phone [facility] [place] 05/01/2024 Estab. patient 20-29min; 1 stable chronic or 2 minor; add add modifier 95 for video, modifier 93 for phone [facility] [place] 05/01/2024 Estab. patient 20-29min; 1 stable chronic or 2 minor; add add modifier 95 for video, modifier 93 for phone [facility] [place] 05/01/2024 Vital Signs Date of Collection Vitals [...] tive Time Current Smoking Status Never smoker 2024-08-05 4 Sex Female History of Procedures Procedures [...] 95 for video, modifier 93 for phone [id number] 2022-01-25 No Data Available No Data Availa ble DBP <80 (3078F) 3078F 2022-01-25 No Data Available No Data Available SBP >= 140 3077F 2022-01-25 No Data Available No Data Available Estab. 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 2022-10-04 Mental Status [...] with diabetic chronic kidney disease, CKD stage G3a/O0Gawtfyauufrv heart disease with stage 3a chronic kidney [...] CG reportmetoprolol tartrate BID on Plavix (h/o ME- clot to heart vessel per CG- aprx [...] D and osteoporosis surveillance stressed-- Risk of terminal operations supervisor PPI use discussed-- Antireflux diet: avoid tomatoes, [...] with pulmonologymetoprolol tartrate BID on Plavix (h/o ME- clot to heart vessel per CG- aprx [...] D and osteoporosis surveillance stressed-- Risk of terminal operations supervisor PPI use discussed-- Antireflux diet: avoid tomatoes, [...] QDAY d/ t hypoglycemia Lab ResultsComponent Value IltnFFGR7X 7.8 (A) 02/14/2023HGBA1C 6.3 (H) 02/01/2022Lab ResultsComponent [...] your log in next visit.Lab ResultsComponent Value UdjqWOND0N 7.8 (A) 02/14/2023HGBA1C 6.3 (H) 02/01/2022Lab ResultsComponent [...] 4 03/24/23metoprolol tartrate BID on Plavix (h/o ME- clot to heart vessel per CG- aprx 20 years ago)in remissionfollows with oncologist s/p surgery/removal of cancerous lesionavoid nephrotoxic medicationstay hydrated encouraged A1c control and bp control Lab ResultsComponent Value TsoaQWZD3V 7.8 (A) 02/14/2023HGBA1C 6.3 (H) 02/01/2022Lab ResultsComponent Value DateGLUCOSE 121 (H) 11/19/2022NA 144 3K 4.5 3CO2 26 11/19/2022L 109 (H) 11/19/2022UN 14 11/19/2022REATININE 1.05 11/19/2022dvised to eat a healthy diet include emphasizing [...] QDAY d/ t hypoglycemia Lab ResultsComponent Value FqlhDQNP4L 7.8 (A) 02/14/2023HGBA1C 6.3 (H) 02/01/2022 2024-05-01 [...] joint pain increased Please remember to call CBContinue to see PCP. Follow-up with [facility] as needed for any acute or disease education needs that may arise 27/09.what should be done when the member calls: see each individual diagnosis for contingency planesomeprazole Recommend famotidine 20 mg twice daily as needed for dyspepsia-- Smoking cessation encouranged-- Dietary and life style changes encouraged-- Calcium/Vit D and osteoporosis surveillance stressed-- Risk of halfway PPI use discussed-- Antireflux diet: avoid tomatoes, [...] QDAY d/ t hypoglycemia Lab ResultsComponent Value YxxbWJRF1Q 7.8 (A) 02/14/2023HGBA1C 6.3 (H) 02/01/2022Lab ResultsComponent [...] organ damage (headache, vision changes, chest pain)/ Software Test Technician on proper BP monitoring technique and reassess/ [...] as scheduled and follow up with CB prn.tiffanie followed by urology 05/01/24-Drink enough fluids: Drink [...] up prn.metoprolol tartrate BID on Plavix (h/o ME- clot to heart vessel per CG- aprx [...] QDAY d/ t hypoglycemia Lab ResultsComponent Value VkbuHKBB8Z 7.8 (A) 02/14/2023HGBA1C 6.3 (H) 02/01/2022 Goals Date Goal 2022-01-25 Follow-up with Saskia ayon as needed Health Concerns Date Concern 2024-05-01 Visit completed uma hirsch audio and video. Patient/Guardian agreed to visit via telehealth. Today, patient has chief complaint of: follow up care and comprehensive review.Reviewed Allergies, Medications, Active Medical conditions, past medical/surgical history, Social history. 2024-05-01 Most recent hospital stay(s) or ER visit(s) and precipitating factors: 04/21/2024-04/23/2024-s/p GLF 2024-05-01 Open HEDIS Measure price mcbride: 2024-05-01 Advance Care Plan Co nversationDate of Conversation: 05/01/2024Life Limiting Diagnosis: Diagnosis: DementiaCurrently on Hospice NoCode Status: YES CPR: Attempt ResuscitationGoals of Care: Curative: Attempt to sustain life by all medically effective meansNutrition goals: Feeding through new or existing surgically placed tube is okDo you have a Durable Power of Collection Teller for Healthcare, or Healthcare Proxy Or Guardianship? Yes, preferred proxy but not named POAIf so, Who? HCP: grand daughter Kerry Waldrop do you have a written Advance Directive?Other details of discussion: (Who was present, patients description of wishes/goals)Today's plan:1123F : AD or surrogate was documented in the medical record.
== END 2024-08-20 15:16 | disposition home or self-care (01) ==
LOC: HO.PMC 14:50
PROVIDERS: PCP Internal Medicine Geriatric Medicine; Referring Provider Internal Medicine Pulmonary Disease; Visit Provider Nurse Practitioner Family
DX: M47.817 Spondylosis without myelopathy or radiculopathy, lumbosacral region (principal); M51.369 Other intervertebral disc degeneration, lumbar region without mention of lumbar back pain or lower extremity pain; M54.50 Low back pain, unspecified; M25.561 Pain in right knee; M17.11 Unilateral primary osteoarthritis, right knee
CPT/HCPCS: 99204

== ENCOUNTER → 2024-08-20 14:49 | Outpatient (BNVA) | payer OTHER, SELFPAY | PROVIDERS: PCP Internal Medicine Geriatric Medicine; Referring Provider Internal Medicine Pulmonary Disease; Visit Provider Nurse Practitioner Family | DX: M47.817 Spondylosis without myelopathy or radiculopathy, lumbosacral region (principal); M51.369 Other intervertebral disc degeneration, lumbar region without mention of lumbar back pain or lower extremity pain; M54.50 Low back pain, unspecified; M25.561 Pain in right knee; M17.11 Unilateral primary osteoarthritis, right knee | CPT/HCPCS: 99202 ==

== ENCOUNTER 2024-09-03 13:47 | Outpatient (REF) | payer OTHER, SELFPAY ==
--- NOTE | ~2024-09-03 | XR_ITS ---
EXAMINATION: X-ray lumbar spine. 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 TECHNIQUE: AP oblique and lateral views. COMPARISON: June 03, 2014 FINDINGS: Marginal osteophyte formation and endplate sclerosis decreased intervertebral disc height and subchondral cyst formation at L3-4. Small anterior marginal osteophyte formation throughout the included lower thoracic and upper lumbar spine. S-shaped curvature apex at L3-4. Osteopenia versus osteoporosis. Grade 1 retrolisthesis at L3-4. No acute cortical disruption. Vascular complications, aorta. XR/XR lumbar spine 4V min IMPRESSION: Multilevel thoracolumbar spondylosis more conspicuous at L2-3 resulting in grade 1 retrolisthesis. Electronically signed by: Jose D Alas MD 09/03/2024 03:51 PM EDT
--- OUTSIDE RECORDS SUMMARY | 2024-09-03 14:18 | XMS_ITS ---
Author Name Chery MARCOSHerlinda Address [address] [place] [address] Phone [phone] Organization [facility] Care Team Providers Care Director Family Name Role Phone Herlinda Chery Unavailable [phone] NameTyson Unavailable [phone] Reason for Referral Not Available Allergies, adverse [...] 2021-05-11 No Data Available OneTouch Delica Plus Xilaox91B Miscellaneous TEST BLOOD SUGAR TWICE DAILY 2021-05-15 [...] mg Tab TAKE 1 TABLET BY [facility] EVERY MORNING 2023-09-21 No Data Available [...] D and osteoporosis surveillance stressed-- Risk of half-way PPI use discussed-- Antireflux diet: avoid tomatoes, [...] QDAY d/ t hypoglycemia Lab ResultsComponent Value YyypSVYK7N 7.8 (A) 02/14/2023HGBA1C 6.3 (H) 02/01/2022Lab ResultsComponent Value DateGLUCOSE 121 (H) 11/19/2022NA 144 3K 4.5 11/19/2022CO2 26 11/19/2022L 109 (H) 11/19/2022UN 14 11/19/2022REATININE 1.05 11/19/2022FR = 53 02/01/2022 Avoid nephrotoxic medications (NSAIDS, high dose Gabapentin, Baclofen, Fleet Enema, Morphine/Codeine) *Suggest stopping sulfonylurea (glipizide) or switching to an alternative class with a more favorable risk b enefit ratio, such as a lower risk of [...] QDAY d/ t hypoglycemia Lab ResultsComponent Value FfiqYHBC9N 7.8 (A) 02/14/2023HGBA1C 6.3 (H) 02/01/2022 Hyperlipidemia [...] when you try to sleep, schedule a w orry time to help get over rumination. Set aside a w ind-down time. Follow up prn. 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- aprx [...] control and bp control Lab ResultsComponent Value MngqHMUZ8X 7.8 (A) 02/14/2023HGBA1C 6.3 (H) 02/01/2022Lab ResultsComponent Value DateGLUCOSE 121 (H) 11/19/2022NA 144 3K 4.5 3CO2 26 11/19/2022L 109 (H) 3BUN 14 11/19/2022REATININE 1.05 11/19/2022 SOB (shortness of breath)COPD Active 2022-01-25 N/A prn albuterol inhalerfollows with pulmonology Encounters Encounters Type Facility Date of Service Diagnosis/Co mplaint Pain Assessment - Pain Documented on a Pain Scale (1125F) [facility] [place]/2022 Pain Assessment - Pain Documented on a Pain Scale (1125F) [facility] [place] Pain Assessment - Pain Documented on a Pain Scale (1125F) [facility] [place]/20[place] Pain Assessment - Pain Documented on a Pain Scale (1125F) [facility] [place]/20[place] Pain Assessment - Pain Documented on a Pain Scale (1125F) [facility] [place]/2022 Pain Assessment - Pain Documented on a Pain Scale (1125F) [facility] [place]2022 Pain Assessment - Pain Documented on a Pain Scale (1125F) [facility] [place]/2022 Hyperlipidemia, unspecifiedGastro-esophageal reflux disease without esophagitisInsomnia, unspecifiedType 2 diabetes mellitus without complicationsEssential (primary) hypertensionAge-related osteoporosis without current pathological fractureOveractive bladderShortness of breathUnspecified dementia without behavioral disturbanceOther thrombophiliaUnspecified atrial fibrillationPersonal history of malignant neoplasm of breast Pain Assessment - Pain Documented on a Pain Scale (1125F) [facility] [place]/2022 Pain Assessment - Pain Documented on a Pain Scale (1125F) [facility] [place] 01/[place]/20[place] Estab. patient 30-39min; chronic exacerbation, 2 stable chronic or 1 acute illness add add modifier 95 for video, (do not use for phone, instead use 33854-65) [facility] [place] 10[place]04/2022 Type 2 diabetes mellitus wit h [...] (do not use for phone, instead use 34842-87) [facility] [place] Estab. patient 30-39min; chronic exacerbation, 2 stable chronic or 1 acute illness add add modifier 95 for video, (do not use for phone, instead use 31284-89) [facility] [place] Estab. patient 30-39min; chronic exacerbation, 2 stable chronic or 1 acute illness add add modifier 95 for video, (do not use for phone, instead use 63858-61) [facility] [place] Estab. patient 30-39min; chronic exacerbation, 2 stable chronic or 1 acute illness add add modifier 95 for video, (do not use for phone, instead use 58823-57) [facility] [place]/20[place] Estab. patient 30-39min; chronic exacerbation, 2 stable chronic or 1 acute illness add add modifier 95 for video, (do not use for phone, instead use 25029-83) [facility] [place] 10[place]/2022 Estab. patient 30-39min; chronic exacerbation, 2 stable chronic or 1 acute illness add add modifier 95 for video, (do not use for phone, instead use 66894-10) [facility] [place] 10[place]/2022 Estab. patient 30-39min; chronic exacerbation, 2 stable chronic or 1 acute illness add add modifier 95 for video, (do not use for phone, instead use 27816-05) [facility] [place] 10[place]04/2022 Estab. patient 30-39min; chronic exacerbation, 2 stable chronic or 1 acute illness add add modifier 95 for video, (do not use for phone, instead use 82823-14) [facility] [place] 10[place]04/2022 Estab. patient 30-39min; chronic exacerbation, 2 stable chronic or 1 acute illness add add modifier 95 for video, (do not use for phone, instead use 05560-98) [facility] [place]/20[place] Estab. patient 30-39min; chronic exacerbation, 2 stable chronic or 1 acute illness add add modifier 95 for video, (do not use for phone, instead use 46373-13) [facility] [place] 03[place]/2023 Type 2 diabetes mellitus [...] (do not use for phone, instead use 38149-11) [facility] [place]/20[place] Estab. patient 30-39min; chronic exacerbation, 2 stable chronic or 1 acute illness add add modifier 95 for video, (do not use for phone, instead use 61585-36) [facility] [place] 03[place]24/2023 Estab. patient 30-39min; chronic exacerbation, 2 stable chronic or 1 acute illness add add modifier 95 for video, (do not use for phone, instead use 13304-57) [facility] [place] 03[place]24/2023 Estab. patient 30-39min; chronic exacerbation, 2 stable chronic or 1 acute illness add add modifier 95 for video, (do not use for phone, instead use 84235-69) [facility] [place] 03[place]24/2023 Estab. patient 30-39min; chronic exacerbation, 2 stable chronic or 1 acute illness add add modifier 95 for video, (do not use for phone, instead use 89168-04) [facility] [place] 03[place]24/2023 Estab. patient 30-39min; chronic exacerbation, 2 stable chronic or 1 acute illness add add modifier 95 for video, (do not use for phone, instead use 22720-54) [facility] [place] 03[place]24/2023 Estab. patient 30-39min; chronic exacerbation, 2 stable chronic or 1 acute illness add add modifier 95 for video, (do not use for phone, instead use 72673-54) [facility] [place] 03[place]24/2023 Estab. patient 30-39min; chronic exacerbation, 2 stable chronic or 1 acute illness add add modifier 95 for video, (do not use for phone, instead use 37578-41) [facility] [place] 03[place]24/2023 Estab. patient 30-39min; chronic exacerbation, 2 stable chronic or 1 acute illness add add modifier 95 for video, (do not use for phone, instead use 29287-26) [facility] 03[place]/2023 Estab. patient 20-29min; 1 stable chronic or 2 minor; add add modifier 95 for video, modifier 93 for phone [facility] [place] 05/01/2024 Type 2 diabetes mellitus wit [...] 95 for video, modifier 93 for phone [facility] [place]01/20[place] Estab. patient 20-29min; 1 stable chronic or 2 minor; add add modifier 95 for video, modifier 93 for phone [facility] [place] 05/01/2024 Estab. patient 20-29min; 1 stable chronic or 2 minor; add add modifier 95 for video, modifier 93 for phone [facility] [place] 05/01/2024 Estab. patient 20-29min; 1 stable chronic or 2 minor; add add modifier 95 for video, modifier 93 for phone [facility] [place] 05/01/20[place] Estab. patient 20-29min; 1 stable chronic or 2 minor; add add modifier 95 for video, modifier 93 for phone [facility] [place] 05/01/2024 Estab. patient 20-29min; 1 stable chronic or 2 minor; add add modifier 95 for video, modifier 93 for phone [facility] [place] 05/01/2024 Estab. patient 20-29min; 1 stable chronic or 2 minor; add add modifier 95 for video, modifier 93 for phone [facility] [place] 05/01/2024 Estab. patient 20-29min; 1 stable chronic or 2 minor; add add modifier 95 for video, modifier 93 for phone [facility] [place] 05/01/2024 Vital Signs Date of Collection Vitals [...] tive Time Current Smoking Status Never smoker 2024-08-07 0 Sex Female History of Procedures Procedures Service [...] 95 for video, modifier 93 for phone [id number] 2022-01-25 No Data Available No Data Availa ble DBP <80 (3078F) 3078F 2022-01-25 No Data Available No Data Available SBP >= 140 3077F 2022-01-25 No Data Available No Data Available Estab. patient 30-39min; chronic exacerbation, 2 stable chronic or 1 acute illness add add modifier 95 for video, (do not use for phone, instead use 12576-91) 34126 2022-10-04 No Data Available No Data Availa [...] ble Advance care planning discussed and documented advance care plan or surrogate decision-maker was documented in the medical record. (1123F) 1123F 2022-10-04 No Data Available No Data Availa ble Estab. patient 30-39min; chronic exacerbation, 2 stable chronic or 1 acute illness add add modifier 95 for video, (do not use for phone, instead use 52886-75) 39126 2023-03-24 No Data Available No Data Availa [...] ble Advance care planning discussed and documented advance care plan or surrogate decision-maker was documented in the medical record. (1123F) 1123F 2023-03-24 No Data Available No Data Availa ble Estab. 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- aprx [...] modifier 95Advance care planning discussed and documented advance care plan or surrogate decision-maker was [...] D and osteoporosis surveillance stressed-- Risk of half-way PPI use discussed-- Antireflux diet: avoid tomatoes, [...] an alternative class with a more favorable risk b enefit ratio, such as a lower risk of [...] with pulmonologymetoprolol tartrate BID on Plavix (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- aprx [...] modifier 95Advance care planning discussed and documented advance care plan or surrogate decision-maker was [...] and osteoporosis surveillance stressed-- Risk of termite control servicer PPI use discussed-- Antireflux diet: avoid tomatoes, [...] QDAY d/ t hypoglycemia Lab ResultsComponent Value IjfiBHQZ7T 7.8 (A) 02/14/2023HGBA1C 6.3 (H) 02/01/2022Lab ResultsComponent Value DateGLUCOSE 121 (H) 11/19/2022NA 144 3K 4.5 11/19/2022CO2 26 11/19/2022L 109 (H) 11/19/2022UN 14 11/19/2022REATININE 1.05 3GFR = 53 02/01/2022 Avoid nephrotoxic medications (NSAIDS, high dose Gabapentin, Baclofen, Fleet Enema, Morphine/Codeine) *Suggest stopping sulfonylurea (glipizide) or switching to an alternative class with a more favorable risk b enefit ratio, such as a lower risk of [...] your log in next visit.Lab ResultsComponent Value AedcVHPG1K 7.8 (A) 02/14/2023HGBA1C 6.3 (H) 02/01/2022Lab ResultsComponent [...] 4 03/24/23metoprolol tartrate BID on Plavix (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- aprx 20 years ago)in remissionfollows with oncologist s/p surgery/removal of cancerous lesionavoid nephrotoxic medicationstay hydrated encouraged A1c control and bp control Lab ResultsComponent Value HashQXSB9F 7.8 (A) 02/14/2023HGBA1C 6.3 (H) 02/01/2022Lab ResultsComponent [...] QDAY d/ t hypoglycemia Lab ResultsComponent Value FdpmMNQP8X 7.8 (A) 02/14/2023HGBA1C 6.3 (H) 02/01/2022 2024-05-01 12:21:21 Functional Status As sessed (1170F)Advance Care Directive Advance care planning discussion documented in the medical record (1158F)Advance care planning discussed and documented advance care plan or surrogate decision-maker was [...] joint pain increased [facility]. Follow-up with [facility] as needed for any acute or disease education needs that may arise 27/09.what should be done when the member calls: see each individual diagnosis for contingency planesomeprazole Recommend famotidine 20 mg twice daily as needed for dyspepsia-- Smoking cessation encouranged-- Dietary and life style changes encouraged-- Calcium/Vit D and osteoporosis surveillance stressed-- Risk of half-way PPI use discussed-- Antireflux diet: avoid tomatoes, [...] when you try to sleep, schedule a w orry time to help get over rumination. Set aside a w ind-down time. Follow up prn.03/24/23: metformin decreased to metformin 500 QDAY d/ t hypoglycemia Lab ResultsComponent Value GynwTMYX8U 7.8 (A) 02/14/2023HGBA1C 6.3 (H) 02/01/2022Lab ResultsComponent Value DateGLUCOSE 121 (H) 11/19/2022NA 144 3K 4.5 11/19/2022CO2 26 11/19/2022L 109 (H) 11/19/2022UN 14 11/19/2022REATININE 1.05 3GFR = 53 02/01/2022 Avoid nephrotoxic medications (NSAIDS, high dose Gabapentin, Baclofen, Fleet Enema, Morphine/Codeine) *Suggest stopping sulfonylurea (glipizide) or switching to an alternative class with a more favorable risk b enefit ratio, such as a lower risk of [...] to call for the following symptoms: BP >180/100 / Headache/ HR >100 Planned intervention: Assess for signs of end organ damage (headache, vision changes, chest pain)/ Wireless Architect on proper BP monitoring technique and reassess/ [...] up prn.metoprolol tartrate BID on Plavix (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- aprx [...] QDAY d/ t hypoglycemia Lab ResultsComponent Value DwgoRZYO9Q 7.8 (A) 02/14/2023HGBA1C 6.3 (H) 02/01/2022 Goals [...] 04/21/2024-04/23/2024-s/p GLF 2024-05-01 Open HEDIS Measure r reecew: 2024-05-01 Advance Care Plan Co nversationDate of Conversation: 05/01/2024Life Limiting Diagnosis: Diagnosis: DementiaCurrently on Hospice NoCode Status: YES CPR: Attempt ResuscitationGoals of Care: Curative: Attempt to sustain life by all medically effective meansNutrition goals: Feeding through new or existing surgically placed tube is okDo you have a Durable Power of Airport Operations Crew Member for Healthcare, or Healthcare Proxy Or Guardianship? Yes, preferred proxy but not named POAIf so, Who? HCP: grand daughter Kerry Waldrop Do you have a written Advance Directive?Other details of discussion: (Who was present, patients description of wishes/goals)Today's plan:1123F : AD or surrogate was documented in the medical record.
--- OUTSIDE RECORDS SUMMARY | 2024-09-03 14:19 | XMS_ITS | Clinical Summary ---
Author Organization [employer] Address [address] [facility] [address] [place] [address] Care Team Providers Care Horn Player Name Role Phone Name, Tyson MCKINNON Primary Care Provider [phone] Allergies Active Allergy Reactions Criticality Noted Date [...] chest pain. 90 tablet 12 08/31/19 24 Active OneTouch Ultra Test test strip [...] 02/06/20 24 Active Lancets (OneTouch Delica Plus [id number]) miscIndications :Type 2 diabetes mellitus with other specified complication, without long-term current use of insulin ([facility]) TEST BLOOD SUGAR TWICE DAILY 100 each 3 03/27/19 25 Active losartan (Cozaar) 25 MG tabletIndicatio ns:Hypertension , unspecified type TAKE 1 TABLET BY MOUTH EVERY EVENING 90 tablet 3 04/02/19 25 Active Ferrous Sulfate (iron) 325 (65 Fe) MG tabletIndicatio ns:Type 2 diabetes mellitus with other specified complication, unspecified whether shelter insulin use ([facility]) TAKE 1 TABLET BY MOUTH EVERY EVENING [...] FOOD 60 tablet 11 06/05/19 25 Active mirtazapine (Remeron) 30 MG tablet [...] EVENING 180 tablet 1 07/18/19 25 Active traMADol (Ultram) 50 MG tabletIndicatio ns:Chronic knee pain, unspecified laterality Take 0.5 tablets (25 mg) by mouth every 12 (twelve) hours if needed for severe pain. 28 tablet 08/21/19 25 Active traMADol (Ultram) 50 MG tabletIndicatio ns:Chronic knee pain, unspecified laterality Take 0.5 tablets (25 mg) by mouth every 12 (twelve) hours if needed for severe pain. 28 tablet 07/24/19 25 025 Discontinued(Re order (will not trigger notification [...] 01/21/2012 Non-compliance 12/22/2011 Coronary artery disease involving capitan grande band coronar y artery 09/20/2011 Hiatal hernia 09/20/2011 Mixed hyperlipidemia 08/12/2011 Jo's esophagus 07/21/2011 Chest pain 07/20/2011 Dizziness and giddiness 07/20/2011 Essential hypertension 07/20/2011 Migraine 07/20/2011 Osteopenia of multiple sites 08/09/2005 Encounters Date Type Department Care Team Description 08/27/2024 Telephone [facility] [address] [place] [address] Shanelle Joseph, RN 08/20/2024 Telephone [facility] [address] [place] [address] Roslyn Ellis, RN Add to CONTROL PANEL BUILDER 08/20/2024 Refill [facility] [address] [place] [address] Name, MD Tyson Chronic knee pain, unspecified laterality 07/23/2024 Refill [facility] [address] [place] [address] Name, MD Tyson Chronic knee pain, unspecified laterality 07/17/2024 Orders Only [facility] External Provider, [facility] 07/16/2024 Refill [facility] [address] [place] [address] Name, MD Tyson 06/22/2024 Refill [facility] [address] [place] [address] Name, MD Tyson 06/18/2024 Refill [facility] [address] [place] [address] Rose Quintana, MARCOS Chronic pain of both knees 06/18/2024 Refill [facility] [address] [place] [address] Name, MD Tyson Chronic knee pain, unspecified laterality (Primary Dx) 06/03/2024 Refill [facility] [address] [place], [place] [phone] Name, MD Tyson from Last 3 Months Immunizations Immunization Administration Dates Next Due Hep A, Adult [...] 67 04/10/2024 3:12 PM EST Temperature 35.4 C (95.8 F) 04/10/2024 3:12 PM EST Respiratory Rate 16 04/10/2024 3:12 PM EST Oxygen Saturation 97% 04/10/2024 3:12 PM EST Inhaled Oxygen Concentration - - Weight 71.4 kg (157 lb 6.4 oz) 04/10/2024 3:12 P M EST Height 157.5 cm (5' 2 ) 12/02/2023 1:21 PM EDT Body Mass Index 28.79 12/02/2023 1:21 PM EDT Plan of Treatment Health Maintenance Due Date Last Done Comments Eye Exam 1948 Alcohol/Substance Use Screening 1950 RSV Patients and Patients Aged 60 years or older (1 - 1-dose 75+ series) 2013 Dental Prophylaxis 10/29/2013 04/30/2013, 08/14/2012 Zoster Vaccines (2 of 3) 03/31/2015 02/03/2015 Dental Oral Exam 04/11/2021 10/08/2020, 02/14/2013 Dental X-Ray: Bitewings 10/09/2021 10/08/2020, 02/14 Dental X-Ray: Full Mouth 10/10/2023 10/08/2020 Diabetes: Urine Protein Screening 02/08/2024 02/07/2023, 02/01/2022, 08/07/2021, Additional history exists Depression Screening 05/16/2024 05/17/2023, 05/17/19 24 COVID-19 Vaccine ( season) 2024 12/02/2023, 04/17/2021, 09/09/2020, Additional history exists SDOH Screening 08/30/2024 08/31/2023 Diabetes: Hemoglobin A1C [...] Vaccine: 50+ Years Completed 10/29/2020, 01/24/2015, 03/10/2005 Influenza Vaccine Completed 12/02/2023, , 01/26/2022, Additional history exists HIB Vaccines Aged Out No longer eligi ble based on patient's age to complete this topic HPV Vaccines Aged Out No longer eligi ble based on patient's age to complete this topic IPV Vaccines Aged Out No longer eligi ble based on patient's age to complete this topic Meningococcal B Vaccine Aged Out No l onger eligible based on patient's age to complete [...] Procedure Name Priority Date/Time Associated Diagnosis Comments CT CHEST WO CONTRAST Routine 07/18/2024 11:55 AM EDT POCT GLYCATED HEMOGLOBIN, TOTAL Routine 04/10/2024 3:23 PM EST Type 2 diabetes mellitus with other specified complication, without long-term current use of insulin ([facility]) LIPID PANEL, STANDARD Routine 12/08/2023 10:10 AM EDT Type 2 diabetes mellitus with other specified complication, without long-term current use of insulin ([facility]) Chronic knee pain, unspecified laterality Venous insufficiency [...] Recently Relevant to Health Maintenance Results * CT Chest w/o Contrast (07/18/2024 11:55 AM EDT) Anatomical Region Laterality Modality Body, Chest Computed Tomogra phy 07/18/2024 11:5 5 AM EDT Narrative 07/18/2024 11:57 AM EDT [place] [address] CT Scan Report Signed Patient: Nadine Clement MR#: [id number] 69 : 1940 Acct:[id number] Age/Sex: 83 / F ADM Date: 07/17/24 Loc: HO.CT Attending Dr: Melquiades Ramos MD Ordering Physician: Melquiades Ramos MD Date of Service: 07/17/24 Procedure(s): CT chest wo IV con Accession Number(s): [id number] cc: Name,Tyson MCKINNON; Melquiades Ramos MD Report Number: [id number]: Total DLP = 126.00 mGy-cm CLINICAL HISTORY: R93.89 - Abnormal findings on diagnostic imaging of other specified body... CT chest without contrast Comparison: None Findings: The heart size is normal. The visualized thyroid and mediastinum are unremarkable. Multiple bilateral solid and ground-glass irregular nodular opacities associated with some scarring. Some of the clustered nodular opacities are in a tree in bud configuration suggesting evidence of bronchiolitis. A discrete 4 mm nodule is seen in the right lower lobe on image number 88 of series 5. A 6 mm nodule is seen in the right lower lobe on image number 78. Another discrete 4.7 mm nodule is seen in the left lower lobe on image number 97. Numerous additional 3-4 mm nodules are seen throughout the lung but particularly in the right middle lobe. The upper abdomen is unremarkable. No acute fractures. Impression: Multiple bilateral pulmonary nodules some of which are in a tree-in-bud configuration and in other areas there appears to be parenchymal scarring. I suspect that they are largely infectious/inflammatory in nature with areas of bronchiolitis. Please obtain follow-up CT scan in 12 months as below. According to the Fleischner criteria: 5 mm or smaller nodules need no follow-up in low risk, and [address] follow-up is optional in high risk patients. 6-8 mm nodules have optional [address] follow-up in low risk, and 6-[address] follow-up followed by 18-[address] follow-up if no change in high risk patients. IMPRESSION: 1. Unremarkable chest CT. This document has been electronically signed by: Mello Plata MD on 07/18/2024 11:55:54 Dictated By: Mello Plata MD Signed By: <Electronically signed by Mello Plata MD in OV> 07/18/24 1157 DD/ 1155 TD/TT: 07/18/24 1155 Movie Extra: Procedure Note Donotuseinterpreter, Image - 07/23/[address] [place] [address] [address] Scan Report Signed Patient: Nadine ClementMR#: [id number] [birth year] : 9Acct:[id number] Age/Sex: 83 / FADM Date: 07/17/24 Loc: HO.CT Attending Dr: Melquiades Ramos MD Ordering Physician: Melquiades Ramos MD Date of Service: 07/17/24 Procedure(s): CT chest wo IV con Accession Number(s): [id number] cc: Tyson March MD; Melquiades Ramos MD Report Number: [id number]: Total DLP = 126.00 mGy-cm CLINICAL HISTORY: R93.89 - Abnormal findings on diagnostic imaging ofother specified body... CT chest without contrast Comparison: None Findings: The heart size is normal. The visualized thyroid and mediastinum are unremarkable. Multiple bilateral solid and ground-glass irregular nodular opacities associated with some scarring. Some of the clustered nodular opacities are in a tree in bud configuration suggesting evidence of bronchiolitis. A discrete 4 mm nodule is seen in the right lower lobe on image number 88 of series 5. A 6 mm nodule is seen in the right lower lobe on image number 78. Another discrete 4.7 mm nodule is seen in the left lower lobe on image number 97. Numerous additional 3-4 mm nodules are seen throughout the lung but particularly in the right middle lobe. The upper abdomen is unremarkable. No acute fractures. Impression: Multiple bilateral pulmonary nodules some of which are in a tree-in-bud configuration and in other areas there appears to be parenchymal scarring. I suspect that they are largely infectious/inflammatory in nature with areas of bronchiolitis. Please obtain follow-up CT scan in 12 months as below. According to the Fleischner criteria: 5 mm or smaller nodules need no follow-up in low risk, and [address] follow-up is optional in high risk patients. 6-8 mm nodules have optional [address] follow-up in low risk, and 6-[address] follow-up followed by 18-[address] follow-up if no change in high risk patients. IMPRESSION: 1. Unremarkable chest CT. This document has been electronically signed by: Mello Plata MD on 07/18/2024 11:55:54 Dictated By: Mello Plata MD Signed By: <Electronically signed by Mello Plata MD in OV> 07/18/24 1157 DD/ 1155 TD/TT: 07/18/24 1155 Movie Extra: [facility] External Provider IMG CT PROCEDURES Edited Result - Final * (ABNORMAL) POCT HGB A1C (04/10/2024 3:23 PM EST) Hemoglobin A1C 6.8(A) 4.0 - 6.0 % QC Media Lot # [id number] Lot# Expiration Date [id number] Blood 04/10/2024 3:23 PM EST Tyson March MD POINT OF CARE TEST ENTER/EDIT OR DERABLES Final Result * Lipid Panel, Standard (12/08/2023 10:10 AM EDT) Triglycerides 82 <150 mg/dL [facility] Comment:Desirable Triglyceri de: less than 150 mg/dLBorderline High Triglyceride 150-199 mg/dLHigh Triglyceride: 200-499 mg/dLVery High Triglyceride: greater than or equal to 5OO mg/dL Cholesterol 123 <200 mg/dL [facility] Comment:Desirable Cholestero l: less than 200 mg/dLBorderline High Cholesterol: 200-239 mg/dLHigh Cholesterol: greater than 239 mg/dL LDL Cholesterol Calculated 47 <100 mg/dL [facility] Comment:Desirable LDL: less than 100 mg/dLNear Optimal/Above Optimal LDL: 110- 129 mg/dLBorderline High LDL: 130-159 mg/dLHigh LDL: 160-189 mg/dLVery High LDL: greater than or equal to 190 mg/dL HDL Cholesterol 60 >40 mg/dL [facility] Comment:Desirable HDL: great er than 40 mg/dL Note: This HDL assay may give artificially low results in patients with liver disease. Blood Venous blood specimen / Unknown 12/08/2023 10:10 AM EDT 12/08/2023 11:16 AM EDT us Tyson March MD LAB BLOOD ORDERABLES Final Resul t Performing Organization Address [facility] de Phone Number [facility] [address] [place] [phone] * Albumin, Random Urine W/Creatinine (02/07/2023 10:15 AM EST) Creatinine, Urine 75.20 mg/dL [facility] Microalbumin Urine 8.0 mg/L [facility] Microalbum Creatinine Ratio Ur 10.6 <30 ug/mg cr [facility] Comment:Albumin/Creatinine R atio Reference Ranges: Normal: < 30 ug/mg creatinine Microalbuminuria: 30 - 300 ug/mg creatinineClinical Albuminuria: > 300 ug/mg creatinine 02/07/2023 10:1 5 AM EST 02/07/2023 11:06 AM EST us Tyson March MD LAB URINE ORDERABLES Final Resul t Performing Organization Address [facility] Co de Phone Number [facility] [address] [place] [phone] from Last 3 Months or Most Recently Relevant to Health Maintenance Insurance DENTAL [facility] STAND ADULT DENTAL [facility] Care Teams Horn Player Relationship Specialty Start Date End Date Name, MD Tyson [address] [place] [id number] PCP - General Family Medicine 01/18/19
--- OUTSIDE RECORDS SUMMARY | 2024-09-03 14:19 | XMS_ITS | Data Portability ---
Author Organization [place] - [facility], [facility] Address [address] [place] [phone] Care Team Providers Care Cabin Cleaner Name Role Phone NAME, KATYA Primary Care [...] sensorine ural hearing loss of left ear [id number] 107 Active 2021 Mixed conductiv e and sensorine ural hearing loss, unilatera l, left ear with restricte d hearing on the contralat eral side; Note: Date Diagnosed : 06/12/2021 2:25 PM (H90.A32) Not Available [facility] 4 03:18:06 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 132013474 Active 2021 Nasal polyp, unspecifi ed; Note: Date Diagnosed : 06/12/2021 1:57 PM (J33.9) Not Available [facility] 4 03:18:06 Bilateral chronic serous otitis 423879441 Active 2021 Chronic serous otitis media, bilateral ; Note: Date Diagnosed : 06/12/2021 1:50 PM (H65.23) Not Available [facility] 4 03:18:07 Sensorine ural hearing loss in right ear 86596993257 100 Active 2021 Sensorine ural hearing loss, unilatera l, right ear, with restricte d hearing on the contralat eral side; Note: Date Diagnosed : 06/12/2021 2:25 PM (H90.A21) Not Available [facility] 4 03:18:06 Tinnitus of left ear 48456582790 06 Active 2021 Tinnitus, left ear; Note: Date Diagnosed : 06/12/2021 1:57 PM (H93.12) Not Available [facility] 4 03:18:07 Disorder of nasal sinus 6522712 Active 2023 Other specified disorders of nose and nasal sinuses; Note: Date Diagnosed : 04/01/2023 4:38 PM (J34.89) Not Available [facility] 4 03:18:06 Disorder of the nose 26114492 Active 2023 Other specified disorders of nose and nasal sinuses; Note: Date Diagnosed : 04/01/2023 4:38 PM (J34.89) Not Available [facility] 4 03:18:06 Polyp of nasal cavity 690900821 Active 2023 MARTINA SIMMONS MD [address] [place] [address],[place] [address], [place], [phone] , [facility] - [facility] 4 13:09:18 Nasal congestio n 73461676 Active 2023 MARTINA SIMMONS MD [address] [place] [address],[place] [address], [place], [phone] , [facility] - [facility] 4 13:15:27 Problem Notes None recorded. Procedures Surgical History Date Name Laterality Status Provider Name and Address Organization Details Recorded Time 06/28/2024 NasalEndos copy_DP completed RAHUL SMITH PA-C [address], [phone], [facility] 06/28/2024 16:08:32 12/26/2023 NasalEndos copy_DP completed MARTINA SIMMONS MD [address] [place] [address], [phone], [facility] 12/26/2023 13:15:08 Imaging Results None recorded. Procedure Notes None recorded. Medical Equipment None Reported. Allergies Allergen ID Allergen Name Allergen Category Reaction Reaction Severity Criticality Documentation Date Start Date Code Code System Note Provider Name and Address Organization Details Recorded Time 61873 aspirin medicatio n other Not available Not available 07/19/2023 1191 RxNorm React ion: Unkno wn; Not Available [facility] 4 00:48:40 Medications Name Sig Start Date [...] tablet,de layed release active Medicati on ID: 954532 B rand Name: divalpro ex Send Method: [...] 50 mg tablet active Medicati on ID: 333373 B rand Name: trazodon e Send Method: E-Prescr ibed Sub s Allowed: subs OK Speci al Instruct ion: TAKE 1/2 TABLET BY MOUTH AT BEDTIME Medicati onGeneri cName: trazodon e Not Available Not Available Not Available glipizide ER 10 mg tablet, extended release 24 hr active Medicati on ID: 592956 B rand Name: glipizid e Send Method: E-Prescr ibed Sub s Allowed: subs OK Speci al Instruct ion: TAKE 1 TABLET BY MOUTH EVERYDAY AT NOON [facility] me: glipizid e Not Available Not Available [...] 1,000 mg tablet active Medicati on ID: 516136 B rand Name: metformi n Send Method: [...] 10 mg tablet active Medicati on ID: 948690 B rand Name: lisinopr il Send Method: [...] 5 mg tablet active Medicati on ID: 656880 B rand Name: melatoni n Send Method: E-Prescr ibed Sub s Allowed: subs ANIYAH Speci al Instruct ion: TAKE 2 TABLETS BY MOUTH EVERY DAY AT BEDTIME Medicati onGeneri cName: melatoni n Not Available Not Available Not Available OneTouch Ultra2 Meter active Medicati on ID: 786424 B rand Name: OneTouch Ultra2 Meter Se [...] BAR[place]W [place] [facility] 06/28/2024 15:25:03 Date Recorded Body height Body mass index (BMI) Body weight Provider Name and Address Organization Details Last Updated DateTime 12/26/2023 157.48 cm 30.7 kg/m2 44244.52 g Doreen Mary [place] - [facility] 12/26/2023 13:06:36 Social History None recorded. Functional Status None recorded. Mental Status None recorded. Family History Nothing Reported. Medical History No medical history recorded. Gynecological HistoryNo gynecological history recorded. Obstetrics History GPAL:G 0 P 0 0 0 0 Past Encounters Encounter ID Performer Location Encounter Start Date Encounter Closed Date Diagnosis/Indication Diagnosis SNOMED-CT Code Diagnosis ICD10 Code Diagnosis Note [id number] MARTINA SIMMONS MD [facility] [address] [phone] 12/26/2023 12:51:33 12/26/2023 13:20:22 Polyp of nasal cavity 159489681 J33.0 Nasal endo was notable for a [...] nasal congestion or facial pain. Nasal congestion 8044056 0 R09.81 No signfician t congesiton . I asked her to call if she develops worsening congestion . [id number] RAHUL SMITH PA-C [facility] [address] [address] 06/28/2024 15:19:17 06/28/2024 15:54:52 Polyp of nasal cavity 764527602 J33.0 Health Concerns Section Related Observation LastModified by Organization Detai ls LastModified Time None Recorded Concern Status LastModified by Organization Details LastModified Time None Recorded Advance Directives Directive None Recorded Payers Insurance Date Sequence Insurance Name Policy Number Policy Malik Covered Member ID Malik Member ID Guarantor Name 06/28/2024 1 [employer] (MEDICARE REPLACEMENT/ ADVANTAGE - HMO) Nadine Morris [id number] Nadine Clement 06/28/2024 2 [place] [facility] Genna Clement [id number] Nadine Clement Notes Date Note Type Note Provider Name and Address Organization Details Recorded Time 12/26/2023 text/html Nasal polypShe h ad an MRI brain with contrast at [facility] which showed bilateral mastoid effusions and concern for a left nasal polyp in 2020. We obtained a CT which showed a left nasal polyp 15mm without destructive features. Denies epistaxis. Denies facial pain. Still on plavix. Biopsy wasdeferred due to plavix. MARTINA SIMMONS MD 100 [facility],[address], [address], [place] - [facility] 12/26/2023 13:15:55 06/28/2024 text/html 83 year old valentino meng presents for routine follow up of left nasal polyp. Biopsy has been deferred due to Plavix. She denies nasal congestion. She does not use any nasal sprays. NAVEEN CARBONE MD [address] [place] [address],[place] [address], [place], [phone], [facility] - [facility] 07/01/2024 09:49:26 OBGyn Episode No OBEpisode recorded.
== END 2024-09-03 13:48 | disposition home or self-care (01) ==
LOC: HO.XRAY 13:47
PROVIDERS: PCP Internal Medicine Geriatric Medicine; Visit Provider Nurse Practitioner Family
DX: M47.817 Spondylosis without myelopathy or radiculopathy, lumbosacral region (principal); M54.50 Low back pain, unspecified; M51.369 Other intervertebral disc degeneration, lumbar region without mention of lumbar back pain or lower extremity pain
CPT/HCPCS: 72110

== ENCOUNTER → 2024-09-03 13:53 | Outpatient (BNV) | payer OTHER, MEDICAID, SELFPAY | PROVIDERS: PCP Internal Medicine Geriatric Medicine; Visit Provider Radiology Diagnostic Radiology | DX: M47.816 Spondylosis without myelopathy or radiculopathy, lumbar region (principal) | CPT/HCPCS: 72110 ==

== ENCOUNTER 2024-09-11 15:07 | Outpatient (REF) | payer OTHER, MEDICAID, SELFPAY ==
--- OUTSIDE RECORDS SUMMARY | 2024-09-11 15:46 | XMS_ITS ---
Author Name Chery MARCOSHerlinda Address [address] [place] [address] Phone [phone] Organization [facility] Team Providers Care Air Conditioning Specialist Name Role Phone Herlinda Chery Unavailable [phone] NameTyson Unavailable [phone] Reason for Referral Not Available Allergies, adverse [...] 2021-05-11 No Data Available OneTouch Delica Plus Nwtwkf94H Miscellaneous TEST BLOOD SUGAR TWICE DAILY 2021-05-15 [...] mg Tab TAKE 1 TABLET BY [facility] EVERY MORNING 2023-09-21 No Data [...] D and osteoporosis surveillance stressed-- Risk of aquatics coordinator PPI use discussed-- Antireflux diet: avoid tomatoes, [...] QDAY d/ t hypoglycemia Lab ResultsComponent Value XvsnIQYS4M 7.8 (A) 02/14/2023HGBA1C 6.3 (H) 02/01/2022Lab ResultsComponent [...] QDAY d/ t hypoglycemia Lab ResultsComponent Value OrvwWSWI5T 7.8 (A) 02/14/2023HGBA1C 6.3 (H) 02/01/2022 Hyperlipidemia [...] organ damage (headache, vision changes, chest pain)/ Rn Document Improvement Specialist on proper BP monitoring technique and reassess/ [...] metoprolol t artrate BID on Plavix (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- aprx [...] control and bp control Lab ResultsComponent Value EqkcTEJT6N 7.8 (A) 02/14/2023HGBA1C 6.3 (H) 02/01/2022Lab ResultsComponent Value DateGLUCOSE 121 (H) 11/19/2022NA 144 3K 4.5 3CO2 26 11/19/2022L 109 (H) 3BUN 14 11/19/2022REATININE 1.05 11/19/2022 SOB (shortness of breath)COPD Active 2022-01-25 N/A prn albuterol inhalerfollows with pulmonology Encounters Encounters Type Facility Date of Service Diagnosis/Co mplaint Pain Assessment - Pain Documented on a Pain Scale (1125F) [facility] [place] Pain Assessment - Pain Documented on a Pain Scale (1125F) [facility] [place] Pain Assessment - Pain Documented on a Pain Scale (1125F) [facility] [place] Pain Assessment - Pain Documented on a Pain Scale (1125F) [facility] [place] Pain Assessment - Pain Documented on a Pain Scale (1125F) [facility] [place] Pain Assessment - Pain Documented on a Pain Scale (1125F) [facility] [place] Pain Assessment - Pain Documented on a Pain Scale (1125F) [facility] [place] Hyperlipidemia, unspecifiedGastro-esophageal reflux disease without esophagitisInsomnia, unspecifiedType 2 diabetes mellitus without complicationsEssential (primary) hypertensionAge-related osteoporosis without current pathological fractureOveractive bladderShortness of breathUnspecified dementia without behavioral disturbanceOther thrombophiliaUnspecified atrial fibrillationPersonal history of malignant neoplasm of breast Pain Assessment - Pain Documented on a Pain Scale (1125F) [facility] ([place]) 01[place] Pain Assessment - Pain Documented on a Pain Scale (1125F) [facility] [place] 01[place] Estab. patient 30-39min; chronic exacerbation, 2 stable chronic or 1 acute illness add add modifier 95 for video, (do not use for phone, instead use 43719-00) [facility] [place] Type 2 diabetes mellitus wit h [...] (do not use for phone, instead use 03663-25) [facility] [place] Estab. patient 30-39min; chronic exacerbation, 2 stable chronic or 1 acute illness add add modifier 95 for video, (do not use for phone, instead use 59356-50) [facility] [place] Estab. patient 30-39min; chronic exacerbation, 2 stable chronic or 1 acute illness add add modifier 95 for video, (do not use for phone, instead use 01052-23) [facility] [place] Estab. patient 30-39min; chronic exacerbation, 2 stable chronic or 1 acute illness add add modifier 95 for video, (do not use for phone, instead use 19660-54) [facility] [place] Estab. patient 30-39min; chronic exacerbation, 2 stable chronic or 1 acute illness add add modifier 95 for video, (do not use for phone, instead use 35672-68) [facility] [place] Estab. patient 30-39min; chronic exacerbation, 2 stable chronic or 1 acute illness add add modifier 95 for video, (do not use for phone, instead use 48852-16) [facility] [place] Estab. patient 30-39min; chronic exacerbation, 2 stable chronic or 1 acute illness add add modifier 95 for video, (do not use for phone, instead use 80758-99) [facility] [place] Estab. patient 30-39min; chronic exacerbation, 2 stable chronic or 1 acute illness add add modifier 95 for video, (do not use for phone, instead use 65282-78) [facility] [place] Estab. patient 30-39min; chronic exacerbation, 2 stable chronic or 1 acute illness add add modifier 95 for video, (do not use for phone, instead use 03667-32) [facility] [place] Estab. patient 30-39min; chronic exacerbation, 2 stable chronic or 1 acute illness add add modifier 95 for video, (do not use for phone, instead use 36792-27) [facility] [place] 03[place]2023 Type 2 diabetes mellitus [...] (do not use for phone, instead use 12895-64) [facility] [place] Estab. patient 30-39min; chronic exacerbation, 2 stable chronic or 1 acute illness add add modifier 95 for video, (do not use for phone, instead use 77097-67) [facility] [place] 03[place] Estab. patient 30-39min; chronic exacerbation, 2 stable chronic or 1 acute illness add add modifier 95 for video, (do not use for phone, instead use 34008-41) [facility] [place] 03[place] Estab. patient 30-39min; chronic exacerbation, 2 stable chronic or 1 acute illness add add modifier 95 for video, (do not use for phone, instead use 96178-95) [facility] [place] 03[place] Estab. patient 30-39min; chronic exacerbation, 2 stable chronic or 1 acute illness add add modifier 95 for video, (do not use for phone, instead use 69512-51) [facility] [place] 03[place] Estab. patient 30-39min; chronic exacerbation, 2 stable chronic or 1 acute illness add add modifier 95 for video, (do not use for phone, instead use 74172-18) [facility] [place] 03[place]23 Estab. patient 30-39min; chronic exacerbation, 2 stable chronic or 1 acute illness add add modifier 95 for video, (do not use for phone, instead use 46619-44) [facility] [place] 03[place] Estab. patient 30-39min; chronic exacerbation, 2 stable chronic or 1 acute illness add add modifier 95 for video, (do not use for phone, instead use 20137-27) [facility] [place] 03/[place]23 Estab. patient 30-39min; chronic exacerbation, 2 stable chronic or 1 acute illness add add modifier 95 for video, (do not use for phone, instead use 25992-11) [facility] [place] 03[place] Estab. patient 20-29min; 1 stable chronic or 2 minor; add add modifier 95 for video, modifier 93 for phone [facility] [place] 05/01/2024 Type 2 diabetes mellitus [...] 95 for video, modifier 93 for phone [facility] ([place] 05/01/20[place] Estab. patient 20-29min; 1 stable chronic or 2 minor; add add modifier 95 for video, modifier 93 for phone [facility] [place] 05/01/2024 Estab. patient 20-29min; 1 stable chronic or 2 minor; add add modifier 95 for video, modifier 93 for phone [facility] [place] 05/01/2024 Estab. patient 20-29min; 1 stable chronic or 2 minor; add add modifier 95 for video, modifier 93 for phone [facility] ([place] 05/01/2024 Estab. patient 20-29min; 1 stable chronic or 2 minor; add add modifier 95 for video, modifier 93 for phone [facility] [place] 05/01/2024 Estab. patient 20-29min; 1 stable chronic or 2 minor; add add modifier 95 for video, modifier 93 for phone [facility] ([place] 05/01/2024 Estab. patient 20-29min; 1 stable chronic or 2 minor; add add modifier 95 for video, modifier 93 for phone [facility] [place] 05/01/2024 Estab. patient 20-29min; 1 stable chronic or 2 minor; add add modifier 95 for video, modifier 93 for phone [facility] [place] 05/01/2024 Vital Signs Date of Collection Vitals [...] tive Time Current Smoking Status Never smoker 6 Sex Female History of Procedures Procedures [...] 95 for video, modifier 93 for phone 22500 2022-01-25 No Data Available No Data Availa ble DBP <80 (3078F) 3078F 2022-01-25 No Data Available No Data Available SBP >= 140 3077F 2022-01-25 No Data Available No Data Available Estab. patient 30-39min; chronic exacerbation, 2 stable chronic or 1 acute illness add add modifier 95 for video, (do not use for phone, instead use 92548-82) 78690 2022-10-04 No Data Available No Data Availa [...] (do not use for phone, instead use 36720-28) 80330 2023-03-24 No Data Available No Data Availa [...] 95 for video, modifier 93 for phone 38714 2024-05-01 No Data Available No Data Availa [...] lives with daughter an d grandson 2022-01-25 INFORMATION SYSTEMS PLANNER is her grand daughter 2022-10-04 Mental Status [...] with diabetic chronic kidney disease, CKD stage G3a/T6Yvmltdpvaxkt heart disease with stage 3a chronic kidney [...] CG reportmetoprolol tartrate BID on Plavix (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- aprx [...] D and osteoporosis surveillance stressed-- Risk of aquatics coordinator PPI use discussed-- Antireflux diet: avoid tomatoes, [...] with pulmonologymetoprolol tartrate BID on Plavix (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- aprx [...] D and osteoporosis surveillance stressed-- Risk of longterm PPI use discussed-- Antireflux diet: avoid tomatoes, [...] QDAY d/ t hypoglycemia Lab ResultsComponent Value MhfaQQGI1X 7.8 (A) 02/14/2023HGBA1C 6.3 (H) 02/01/2022Lab ResultsComponent [...] your log in next visit.Lab ResultsComponent Value BvacNJFG1L 7.8 (A) 02/14/2023HGBA1C 6.3 (H) 02/01/2022Lab ResultsComponent [...] 4 03/24/23metoprolol tartrate BID on Plavix (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 Follow-up with [facility] as needed for any acute or disease education needs that may arise 27/09.what should be done when the member calls: see each individual diagnosis for contingency planesomeprazole Recommend famotidine 20 mg twice daily as needed for dyspepsia-- Smoking cessation encouranged-- Dietary and life style changes encouraged-- Calcium/Vit D and osteoporosis surveillance stressed-- Risk of aquatics coordinator PPI use discussed-- Antireflux diet: avoid tomatoes, [...] QDAY d/ t hypoglycemia Lab ResultsComponent Value FcigUMOV4R 7.8 (A) 02/14/2023HGBA1C 6.3 (H) 02/01/2022Lab ResultsComponent [...] organ damage (headache, vision changes, chest pain)/ Rn Document Improvement Specialist on proper BP monitoring technique and reassess/ [...] up prn.metoprolol tartrate BID on Plavix (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 Yes, preferred proxy but not named POAIf so, Who? HCP: grand daughter Kerry Waldrop Do you have a written Advance Directive?Other details of discussion: (Who was present, patients description of wishes/goals)Today's plan:1123F : AD or surrogate was documented in the medical record.
--- OUTSIDE RECORDS SUMMARY | 2024-09-11 15:47 | XMS_ITS | Data Portability ---
Author Organization [place] - [facility], Allergy Address [address] [place] [id number] Care Team Providers Care Power Mule Operator Name Role Phone NAME, KATYA Primary [...] sensorine ural hearing loss of left ear 45303378298 107 Active 2021 Mixed conductiv e and sensorine ural hearing loss, unilatera l, left ear with restricte d hearing on the contralat eral side; Note: Date Diagnosed : 06/12/2021 2:25 PM (H90.A32) Not Available [facility] 4 03:18:06 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 582462681 Active 2021 Nasal polyp, unspecifi ed; Note: Date Diagnosed : 06/12/2021 1:57 PM (J33.9) Not Available Pending sale to [facility] 4 03:18:06 Bilateral chronic serous otitis 603835425 Active 2021 Chronic serous otitis media, bilateral ; Note: Date Diagnosed : 06/12/2021 1:50 PM (H65.23) Not Available Pending sale to [facility] 4 03:18:07 Sensorine ural hearing loss in right ear 90308413979 100 Active 2021 Sensorine ural hearing loss, unilatera l, right ear, with restricte d hearing on the contralat eral side; Note: Date Diagnosed : 06/12/2021 2:25 PM (H90.A21) Not Available Pending sale to [facility] 4 03:18:06 Tinnitus of left ear 76248802641 06 Active 2021 Tinnitus, left ear; Note: Date Diagnosed : 06/12/2021 1:57 PM (H93.12) Not Available Pending sale to [facility] 4 03:18:07 Disorder of nasal sinus 0022608 Active 2023 Other specified disorders of nose and nasal sinuses; Note: Date Diagnosed : 04/01/2023 4:38 PM (J34.89) Not Available Pending sale to [facility] 4 03:18:06 Disorder of the nose 67861356 Active 2023 Other specified disorders of nose and nasal sinuses; Note: Date Diagnosed : 04/01/2023 4:38 PM (J34.89) Not Available Pending sale to [facility] 4 03:18:06 Polyp of nasal cavity 608494883 Active 2023 MARTINA SIMMONS MD [address] [place] [address],[place] [address], [place], [address] , [facility] - [facility] 4 13:09:18 Nasal congestio n 82892525 Active 2023 MARTINA SIMMONS MD [address] [place] [address],[place] [address], [place], [address] , [facility] - [facility] 4 13:15:27 Problem Notes None recorded. Procedures Surgical History Date Name Laterality Status Provider Name and Address Organization Details Recorded Time 06/28/2024 NasalEndos copy_DP completed RAHUL SMITH PA-C [address], [phone], [facility] 06/28/2024 16:08:32 12/26/2023 NasalEndos copy_DP completed MARTINA SIMMONS MD [address] [place] [address], [phone], [facility] 12/26/2023 13:15:08 Imaging Results None recorded. Procedure Notes None recorded. Medical Equipment None Reported. Allergies Allergen ID Allergen Name Allergen Category Reaction Reaction Severity Criticality Documentation Date Start Date Code Code System Note Provider Name and Address Organization Details Recorded Time 75770 aspirin medicatio n other Not available Not available 07/19/2023 1191 RxNorm React ion: Unkno wn; Not Available Pending sale to [facility] 4 00:48:40 Medications Name Sig Start Date [...] tablet,de layed release active Medicati on ID: 766437 B rand Name: divalpro ex Send Method: [...] 50 mg tablet active Medicati on ID: 246420 B rand Name: trazodon e Send Method: E-Prescr ibed Sub s Allowed: subs OK Speci al Instruct ion: TAKE 1/2 TABLET BY MOUTH AT BEDTIME Medicati onGeneri cName: trazodon e Not Available Not Available Not Available glipizide ER 10 mg tablet, extended release 24 hr active Medicati on ID: 551027 B rand Name: glipizid e Send Method: [...] 1,000 mg tablet active Medicati on ID: 395912 B rand Name: metformi n Send Method: [...] 10 mg tablet active Medicati on ID: 267936 B rand Name: lisinopr il Send Method: [...] 5 mg tablet active Medicati on ID: 803870 B rand Name: melatoni n Send Method: E-Prescr ibed Sub s Allowed: subs ANIYAH Speci al Instruct ion: TAKE 2 TABLETS BY MOUTH EVERY DAY AT BEDTIME Medicati onGeneri cName: melatoni n Not Available Not Available Not Available OneTouch Ultra2 Meter active Medicati on ID: 627754 B rand Name: OneTouch Ultra2 Meter Se [...] BAR[place]W [place] - [facility] 06/28/2024 15:25:03 Date Recorded Body height Body mass index (BMI) Body weight Provider Name and Address Organization Details Last Updated DateTime 12/26/2023 157.48 cm 30.7 kg/m2 25679.52 g Doreen Mary [place] - [facility] 12/26/2023 13:06:36 Social History None recorded. Functional Status None recorded. Mental Status None recorded. Family History Nothing Reported. Medical History No medical history recorded. Gynecological HistoryNo gynecological history recorded. Obstetrics History GPAL:G 0 P 0 0 0 0 Past Encounters Encounter ID Performer Location Encounter Start Date Encounter Closed Date Diagnosis/Indication Diagnosis SNOMED-CT Code Diagnosis ICD10 Code Diagnosis Note [id number] MARTINA SIMMONS MD [facility] [address] [address] 12/26/2023 12:51:33 12/26/2023 13:20:22 Polyp of nasal cavity 332368020 J33.0 Nasal endo was notable for a [...] nasal congestion or facial pain. Nasal congestion 4799112 0 R09.81 No signfician t congesiton . I asked her to call if she develops worsening congestion . [id number] RAHUL SMITH PA-C [facility] [address] [address] 06/28/2024 15:19:17 06/28/2024 15:54:52 Polyp of nasal cavity 709334649 J33.0 Health Concerns Section Related Observation LastModified by Organization Detai ls LastModified Time None Recorded Concern Status LastModified by Organization Details LastModified Time None Recorded Advance Directives Directive None Recorded Payers Insurance Date Sequence Insurance Name Policy Number Policy Malik Covered Member ID Malik Member ID Guarantor Name 06/28/2024 1 [facility] (MEDICARE REPLACEMENT/ ADVANTAGE - HMO) Nadine Morris [id number] Nadine Clement 06/28/2024 2 [place] [facility] Genna Clement [id number] Nadine Clement Notes Date Note Type Note Provider Name and Address Organization Details Recorded Time 12/26/2023 text/html Nasal polypShe h ad an MRI brain with contrast at [facility] which showed bilateral mastoid effusions and concern for a left nasal polyp in 2020. We obtained a CT which showed a left nasal polyp 15mm without destructive features. Denies epistaxis. Denies facial pain. Still on plavix. Biopsy wasdeferred due to plavix. MARTINA SIMMONS MD 100 [facility],[address], [address], [place] - [facility] 12/26/2023 13:15:55 06/28/2024 text/html 83 year old valentino meng presents for routine follow up of left nasal polyp. Biopsy has been deferred due to Plavix. She denies nasal congestion. She does not use any nasal sprays. NAVEEN CARBONE MD [address] [place] [address],[place] [address], [place], [address], [facility] - [facility] 07/01/2024 09:49:26 OBGyn Episode No OBEpisode recorded.
--- OUTSIDE RECORDS SUMMARY | 2024-09-11 15:47 | XMS_ITS | Patient Health Record ---
Author Organization [facility] Address [address] [place] [address] Care Team Providers Care It Security Analyst Name Role Phone Felice (DO NOT USE), [facility] Provi yareli Unavailable Adrian Robles Unavailable [phone] Reason For Referral No Information Medications Medication SIG (Take, Route, Frequency, Duration) Notes Start Date End Date Status metFORMIN HCl 1000mg Active Plavix 75mg Active glipiZIDE 10mg Activ e traMADol HCl Active Lipitor 40mg Active Metoprolol Tartrate 25mg Active Furosemide 20mg Acti ve NexIUM 40mg Active Problems Problem Type SNOMED Code ICD Code Onset Dates Problem Status W/U Status Risk Notes Problem 102049338 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 [address] [place] [address] [id number] HANNAH MONK Self - patient is the insured Medical (General) History Medical History History ICD Code EGD 07-06-2011-small area of Jo's-no dysplasia; small HH Colonoscopy 04-04-2009-hyperplastic polyp NIDDM Colon polyps--tubular adenomas removed i n 2002 and in 2005 Hyperlipidemia GERD She denies any history of NV, stroke,josh al disease, nor lung disease CAD--on Plavix--Cardiac cath in 1998--no NV--does not think she has any stents in Colonoscopy in 12/2014--smal l adenomas, diverticulosis and internal hemorrhoids Surgical History Surgery Date(Month/Year) PATRICIA
--- OUTSIDE RECORDS SUMMARY | 2024-09-11 15:47 | XMS_ITS | Clinical Summary ---
Author Organization [employer] Address [address] [facility] [address] [place] [address] Care Team Providers Care Director Of Coding Name Role Phone Name, Tyson MCKINNON Primary Care Provider [phone] Allergies Active Allergy Reactions Criticality Noted Date [...] 02/06/20 24 Active Lancets (OneTouch Delica Plus [id number]) miscIndications :Type 2 diabetes mellitus with other specified complication, without long-term current use of insulin ([facility]) TEST BLOOD SUGAR TWICE DAILY 100 each 3 03/27/19 25 Active losartan (Cozaar) 25 MG tabletIndicatio ns:Hypertension , unspecified type TAKE 1 TABLET BY MOUTH EVERY EVENING 90 tablet 3 04/02/19 25 Active Ferrous Sulfate (iron) 325 (65 Fe) MG tabletIndicatio ns:Type 2 diabetes mellitus with other specified complication, unspecified whether penitentiary insulin use ([facility]) TAKE 1 TABLET BY MOUTH [...] FOOD 60 tablet 11 06/05/19 25 Active clopidogrel (Plavix) 75 MG tablet [...] severe pain. 28 tablet 08/21/19 25 Active mirtazapine (Remeron) 30 MG tablet TAKE 1 TABLET BY MOUTH AT BEDTIME 30 tablet 1 09/07/19 25 Active mirtazapine (Remeron) 30 MG tablet TAKE 1 TABLET BY MOUTH AT BEDTIME 30 tablet 1 06/23/19 25 025 Discontinued traMADol (Ultram) 50 MG tabletIndicatio ns:Chronic knee [...] 01/21/2012 Non-compliance 12/22/2011 Coronary artery disease involving coushatta coronar y artery 09/20/2011 Hiatal hernia 09/20/2011 Mixed hyperlipidemia 08/12/2011 Jo's esophagus 07/21/2011 Chest pain 07/20/2011 Dizziness and giddiness 07/20/2011 Essential hypertension 07/20/2011 Migraine 07/20/2011 Osteopenia of multiple sites 08/09/2005 Encounters Date Type Department Care Team Description 09/06/2024 Refill [facility] [address] [place] [address] Tyson March MD 09/03/2024 Orders Only [facility] External Provider, [facility] 08/27/2024 Telephone [facility] [address], [place] [phone] Shanelle Joseph, JUSTEN 08/20/2024 Telephone [facility] [address], [place] [phone] Roslyn Ellis, RN Add to [employer]ENT[employer] 08/20/2024 Refill [facility] [address], [place] [phone] Tyson March MD Chronic knee pain, unspecified laterality 07/23/2024 Refill [facility] [address] [place] [address] Tyson March MD Chronic knee pain, unspecified laterality 07/17/2024 Orders Only [facility] External Provider, [facility] 07/16/2024 Refill [facility] [address] [place] [address] Name, MD Tyson 06/22/2024 Refill [facility] [address] [place] [address] Name, MD Tyson 06/18/2024 Refill [facility] [address], [place] [phone] Rose Quintana, MARCOS Chronic pain of both knees 06/18/2024 Refill [facility] [address], [place] [phone] Name, MD Tyson Chronic knee pain, unspecified laterality (Primary Dx) from Last 3 Months Immunizations Immunization Administration [...] Screening 08/30/2024 08/31/2023 Diabetes: Hemoglobin A1C 10/08/2024 02/2 025, 12/02/2023, 08/31/2023, Additional history exists Influenza Vaccine (#1) 2024 4, 11/29/2022, 01/26/2022, Additional history exists Diabetes: Foot Exam 12/01/2024 [...] Vaccine: 50+ Years Completed 10/29/2020, 01/24/2015, 03/10/2005 HIB Vaccines Aged Out No longer eligi [...] Procedure Name Priority Date/Time Associated Diagnosis Comments XR LUMBAR SPINE COMPLETE 4+ VIEWS Routine 09/03/2024 2:[address] CHEST WO CONTRAST Routine 07/18/2024 11:55 AM EDT POCT GLYCATED HEMOGLOBIN, TOTAL Routine 04/10/2024 3:23 PM EST Type 2 diabetes mellitus with other specified complication, without long-term current use of insulin ([facility]) LIPID PANEL, STANDARD Routine 12/08/2023 10:10 AM EDT Type 2 diabetes mellitus with other specified complication, without long-term current use of insulin ([facility]) Chronic knee pain, unspecified laterality Venous insufficiency [...] Recently Relevant to Health Maintenance Results * XR Lumbar Spine Complete 4+ Views (09/03/2024 2:00 PM EDT) Anatomical Region Laterality Modality Spine, L-spine Radiographic Samanta ging 09/03/2024 2:00 PM EDT Narrative 09/03/2024 3:54 PM EDT [place] [address] XRay Report Signed Patient: Nadine Clement MR#: [id number] [birth year] : 1940 Acct:[id number] Age/Sex: 84 / F ADM Date: 09/03/24 Loc: [facility] Attending Dr: Ernestine FERRARI Ordering Physician: Ernestine Jc Date of Service: 09/03/24 Procedure(s): XR lumbar spine 4V min Accession Number(s): [id number] cc: Ernestine Jc; Name,Tyson MCKINNON EXAMINATION: X-ray lumbar spine. 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 TECHNIQUE: AP oblique and lateral views. COMPARISON: June 03, 2014 FINDINGS: Marginal osteophyte formation and endplate sclerosis decreased intervertebral disc height and subchondral cyst formation at L3-4. Small anterior marginal osteophyte formation throughout the included lower thoracic and upper lumbar spine. S-shaped curvature apex at L3-4. Osteopenia versus osteoporosis. Grade 1 retrolisthesis at L3-4. No acute cortical disruption. Vascular complications, aorta. XR/XR lumbar spine 4V min IMPRESSION: Multilevel thoracolumbar spondylosis more conspicuous at L2-3 resulting in grade 1 retrolisthesis. Electronically signed by: Jose D Alas MD 09/03/2024 03:51 PM EDT RP Dictated By: Jose D Huertas MD Signed By: <Electronically signed by Jose D Spears MD in OV> 09/03/24 1551 DD/ 1400 TD/TT: 09/03/24 1417 Training Executive: Procedure Note Donotuseinterpreter, Image - 09/03/[address] [address] XRay Report Signed Patient: Nadine ClementMR#: [id number] 67 : 1940cct:[id number] Age/Sex: 84 / FADM Date: 09/03/24 Loc: HO.XRAY Attending Dr: Ernestine FERRARI Ordering Physician: Ernestine Jc Date of Service: 09/03/24 Procedure(s): XR lumbar spine 4V min Accession Number(s): [id number] cc: Ernestine Jc; Name,Tyson MCKINNON EXAMINATION: X-ray lumbar spine. 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 TECHNIQUE: AP oblique and lateral views. COMPARISON: June 03, 2014 FINDINGS: Marginal osteophyte formation and endplate sclerosis decreased intervertebral disc height and subchondral cyst formation at L3-4. Small anterior marginal osteophyte formation throughout the included lower thoracic and upper lumbar spine. S-shaped curvature apex at L3-4. Osteopenia versus osteoporosis. Grade 1 retrolisthesis at L3-4. No acute cortical disruption. Vascular complications, aorta. XR/XR lumbar spine 4V min IMPRESSION: Multilevel thoracolumbar spondylosis more conspicuous at L2-3 resulting in grade 1 retrolisthesis. Electronically signed by: Jose D Alas MD 09/03/2024 03:51 PM EDT RP Dictated By: Jose D Huertas MD Signed By: <Electronically signed by Jose D Spears MDin OV> 09/03/24 155 DD/ 1400 TD/TT: 09/03/24 1417 Training Executive: [facility] External Provider IMG XR PROCEDURES Final Result * CT Chest w/o Contrast (07/18/2024 11:55 AM EDT) Anatomical Region Laterality Modality Body, Chest Computed Tomogra phy 07/18/2024 11:5 5 AM EDT Narrative 07/18/2024 11:57 AM EDT [address] [address] [address] Scan Report Signed Patient: Nadine Clement MR#: [id number] [birth year] : 1940 Acct:[id number] Age/Sex: 83 / F ADM Date: 07/17/24 Loc: HO.CT Attending Dr: Melquiades Ramos MD Ordering Physician: Melquiades Ramos MD Date of Service: 07/17/24 Procedure(s): CT chest wo IV con Accession Number(s): [id number] cc: Tyson March MD; Melquiades Ramos MD Report Number: [id number]: Total DLP = 126.00 mGy-cm CLINICAL HISTORY: [...] 07/18/24 1157 DD/ 1155 TD/TT: 07/18/24 1155 Training Executive: Procedure Note Donotuseinterpreter, Image - 07/23/[address] [place] [address] [address] Scan Report Signed Patient: Nadine Clement#: [id number] [birth year] : [birth year]Acct:[id number] Age/Sex: 83 / FADM Date: 07/17/24 Loc: HO.CT Attending Dr: Melquiades Ramos MD Ordering Physician: Melquiades Ramos MD Date of Service: 07/17/24 Procedure(s): CT chest wo IV con Accession Number(s): [id number] cc: Name,Tyson MCKINNON; Melquiades Ramos MD Report Number: [id number]: Total DLP = 126.00 mGy-cm CLINICAL HISTORY: [...] 07/18/24 1157 DD/ 1155 TD/TT: 07/18/24 1155 Training Executive: [facility] External Provider IMG CT PROCEDURES Edited Result - Final * (ABNORMAL) POCT HGB A1C (04/10/2024 3:23 PM EST) Hemoglobin A1C 6.8(A) 4.0 - 6.0 % QC Media Lot # [id number] Lot# Expiration Date [id number] Blood 04/10/2024 3:23 PM EST Tyson March MD POINT OF CARE TEST ENTER/EDIT OR DERABLES Final Result * Lipid Panel, Standard (12/08/2023 10:10 AM EDT) Triglycerides 82 <150 mg/dL [facility] Comment:Desirable Triglyceri de: less than 150 mg/dLBorderline High Triglyceride 150-199 mg/dLHigh Triglyceride: 200-499 mg/dLVery High Triglyceride: greater than or equal to 5OO mg/dL Cholesterol 123 <200 mg/dL [facility] Comment:Desirable Cholestero l: less than 200 mg/dLBorderline High Cholesterol: 200-239 mg/dLHigh Cholesterol: greater than 239 mg/dL LDL Cholesterol Calculated 47 <100 mg/dL [facility] Comment:Desirable LDL: less than 100 mg/dLNear Optimal/Above Optimal LDL: 110- 129 mg/dLBorderline High LDL: 130-159 mg/dLHigh LDL: 160-189 mg/dLVery High LDL: greater than or equal to 190 mg/dL HDL Cholesterol 60 >40 mg/dL [facility] Comment:Desirable HDL: great er than 40 mg/dL Note: This HDL assay may give artificially low results in patients with liver disease. Blood Venous blood specimen / Unknown 12/08/2023 10:10 AM EDT 12/08/2023 11:16 AM EDT us Tyson March MD LAB BLOOD ORDERABLES Final Resul t Performing Organization Address [facility] de Phone Number [facility] [address] [place] [phone] * Albumin, Random Urine W/Creatinine (02/07/2023 10:15 AM EST) Creatinine, Urine 75.20 mg/dL [facility] Microalbumin Urine 8.0 mg/L [facility] Microalbum Creatinine Ratio Ur 10.6 <30 ug/mg cr [facility] Comment:Albumin/Creatinine R atio Reference Ranges: Normal: < 30 ug/mg creatinine Microalbuminuria: 30 - 300 ug/mg creatinineClinical Albuminuria: > 300 ug/mg creatinine 02/07/2023 10:1 5 AM EST 02/07/2023 11:06 AM EST us Tyson March MD LAB URINE ORDERABLES Final Resul t Performing Organization Address [facility] Co de Phone Number [facility] [address] [place] [phone] from Last 3 Months or Most Recently Relevant to Health Maintenance Insurance DENTAL [facility] DUAL COMPLETE DENTAL[place] STAND ADULT DENTAL [facility] Care Teams Director Of Coding Relationship Specialty Start Date End Date Name, MD Tyson [address] [place], [place] [address] [address] PCP - General Family Medicine 01/18/19
== END 2024-09-11 15:08 | disposition home or self-care (01) ==
LOC: HO.MAMMO 15:07
PROVIDERS: PCP Internal Medicine Geriatric Medicine; Visit Provider Internal Medicine Geriatric Medicine
DX: Z12.31 Encounter for screening mammogram for malignant neoplasm of breast (principal)
CPT/HCPCS: 77063; 77067

== ENCOUNTER → 2024-09-11 15:15 | Outpatient (BNV) | payer OTHER, MEDICAID, SELFPAY | PROVIDERS: PCP Internal Medicine Geriatric Medicine; Visit Provider Internal Medicine | DX: Z12.31 Encounter for screening mammogram for malignant neoplasm of breast (principal) | CPT/HCPCS: 77063; 77067 ==

== ENCOUNTER 2024-09-13 13:44 | Outpatient (AMB) | payer OTHER, SELFPAY ==
--- NOTE | 2024-09-13 13:46 | A.OFFVIS_ITS ---
Intake Visit Reasons: 3m PVR Intake Note: Patient presents today for follow up on: incomplete bladder emptying and OAB Urology Medication: none Antibiotic Allergies: None Blood Thinners: Plavix PVR: 143ml's Back Roller Required: Yes Back Roller Services: Back Roller Offered & Declined Financial Services Consultant: Financial Services Consultant Present Accompanied by: Daughter Allergies aspirin (ASA) Adverse Reaction (Verified 09/13/24 14:27) Unknown Medication List - Last Reconciled 09/13/24 by VEGA Cormier-LEONOR albuterol sulfate 90 mcg/actuation 2 puffs inhalation Q4-6H PRN 30 days ascorbic acid (vitamin C) (Vitamin C) 1 tab PO BEDTIME atorvastatin 40 mg PO DAILY blood sugar diagnostic ([employer]uch Ultra Test strips) As directed calcium carbonate-vitamin D3 600 mg-10 mcg (400 unit) (Calcium 600 + D(3)) 1 tab PO TID clopidogrel 1 tab PO DAILY cyanocobalamin (vitamin B-12) 1,000 mcg sublingual DAILY divalproex ER 250 mg PO DAILY donepezil 10 mg PO DAILY esomeprazole magnesium 1 cap PO QAM ferrous sulfate 1 tab PO BEDTIME furosemide (Lasix) 20 mg PO DAILY lancets (OneTouch Delica Plus Lancet) As directed losartan 50 mg PO DAILY memantine 5 mg PO DAILY metformin 500 mg PO DAILY metoprolol tartrate 1 tab PO BID mirtazapine 30 mg PO BEDTIME raloxifene 60 mg PO DAILY sertraline 50 mg PO QAM tramadol 50 mg PO DAILY PRN verapamil 40 mg PO DAILY HPI Comments Details: Nadine is a very pleasant 84nyear old Serbian speaking female patient of Dr. March who is accompanied by her grandaughter at todays visit. 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 She presents to the office today for a follow up of her overactive bladder. In discussion with the patient today she reports to be doing and feeling well. She reports since her last office visit here she has had 2 episodes of bleeding however is unsure if this was vaginal or hematuria. She reports she continues with left lower abdominal. In office urinalysis results reviewed with the patient today no microscopic hematuria noted. She also reports noting intermittent episodes of bladder pressure. She also reports episodes of urinary urgency and frequency after taking her diuretic. We did discussed correlation of diuresis and lower urinary tract symptoms. She otherwise denies incontinence, nocturia, dysuria, foul smelling urine, changes to urinary stream, flank pain, fever, and or chills. PVR 143 mL. Previous workup has included a retroperitoneal ultrasound 02/27 not ing bilateral kidneys with dilated pyramids otherwise no calculi, lesions, and or hydronephrosis. Pre void bladder volume is approximately 240 mL. Postvoid bladder volume was approximately 50 mL. We discussed at length potential causes of bladder pressure as well as potential gross hematuria. Patient had previously trialed VESIcare for potential bladder spasms however experience incomplete blad yareli emptying with increase in PVR. All questions were answered She otherwise offers no issues or concerns at this time. [facility] Medical History Osteoarthritis of left knee B12 deficiency Ductal carcinoma in situ (DCIS) of right breast Surgical History History of cystoscopy (~2015) Hx of cataract extraction (~10/11/16) History of lumpectomy of right breast (~10/09/13) Hx of breast biopsy Hx of angioplasty Hx of total hypophysectomy (~1994) Family History Maternal Uncle Hx of cancer of lung Mother Hx of cancer of lung Diabetes Sister Diabetes Brother Diabetes Social History Household Members: Other Household Members Other:: Grandaughter Housing: House Are you a primary emergency care tech to a significant other at home: No Do you presently have visiting nurse or other home services: Yes Alcohol intake: never Patient Tobacco Use Status: Never used Tobacco e-Cigarette/Vaping Use: Never Used service: No Current occupational status: retired Review of Systems Const Reports as per [facility] Eyes Reports no additional complaints ENT Reports no additional complaints Card Reports as per [facility] Resp Reports no additional complaints GI Reports no additional complaints Reports as per [facility] Musc Reports no additional complaints Neuro Reports as per [facility] Psych Reports as per [facility] Oni/Lymph Reports as per [facility] Physical Exam Const General: cooperative, healthy appearing, comfortable, no acute distress, well developed, alert and awake Nutritional Appearance: average body habitus Orientation/consciousness: patient oriented x3 Limitations: no limitations HEENT Head: Yes normal to inspection, Yes normocephalic and Yes atraumatic Ears: hearing grossly normal bilaterally Eyes General: appearance normal, both eyes and all related structures Neck Neck: Yes normal visual inspection and Yes trachea midline Chest Chest palpation & inspection: normal inspection of the chest Resp Effort & Inspection: normal respiratory effort and able to speak in complete sentences Cardio Rate: regular rate GI Inspection: Yes normal to inspection General: Yes no CVA tenderness Back/Spine/Pelvis Back: no CVA tenderness Skin General skin exam: no rashes or lesions noted Neuro General: patient oriented x3 Extrem General: Yes normal to inspection Psych Appearance: grossly normal and well kempt Mental Status: mental status grossly normal Speech and movement: Normal speech and movement present and Clear speech present Affect: normal affect Attitude: cooperative Thought process: Normal thought process present Thought content: Normal thought content present Insight: Fair insight present (Psych) Judgement: Fair judgement present (Psych) Assessment & Plan Assessment & Plan (1) Urinary urgency: Code(s): R39.15 - Urgency of urination Category: Medical (2) Incomplete bladder emptying: Code(s): R33.9 - Retention of urine, unspecified Category: Medical (3) Sensation of pressure in bladder area: Code(s): R39.89 - Other symptoms and signs involving the genitourinary system Category: Medical (4) Gross hematuria: Code(s): R31.0 - Gross hematuria Category: Medical Plan In office urinalysis results with the patient today; as noted above; will send for urine cytology. PVR 143 mL. We did discussed potential causes of lower left abdominal pain, bladder pressure, and potential for gross hematuria; we discussed further interventions and risks and benefits of these interventions. Will obtain CT urogram for further assessment evaluation. BUN and creatinine ordered for imaging. We discussed attempting to double void to assist with incomplete bladder emptying. We also discussed correlation of urinary frequency and urgency with diuretic. All questions were answered. Follow-up next available in office cystoscopy with imaging and labs to be completed prior; or sooner with any issues, concerns, and or questions. Orders: Orders Blood Urea Nitrogen Today R39.15 - Urgency of urination Urine Cytology Today R31.0 - Gross hematuria CT urogram Today R31.0 - Gross hematuria Creatinine Today R39.15 - Urgency of urination Patient Instructions: The patient had an opportunity to ask questions regarding the treatment plan. All questions were answered. Physical exam, labs, and imaging were discussed and reviewed in detail. As well as risks, benefits, and discussion of treatment choices. No major barriers to understanding were identified. The patient expressed understanding and agreement with the above treatment plan. The patient was made aware they should contact our office by phone for worsening of their current condition, the appearance of new symptoms, or with any questions or concerns. Compliance is encouraged with any medications and follow up testing that is ordered. It is a privilege to be allowed the opportunity to participate in? your urological care.? Again, if you have any questions or concerns If you have any questions or concerns please do not hesitate to contact me. The office is [phone]. This note is constructed using voice recognition software. While every effort has been made to ensure accuracy clean energy policy analyst errors may have been included. Yours sincerely, ALISE Cormier Coding Level of Care Code Est Pt Level 3 (59206) Complex EM visit Add On G2211 Diagnoses Urinary urgency R39.15 Incomplete bladder emptying R33.9 Sensation of pressure in bladder area R39.89 Gross hematuria R31.0
--- OUTSIDE RECORDS SUMMARY | 2024-09-13 13:48 | XMS_ITS ---
Author Name Chery MARCOSHerlinda Address [address] [place] [address] Phone [phone] Organization [facility] Team Providers Care Ski Molder Name Role Phone Herlinda Chery Unavailable [phone] NameTyson Unavailable [phone] Reason for Referral Not Available Allergies, adverse [...] 2021-05-11 No Data Available OneTouch Delica Plus Prerwt08H Miscellaneous TEST BLOOD SUGAR TWICE DAILY 2021-05-15 [...] mg Tab TAKE 1 TABLET BY MO [facility] EVERY MORNING 2023-09-21 No Data Available [...] D and osteoporosis surveillance stressed-- Risk of fci PPI use discussed-- Antireflux diet: avoid tomatoes, [...] QDAY d/ t hypoglycemia Lab ResultsComponent Value FjryHHFI0K 7.8 (A) 02/14/2023HGBA1C 6.3 (H) 02/01/2022Lab ResultsComponent [...] QDAY d/ t hypoglycemia Lab ResultsComponent Value JlifINKM2Z 7.8 (A) 02/14/2023HGBA1C 6.3 (H) 02/01/2022 Hyperlipidemia [...] organ damage (headache, vision changes, chest pain)/ Brass Cutter on proper BP monitoring technique and reassess/ [...] metoprolol t artrate BID on Plavix (h/o [place]- clot to heart vessel per CG- aprx [...] control and bp control Lab ResultsComponent Value XzspXVVY5C 7.8 (A) 02/14/2023HGBA1C 6.3 (H) 02/01/2022Lab ResultsComponent Value DateGLUCOSE 121 (H) 11/19/2022NA 144 3K 4.5 3CO2 26 11/19/2022L 109 (H) 3BUN 14 11/19/2022REATININE 1.05 11/19/2022 SOB (shortness of breath)COPD Active 2022-01-25 N/A prn albuterol inhalerfollows with pulmonology Encounters Encounters Type Facility Date of Service Diagnosis/Co mplaint Pain Assessment - Pain Documented on a Pain Scale (1125F) [facility] [place]20[place] Pain Assessment - Pain Documented on a Pain Scale (1125F) [facility] [place] Pain Assessment - Pain Documented on a Pain Scale (1125F) [facility] Pain Assessment - Pain Documented on a Pain Scale (1125F) [facility] Pain Assessment - Pain Documented on a Pain Scale (1125F) [facility] Pain Assessment - Pain Documented on a Pain Scale (1125F) [facility]22 Pain Assessment - Pain Documented on a Pain Scale (1125F) [facility]20[place] Hyperlipidemia, unspecifiedGastro-esophageal reflux disease without esophagitisInsomnia, unspecifiedType 2 diabetes mellitus without complicationsEssential (primary) hypertensionAge-related osteoporosis without current pathological fractureOveractive bladderShortness of breathUnspecified dementia without behavioral disturbanceOther thrombophiliaUnspecified atrial fibrillationPersonal history of malignant neoplasm of breast Pain Assessment - Pain Documented on a Pain Scale (1125F) [facility] Pain Assessment - Pain Documented on a Pain Scale (1125F) [facility] 01[place] Estab. patient 30-39min; chronic exacerbation, 2 stable chronic or 1 acute illness add add modifier 95 for video, (do not use for phone, instead use 06572-40) [facility]2022 Type 2 diabetes mellitus wit h [...] (do not use for phone, instead use 72062-15) [facility] Estab. patient 30-39min; chronic exacerbation, 2 stable chronic or 1 acute illness add add modifier 95 for video, (do not use for phone, instead use 13842-32) [facility] Estab. patient 30-39min; chronic exacerbation, 2 stable chronic or 1 acute illness add add modifier 95 for video, (do not use for phone, instead use 03652-20) [facility] Estab. patient 30-39min; chronic exacerbation, 2 stable chronic or 1 acute illness add add modifier 95 for video, (do not use for phone, instead use 53447-57) [facility] Estab. patient 30-39min; chronic exacerbation, 2 stable chronic or 1 acute illness add add modifier 95 for video, (do not use for phone, instead use 34131-26) [facility] Estab. patient 30-39min; chronic exacerbation, 2 stable chronic or 1 acute illness add add modifier 95 for video, (do not use for phone, instead use 82752-98) [facility] Estab. patient 30-39min; chronic exacerbation, 2 stable chronic or 1 acute illness add add modifier 95 for video, (do not use for phone, instead use 18921-08) [facility] Estab. patient 30-39min; chronic exacerbation, 2 stable chronic or 1 acute illness add add modifier 95 for video, (do not use for phone, instead use 21952-97) [facility] Estab. patient 30-39min; chronic exacerbation, 2 stable chronic or 1 acute illness add add modifier 95 for video, (do not use for phone, instead use 57769-86) [facility] Estab. patient 30-39min; chronic exacerbation, 2 stable chronic or 1 acute illness add add modifier 95 for video, (do not use for phone, instead use 85347-90) [facility] 03[place]/2023 Type 2 diabetes mellitus [...] (do not use for phone, instead use 09123-68) [facility] 03[place] Estab. patient 30-39min; chronic exacerbation, 2 stable chronic or 1 acute illness add add modifier 95 for video, (do not use for phone, instead use 34650-99) [facility] 03[place]24/2023 Estab. patient 30-39min; chronic exacerbation, 2 stable chronic or 1 acute illness add add modifier 95 for video, (do not use for phone, instead use 25662-00) [facility] 03[place]/2023 Estab. patient 30-39min; chronic exacerbation, 2 stable chronic or 1 acute illness add add modifier 95 for video, (do not use for phone, instead use 27974-03) [facility] 03[place]23 Estab. patient 30-39min; chronic exacerbation, 2 stable chronic or 1 acute illness add add modifier 95 for video, (do not use for phone, instead use 30080-12) [facility] 03[place]/2023 Estab. patient 30-39min; chronic exacerbation, 2 stable chronic or 1 acute illness add add modifier 95 for video, (do not use for phone, instead use 24716-73) [facility] 03[place]/2023 Estab. patient 30-39min; chronic exacerbation, 2 stable chronic or 1 acute illness add add modifier 95 for video, (do not use for phone, instead use 91222-73) [facility]23 Estab. patient 30-39min; chronic exacerbation, 2 stable chronic or 1 acute illness add add modifier 95 for video, (do not use for phone, instead use 47893-09) [facility] 03[place]/2023 Estab. patient 30-39min; chronic exacerbation, 2 stable chronic or 1 acute illness add add modifier 95 for video, (do not use for phone, instead use 55665-29) [facility]23 Estab. patient 20-29min; 1 stable chronic or 2 minor; add add modifier 95 for video, modifier 93 for phone [facility] 05[place]/2024 Type 2 diabetes mellitus [...] 95 for video, modifier 93 for phone [facility]/01/20[place] Estab. patient 20-29min; 1 stable chronic or 2 minor; add add modifier 95 for video, modifier 93 for phone [facility]/01/20[place] Estab. patient 20-29min; 1 stable chronic or 2 minor; add add modifier 95 for video, modifier 93 for phone [facility]/01/2024 Estab. patient 20-29min; 1 stable chronic or 2 minor; add add modifier 95 for video, modifier 93 for phone [facility] 05/01/20[place] Estab. patient 20-29min; 1 stable chronic or 2 minor; add add modifier 95 for video, modifier 93 for phone [facility] 05/01/2024 Estab. patient 20-29min; 1 stable chronic or 2 minor; add add modifier 95 for video, modifier 93 for phone [facility] 05/01/2024 Estab. patient 20-29min; 1 stable chronic or 2 minor; add add modifier 95 for video, modifier 93 for phone [facility] 05/01/2024 Estab. patient 20-29min; 1 stable chronic or 2 minor; add add modifier 95 for video, modifier 93 for phone [facility] 05/01/2024 Vital Signs Date of Collection Vitals [...] tive Time Current Smoking Status Never smoker 2024-09-04 0 Sex Female History of Procedures Procedures [...] 95 for video, modifier 93 for phone 63572 2022-01-25 No Data Available No Data Availa ble DBP <80 (3078F) 3078F 2022-01-25 No Data Available No Data Available SBP >= 140 3077F 2022-01-25 No Data Available No Data Available Estab. patient 30-39min; chronic exacerbation, 2 stable chronic or 1 acute illness add add modifier 95 for video, (do not use for phone, instead use 68952-71) 19930 2022-10-04 No Data Available No Data Availa [...] (do not use for phone, instead use 60990-80) 52288 2023-03-24 No Data Available No Data Availa [...] 95 for video, modifier 93 for phone 60404 2024-05-01 No Data Available No Data Availa [...] lives with daughter an d grandson 2022-01-25 POCKET CUTTER is her grand daughter 2022-10-04 Mental Status [...] with diabetic chronic kidney disease, CKD stage G3a/S9Bdxmynrljyip heart disease with stage 3a chronic kidney [...] CG reportmetoprolol tartrate BID on Plavix (h/o [place]- clot to heart vessel per CG- aprx [...] D and osteoporosis surveillance stressed-- Risk of fci PPI use discussed-- Antireflux diet: avoid tomatoes, [...] with pulmonologymetoprolol tartrate BID on Plavix (h/o [place]- clot to heart vessel per CG- aprx [...] D and osteoporosis surveillance stressed-- Risk of [place] agent PPI use discussed-- Antireflux diet: avoid tomatoes, [...] QDAY d/ t hypoglycemia Lab ResultsComponent Value UunmRUHF9J 7.8 (A) 02/14/2023HGBA1C 6.3 (H) 02/01/2022Lab ResultsComponent [...] your log in next visit.Lab ResultsComponent Value VlewHQXT8K 7.8 (A) 02/14/2023HGBA1C 6.3 (H) 02/01/2022Lab ResultsComponent [...] 4 03/24/23metoprolol tartrate BID on Plavix (h/o [place]- clot to heart vessel per CG- aprx 20 years ago)in remissionfollows with oncologist s/p surgery/removal of cancerous lesionavoid nephrotoxic medicationstay hydrated encouraged A1c control and bp control Lab ResultsComponent Value XtatXQRS2W 7.8 (A) 02/14/2023HGBA1C 6.3 (H) 02/01/2022Lab ResultsComponent [...] QDAY d/ t hypoglycemia Lab ResultsComponent Value HupxWJMI9D 7.8 (A) 02/14/2023HGBA1C 6.3 (H) 02/01/2022 2024-05-01 [...] joint pain increased [facility] Follow-up with [facility] as needed for any acute or disease education needs that may arise 27/09.what should be done when the member calls: see each individual diagnosis for contingency planesomeprazole Recommend famotidine 20 mg twice daily as needed for dyspepsia-- Smoking cessation encouranged-- Dietary and life style changes encouraged-- Calcium/Vit D and osteoporosis surveillance stressed-- Risk of fci PPI use discussed-- Antireflux diet: avoid tomatoes, [...] QDAY d/ t hypoglycemia Lab ResultsComponent Value WpcwLHHQ5C 7.8 (A) 02/14/2023HGBA1C 6.3 (H) 02/01/2022Lab ResultsComponent [...] organ damage (headache, vision changes, chest pain)/ Brass Cutter on proper BP monitoring technique and reassess/ [...] up prn.metoprolol tartrate BID on Plavix (h/o [place]- clot to heart vessel per CG- aprx [...] QDAY d/ t hypoglycemia Lab ResultsComponent Value RygyITGE1E 7.8 (A) 02/14/2023HGBA1C 6.3 (H) 02/01/2022 Goals [...] okDo you have a Durable Power of Certified Ethical Hacker for Healthcare, or Healthcare Proxy Or Guardianship? Yes, preferred proxy but not named POAIf so, Who? HCP: grand daughter Kerry Waldrop Do you have a written Advance Directive?Other details of discussion: (Who was present, patients description of wishes/goals)Today's plan:1123F : AD or surrogate was documented in the medical record.
--- OUTSIDE RECORDS SUMMARY | 2024-09-13 13:49 | XMS_ITS | Patient Health Record ---
Author Organization [facility] Address [address] [place] [address] Care Team Providers Care Wastewater Analyst Name Role Phone Felice (DO NOT USE), [facility] Care Provi yareli Unavailable Adrian Robles Unavailable [phone] Reason For Referral No Information Medications Medication SIG (Take, Route, Frequency, Duration) Notes Start Date End Date Status metFORMIN HCl 1000mg Active Plavix 75mg Active glipiZIDE 10mg Activ e traMADol HCl Active Lipitor 40mg Active Metoprolol Tartrate 25mg Active Furosemide 20mg Acti ve NexIUM 40mg Active Problems Problem Type SNOMED Code ICD Code Onset Dates Problem Status W/U Status Risk Notes Problem 220002513 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 [address] [place] [address] [id number] HANNAH MONK Self - patient is the insured Medical (General) History Medical History History ICD Code EGD 07-06-2011-small area of Jo's-no dysplasia; small HH Colonoscopy 04-04-2009-hyperplastic polyp NIDDM Colon polyps--tubular adenomas removed i n 2002 and in 2005 Hyperlipidemia GERD She denies any history of [place], stroke,josh al disease, nor lung disease CAD--on Plavix--Cardiac cath in 1998--no [place]--does not think she has any stents in Colonoscopy in 12/2014--smal l adenomas, diverticulosis and internal hemorrhoids Surgical History Surgery Date(Month/Year) PATRICIA
--- OUTSIDE RECORDS SUMMARY | 2024-09-13 13:49 | XMS_ITS | Clinical Summary ---
Author Organization [facility] Address [address] [facility] [address] [place] [address] Care Team Providers Care Portable Track Crew Chief Name Role Phone Name, Tyson MCKINNON Primary Care Provider [phone] Allergies Active Allergy Reactions Criticality Noted Date [...] 02/06/20 24 Active Lancets (OneTouch Delica Plus Trphrg43P) miscIndications :Type 2 diabetes mellitus with other specified complication, without long-term current use of insulin ([facility]) TEST BLOOD SUGAR TWICE DAILY 100 each 3 03/27/19 25 Active losartan (Cozaar) 25 MG tabletIndicatio ns:Hypertension , unspecified type TAKE 1 TABLET BY MOUTH EVERY EVENING 90 tablet 3 04/02/19 25 Active Ferrous Sulfate (iron) 325 (65 Fe) MG tabletIndicatio ns:Type 2 diabetes mellitus with other specified complication, unspecified whether correction insulin use ([facility]) TAKE 1 TABLET BY MOUTH EVERY EVENING [...] 01/21/2012 Non-compliance 12/22/2011 Coronary artery disease involving [place] coronar y artery 09/20/2011 Hiatal hernia 09/20/2011 Mixed hyperlipidemia 08/12/2011 Jo's esophagus 07/21/2011 Chest pain 07/20/2011 Dizziness and giddiness 07/20/2011 Essential hypertension 07/20/2011 Migraine 07/20/2011 Osteopenia of multiple sites 08/09/2005 Encounters Date Type Department Care Team Description 09/06/2024 Refill [facility] [address] [place] [address] Tyson March MD 09/03/2024 Orders Only [facility] External Provider, [facility] 08/27/2024 Telephone [facility] [address] [place], [place] [phone] Shanelle Joseph, JUSTEN 08/20/2024 Telephone [facility] [address] [place], [place] [phone] Roslyn Ellis, RN Add to LANDSCAPE DESIGNER 08/20/2024 Refill [facility] [address], [place] [phone] Tyson March MD Chronic knee pain, unspecified laterality 07/23/2024 Refill [facility] [address] [place] [address] Tyson March MD Chronic knee pain, unspecified laterality 07/17/2024 Orders Only [facility] External Provider, [facility] 07/16/2024 Refill C [facility] [address] [place] [address] Name, MD Tyson 06/22/2024 Refill [facility] [address] [place] [address] Name, MD Tyson 06/18/2024 Refill [facility] [address] [place], [place] [phone] Rose Quintana, MARCOS Chronic pain of both knees 06/18/2024 Refill [facility] [address], [place] [phone] Name, MD Tyson Chronic knee pain, unspecified [...] complication, without long-term current use of insulin ([facility]) LIPID PANEL, STANDARD Routine 12/08/2023 10:10 AM EDT Type 2 diabetes mellitus with other specified complication, without long-term current use of insulin ([facility]) Chronic knee pain, unspecified laterality Venous insufficiency [...] PM EDT Narrative 09/03/2024 3:54 PM EDT [place] [address] XRay Report Signed Patient: Nadine Clement MR#: [id number] 69 : 1940 Acct:[id number] Age/Sex: 84 / F ADM Date: 09/03/24 Loc: [facility] Attending Dr: Ernestine FERRARI Ordering Physician: Ernestine Jc Date of Service: 09/03/24 Procedure(s): XR lumbar spine 4V min Accession Number(s): [id number] cc: Ernestine Jc; Name,Tyson MCKINNON EXAMINATION: X-ray [...] 09/03/24 1551 DD/ 1400 TD/TT: 09/03/24 1417 Chemical Economist: Procedure Note Donotuseinterpreter, Image - 09/03/[address] [address] XRay Report Signed Patient: Nadine ClementMR#: [id number] 69 : 1940cct:[id number] Age/Sex: 84 / FADM Date: 09/03/24 Loc: HO.XRAY Attending Dr: Ernestine FERRARI Ordering Physician: Ernestine Jc Date of Service: 09/03/24 Procedure(s): XR lumbar spine 4V min Accession Number(s): [id number] cc: Ernestine Jc; Name,Tyson MCKINNON EXAMINATION: X-ray [...] 09/03/24 155 DD/ 1400 TD/TT: 09/03/24 1417 Chemical Economist: [facility] External Provider IMG XR PROCEDURES Final Result * CT Chest w/o Contrast (07/18/2024 11:55 AM EDT) Anatomical Region Laterality Modality Body, Chest Computed Tomogra phy 07/18/2024 11:5 5 AM EDT Narrative 07/18/2024 11:57 AM EDT [address] [address] [address] Scan Report Signed Patient: Nadine Clement MR#: [id number] [birth year] : 1940 Acct:[id number] Age/Sex: 83 / F ADM Date: 07/17/24 Loc: HO.CT Attending Dr: Melquiades Ramos MD Ordering Physician: Melquiades Ramos MD Date of Service: 07/17/24 Procedure(s): CT chest wo IV con Accession Number(s): [id number] cc: Tyson March MD; Melquiades Ramos MD Report Number: [id number]: Total DLP = 126.00 mGy-cm CLINICAL HISTORY: [...] 07/18/24 1157 DD/ 1155 TD/TT: 07/18/24 1155 Chemical Economist: Procedure Note Donotuseinterpreter, Image - 07/23/[address] [place] [address] [address] Scan Report Signed Patient: Nadnie Clement#: [id number] [birth year] : [birth year]Acct:[id number] Age/Sex: 83 / FADM Date: 07/17/24 Loc: HO.CT Attending Dr: Melquiades Ramos MD Ordering Physician: Melquiades Ramos MD Date of Service: 07/17/24 Procedure(s): CT chest wo IV con Accession Number(s): [id number] cc: Name,Tyson MCKINNON; Melquiades Ramos MD Report Number: [id number]: Total DLP = 126.00 mGy-cm CLINICAL HISTORY: [...] 07/18/24 1157 DD/ 1155 TD/TT: 07/18/24 1155 Chemical Economist: [facility] External Provider IMG CT PROCEDURES Edited Result - Final * (ABNORMAL) POCT HGB A1C (04/10/2024 3:23 PM EST) Hemoglobin A1C 6.8(A) 4.0 - 6.0 % QC Media Lot # [id number] Lot# Expiration Date [id number] Blood 04/10/2024 3:23 PM EST Tyson March MD POINT OF CARE TEST ENTER/EDIT OR DERABLES Final Result * Lipid Panel, Standard (12/08/2023 10:10 AM EDT) Triglycerides 82 <150 mg/dL [facility] Comment:Desirable Triglyceri de: less than 150 mg/dLBorderline High Triglyceride 150-199 mg/dLHigh Triglyceride: 200-499 mg/dLVery High Triglyceride: greater than or equal to 5OO mg/dL Cholesterol 123 <200 mg/dL [facility] Comment:Desirable Cholestero l: less than 200 mg/dLBorderline High Cholesterol: 200-239 mg/dLHigh Cholesterol: greater than 239 mg/dL LDL Cholesterol Calculated 47 <100 mg/dL [facility] Comment:Desirable LDL: less than 100 mg/dLNear Optimal/Above Optimal LDL: 110- 129 mg/dLBorderline High LDL: 130-159 mg/dLHigh LDL: 160-189 mg/dLVery High LDL: greater than or equal to 190 mg/dL HDL Cholesterol 60 >40 mg/dL [facility] Comment:Desirable HDL: great er than 40 mg/dL Note: This HDL assay may give artificially low results in patients with liver disease. Blood Venous blood specimen / Unknown 12/08/2023 10:10 AM EDT 12/08/2023 11:16 AM EDT us Tyson March MD LAB BLOOD ORDERABLES Final Resul t Performing Organization Address [facility] de Phone Number [facility] [address] [place] [phone] * Albumin, Random Urine W/Creatinine (02/07/2023 10:15 AM EST) Creatinine, Urine 75.20 mg/dL [facility] Microalbumin Urine 8.0 mg/L [facility] Microalbum Creatinine Ratio Ur 10.6 <30 ug/mg cr [facility] Comment:Albumin/Creatinine R atio Reference Ranges: Normal: < 30 ug/mg creatinine Microalbuminuria: 30 - 300 ug/mg creatinineClinical Albuminuria: > 300 ug/mg creatinine 02/07/2023 10:1 5 AM EST 02/07/2023 11:06 AM EST us Tyson March MD LAB URINE ORDERABLES Final Resul t Performing Organization Address [facility] Co de Phone Number [facility] [address] [place] [phone] from Last 3 Months or Most Recently Relevant to Health Maintenance Insurance DENTAL [facility] [place] STAND ADULT DENTAL [facility] Care Teams Portable Track Crew Chief Relationship Specialty Start Date End Date Name, MD Tyson [address] [place], [place] [address]j[place] [address] PCP - General Family Medicine 01/18/19
== END 2024-09-13 14:22 | disposition home or self-care (01) ==
LOC: HO.HUSH 13:45
PROVIDERS: PCP Internal Medicine Geriatric Medicine; Visit Provider Nurse Practitioner Family
DX: R39.15 Urgency of urination (principal); R33.9 Retention of urine, unspecified; R39.89 Other symptoms and signs involving the genitourinary system; R31.0 Gross hematuria; Z13.9 Encounter for screening, unspecified
CPT/HCPCS: 99213; G2211

== ENCOUNTER 2024-09-13 13:44 | Outpatient (REF) | payer OTHER, SELFPAY | END 2024-09-13 13:45 | disposition home or self-care (01) | LOC: HO.LAB 13:44 | PROVIDERS: PCP Internal Medicine Geriatric Medicine; Visit Provider Nurse Practitioner Family | DX: R31.0 Gross hematuria (principal); Z13.9 Encounter for screening, unspecified; R39.13 Splitting of urinary stream; R33.9 Retention of urine, unspecified; R39.89 Other symptoms and signs involving the genitourinary system | CPT/HCPCS: 51798; 81003; 88112; 99212 ==

== ENCOUNTER 2024-10-10 12:43 | Outpatient (AMB) | payer OTHER, MEDICAID, SELFPAY ==
--- NOTE | 2024-10-10 12:53 | MHC.OFFVIS ---
Intake Visit Reasons: follow up Allergies aspirin (ASA) Adverse Reaction (Verified 09/13/24 14:27) Unknown HPI Comments Details: 84 years old woman with coronary artery disease, diabetes, breast cancer, dementia probably of Alzheimer type, and migraine type headaches. She was doing ok. She has recently come from [place]. Sleep is ok. Mood is ok. Walking is fine. Bladder control is ok. No behavioral issues. Memory was not good and she was getting more forgetful. She was forgetting people who she used to no well. Long-term memory was still okay. [facility] Medical History (Updated 10/10/24 @ 13:08 by Fabiola Carlos MD) Alzheimer dementia Temporomandibular disorder Analgesic overuse headache Chronic tension type headache Migraine Osteoarthritis of left knee B12 deficiency Ductal carcinoma in situ (DCIS) of right breast Surgical History History of cystoscopy (~2015) Hx of cataract extraction (~10/11/16) History of lumpectomy of right breast (~10/09/13) Hx of breast biopsy Hx of angioplasty Hx of total hypophysectomy (~1994) Family History Maternal Uncle Hx of cancer of lung Mother Hx of cancer of lung Diabetes Sister Diabetes Brother Diabetes Social History Household Members: Other Household Members Other:: [facility] Housing: House Are you a primary child care group leader to a significant other at home: No Do you presently have visiting nurse or other home services: Yes Alcohol intake: never Patient Tobacco Use Status: Never used Tobacco e-Cigarette/Vaping Use: Never Used service: No Current occupational status: retired Physical Exam Neuro Other: Mental Status: Alert and oriented to person, place, and time. Normal attention. Normal spontaneous speech, fluency, and comprehension. Cranial Nerves: CN II: Visual mo full to confrontation, visual acuity intact. CN III, IV, : Pupils equal, round, reactive to light and accommodation. Extraocular movements are normal. CN V: Facial sensation is normal. CN VII: Facial movements symmetrical. CN VIII: Hearing intact to bedside conversation is normal. CN IX, X: Palate elevates symmetrically. CN XI: Shoulder shrug and head turn symmetrical. CN XII: Tongue midline without atrophy or fasciculations. Extrapyramidal: Full facial expressions and blinking. No rigidity. Movements are appropriate with no tremor or abnormality. Speech: Normal; no dysarthria or tremor. Assessment & Plan Assessment & Plan (1) Alzheimer dementia: Code(s): G30.9 - Alzheimer's disease, unspecified; F02.80 - Dementia in other diseases classified elsewhere, unspecified severity, without behavioral disturbance, psychotic disturbance, mood disturbance, and anxiety Category: Medical Qualifiers: Alzheimer's disease onset: late onset Dementia severity: moderate Dementia behavioral or psychological symptom: with anxiety Qualified Code(s): G30.1 - Alzheimer's disease with late onset; F02.B4 - Dementia in other diseases classified elsewhere, moderate, with anxiety (2) Migraine: Comment: Meds tried: Topamax, amitriptyline, sertraline, Depakote, verapamil MRI brain [place] [facility] [place] Dec [place]: mild diff atrophy, minimal MVD, b/l mastoid effusions CT brain WO at [facility] in 2015: WNL. Code(s): G43.909 - Migraine, unspecified, not intractable, without status migrainosus Category: Medical Qualifiers: Migraine type: migraine (< 15 days per month) without aura Status migrainosus presence: without status migrainosus Intractability: not intractable Qualified Code(s): G43.009 - Migraine without aura, not intractable, without status migrainosus Plan Impression: 1. Mild-to moderate probably Alzheimer type dementia with anxiety 2. Migraine without aura now better with Depakote Recommendations: 1. Memantine 5 mg twice a day 2. Donepezil 10 mg daily 3. Sertraline 50 mg in the morning 4. Divalproic acid 250 mg 1 at bedtime Medications: New sertraline 50 mg PO QAM 90 tabs 1RF donepezil 10 mg PO DAILY 90 tabs 1RF memantine 5 mg PO DAILY 180 tabs 1RF Changed From divalproex ER 250 mg PO DAILY To divalproex ER 250 mg orally one at bedtime; 90 tabs 1RF Coding Level of Care Code Est Pt Level 4 (63248) Diagnoses Moderate late onset Alzheimer's dementia with anxiety G30.1; F02.B4 Alzheimer's disease onset: late onset Dementia severity: moderate Dementia behavioral or psychological symptom: with anxiety Migraine without aura and without status migrainosus, not intractable G43.009 Migraine type: migraine (< 15 days per month) without aura Status migrainosus presence: without status migrainosus Intractability: not intractable
--- OUTSIDE RECORDS SUMMARY | 2024-10-10 13:15 | XMS_ITS ---
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 technique and [...] metoprolol t artrate BID on Plavix (h/o [place]- clot to [...] control and bp control Lab ResultsComponent Value SwndVLJV4Q 7.8 (A) 02/14/2023HGBA1C 6.3 (H) 02/01/2022Lab ResultsComponent Value DateGLUCOSE 121 (H) 11/19/2022NA 144 3K 4.5 3CO2 26 11/19/2022L 109 (H) 3BUN 14 11/19/2022REATININE 1.05 11/19/2022 SOB (shortness of breath)COPD Active 2022-01-25 N/A prn albuterol inhalerfollows with pulmonology Encounters Encounters Type Facility Date of Service Diagnosis/Co mplaint Pain Assessment - Pain Documented on a Pain Scale (1125F) [facility] [place] Pain Assessment - Pain Documented on a Pain Scale (1125F) [facility] [place] Pain Assessment - Pain Documented on a Pain Scale (1125F[place] [facility] [place] Pain Assessment - Pain Documented on a Pain Scale (1125F) [facility] [place] Pain Assessment - Pain Documented on a Pain Scale (1125F) [facility] [place] Pain Assessment - Pain Documented on a Pain Scale (1125F) [facility] [place]22 Pain Assessment - Pain Documented on a Pain Scale (1125F) [facility] [place]22 Hyperlipidemia, unspecifiedGastro-esophageal reflux disease without esophagitisInsomnia, unspecifiedType 2 diabetes mellitus without complicationsEssential (primary) hypertensionAge-related osteoporosis without current pathological fractureOveractive bladderShortness of breathUnspecified dementia without behavioral disturbanceOther thrombophiliaUnspecified atrial fibrillationPersonal history of malignant neoplasm of breast Pain Assessment - Pain Documented on a Pain Scale (1125F) [facility] ([place]) 01/[place]/2022 Pain Assessment - Pain Documented on a Pain Scale (1125F) [facility] [place] Estab. patient 30-39min; chronic exacerbation, 2 stable chronic or 1 acute illness add add modifier 95 for video, (do not use for phone, instead use 35449-20) [facility] [place]04[place]2022 Type 2 diabetes mellitus wit h [...] (do not use for phone, instead use 63895-63) [facility] [place] Estab. patient 30-39min; chronic exacerbation, 2 stable chronic or 1 acute illness add add modifier 95 for video, (do not use for phone, instead use 70037-15) [facility] Estab. patient 30-39min; chronic exacerbation, 2 stable chronic or 1 acute illness add add modifier 95 for video, (do not use for phone, instead use 91514-18) [facility] Estab. patient 30-39min; chronic exacerbation, 2 stable chronic or 1 acute illness add add modifier 95 for video, (do not use for phone, instead use 35075-81) [facility] [place]22 Estab. patient 30-39min; chronic exacerbation, 2 stable chronic or 1 acute illness add add modifier 95 for video, (do not use for phone, instead use 48514-55) [facility] [place] Estab. patient 30-39min; chronic exacerbation, 2 stable chronic or 1 acute illness add add modifier 95 for video, (do not use for phone, instead use 06038-07) [facility] [place] 10[place] Estab. patient 30-39min; chronic exacerbation, 2 stable chronic or 1 acute illness add add modifier 95 for video, (do not use for phone, instead use 06905-76) [facility] [place] Estab. patient 30-39min; chronic exacerbation, 2 stable chronic or 1 acute illness add add modifier 95 for video, (do not use for phone, instead use 85914-04) [facility] [place] 10[place]22 Estab. patient 30-39min; chronic exacerbation, 2 stable chronic or 1 acute illness add add modifier 95 for video, (do not use for phone, instead use 07325-06) [facility] Estab. patient 30-39min; chronic exacerbation, 2 stable chronic or 1 acute illness add add modifier 95 for video, (do not use for phone, instead use 63330-32) [facility] 03[place]/2023 Type 2 diabetes mellitus wit [...] (do not use for phone, instead use 11196-92) [facility] Estab. patient 30-39min; chronic exacerbation, 2 stable chronic or 1 acute illness add add modifier 95 for video, (do not use for phone, instead use 99839-70) [facility] 03[place]24/[place]23 Estab. patient 30-39min; chronic exacerbation, 2 stable chronic or 1 acute illness add add modifier 95 for video, (do not use for phone, instead use 60423-14) [facility] 03[place]/2023 Estab. patient 30-39min; chronic exacerbation, 2 stable chronic or 1 acute illness add add modifier 95 for video, (do not use for phone, instead use 75784-98) [facility] 03[place]23 Estab. patient 30-39min; chronic exacerbation, 2 stable chronic or 1 acute illness add add modifier 95 for video, (do not use for phone, instead use 85150-74) [facility] 03[place]24/[place]23 Estab. patient 30-39min; chronic exacerbation, 2 stable chronic or 1 acute illness add add modifier 95 for video, (do not use for phone, instead use 67109-21) [facility] 03[place]23 Estab. patient 30-39min; chronic exacerbation, 2 stable chronic or 1 acute illness add add modifier 95 for video, (do not use for phone, instead use 12006-60) [facility] 03[place]23 Estab. patient 30-39min; chronic exacerbation, 2 stable chronic or 1 acute illness add add modifier 95 for video, (do not use for phone, instead use 91271-11) [facility] 03/[place]23 Estab. patient 30-39min; chronic exacerbation, 2 stable chronic or 1 acute illness add add modifier 95 for video, (do not use for phone, instead use 37001-82) [facility] 03/[place]23 Estab. patient 20-29min; 1 stable chronic or 2 minor; add add modifier 95 for video, modifier 93 for phone [facility] 05/01/2024 Type 2 diabetes mellitus wit [...] 95 for video, modifier 93 for phone [facility] [place]01/[place] Estab. patient 20-29min; 1 stable chronic or 2 minor; add add modifier 95 for video, modifier 93 for phone [facility] [place] 05/01/2024 Estab. patient 20-29min; 1 stable chronic or 2 minor; add add modifier 95 for video, modifier 93 for phone [facility] [place] 05/01/2024 Estab. patient 20-29min; 1 stable chronic or 2 minor; add add modifier 95 for video, modifier 93 for phone [facility] 05/01/2024 Estab. patient 20-29min; 1 stable chronic or 2 minor; add add modifier 95 for video, modifier 93 for phone [facility] 05/01/2024 Estab. patient 20-29min; 1 stable chronic or 2 minor; add add modifier 95 for video, modifier 93 for phone [facility] 05/01/2024 Estab. patient 20-29min; 1 stable chronic or 2 minor; add add modifier 95 for video, modifier 93 for phone [facility] 05/01/2024 Estab. patient 20-29min; 1 stable chronic or 2 minor; add add modifier 95 for video, modifier 93 for phone [facility] [place] 05/01/2024 Vital Signs Date of Collection Vitals [...] tive Time Current Smoking Status Never smoker 6 Sex Female History of Procedures Procedures [...] 95 for video, modifier 93 for phone 03250 2022-01-25 No Data Available No Data Availa ble DBP <80 (3078F) 3078F 2022-01-25 No Data Available No Data Available SBP >= 140 3077F 2022-01-25 No Data Available No Data Available Estab. patient 30-39min; chronic exacerbation, 2 stable chronic or 1 acute illness add add modifier 95 for video, (do not use for phone, instead use 32554-27) 72685 2022-10-04 No Data Available No Data Availa [...] (do not use for phone, instead use 00653-99) 06412 2023-03-24 No Data Available No Data Availa [...] 95 for video, modifier 93 for phone 51547 2024-05-01 No Data Available No Data Availa [...] lives with daughter an d grandson 2022-01-25 NUCLEAR TECHNOLOGIST is her grand daughter 2022-10-04 Mental Status [...] with diabetic chronic kidney disease, CKD stage G3a/N5Dhhxonxphims heart disease with stage 3a chronic kidney [...] D and osteoporosis surveillance stressed-- Risk of alf PPI use discussed-- Antireflux diet: avoid tomatoes, [...] D and osteoporosis surveillance stressed-- Risk of alf PPI use discussed-- Antireflux diet: avoid tomatoes, [...] QDAY d/ t hypoglycemia Lab ResultsComponent Value GuohASLG6V 7.8 (A) 02/14/2023HGBA1C 6.3 (H) 02/01/2022Lab ResultsComponent [...] your log in next visit.Lab ResultsComponent Value UervINEA2S 7.8 (A) 02/14/2023HGBA1C 6.3 (H) 02/01/2022Lab ResultsComponent [...] control and bp control Lab ResultsComponent Value EnksAWAW6E 7.8 (A) 02/14/2023HGBA1C 6.3 (H) 02/01/2022Lab ResultsComponent [...] QDAY d/ t hypoglycemia Lab ResultsComponent Value YccoXOQU3F 7.8 (A) 02/14/2023HGBA1C 6.3 (H) 02/01/2022 2024-05-01 [...] joint pain increased [facility] Follow-up with [facility] as needed for any acute or disease education needs that may arise 27/09.what should be done when the member calls: see each individual diagnosis for contingency planesomeprazole Recommend famotidine 20 mg twice daily as needed for dyspepsia-- Smoking cessation encouranged-- Dietary and life style changes encouraged-- Calcium/Vit D and osteoporosis surveillance stressed-- Risk of alf PPI use discussed-- Antireflux diet: avoid tomatoes, [...] QDAY d/ t hypoglycemia Lab ResultsComponent Value DclrYDGN4L 7.8 (A) 02/14/2023HGBA1C 6.3 (H) 02/01/2022Lab ResultsComponent [...] organ damage (headache, vision changes, chest pain)/ 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 Yes, preferred proxy but not named POAIf so, Who? HCP: grand daughter Kerry Waldrop Do you have a written Advance Directive?Other details of discussion: (Who was present, patients description of wishes/goals)Today's plan:1123F : AD or surrogate was documented in the medical record.
--- OUTSIDE RECORDS SUMMARY | 2024-10-10 13:15 | XMS_ITS | Encounter Summary ---
Author Organization [employer] Address [address] [place] [address] Care Team Providers Care Computer Teacher Name Role Phone Name, Tyson MCKINNON Primary Care Provider [phone] Reason for Visit * Reason Comments Med Refill Encounter Details Date Type Department Care Team ([facility] st Contact Info) Description 10/08/[address] [facility] [address] [place], [place] [id number] Rose Quintana, MARCOS [address] [place] [address] Chronic knee pain, unspecified laterality Social History Tobacco Use Types Packs/Day Years [...] Visit Diagnoses Diagnosis Chronic knee pain, unspecified laterality documented in this encounter Additional Health Concerns Assessment Noted Time PHQ-9 Depression Total Score: 0 05/17/19 24 2:27 PM EDT documented as of this encounter Care Teams Computer Teacher Relationship Specialty Start Date End Date Name, MD Tyson [address] [place] [address] PCP - General Family Medicine 01/18/19 documented as of this encounter
--- OUTSIDE RECORDS SUMMARY | 2024-10-10 13:15 | XMS_ITS | Patient Health Record ---
Author Organization [facility] Address [address] [place] [address] Care Team Providers Care Signal Apprentice Name Role Phone Felice (DO NOT USE), [facility] Primary Care Provi yareli Unavailable Adrian Robles Unavailable [phone] Reason For Referral No Information Medications Medication SIG (Take, Route, Frequency, Duration) Notes Start Date End Date Status metFORMIN HCl 1000mg Active Plavix 75mg Active glipiZIDE 10mg Activ e traMADol HCl Active Lipitor 40mg Active Metoprolol Tartrate 25mg Active Furosemide 20mg Acti ve NexIUM 40mg Active Problems Problem Type SNOMED Code ICD Code Onset Dates Problem Status W/U Status Risk Notes Problem [id number] 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 [address] [place] [address] [id number] HANNAH MONK Self - patient is the insured Medical (General) History Medical History History ICD Code EGD 07-06-2011-small area of Jo's-no dysplasia; small HH Colonoscopy 04-04-2009-hyperplastic polyp NIDDM Colon polyps--tubular adenomas removed i n 2002 and in 2005 Hyperlipidemia GERD She denies any history of DE, stroke,josh al disease, nor lung disease CAD--on Plavix--Cardiac cath in 1998--no DE--does not think she has any stents in Colonoscopy in 12/2014--smal l adenomas, diverticulosis and internal hemorrhoids Surgical History Surgery Date(Month/Year) PATRICIA
== END 2024-10-10 13:16 | disposition home or self-care (01) ==
LOC: HO.HSM 12:44
PROVIDERS: PCP Internal Medicine; Referring Provider Internal Medicine; Visit Provider Psychiatry & Neurology Neurology
DX: G30.1 Alzheimer's disease with late onset (principal); F02.B4 Dementia in other diseases classified elsewhere, moderate, with anxiety; G43.009 Migraine without aura, not intractable, without status migrainosus
CPT/HCPCS: 99214

== ENCOUNTER → 2024-10-10 12:43 | Outpatient (BNVA) | payer OTHER, SELFPAY | PROVIDERS: PCP Internal Medicine; Referring Provider Internal Medicine; Visit Provider Psychiatry & Neurology Neurology | DX: G30.1 Alzheimer's disease with late onset (principal); F02.B4 Dementia in other diseases classified elsewhere, moderate, with anxiety; G43.009 Migraine without aura, not intractable, without status migrainosus | CPT/HCPCS: 99212 ==

== ENCOUNTER 2024-10-15 14:04 | Outpatient (AMB) | payer OTHER, SELFPAY ==
--- NOTE | 2024-10-15 14:08 | MHC.OFFVIS ---
Vital Signs 10/15/24 14:09 Height 5 ft 4 in Weight 154 lb BMI 26.4 BP 111/58 L Blood Pressure Location Lt brachial Position Sitting Pulse 67 Pulse Source Pulse Oximeter Pulse Oximetry (%) 97 Oxygen Delivery Method Room Air Intake Visit Reasons: copd Allergies aspirin (ASA) Adverse Reaction (Verified 10/15/24 14:11) Unknown HPI HPI copd: Details: 84-year-old lady, lifetime nonsmoker, with prior history of treated breast cancer, referred for evaluation of abnormal CT scan that demonstrated bilateral upper lobes densities not previously seen on CT chest obtained in 2016.? Patient denies unintended weight loss.? Patient has recent follow-up CT chest that showed waxing and waning pulmonary nodules. [facility] Medical History (Updated 10/10/24 @ 13:08 by Fabiola Carlos MD) Alzheimer dementia Temporomandibular disorder Analgesic overuse headache Chronic tension type headache Migraine Osteoarthritis of left knee B12 deficiency Ductal carcinoma in situ (DCIS) of right breast Surgical History History of cystoscopy (~2015) Hx of cataract extraction (~10/11/16) History of lumpectomy of right breast (~10/09/13) Hx of breast biopsy Hx of angioplasty Hx of total hypophysectomy (~1994) Family History Maternal Uncle Hx of cancer of lung Mother Hx of cancer of lung Diabetes Sister Diabetes Brother Diabetes Social History Household Members: Other Household Members Other:: [facility] Housing: House Are you a primary child care team lead to a significant other at home: No Do you presently have visiting nurse or other home services: Yes Alcohol intake: never Patient Tobacco Use Status: Never used Tobacco e-Cigarette/Vaping Use: Never Used service: No Current occupational status: retired Review of Systems Const Denies daytime sleepiness, Denies excessive sweating, Denies fatigue, Denies fever(s), Denies lethargy, Denies malaise, Denies night sweats, Denies snoring and Denies weight loss Eyes Denies blurry vision and Denies itchy eyes ENT Denies nasal congestion, Denies post nasal drip, Denies sinus pain, Denies sinus pressure and Denies other ( Thrush) Card Denies chest pain, Denies pedal edema, Denies dyspnea, Denies orthopnea and Denies paroxysmal nocturnal dyspnea Resp Denies cough, Denies hemoptysis, Denies excessive phlegm production, Denies dyspnea, Denies snoring and Denies wheezing GI Denies abdominal pain and Denies heartburn Musc Denies myalgias, Denies arthralgias and Denies joint swelling Skin/Breast Denies rash Neuro Denies memory loss and Denies seizure-like activity Psych Denies abnormal sleep pattern, Denies anxiety and Denies memory loss Endo Denies excessive sweating, Denies fatigue and Denies heat intolerance Oni/Lymph Denies easy bruising Aller/Immun Denies itchy eyes, Denies seasonal rhinorrhea and Denies wheezing Physical Exam Vital Signs: Last Vital Signs Pulse 67 10/15/24 14:09 BP 111/58 L 10/15/24 14:09 Pulse Ox 97 10/15/24 14:09 Oxygen Delivery Method Room Air 10/15/24 14:09 BMI result Body Mass Index 26.4 Const General: no acute distress and alert Nutritional Appearance: not obese Orientation/consciousness: Other orientation findings ( oriented) HEENT Head: Yes atraumatic Eyes General: appearance normal, both eyes and all related structures Sclerae: sclerae normal EOM: EOMs intact bilaterally Neck Neck: Yes supple Lymphatic: no lymphadenopathy noted Resp Effort & Inspection: normal respiratory effort and no use of accessory muscles Auscultation: clear to auscultation bilaterally Cardio Rate: regular rate Rhythm: regular rhythm Heart sounds: no gallops, no murmurs and no rubs Skin General skin exam: other ( warm) Extrem General: No clubbing, No cyanosis and No edema Assessment & Plan Assessment & Plan (1) Abnormal CT scan, chest: Code(s): R93.89 - Abnormal findings on diagnostic imaging of other specified body structures Category: Medical Plan: Waxing and waning pulmonary nodules by on most recent follow-up CT chest. Will repeat CT chest in 12 months, if no significant changes further imaging follow-up would not be required. Orders: Orders CT chest wo IV con 08/15/25 R93.89 - Abnormal findings on diagnostic imaging of other specified body structures Coding Level of Care Code Est Pt Level 3 (42769) Diagnoses Abnormal CT scan, chest R93.89
[2024-10-15 14:09] VITALS: BP 111/58; PULSE 67; O2SAT 97; BMI 26.4
--- OUTSIDE RECORDS SUMMARY | 2024-10-15 14:32 | XMS_ITS ---
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 Name Role Phone Herlinda Chery Unavailable [phone] NameTyson Unavailable [phone] Reason for Referral Not Available Allergies, adverse [...] 2021-05-11 No Data Available OneTouch Delica Plus [id number] Miscellaneous TEST BLOOD SUGAR TWICE DAILY 2021-05-15 [...] mg Tab TAKE 1 TABLET BY [facility] EVERY [facility]ORNING 2023-09-21 No Data Available calcium [...] QDAY d/ t hypoglycemia Lab ResultsComponent Value OpoaOWQB0Y 7.8 (A) 02/14/2023HGBA1C 6.3 (H) 02/01/2022Lab ResultsComponent [...] QDAY d/ t hypoglycemia Lab ResultsComponent Value FbvsPNMN2E 7.8 (A) 02/14/2023HGBA1C 6.3 (H) 02/01/2022 Hyperlipidemia [...] organ damage (headache, vision changes, chest pain)/ 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 and reassess/ [...] metoprolol t artrate BID on Plavix (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 [...] control and bp control Lab ResultsComponent Value QpjxVVCR3O 7.8 (A) 02/14/2023HGBA1C 6.3 (H) 02/01/2022Lab ResultsComponent Value DateGLUCOSE 121 (H) 11/19/2022NA 144 3K 4.5 3CO2 26 11/19/2022L 109 (H) 3BUN 14 11/19/2022REATININE 1.05 11/19/2022 SOB (shortness of breath)COPD Active 2022-01-25 N/A prn albuterol inhalerfollows with pulmonology Encounters Encounters Type Facility Date of Service Diagnosis/Co mplaint Pain Assessment - Pain Documented on a Pain Scale (1125F) [facility] [place]/2022 Pain Assessment - Pain Documented on a Pain Scale (1125F) [facility] [place]/2022 Pain Assessment - Pain Documented on a Pain Scale (1125F) [facility] [place] 01/25/2022 Pain Assessment - Pain Documented on a Pain Scale (1125F) [facility] [place] 01/25/2022 Pain Assessment - Pain Documented on a Pain Scale (1125F) [facility] [place] 01/25/2022 Pain Assessment - Pain Documented on a Pain Scale (1125F) [facility] [place] 01/25/2022 Pain Assessment - Pain Documented on a Pain Scale (1125F) [facility] [place] 01[place]25/2022 Hyperlipidemia, unspecifiedGastro-esophageal reflux disease without esophagitisInsomnia, unspecifiedType 2 diabetes mellitus without complicationsEssential (primary) hypertensionAge-related osteoporosis without current pathological fractureOveractive bladderShortness of breathUnspecified dementia without behavioral disturbanceOther thrombophiliaUnspecified atrial fibrillationPersonal history of malignant neoplasm of breast Pain Assessment - Pain Documented on a Pain Scale (1125F) [facility] [place] 01[place]25/2022 Pain Assessment - Pain Documented on a Pain Scale (1125F) [facility] [place] 01/25/2022 Estab. patient 30-39min; chronic exacerbation, 2 stable chronic or 1 acute illness add add modifier 95 for video, (do not use for phone, instead use [id number]) [facility] [place] 10/04/2022 Type 2 diabetes mellitus wit h [...] (do not use for phone, instead use 48299-75) [facility] [place] 10/04/2022 Estab. patient 30-39min; chronic exacerbation, 2 stable chronic or 1 acute illness add add modifier 95 for video, (do not use for phone, instead use 26968-39) [facility] 10[place]04/20[place] Estab. patient 30-39min; chronic exacerbation, 2 stable chronic or 1 acute illness add add modifier 95 for video, (do not use for phone, instead use 49505-48) [facility] [place] 10[place]04/20[place] Estab. patient 30-39min; chronic exacerbation, 2 stable chronic or 1 acute illness add add modifier 95 for video, (do not use for phone, instead use 16166-62) [facility] [place] 10/04/2022 Estab. patient 30-39min; chronic exacerbation, 2 stable chronic or 1 acute illness add add modifier 95 for video, (do not use for phone, instead use 86868-89) [facility] [place] 10/04/2022 Estab. patient 30-39min; chronic exacerbation, 2 stable chronic or 1 acute illness add add modifier 95 for video, (do not use for phone, instead use 37727-90) [facility] [place] 10/04/2022 Estab. patient 30-39min; chronic exacerbation, 2 stable chronic or 1 acute illness add add modifier 95 for video, (do not use for phone, instead use 12798-04) [facility] [place] 10/04/2022 Estab. patient 30-39min; chronic exacerbation, 2 stable chronic or 1 acute illness add add modifier 95 for video, (do not use for phone, instead use 87722-99) [facility] [place] 10/04/2022 Estab. patient 30-39min; chronic exacerbation, 2 stable chronic or 1 acute illness add add modifier 95 for video, (do not use for phone, instead use 67319-85) [facility] [place] 10[place]04/20[place] Estab. patient 30-39min; chronic exacerbation, 2 stable chronic or 1 acute illness add add modifier 95 for video, (do not use for phone, instead use 38694-18) [facility] [place] 03/24/2023 Type 2 diabetes mellitus wit [...] (do not use for phone, instead use 63203-40) [facility] [place] 03[place]24/2023 Estab. patient 30-39min; chronic exacerbation, 2 stable chronic or 1 acute illness add add modifier 95 for video, (do not use for phone, instead use 96087-59) [facility] [place] 03/24/2023 Estab. patient 30-39min; chronic exacerbation, 2 stable chronic or 1 acute illness add add modifier 95 for video, (do not use for phone, instead use 61986-90) [facility] [place] 03/24/2023 Estab. patient 30-39min; chronic exacerbation, 2 stable chronic or 1 acute illness add add modifier 95 for video, (do not use for phone, instead use 58996-57) [facility] 03/24/2023 Estab. patient 30-39min; chronic exacerbation, 2 stable chronic or 1 acute illness add add modifier 95 for video, (do not use for phone, instead use 10010-98) [facility] [place] 03/24/2023 Estab. patient 30-39min; chronic exacerbation, 2 stable chronic or 1 acute illness add add modifier 95 for video, (do not use for phone, instead use 14113-62) [facility] 03/24/2023 Estab. patient 30-39min; chronic exacerbation, 2 stable chronic or 1 acute illness add add modifier 95 for video, (do not use for phone, instead use 73941-48) [facility] [place] 03/24/2023 Estab. patient 30-39min; chronic exacerbation, 2 stable chronic or 1 acute illness add add modifier 95 for video, (do not use for phone, instead use 54186-24) [facility] 03/24/2023 Estab. patient 30-39min; chronic exacerbation, 2 stable chronic or 1 acute illness add add modifier 95 for video, (do not use for phone, instead use 63482-07) [facility] [place] 03/24/2023 Estab. patient 20-29min; 1 stable chronic or 2 minor; add add modifier 95 for video, modifier 93 for phone [facility] [place] 05/01/2024 Type 2 diabetes mellitus wit [...] 95 for video, modifier 93 for phone [facility] [place] 05/01/2024 Estab. patient 20-29min; 1 stable chronic or 2 minor; add add modifier 95 for video, modifier 93 for phone [facility] 05/01/2024 Estab. patient 20-29min; 1 stable chronic or 2 minor; add add modifier 95 for video, modifier 93 for phone [facility] [place] 05/01/2024 Estab. patient 20-29min; 1 stable chronic or 2 minor; add add modifier 95 for video, modifier 93 for phone [facility] 05/01/2024 Estab. patient 20-29min; 1 stable chronic or 2 minor; add add modifier 95 for video, modifier 93 for phone [facility] 05/01/2024 Estab. patient 20-29min; 1 stable chronic or 2 minor; add add modifier 95 for video, modifier 93 for phone [facility] [place] 05/01/2024 Estab. patient 20-29min; 1 stable chronic or 2 minor; add add modifier 95 for video, modifier 93 for phone [facility] 05/01/2024 Estab. patient 20-29min; 1 stable chronic or 2 minor; add add modifier 95 for video, modifier 93 for phone [facility] [place] 05/01/2024 Vital Signs Date of Collection Vitals [...] tive Time Current Smoking Status Never smoker 2024-10-05 1 Sex Female History of Procedures Procedures Service [...] 95 for video, modifier 93 for phone [id number] 2022-01-25 No Data Available No Data Availa ble DBP <80 (3078F) 3078F 2022-01-25 No Data Available No Data Available SBP >= 140 3077F 2022-01-25 No Data Available No Data Available Estab. patient 30-39min; chronic exacerbation, 2 stable chronic or 1 acute illness add add modifier 95 for video, (do not use for phone, instead use 51828-31) [id number] 2022-10-04 No Data Available No Data Availa [...] (do not use for phone, instead use 18164-85) [id number] 2023-03-24 No Data Available No Data Availa [...] 95 for video, modifier 93 for phone [id number] 2024-05-01 No Data Available No Data Availa [...] lives with daughter an d grandson 2022-01-25 STITCH WHEELER is her grand daughter 2022-10-04 Mental Status [...] with diabetic chronic kidney disease, CKD stage G3a/Q3Pddtqkmaxqth heart disease with stage 3a chronic kidney [...] CG reportmetoprolol tartrate BID on Plavix (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 [...] with pulmonologymetoprolol tartrate BID on Plavix (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 [...] QDAY d/ t hypoglycemia Lab ResultsComponent Value XfbgAMES8T 7.8 (A) 02/14/2023HGBA1C 6.3 (H) 02/01/2022Lab ResultsComponent [...] your log in next visit.Lab ResultsComponent Value UathYMNC4M 7.8 (A) 02/14/2023HGBA1C 6.3 (H) 02/01/2022Lab ResultsComponent [...] 4 03/24/23metoprolol tartrate BID on Plavix (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-- Antireflux diet: avoid tomatoes, [...] QDAY d/ t hypoglycemia Lab ResultsComponent Value GezmKPBD2M 7.8 (A) 02/14/2023HGBA1C 6.3 (H) 02/01/2022Lab ResultsComponent [...] organ damage (headache, vision changes, chest pain)/ 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 Yes, preferred proxy but not named POAIf so, Who? HCP: grand daughter Kerry Waldrop Do you have a written Advance Directive?Other details of discussion: (Who was present, patients description of wishes/goals)Today's plan:1123F : AD or surrogate was documented in the medical record.
--- OUTSIDE RECORDS SUMMARY | 2024-10-15 14:32 | XMS_ITS | Clinical Summary ---
Author Organization [employer] Address [address] [facility] [address] [place] [address] Care Team Providers Care Academic Affairs Director Name Role Phone Name, Tyson MCKINNON Primary Care Provider [phone] Allergies Active Allergy Reactions Criticality Noted Date [...] 02/06/20 24 Active Lancets (OneTouch Delica Plus [id number]) miscIndications :Type 2 diabetes mellitus with other specified complication, without long-term current use of insulin ([facility]) TEST BLOOD SUGAR TWICE DAILY 100 each 3 03/27/19 25 Active losartan (Cozaar) 25 MG tabletIndicatio ns:Hypertension , unspecified type TAKE 1 TABLET BY MOUTH EVERY EVENING 90 tablet 3 04/02/19 25 Active Ferrous Sulfate (iron) 325 (65 Fe) MG tabletIndicatio ns:Type 2 diabetes mellitus with other specified complication, unspecified whether halfway insulin use ([facility]) TAKE 1 TABLET BY MOUTH EVERY [...] EVENING 180 tablet 1 07/18/19 25 Active mirtazapine (Remeron) 30 MG tablet TAKE 1 TABLET BY MOUTH AT BEDTIME 30 tablet 1 09/07/19 25 Active traMADol (Ultram) 50 MG tabletIndicatio ns:Chronic knee pain, unspecified laterality TAKE 1/2 TABLET BY MOUTH EVERY TWELVE HOURS NEEDED FOR SEVERE PAIN 28 tablet 10/10/19 25 Active traMADol (Ultram) 50 MG tabletIndicatio ns:Chronic knee pain, unspecified laterality Take 0.5 tablets (25 mg) by mouth every 12 (twelve) hours if needed for severe pain. 28 tablet 08/21/19 25 025 Discontinued Active Problems Problem Noted Date Diagnosed Date Primary osteoarthritis of both knees 12/05/2023 B12 deficiency 2022 Anemia 07/02/2022 Daily headache 07/02/2022 Mild cognitive disorder 07/02/2022 Stage 3a chronic kidney disease 07/02/2022 Knee pain 07/06/2018 Type 2 diabetes mellitus 04/11/2018 Psychophysiologic insomnia 08/03/2017 Depressive disorder 04/12/2014 Intraductal carcinoma in situ of breast 09/04/19 14 Onychomycosis 01/21/2012 Non-compliance 12/22/2011 Coronary artery disease involving [employer] [place] coronar y artery 09/20/2011 Hiatal hernia 09/20/2011 Mixed hyperlipidemia 08/12/2011 Jo's esophagus 07/21/2011 Chest pain 07/20/2011 Dizziness and giddiness 07/20/2011 Essential hypertension 07/20/2011 Migraine 07/20/2011 Osteopenia of multiple sites 08/09/2005 Encounters Date Type Department Care Team Description 10/10/2024 Telephone [facility] [address] [place] [address] Rylee Darby [place] november recalls 10/08/2024 Refill [facility] [address] [place] [address] Rose Quintana, MARCOS Chronic knee pain, unspecified laterality 09/13/2024 Orders Only GENERIC EXTERNAL DATA DEPARTMENT Provider, Generic External Data 09/06/2024 Refill [facility] [address] [place] [address] Name, MD Tyson 09/03/2024 Orders Only [facility] External Provider, [facility] 08/27/2024 Telephone [facility] [address] [place] [address] Shanelle Joseph RN 08/20/2024 Telephone [facility] [address] [place] [address] Roslyn Ellis, RN Add to PASSENGER BOOKING CLERK 08/20/2024 Refill [facility] [address] [facility] [place] [address] Name, MD Tyson Chronic knee pain, unspecified laterality 07/23/2024 Refill [facility] [address] [facility] [place] [address] Name, MD Tyson Chronic knee pain, unspecified laterality 07/17/2024 Orders Only [facility] External Provider, [facility] 07/16/2024 Refill [facility] [address] [place] [address] Name, MD Tyson from Last 3 Months [...] your housing situation today? I have yvon masha 08/31/[address] you li [...] Care Team (Late st Contact Info) Description 12/18/2024 2:00 PM EDT Office Visit [facility] [address] [place] [address] Name, MD Tyson [address] [place] [address] Health Maintenance Due Date Last Done Comments [...] Screening 08/30/2024 08/31/2023 Diabetes: Hemoglobin A1C 10/08/2024 02/ 025, 12/02/2023, 08/31/2023, Additional history exists Influenza [...] Procedure Name Priority Date/Time Associated Diagnosis Comments CYTOPATH-CELL ENHANCED Routine 09/13/2024 5:01 PM EDT BI MAMMOGRAM SCREENING TOMOSYNTHESIS BILATERAL Routine 09/11/2024 3:15 PM EDT XR LUMBAR SPINE COMPLETE 4+ VIEWS Routine 09/03/2024 2:[address] CHEST WO CONTRAST Routine 07/18/2024 11:55 AM EDT POCT GLYCATED HEMOGLOBIN, TOTAL Routine 04/10/2024 3:23 PM EST Type 2 diabetes mellitus with other specified complication, without long-term current use of insulin ([facility]) LIPID PANEL, STANDARD Routine 12/08/2023 10:10 AM EDT Type 2 diabetes mellitus with other specified complication, without long-term current use of insulin ([facility]) Chronic knee pain, unspecified laterality Venous [...] Recently Relevant to Health Maintenance Results * Cytopath-cell enhanced (09/13/2024 5:01 PM EDT) 09/13/2024 5:01 PM EDT 09/14/2024 10:00 AM EDT [facility] - 09/17/2024 11:39 AM EDT ----- ------- Name: Nadine Clement Age/Sex: 84/F : 1940 Unit#: [id number] Attend Dr: Nivia Guy [facility]- Re09/13/24 Status: DEP [facility] Disch: ----- ------- SPEC : [id number] RECD: 09/14/24-1000 STATUS: HAYLEE SANCHES NUM: [id number] MARIEL: 09/13/24-[address]: Nivia Guy [facility] ENTERED: 09/14/24-1113 SP TYPE: Cytology OTHR DR: Tyson March MD ORDERED: Cyto-enhanced Diagnosis Urine: Negative for high-grade urothelial carcinoma. See comment. COMMENT: Cellular specimen consisting of occasional single urothelial cells, squamous cells, bacteria, acute inflammatory cells and rare red blood cells. Clinical History Gross hematuria Material Received Urine Gross Description Received is 25 cc of clear pale yellow fluid from which a ThinPrep slide is prepared. IHC S/NG Disclaimer NOTE: Unless otherwise stated, all tissue is formalin-fixed and paraffin-embedded. Some or all of the immunohistochemical tests reported herein may have been developed and their performance characteristics determined by [facility]. They have not been cleared or approved by the U.S. Food and Drug Administration (FDA). However, the FDA has determined that such clearance or approval is not necessary. This laboratory is certified under the Clinical Laboratory Improvement Amendments of 1988 (CLIA) as qualified to perform high complexity clinical laboratory testing. Copies To: Nivia Guy [facility] [address] [place] [address] Dr. Amaral [address] [place] [address] [email or web address] Name,Tyson MCKINNON [address] [place] [address] CONTINUED ON NEXT PAGE ----- ------- Name: Nadine Clement Age/Sex: 84/F : 1940 Unit#: [id number] Attend Dr: Nivia Guy [facility] Re09/13/24 Status: DEP REF Location: .LAB Disch: ----- ------- SPEC : [id number] RECD: 09/14/24 STATUS: HAYLEE SANCHES NUM: [id number] MARIEL: 09/13/24-[address] [facility] [address]: Nivia Guy [employer]ION PI[employer]URE PHOTOGRAPHER-BC ENTERED: 09/14/24 SP TYPE: Cytology OTHR DR: Tyson March MD ORDERED: Cyto-enhanced ----- ------- Signed (signature on file) Manfred Hannon MD 09/17/24 1139 ----- ------- END OF REPORT us Generic External Data Provider LAB CYTOLOGY DEEPTI YOON Final Result [facility] [address] [place] [phone] * BI Mammogram Screening Tomosynthesis Bilateral (09/11/2024 3:15 PM EDT) Anatomical Region Laterality Modality Breast Bilateral Mammography 09/11/2024 3:15 PM EDT Narrative 09/25/2024 9:12 AM EDT [facility] [address] [place] [address] Mammography Report Signed Patient: Nadine Clement MR#: [id number] 67 : 1940 Acct:[id number] Age/Sex: 84 / F ADM Date: 09/11/24 Loc: HO.MAMMO Attending Dr: Tyson March MD Ordering Physician: Tyson March MD Results: 2Benign Fi ndings Date of Service: 09/11/24 Follow Up: 1 Year From Orig inal Mammogram Procedure(s): MM tomosynthesis screening BI Accession Number(s): [id number] cc: Tyson March MD EXAMINATION: MM SCREENING DIGITAL BREAST TOMOSYNTHESIS, BILATERAL CLINICAL INFORMATION: Screening. Asymptomatic. History of right breast cancer post lumpectomy. COMPARISON: Mammography: Comparison is made with available priors TECHNIQUE: Digital breast mammography with tomosynthesis is performed in both the craniocaudal and mediolateral oblique views along with computer-aided detection (CAD). FINDINGS: There are scattered areas of fibroglandular density (ACR BI-RADS breast composition Category b). Right post lumpectomy changes are stable. There are no significant masses, abnormal calcifications, or other abnormalities. MM/MM tomosynthesis screening BI IMPRESSION: No mammographic evidence of malignancy. ASSESSMENT: BI-RADS BI-RADS 2 - Benign Findings RECOMMENDATION: Routine annual mammography screening. 1 year F/U This examination should not preclude the clinical evaluation of a suspicious palpable abnormality. This patient's information was entered into a reminder system with a target due date for their next mammogram. Electronically signed by: Luci Trevizo DO 09/25/2024 09:09 AM EDT Dictated By: Luci Trevizo DO Signed By: <Electronically signed by Luci Trevizo DO in OV> 09/25/24 0909 DD/ 1515 TD/TT: 09/11/24 1535 Traveling Electrician: Procedure Note Donotuseinterpreter, Image - [facility]/22/20[facility] [address] [place] [address] Mammography Report Signed Patient: Nadine ClementMR#: [id number] [birth year] : 9Acct:[id number] Age/Sex: 84 / FADM Date: 09/11/24 Loc: HO.MAMMO Attending Dr: Tyson March MD Ordering Physician: Tyson March MDResults: 2Benign Fi ndings Date of Service: 09/11/24Follow Up: 1 Year From Orig inal Mammogram Procedure(s): MM tomosynthesis screening BI Accession Number(s): [id number] cc: Tyson March MD EXAMINATION: MM SCREENING DIGITAL BREAST TOMOSYNTHESIS, BILATERAL CLINICAL INFORMATION: Screening. Asymptomatic. History of right breast cancer post lumpectomy. COMPARISON: Mammography: Comparison is made with available priors TECHNIQUE: Digital breast mammography with tomosynthesis is performed in both the craniocaudal and mediolateral oblique views along with computer-aided detection (CAD). FINDINGS: There are scattered areas of fibroglandular density (ACR BI-RADS breast composition Category b). Right post lumpectomy changes are stable. There are no significant masses, abnormal calcifications, or other abnormalities. MM/MM tomosynthesis screening BI IMPRESSION: No mammographic evidence of malignancy. ASSESSMENT: BI-RADS BI-RADS 2 - Benign Findings RECOMMENDATION: Routine annual mammography screening. 1 year F/U This examination should not preclude the clinical evaluation of a suspicious palpable abnormality. This patient's information was entered into a reminder system with a target due date for their next mammogram. Electronically signed by: Luci Trevizo DO 09/25/2024 09:09 AM EDT Dictated By: Luci Trevizo DO Signed By: <Electronically signed by Luci Trevizo DO in OV> 09/25/24 0909 DD/ 1515 TD/TT: 09/11/24 1535 Traveling Electrician: Tyson March MD IMG BI PROCEDURES Final Result * XR Lumbar Spine Complete 4+ Views (09/03/2024 2:00 PM EDT) Anatomical Region Laterality Modality Spine, L-spine Radiographic Samanta ging 09/03/2024 2:00 PM EDT Narrative 09/03/2024 3:54 PM EDT [address] [address] XRay Report Signed Patient: Nadine Clement MR#: [id number] [birth year] : 1940 Acct:[id number] Age/Sex: 84 / F ADM Date: 09/03/24 Loc: SHANNON Attending Dr: Ernestine FERRARI Ordering Physician: Ernestine Jc Date of Service: 09/03/24 Procedure(s): XR lumbar spine 4V min Accession Number(s): [id number] cc: Ernestine Jc; Name,Tyson MCKINNON EXAMINATION: X-ray [...] D Alas MD 09/03/2024 03:51 PM EDT Dictated By: Jose D Huertas MD Signed By: <Electronically signed by Jose D Spears MD in OV> 09/03/24 1551 DD/ 1400 TD/TT: 09/03/24 1417 Traveling Electrician: Procedure Note Donotuseinterpreter, Image - 09/03/[address] [address] XRay Report Signed Patient: Nadine ClementMR#: [id number] [birth year] : 1940cct:[id number] Age/Sex: 84 / FADM Date: 09/03/24 Loc: HO.KAREY Attending Dr: Ernestine FERRARI Ordering Physician: Ernestine Jc Date of Service: 09/03/24 Procedure(s): XR lumbar spine 4V min Accession Number(s): [id number] cc: Ernestine Jc; Name,Tyson MCKINNON EXAMINATION: X-ray [...] D Alas MD 09/03/2024 03:51 PM EDT Dictated By: Jose D Huertas MD Signed By: <Electronically signed by Jose D Spears MDin OV> 09/03/24 1551 DD/ 1400 TD/TT: 09/03/24 1417 Traveling Electrician: [facility] External Provider IMG XR PROCEDURES Final Result * CT Chest w/o Contrast (07/18/2024 11:55 AM EDT) Anatomical Region Laterality Modality Body, Chest Computed Tomogra phy 07/18/2024 11:5 5 AM EDT Narrative 07/18/2024 11:57 AM EDT [address] [place] [address] CT Scan Report Signed Patient: Nadine Clement MR#: [id number] [birth year] : 1940 Acct:[id number] Age/Sex: 83 / F ADM Date: 07/17/24 Loc: HO.CT Attending Dr: Melquiades Ramos MD Ordering Physician: Melquiades Ramos MD Date of Service: 07/17/24 Procedure(s): CT chest wo IV con Accession Number(s): [id number] cc: Name,Tyson MCKINNON; Melquiades Ramos MD Report Number: [id number]: Total DLP = 126.00 mGy-cm CLINICAL HISTORY: [...] 07/18/24 1157 DD/ 1155 TD/TT: 07/18/24 1155 Traveling Electrician: Procedure Note Donotuseinterpreter, Image - 07/23/[address] [place] [address] [address] Scan Report Signed Patient: Nadine ClementMR#: [id number] [birth year] : 9Acct:[id number] Age/Sex: 83 / FADM Date: 07/17/24 Loc: HO.CT Attending Dr: Melquiades Ramos MD Ordering Physician: Melquiades Ramos MD Date of Service: 07/17/24 Procedure(s): CT chest wo IV con Accession Number(s): [id number] cc: Name,Tyson MCKINNON; Melquiades Ramos MD Report Number: [id number]: Total DLP = 126.00 mGy-cm CLINICAL HISTORY: [...] 07/18/24 1157 DD/ 1155 TD/TT: 07/18/24 1155 Traveling Electrician: [facility] External Provider IMG CT PROCEDURES Edited Result - Final * (ABNORMAL) POCT HGB A1C (04/10/2024 3:23 PM EST) Hemoglobin A1C 6.8(A) 4.0 - 6.0 % QC Media Lot # [id number] Lot# Expiration Date Blood 04/10/2024 3:23 PM EST Tyson March MD POINT OF CARE TEST ENTER/EDIT OR DERABLES Final Result * Lipid Panel, Standard (12/08/2023 10:10 AM EDT) Triglycerides 82 <150 mg/dL [facility] Comment:Desirable Triglyceri de: less than 150 mg/dLBorderline High Triglyceride 150-199 mg/dLHigh Triglyceride: 200-499 mg/dLVery High Triglyceride: greater than or equal to 5OO mg/dL Cholesterol 123 <200 mg/dL [facility] Comment:Desirable Cholestero l: less than 200 mg/dLBorderline High Cholesterol: 200-239 mg/dLHigh Cholesterol: greater than 239 mg/dL LDL Cholesterol Calculated 47 <100 mg/dL [facility] Comment:Desirable LDL: less than 100 mg/dLNear Optimal/Above Optimal LDL: 110- 129 mg/dLBorderline High LDL: 130-159 mg/dLHigh LDL: 160-189 mg/dLVery High LDL: greater than or equal to 190 mg/dL HDL Cholesterol 60 >40 mg/dL [facility] Comment:Desirable HDL: great er than 40 mg/dL Note: This HDL assay may give artificially low results in patients with liver disease. Blood Venous blood specimen / Unknown 12/08/2023 10:10 AM EDT 12/08/2023 11:16 AM EDT Tyson March MD LAB BLOOD ORDERABLES Final Resul t Performing Organization Address [facility] de Phone Number [facility] [address] [place] [phone] * Albumin, Random Urine W/Creatinine (02/07/2023 10:15 AM EST) Creatinine, Urine 75.20 mg/dL [facility] Microalbumin Urine 8.0 mg/L [facility] Microalbum Creatinine Ratio Ur 10.6 <30 ug/mg cr [facility] Comment:Albumin/Creatinine R atio Reference Ranges: Normal: < 30 ug/mg creatinine Microalbuminuria: 30 - 300 ug/mg creatinineClinical Albuminuria: > 300 ug/mg creatinine 02/07/2023 10:1 5 AM EST 02/07/2023 11:06 AM EST Tyson March MD LAB URINE ORDERABLES Final Resul t Performing Organization Address [facility] de Phone Number [facility] [address] [place] [phone] from Last 3 Months or Most Recently Relevant to Health Maintenance Insurance FOR[facility]LY [facility] DUAL COMPLETE [facility] [facility] [facility] Care Teams Academic Affairs Director Relationship Specialty Start Date End Date Name, MD Tyson [address] [place] [address] PCP - General Family Medicine 01/18/19
--- OUTSIDE RECORDS SUMMARY | 2024-10-15 14:32 | XMS_ITS | Patient Health Record ---
Author Organization [facility] Address [address] [place] [address] Care Team Providers Care Model Maker Plastic Name Role Phone Felice (DO NOT USE), [facility] Primary Care Provi yareli Unavailable Adrian Robles Unavailable [phone] Reason For Referral No Information Medications Medication SIG (Take, Route, Frequency, Duration) Notes Start Date End Date Status metFORMIN HCl 1000mg Active Plavix 75mg Active glipiZIDE 10mg Activ e traMADol HCl Active Lipitor 40mg Active Metoprolol Tartrate 25mg Active Furosemide 20mg Acti ve NexIUM 40mg Active Problems Problem Type SNOMED Code ICD Code Onset Dates Problem Status W/U Status Risk Notes Problem 952222749 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 [address] [place] [address] [id number] HANNAH MONK Self - patient is the insured Medical (General) History Medical History History ICD Code EGD 07-06-2011-small area of Jo's-no dysplasia; small HH Colonoscopy 04-04-2009-hyperplastic polyp NIDDM Colon polyps--tubular adenomas removed i n 2002 and in 2005 Hyperlipidemia GERD She denies any history of HI, stroke,josh al disease, nor lung disease CAD--on Plavix--Cardiac cath in 1998--no HI--does not think she has any stents in Colonoscopy in 12/2014--smal l adenomas, diverticulosis and internal hemorrhoids Surgical History Surgery Date(Month/Year) PATRICIA
== END 2024-10-15 14:22 | disposition home or self-care (01) ==
LOC: HO.HPS 14:05
PROVIDERS: PCP Internal Medicine Geriatric Medicine; Visit Provider Internal Medicine Pulmonary Disease
DX: R93.89 Abnormal findings on diagnostic imaging of other specified body structures (principal)
CPT/HCPCS: 99213

== ENCOUNTER → 2024-10-15 14:04 | Outpatient (BNVA) | payer OTHER, SELFPAY | PROVIDERS: PCP Internal Medicine Geriatric Medicine; Visit Provider Internal Medicine Pulmonary Disease | DX: R93.89 Abnormal findings on diagnostic imaging of other specified body structures (principal) | CPT/HCPCS: 99212 ==

== ENCOUNTER 2024-10-18 07:37 | Outpatient (REF) | payer OTHER, SELFPAY ==
--- NOTE | ~2024-10-18 | FL_ITS ---
EXAMINATION: FL GUIDANCE ONLY HISTORY: M17.11 - Unilateral primary osteoarthritis, right knee COMPARISON: None available. TECHNIQUE: Fluoroscopy time: 0.3 minutes. Cumulative Dose: 4.01 mGy. DAP: 0.534 mGym2 Images: 2. FINDINGS: Fluoroscopic spot films of the lumbar spine demonstrate needles and contrast material in the regions of the bilateral L3-4, L4-5, and L5-S1 facet joints. FL/FL guidance in treatment room IMPRESSION: Fluoroscopy during procedure. Please see procedure report for additional information. Electronically signed by: Adrian Melendez MD 10/18/2024 03:46 PM EDT
--- OUTSIDE RECORDS SUMMARY | 2024-10-18 07:39 | XMS_ITS ---
Author Name Chery MARCOSHerlinda Address [address] [place] [address] Phone [phone] Organization [facility] Care Team Providers Care Ram Car Operator Name Role Phone Herlinda Chery Unavailable [phone] NameTyson Unavailable [phone] Reason for Referral Not Available Allergies, adverse [...] 2021-05-11 No Data Available OneTouch Delica Plus Gfemun60M Miscellaneous TEST BLOOD SUGAR TWICE DAILY 2021-05-15 [...] mg Tab TAKE 1 TABLET BY MO [facility] EVERY MORNING 2023-09-21 No [...] QDAY d/ t hypoglycemia Lab ResultsComponent Value UuiqRJAN3E 7.8 (A) 02/14/2023HGBA1C 6.3 (H) 02/01/2022Lab ResultsComponent [...] QDAY d/ t hypoglycemia Lab ResultsComponent Value CpoqCSMY4E 7.8 (A) 02/14/2023HGBA1C 6.3 (H) 02/01/2022 Hyperlipidemia [...] organ damage (headache, vision changes, chest pain)/ Assistant Counsel on proper BP monitoring technique and reassess/ [...] metoprolol t artrate BID on Plavix (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 [place] Pain Assessment - Pain Documented on a Pain Scale (1125F) [facility] [place] Pain Assessment - Pain Documented on a Pain Scale (1125F) [facility] [place]/2022 Pain Assessment - Pain Documented on a Pain Scale (1125F) [facility] [place]22 Pain Assessment - Pain Documented on a Pain Scale (1125F) [facility] [place] Pain Assessment - Pain Documented on a Pain Scale (1125F) [facility] [place]22 Pain Assessment - Pain Documented on a Pain Scale (1125F) [facility] [place]2022 Hyperlipidemia, unspecifiedGastro-esophageal reflux disease without esophagitisInsomnia, unspecifiedType 2 diabetes mellitus without complicationsEssential (primary) hypertensionAge-related osteoporosis without current pathological fractureOveractive bladderShortness of breathUnspecified dementia without behavioral disturbanceOther thrombophiliaUnspecified atrial fibrillationPersonal history of malignant neoplasm of breast Pain Assessment - Pain Documented on a Pain Scale (1125F) [facility] ([place]) 01/25/20[place] Pain Assessment - Pain Documented on a Pain Scale (1125F) [facility] [place] 01/[place] Estab. patient 30-39min; chronic exacerbation, 2 stable chronic or 1 acute illness add add modifier 95 for video, (do not use for phone, instead use 97653-56) [facility] [place]20[place] Type 2 diabetes mellitus wit h [...] (do not use for phone, instead use 24923-24) [facility] [place] Estab. patient 30-39min; chronic exacerbation, 2 stable chronic or 1 acute illness add add modifier 95 for video, (do not use for phone, instead use 36763-51) [facility] Estab. patient 30-39min; chronic exacerbation, 2 stable chronic or 1 acute illness add add modifier 95 for video, (do not use for phone, instead use 72122-53) [facility] Estab. patient 30-39min; chronic exacerbation, 2 stable chronic or 1 acute illness add add modifier 95 for video, (do not use for phone, instead use 46271-31) [facility] [place] Estab. patient 30-39min; chronic exacerbation, 2 stable chronic or 1 acute illness add add modifier 95 for video, (do not use for phone, instead use 40459-47) [facility] [place] Estab. patient 30-39min; chronic exacerbation, 2 stable chronic or 1 acute illness add add modifier 95 for video, (do not use for phone, instead use 73046-52) [facility] [place] Estab. patient 30-39min; chronic exacerbation, 2 stable chronic or 1 acute illness add add modifier 95 for video, (do not use for phone, instead use 80681-57) [facility] [place] Estab. patient 30-39min; chronic exacerbation, 2 stable chronic or 1 acute illness add add modifier 95 for video, (do not use for phone, instead use 19468-93) [facility] [place] Estab. patient 30-39min; chronic exacerbation, 2 stable chronic or 1 acute illness add add modifier 95 for video, (do not use for phone, instead use 42141-76) [facility] Estab. patient 30-39min; chronic exacerbation, 2 stable chronic or 1 acute illness add add modifier 95 for video, (do not use for phone, instead use 33916-96) [facility] 03[place]/2023 Type 2 diabetes mellitus [...] (do not use for phone, instead use 08988-97) [facility] Estab. patient 30-39min; chronic exacerbation, 2 stable chronic or 1 acute illness add add modifier 95 for video, (do not use for phone, instead use 93758-32) [facility] Estab. patient 30-39min; chronic exacerbation, 2 stable chronic or 1 acute illness add add modifier 95 for video, (do not use for phone, instead use 34096-50) [facility] Estab. patient 30-39min; chronic exacerbation, 2 stable chronic or 1 acute illness add add modifier 95 for video, (do not use for phone, instead use 74224-40) [facility] Estab. patient 30-39min; chronic exacerbation, 2 stable chronic or 1 acute illness add add modifier 95 for video, (do not use for phone, instead use 27364-37) [facility] Estab. patient 30-39min; chronic exacerbation, 2 stable chronic or 1 acute illness add add modifier 95 for video, (do not use for phone, instead use 31784-24) [facility] Estab. patient 30-39min; chronic exacerbation, 2 stable chronic or 1 acute illness add add modifier 95 for video, (do not use for phone, instead use 38285-55) [facility] Estab. patient 30-39min; chronic exacerbation, 2 stable chronic or 1 acute illness add add modifier 95 for video, (do not use for phone, instead use 97949-26) [facility] Estab. patient 30-39min; chronic exacerbation, 2 stable chronic or 1 acute illness add add modifier 95 for video, (do not use for phone, instead use 33006-66) [facility] Estab. patient 20-29min; 1 stable chronic or 2 minor; add add modifier 95 for video, modifier [address] [facility] [place] 05/01/2024 Type 2 diabetes mellitus [...] 95 for video, modifier 93 for phone [facility] [place] Estab. patient 20-29min; 1 stable chronic or 2 minor; add add modifier 95 for video, modifier 93 for phone [facility] [place]/01/20[place] Estab. patient 20-29min; 1 stable chronic or 2 minor; add add modifier 95 for video, modifier 93 for phone [facility]/01/2024 Estab. patient 20-29min; 1 stable chronic or 2 minor; add add modifier 95 for video, modifier 93 for phone [facility] 05/01/20[place] Estab. patient 20-29min; 1 stable chronic or 2 minor; add add modifier 95 for video, modifier 93 for phone [facility] [place] 05/01/2024 Estab. patient 20-29min; 1 stable chronic or 2 minor; add add modifier 95 for video, modifier 93 for phone [facility] 05/01/2024 Estab. patient 20-29min; 1 stable chronic or 2 minor; add add modifier 95 for video, modifier 93 for phone [facility] 05/01/2024 Estab. patient 20-29min; 1 stable chronic or 2 minor; add add modifier 95 for video, modifier 93 for phone [facility] [place] 05/01/2024 Vital Signs Date of Collection Vitals [...] Time Current Smoking Status Never smoker 2024-10-05 4 Sex Female History of Procedures Procedures Service [...] 95 for video, modifier 93 for phone 41379 2022-01-25 No Data Available No Data Availa ble DBP <80 (3078F) 3078F 2022-01-25 No Data Available No Data Available SBP >= 140 3077F 2022-01-25 No Data Available No Data Available Estab. 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 2022-10-04 Mental Status [...] with diabetic chronic kidney disease, CKD stage G3a/K5Cjmytnpkipjq heart disease with stage 3a chronic kidney [...] CG reportmetoprolol tartrate BID on Plavix (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- aprx [...] with pulmonologymetoprolol tartrate BID on Plavix (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- aprx [...] QDAY d/ t hypoglycemia Lab ResultsComponent Value QfowMUIN9O 7.8 (A) 02/14/2023HGBA1C 6.3 (H) 02/01/2022Lab ResultsComponent [...] your log in next visit.Lab ResultsComponent Value JzpdBHGC9P 7.8 (A) 02/14/2023HGBA1C 6.3 (H) 02/01/2022Lab ResultsComponent [...] 4 03/24/23metoprolol tartrate BID on Plavix (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- aprx 20 years ago)in remissionfollows with oncologist s/p surgery/removal of cancerous lesionavoid nephrotoxic medicationstay hydrated encouraged A1c control and bp control Lab ResultsComponent Value YvqoUXPK8P 7.8 (A) 02/14/2023HGBA1C 6.3 (H) 02/01/2022Lab ResultsComponent [...] QDAY d/ t hypoglycemia Lab ResultsComponent Value UzioQWFF6C 7.8 (A) 02/14/2023HGBA1C 6.3 (H) 02/01/2022 2024-05-01 [...] joint pain increased Please remember to [facility]. Follow-up with [facility] as needed for any acute or disease education needs that may arise 27/09.what should be done when the member calls: see each individual diagnosis for contingency planesomeprazole Recommend famotidine 20 mg twice daily as needed for dyspepsia-- Smoking cessation encouranged-- Dietary and life style changes encouraged-- Calcium/Vit D and osteoporosis surveillance stressed-- Risk of terminal block assembler PPI use discussed-- Antireflux diet: avoid tomatoes, [...] QDAY d/ t hypoglycemia Lab ResultsComponent Value NxdlJPVL0U 7.8 (A) 02/14/2023HGBA1C 6.3 (H) 02/01/2022Lab ResultsComponent [...] organ damage (headache, vision changes, chest pain)/ Assistant Counsel on proper BP monitoring technique and reassess/ [...] up prn.metoprolol tartrate BID on Plavix (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 Yes, preferred proxy but not named POAIf so, Who? HCP: grand daughter Kerry Waldrop Do you have a written Advance Directive?Other details of discussion: (Who was present, patients description of wishes/goals)Today's plan:1123F : AD or surrogate was documented in the medical record.
--- OUTSIDE RECORDS SUMMARY | 2024-10-18 07:40 | XMS_ITS | Clinical Summary ---
Author Organization [employer] Address [address] [place] [address] Care Team Providers Care Child Care Name Role Phone Name, Tyson MCKINNON Primary Care Provider [phone] Allergies Active Allergy Reactions Criticality Noted Date [...] 02/06/20 24 Active Lancets (OneTouch Delica Plus Xoxlkg06W) miscIndications :Type 2 diabetes mellitus with other specified complication, without long-term current use of insulin ([facility]) TEST BLOOD SUGAR TWICE DAILY 100 each 3 03/27/19 25 Active losartan (Cozaar) 25 MG tabletIndicatio ns:Hypertension , unspecified type TAKE 1 TABLET BY MOUTH EVERY EVENING 90 tablet 3 04/02/19 25 Active Ferrous Sulfate (iron) 325 (65 Fe) MG tabletIndicatio ns:Type 2 diabetes mellitus with other specified complication, unspecified whether half-way insulin use ([facility]) TAKE 1 TABLET BY MOUTH EVERY EVENING [...] 01/21/2012 Non-compliance 12/22/2011 Coronary artery disease involving absentee-shawnee coronar y artery 09/20/2011 Hiatal hernia 09/20/2011 Mixed hyperlipidemia 08/12/2011 Jo's esophagus 07/21/2011 Chest pain 07/20/2011 Dizziness and giddiness 07/20/2011 Essential hypertension 07/20/2011 Migraine 07/20/2011 Osteopenia of multiple sites 08/09/2005 Encounters Date Type Department Care Team Description 10/10/2024 Telephone [facility] [address] [place] [address] Rylee Darby [place] november recalls 10/08/2024 Refill [facility] [address] [place] [address] Rose Quintana, MARCOS Chronic knee pain, unspecified laterality 09/13/2024 Orders Only GENERIC EXTERNAL DATA DEPARTMENT Provider, Generic External Data 09/06/2024 Refill [facility] [address] [place] [address] Name, MD Tyson 09/03/2024 Orders Only [facility] External Provider, [facility] 08/27/2024 Telephone [facility] [address] [place] [address] Shanelle Joseph RN 08/20/2024 Telephone [facility] [address] [place] [address] Roslyn Ellis, RN Add to INSTANT POTATO PROCESSOR 08/20/2024 Refill [facility] [address] [facility] [place] [address] Name, MD Tyson Chronic knee pain, unspecified laterality 07/23/2024 Refill [facility] [address] [place] [address] Name, MD Tyson Chronic knee pain, unspecified laterality from Last 3 Months Immunizations Immunization Administration [...] Description 12/18/2024 2:00 PM EDT Office Visit [facility] [address] [place] [address] Name, MD Tyson [address] [facility] [address] Health Maintenance Due Date Last Done Comments [...] Screening 08/30/2024 08/31/2023 Diabetes: Hemoglobin A1C 10/08/2024 0204 025, 12/02/2023, 08/31/2023, Additional history exists Influenza Vaccine (#1) 2024 , 11/29/2022, 01/26/2022, Additional history exists Diabetes: Foot [...] 5:01 PM EDT 09/14/2024 10:00 AM EDT [facility] - 09/17/2024 11:39 AM EDT ----- ------- Name: Nadine Clement Age/Sex: 84/F : 1940 Unit#: [id number] Attend Dr: Nivia Guy- Re09/13/24 Status: DEP REF Location: .LAB Disch: ----- ------- SPEC : [id number] RECD: 09/14/24-999 STATUS: HAYLEE SANCHES NUM: [id number] MARIEL: 09/13/24-[address]: Nivia GuyP-BC ENTERED: 09/14/24-1113 SP TYPE: Cytology OTHR DR: [...] developed and their performance characteristics determined by [facility]. They have not been cleared or approved by the U.S. Food and Drug Administration (FDA). However, the FDA has determined that such clearance or approval is not necessary. This laboratory is certified under the Clinical Laboratory Improvement Amendments of 1988 (CLIA) as qualified to perform high complexity clinical laboratory testing. Copies To: Nivia Guy [facility] [address] [place] [address] Dr. [address] [place] [address] [email or web address] Name,Tyson MCKINNON [address] [place] [address] CONTINUED ON NEXT PAGE ----- ------- Name: Nadine Clement Age/Sex: 84/F : 1940 Unit#: [id number] Attend Dr: Nivia Guy [facility] Re09/13/24 Status: DEP REF Location: .LAB Disch: ----- ------- SPEC : [id number] RECD: 09/14/24 STATUS: HAYLEE SANCHES NUM: [id number] MARIEL: 09/13/24-[address]: Nivia Guy [facility]- ENTERED: 09/14/24111 SP TYPE: Cytology OTHR DR: Tyson March MD ORDERED: Cyto-enhanced ----- ------- Signed (signature on file) Manfred Hannon MD 09/17/24 1139 ----- ------- END OF REPORT us Generic External Data Provider LAB CYTOLOGY DEEPTI YOON Final Result [facility] [address] [facility] [place], [place] [phone] * BI Mammogram Screening Tomosynthesis Bilateral (09/11/2024 3:15 PM EDT) Anatomical Region Laterality Modality Breast Bilateral Mammography 09/11/2024 3:15 PM EDT Narrative 09/25/2024 9:12 AM EDT [facility] [address] [place] [address] Mammography Report Signed Patient: Nadine Clement MR#: [id number] 67 : 1940 Acct:[id number] Age/Sex: 84 / F ADM Date: 09/11/24 Loc: HO.MAMMO Attending Dr: Tyson March MD Ordering Physician: Tyson March MD Results: 2Benign Fi ndings Date of Service: 09/11/24 Follow Up: 1 Year From Orig ina Mammogram Procedure(s): MM tomosynthesis screening BI Accession Number(s): [id number] cc: Tyson March MD EXAMINATION: MM SCREENING [...] 09/25/24 0909 DD/ 1515 TD/TT: 09/11/24 1535 Kettle Tender: Procedure Note Donotuseinterpreter, Image - 09/25/20[facility] [address] [place] [address] Mammography Report Signed Patient: Nadine ClementMR#: [id number] [birth year] : 9Acct:[id number] Age/Sex: 84 / FADM Date: 09/11/24 Loc: HO.MAMMO Attending Dr: Tyson March MD Ordering Physician: Tyson March MDResults: 2Benign Fi ndings Date of Service: 09/11/24Follow Up: 1 Year From Orig inal Mammogram Procedure(s): MM tomosynthesis screening BI Accession Number(s): [id number] cc: Tyson March MD EXAMINATION: MM SCREENING [...] 09/25/24 0909 DD/ 1515 TD/TT: 09/11/24 1535 Kettle Tender: Tyson March MD IMG BI PROCEDURES Final Result * XR Lumbar Spine Complete 4+ Views (09/03/2024 2:00 PM EDT) Anatomical Region Laterality Modality Spine, L-spine Radiographic Samanta ging 09/03/2024 2:00 PM EDT Narrative 09/03/2024 3:54 PM EDT [address] [address] XRay Report Signed Patient: Nadine Clement MR#: [id number] 69 : 1940 Acct:[id number] Age/Sex: 84 / F ADM Date: 09/03/24 Loc: HO.XRAY Attending Dr: Ernestine FERRARI Ordering Physician: Ernestine Jc Date of Service: 09/03/24 Procedure(s): XR lumbar spine 4V min Accession Number(s): [id number] cc: Ernestine Jc; Name,Tyson MCKINNON EXAMINATION: X-ray [...] 09/03/24 1551 DD/ 1400 TD/TT: 09/03/24 1417 Kettle Tender: Procedure Note Donotuseinterpreter, Image - 09/03/[address] [address] XRay Report Signed Patient: Nadine ClementMR#: [id number] 69 : 1940cct:[id number] Age/Sex: 84 / FADM Date: 09/03/24 Loc: HO.XRAY Attending Dr: Ernestine FERRARI Ordering Physician: Ernestine Jc Date of Service: 09/03/24 Procedure(s): XR lumbar spine 4V min Accession Number(s): [id number] cc: Ernestine Jc; Name,Tyson MCKINNON EXAMINATION: X-ray [...] 09/03/24 1551 DD/ 1400 TD/TT: 09/03/24 1417 Kettle Tender: [facility] External Provider IMG XR PROCEDURES Final Result * CT Chest w/o Contrast (07/18/2024 11:55 AM EDT) Anatomical Region Laterality Modality Body, Chest Computed Tomogra phy 07/18/2024 11:5 5 AM EDT Narrative 07/18/2024 11:57 AM EDT [address] [address] [address] Scan Report Signed Patient: Nadine Clement MR#: [id number] [birth year] : 1940 Acct:[id number] Age/Sex: 83 / F ADM Date: 07/17/24 Loc: HO.CT Attending Dr: Melquiades Ramos MD Ordering Physician: Melquiades Ramos MD Date of Service: 07/17/24 Procedure(s): CT chest wo IV con Accession Number(s): [id number] cc: Name,Tyson MCKINNON; Melquiades Ramos MD Report Number: [id number]: Total DLP = 126.00 mGy-cm CLINICAL HISTORY: [...] OV> 07/18/24 1157 DD/ 1155 TD/TT: 07/18/24 115 Kettle Tender: Procedure Note Donotuseinterpreter, Image - 07/23/[address] [address] [address] Scan Report Signed Patient: Nadine ClementMR#: [id number] [birth year] : 9Acct:[id number] Age/Sex: 83 / FADM Date: 07/17/24 Loc: HO.CT Attending Dr: Melquiades Ramos MD Ordering Physician: Melquiades Ramos MD Date of Service: 07/17/24 Procedure(s): CT chest wo IV con Accession Number(s): [id number] cc: Name,Tyson MCKINNON; Melquiades Ramos MD Report Number: [id number]: Total DLP = 126.00 mGy-cm CLINICAL HISTORY: [...] 07/18/24 1157 DD/ 1155 TD/TT: 07/18/24 1155 Kettle Tender: [facility] External Provider IMG CT PROCEDURES Edited Result - Final * (ABNORMAL) POCT HGB A1C (04/10/2024 3:23 PM EST) Hemoglobin A1C 6.8(A) 4.0 - 6.0 % QC Media Lot # [id number] Lot# Expiration Date Blood 04/10/2024 3:23 PM EST Tyson March MD POINT OF CARE TEST ENTER/EDIT OR DERABLES Final Result * Lipid Panel, Standard (12/08/2023 10:10 AM EDT) Triglycerides 82 <150 mg/dL [facility] Comment:Desirable Triglyceri de: less than 150 mg/dLBorderline High Triglyceride 150-199 mg/dLHigh Triglyceride: 200-499 mg/dLVery High Triglyceride: greater than or equal to 5OO mg/dL Cholesterol 123 <200 mg/dL [facility] Comment:Desirable Cholestero l: less than 200 mg/dLBorderline High Cholesterol: 200-239 mg/dLHigh Cholesterol: greater than 239 mg/dL LDL Cholesterol Calculated 47 <100 mg/dL [facility] Comment:Desirable LDL: less than 100 mg/dLNear Optimal/Above Optimal LDL: 110- 129 mg/dLBorderline High LDL: 130-159 mg/dLHigh LDL: 160-189 mg/dLVery High LDL: greater than or equal to 190 mg/dL HDL Cholesterol 60 >40 mg/dL [facility] Comment:Desirable HDL: great er than 40 mg/dL Note: This HDL assay may give artificially low results in patients with liver disease. Blood Venous blood specimen / Unknown 12/08/2023 10:10 AM EDT 12/08/2023 11:16 AM EDT Tyson March MD LAB BLOOD ORDERABLES Final Resul t Performing Organization Address [facility] Co de Phone Number [facility] [address] [place] [phone] * Albumin, Random Urine W/Creatinine (02/07/2023 10:15 AM EST) Creatinine, Urine 75.20 mg/dL [facility] Microalbumin Urine 8.0 mg/L [facility] Microalbum Creatinine Ratio Ur 10.6 <30 ug/mg cr [facility] Comment:Albumin/Creatinine R atio Reference Ranges: Normal: < 30 ug/mg creatinine Microalbuminuria: 30 - 300 ug/mg creatinineClinical Albuminuria: > 300 ug/mg creatinine 02/07/2023 10:1 5 AM EST 02/07/2023 11:06 AM EST Tyson March MD LAB URINE ORDERABLES Final Resul t Performing Organization Address [facility] Co de Phone Number [facility] [address] [place] [phone] from Last 3 Months or Most Recently Relevant to Health Maintenance Insurance [facility] Member Subscriber Plan / Payer (Ef fective 2019-Present) Name:Nadine Clement Relation to Subscriber:Self Name:Nadine Clement Payer ID:Not on file Group ID:[id number] Type:Not on file Address: [address] [employer] [facility] [facility] Care Teams Child Care Relationship Specialty Start Date End Date Name, MD Tyson [address] [place] [address] PCP - General Family Medicine 01/18/19
--- OUTSIDE RECORDS SUMMARY | 2024-10-18 07:40 | XMS_ITS | Patient Health Record ---
Author Organization [facility] Address [address] [place] [address] Care Team Providers Care Or Manager Name Role Phone Felice (DO NOT USE), [facility] yareli Unavailable Adrian Robles Unavailable [phone] Reason For Referral No Information Medications Medication SIG (Take, Route, Frequency, Duration) Notes Start Date End Date Status metFORMIN HCl 1000mg Active Plavix 75mg Active glipiZIDE 10mg Activ e traMADol HCl Active Lipitor 40mg Active Metoprolol Tartrate 25mg Active Furosemide 20mg Acti ve NexIUM 40mg Active Problems Problem Type SNOMED Code ICD Code Onset Dates Problem Status W/U Status Risk Notes Problem 779536351 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 [address] [place] [address] [id number] HANNAH MONK Self - patient is the insured Medical (General) History Medical History History ICD Code EGD 07-06-2011-small area of Jo's-no dysplasia; small HH Colonoscopy 04-04-2009-hyperplastic polyp NIDDM Colon polyps--tubular adenomas removed i n 2002 and in 2005 Hyperlipidemia GERD She denies any history of VA, stroke,josh al disease, nor lung disease CAD--on Plavix--Cardiac cath in 1998--no VA--does not think she has any stents in Colonoscopy in 12/2014--smal l adenomas, diverticulosis and internal hemorrhoids Surgical History Surgery Date(Month/Year) PATRICIA
== END 2024-10-18 07:38 | disposition home or self-care (01) ==
LOC: CF 07:37
PROVIDERS: Visit Provider Internal Medicine
DX: M17.11 Unilateral primary osteoarthritis, right knee (principal); M47.26 Other spondylosis with radiculopathy, lumbar region; M47.817 Spondylosis without myelopathy or radiculopathy, lumbosacral region
CPT/HCPCS: 64493; J2003; J2795; J3301; Q9967

== ENCOUNTER 2024-10-18 13:38 | Outpatient (AMB) | payer OTHER, SELFPAY ==
[2024-10-18 13:42] VITALS: BP 120/60; PULSE 63; RESP 16; O2SAT 97; BMI 26.4
--- NOTE | 2024-10-18 13:42 | MHC.OFFVIS ---
Vital Signs 10/18/24 13:42 10/18/24 14:14 Height 5 ft 4 in Weight 154 lb BMI 26.4 BP 120/60 131/62 Blood Pressure Location Lt brachial Lt brachial Position Sitting Sitting Respiration 16 16 Pulse 63 61 Pulse Source Pulse Oximeter Pulse Oximeter Pulse Oximetry (%) 97 97 Oxygen Delivery Method Room Air Room Air Intake Visit Reasons: Isrrael Dx L3-L4-DR-L5 MBB/Right knee inj Allergies aspirin (ASA) Adverse Reaction (Verified 10/15/24 14:11) Unknown HPI HPI Isrrael Dx L3-L4-DR-L5 MBB/Right knee inj: Details: Patient presents for scheduled procedure. Denies any recent cough, cold, infection, fever or other significant changes in medical history since last office visit. [facility] Medical History (Updated 10/10/24 @ 13:08 by Fabiola Carlos MD) Alzheimer dementia Temporomandibular disorder Analgesic overuse headache Chronic tension type headache Migraine Osteoarthritis of left knee B12 deficiency Ductal carcinoma in situ (DCIS) of right breast Surgical History History of cystoscopy (~2015) Hx of cataract extraction (~10/11/16) History of lumpectomy of right breast (~10/09/13) Hx of breast biopsy Hx of angioplasty Hx of total hypophysectomy (~1994) Family History Maternal Uncle Hx of cancer of lung Mother Hx of cancer of lung Diabetes Sister Diabetes Brother Diabetes Social History Household Members: Other Household Members Other:: [facility] Housing: House Are you a primary lawn caretaker to a significant other at home: No Do you presently have visiting nurse or other home services: Yes Alcohol intake: never Patient Tobacco Use Status: Never used Tobacco e-Cigarette/Vaping Use: Never Used service: No Current occupational status: retired Physical Exam Vital Signs: Last Vital Signs Pulse 61 10/18/24 14:14 Resp 16 10/18/24 14:14 BP 131/62 10/18/24 14:14 Pulse Ox 97 10/18/24 14:14 Oxygen Delivery Method Room Air 10/18/24 14:14 BMI result Body Mass Index 26.4 Office Procedures Details: Lumbar Medial Branch Block, Bilateral, L2, L3, L4 medial branches (2 levels, 3 nerves) After obtaining written consent, pre-procedure blood pressure and pulse were recorded and are in the nursing record for review. The patient was placed in a prone position. The respective lumbosacral area was prepped with chloraprep and draped in sterile fashion. The skin over the target medial branch nerves was anesthetized with 0.5% lidocaine. A 22 gauge 3.5 inch needle was inserted into the target medial branch nerve under fluoroscopic guidance. No paresthesias were elicited with needle placement and aspiration was negative for blood and CSF. Next, 0.2cc of omnipaque 180 was injected to verify positioning in AP and oblique imaging. Next 0.5 ml 0.5% ropivicaine was injected (0.5cc total per level). The identical procedure was performed at the remaining levels. The skin was cleansed and a sterile bandage was applied. Following the procedure the patient's vital signs were stable. The patient tolerated the procedure well and no complications were encountered. Following the procedure the patient's vital signs were stable. The patient was discharged home in good condition with post-procedural instructions. Time Out: Immediately prior to the procedure, the following was verbally confirmed that there is a signed consent form and that the correct patient, planned procedure, site and side are consistent with documentation and that necessary equipment and/or blood products are available prior to the start of the case. Complications: none EBL: <5 cc 82578 - with Fluoroscopy (L3-L4) (Bilateral) 12300 - second level with Fluoroscopy (L3-L4-L5) Procedure code (CPT) selection complete Assessment & Plan Assessment & Plan (1) Osteoarthritis of right knee: Code(s): M17.11 - Unilateral primary osteoarthritis, right knee Category: Medical Plan Patient is status post bilateral L2, L3, L4 medial branch blocks. The levels were changed intra op based on significant compression deformity of the L3 and L4 vertebral bodies. Patient tolerated procedure well and was discharged home in stable condition with discharge instructions. All questions were answered. We will follow-up via telephone or in clinic to assess response to therapy. A follow-up appointment was made during today's visit. Orders: Orders FL guidance in treatment room Today M17.11 - Unilateral primary osteoarthritis, right knee, M47.817 - Spondylosis without myelopathy or radiculopathy, lumbosacral region, M54.16 - Radiculopathy, lumbar region AMB Medial Branch Block - Lumbar/Sacral Today M47.816 - Spondylosis without myelopathy or radiculopathy, lumbar region AMB Joint Injection/Aspiration Today M17.11 - Unilateral primary osteoarthritis, right knee Coding Level of Care Code Procedure Only Diagnoses Osteoarthritis of right knee M17.11 CPT Codes Medial Branch Block Lumbar/Sacral1 - Branch Block Lumb/Sac 1: 08492 - with Fluoroscopy (L3-L4) ([id number]) Medial Branch Block Lumbar/Sacral1 - Branch Block Lumb/Sac 2: 68971 - second level with Fluoroscopy (L3-L4-L5) ([id number])
[2024-10-18 14:14] VITALS: BP 131/62; PULSE 61; RESP 16; O2SAT 97
== END 2024-10-18 14:14 | disposition home or self-care (01) ==
LOC: HO.PMCPRC 13:38
PROVIDERS: PCP Internal Medicine Geriatric Medicine; Visit Provider Internal Medicine
DX: M47.817 Spondylosis without myelopathy or radiculopathy, lumbosacral region (principal)
CPT/HCPCS: 64494

== ENCOUNTER 2024-11-15 10:08 | Outpatient (AMB) | payer OTHER, SELFPAY ==
--- NOTE | 2024-11-15 10:10 | MHC.OFFVIS ---
Vital Signs 11/15/24 10:15 Height 5 ft 4 in Weight 157 lb BMI 26.9 BP 183/72 H Blood Pressure Location Rt brachial Position Sitting Pulse 68 Pulse Source Pulse Oximeter Pulse Oximetry (%) 97 Oxygen Delivery Method Room Air Intake Visit Reasons: s/p phoebe Dx MBB/Right knee inj Intake Note: Pain today 0/10 Vp Strategy Required: Yes Vp Strategy Language: [employer] Service Representative Services: Vp Strategy Offered & Declined Vp Strategy Name: DAVID Reyes Accompanied by: Child Allergies aspirin (ASA) Adverse Reaction (Verified 11/15/24 10:15) Unknown HPI Comments Details: The patient is an 84-year-old female presenting with back pain and right knee pain status post recent injections. The back pain was addressed with bilateral medial branch blocks, which were performed at levels L2-L3-L4. These injections were diagnostic and provided significant relief on the day of the procedure. The patient reports no current back pain and improved mobility, indicating a positive response to the treatment. She is interested to proceed with lumbar RFA when her pain returns to baseline. The right knee pain was managed with a steroid injection, which was also performed during the same visit. The patient reports no knee pain currently and has experienced improved function, including better walking ability, better sleep and mood. She has not required any additional pain medication such as Tylenol since the procedure. Past Procedure: 10/15/24: Bilateral Diagnostic L3-L4 DR L5 MBB-100% ongoing pain relief 10/15/24: Right knee steroid injection-100% ongoing pain relief PRIOR: The patient is an 83-year-old Setswana speaking female presenting with chronic right knee pain and lower back pain. The right knee pain has persisted for over a year, with an intensity that has significantly affected her daily activities and mobility. Past interventions included a cortisone shot in the left knee two years prior, with ongoing pain relief. She reports severity of her right knee pain primarily appears after extensive walking or bending her knee. She also experiences lower back pain without radiation into lower extremities, rated at a severity of 8-10/10, that tends to worsen after physical activity. Historical measures of relief included the application of hot water, while enhancements in the pain's intensity arise with extensive walking and daily activities. Additional concerns include osteopenia, type 2 diabetes mellitus (Hemoglobin A1c at 7%), hypertension, coronary artery disease with h/o angioplasty managed with Plavix, historical right breast cancer, and significant leg swelling that is under evaluation for venous intervention. - Onset and Timing: Chronic right knee pain lasting over a year. Low back pain, non-radiating. - Quality and Character: Aching, sharp, pinching, cramping, and sore. - Primary Location: Right knee, with additional significant pain in the lower back. - Exacerbating Factors: Activity, particularly walking and bending. - Relieving Factors: Hot water application provides some relief for back pain. - Activities Interfered: Ambulation and daily functional activities, with the most severe pain during afternoons post-exertion. - Affect: Pain impacts the patient's mobility and quality of life. - Analgesia: Currently uses Tramadol 25 mg and Tylenol as needed, with half a pill typically administered after outings. Avoids NSAIDs due to renal concerns. - Adverse Effects: Denies adverse effects from Tramadol. - Activities of Daily Living: Pain restricts the patient's ability to walk long distances and perform daily chores comfortably. - Aberrant Drug Related Behaviors: None reported, medication use appears appropriate and patient adheres to recommended limits. Oswestry Low Back Pain Disability Score=28 [facility] Medical History Alzheimer dementia Temporomandibular disorder Analgesic overuse headache Chronic tension type headache Migraine Osteoarthritis of left knee B12 deficiency Ductal carcinoma in situ (DCIS) of right breast Surgical History History of cystoscopy (~2015) Hx of cataract extraction (~10/11/16) History of lumpectomy of right breast (~10/09/13) Hx of breast biopsy Hx of angioplasty Hx of total hypophysectomy (~1994) Family History Maternal Uncle Hx of cancer of lung Mother Hx of cancer of lung Diabetes Sister Diabetes Brother Diabetes Social History Household Members: Other Household Members Other:: [facility] Housing: House Are you a primary rn transitional care to a significant other at home: No Do you presently have visiting nurse or other home services: Yes Alcohol intake: never Patient Tobacco Use Status: Never used Tobacco e-Cigarette/Vaping Use: Never Used service: No Current occupational status: retired Review of Systems Const Details: - Musculoskeletal: Denies back pain, denies right knee pain All systems reviewed & are unremarkable except as noted in HPI and below Physical Exam Vital Signs: Last Vital Signs Pulse 68 11/15/24 10:15 BP 183/72 H 11/15/24 10:15 Pulse Ox 97 11/15/24 10:15 Oxygen Delivery Method Room Air 11/15/24 10:15 BMI result Body Mass Index 26.9 General: Appears afebrile. Alert and oriented. Mood and affect appropriate. Follows and participates in conversation appropriately. Respiratory effort is unlabored. No cough. Able to transition from sit to stand unassisted. Ambulates with mildly antalgic gait. No assisting devices used today. Back/Spine/Pelvis Cervical Spine: No Cervical spine tenderness Thoracic/Lumbar Spine: thoracic and lumbar spine normal to inspection, Lasegue's sign negative, straight leg raise negative bilaterally, pain with thoraco-lumbar ROM (mild with facet loading), thoraco-lumbar ROM limited, No thoracic spinal tenderness and No lumbar spinal tenderness Results Reviewed Results Reviewed: XR knee standing BI 02/01/23 STUDY: Standing knees and right knee INDICATION: Knee pain COMPARISON: 07/24/2018 TECHNIQUE: AP standing knees, view right knee FINDINGS: On standing knee view, left knee remains slightly higher than the right. Bilateral mild medial knee joint narrowings again seen. Mild right patellofemoral narrowing identified. No fracture, dislocation or right joint effusion. CT abdomen pelvis w con 09/21/21 OSSEUS STRUCTURES: Marked degenerative changes are noted in the spine at L3-L4. Generative changes present at the facet joints at L4-L5 and L5-S1. No bony destructive lesions are seen. Assessment & Plan Assessment & Plan (1) Lumbosacral spondylosis: Code(s): M47.817 - Spondylosis without myelopathy or radiculopathy, lumbosacral region Category: Medical (2) Lumbar degenerative disc disease: Code(s): M51.369 - Other intervertebral disc degeneration, lumbar region without mention of lumbar back pain or lower extremity pain Category: Medical (3) Low back pain: Code(s): M54.50 - Low back pain, unspecified Category: Medical (4) Right knee pain: Code(s): M25.561 - Pain in right knee Category: Medical Plan The plan includes monitoring the patient's response to the diagnostic medial branch blocks and right knee steroid injection. Patient will notify our office when her back pain returns to baseline levels; radiofrequency ablation will be considered. The knee injection can be repeated in three months if necessary. Tentatively schedule bilateral L3-L4-DR L5 medial branch RFA with local, oral sedation and fluoroscopy. Expectations, risks and benefits were reviewed. All questions and concerns have been answered and patient agreed with the treatment plan. Follow up as needed. Patient was informed and verbally consented to the use of an ambient scribe for clinic note documentation during this visit. Coding Level of Care Code Est Pt Level 3 (14521) Complex EM visit Add On G2211 Diagnoses Lumbosacral spondylosis M47.817 Lumbar degenerative disc disease M51.369 Low back pain M54.50 Right knee pain M25.561
[2024-11-15 10:15] VITALS: BP 183/72; PULSE 68; O2SAT 97; BMI 26.9
--- OUTSIDE RECORDS SUMMARY | 2024-11-15 12:21 | XMS_ITS ---
Author Name NicolleLyn guerra NP Address [address] [place] [address] Phone [phone] Organization [facility] Care Team Providers Care Packer Denture Name Role Phone Lyn Fox Unavailable [phone] NameTyson Unavailable [phone] Reason for Referral Not Available Allergies, adverse [...] 2021-05-11 No Data Available OneTouch Delica Plus [id number] Miscellaneous TEST BLOOD SUGAR TWICE DAILY 2021-05-15 [...] mg Tab TAKE 1 TABLET BY [facility] EVERY MORNING 2023-09-21 No Data Available [...] D and osteoporosis surveillance stressed-- Risk of mcc PPI use discussed-- Antireflux diet: avoid tomatoes, [...] QDAY d/ t hypoglycemia Lab ResultsComponent Value PsvtGQGF0T 7.8 (A) 02/14/2023HGBA1C 6.3 (H) 02/01/2022Lab ResultsComponent [...] QDAY d/ t hypoglycemia Lab ResultsComponent Value VscfDSSZ0N 7.8 (A) 02/14/2023HGBA1C 6.3 (H) 02/01/2022 Hyperlipidemia [...] organ damage (headache, vision changes, chest pain)/ Utilization Review Nurse on proper BP monitoring technique and reassess/ [...] metoprolol t artrate BID on Plavix (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- aprx [...] control and bp control Lab ResultsComponent Value AlmdBKTY2Q 7.8 (A) 02/14/2023HGBA1C 6.3 (H) 02/01/2022Lab ResultsComponent Value DateGLUCOSE 121 (H) 11/19/2022NA 144 3K 4.5 3CO2 26 11/19/2022L 109 (H) 3BUN 14 11/19/2022REATININE 1.05 11/19/2022 SOB (shortness of breath)COPD Active 2022-01-25 N/A prn albuterol inhalerfollows with pulmonology Encounters Encounters Type Facility Date of Service Diagnosis/Co mplaint Pain Assessment - Pain Documented on a Pain Scale (1125F) [facility] [place]/2022 Pain Assessment - Pain Documented on a Pain Scale (1125F) [facility] [place]/2022 Pain Assessment - Pain Documented on a Pain Scale (1125F) [facility] [place]/2022 Pain Assessment - Pain Documented on a Pain Scale (1125F) [facility] [place]/2022 Pain Assessment - Pain Documented on a Pain Scale (1125F) [facility] [place]/2022 Pain Assessment - Pain Documented on a Pain Scale (1125F) [facility] [place]/2022 Pain Assessment - Pain Documented on a Pain Scale (1125F) [facility] [place]/2022 Hyperlipidemia, unspecifiedGastro-esophageal reflux disease without esophagitisInsomnia, unspecifiedType 2 diabetes mellitus without complicationsEssential (primary) hypertensionAge-related osteoporosis without current pathological fractureOveractive bladderShortness of breathUnspecified dementia without behavioral disturbanceOther thrombophiliaUnspecified atrial fibrillationPersonal history of malignant neoplasm of breast Pain Assessment - Pain Documented on a Pain Scale (1125F) [facility] ([place]) 01/[place]/20[place] Pain Assessment - Pain Documented on a Pain Scale (1125F) [facility] [place] 01/25/20[place] Estab. patient 30-39min; chronic exacerbation, 2 stable chronic or 1 acute illness add add modifier 95 for video, (do not use for phone, instead use 58670-57) [facility] [place]04/2022 Type 2 diabetes mellitus wit h [...] (do not use for phone, instead use 67463-58) [facility] [place] Estab. patient 30-39min; chronic exacerbation, 2 stable chronic or 1 acute illness add add modifier 95 for video, (do not use for phone, instead use 16113-53) [facility]/20[place] Estab. patient 30-39min; chronic exacerbation, 2 stable chronic or 1 acute illness add add modifier 95 for video, (do not use for phone, instead use 44554-71) [facility]/20[place] Estab. patient 30-39min; chronic exacerbation, 2 stable chronic or 1 acute illness add add modifier 95 for video, (do not use for phone, instead use 40300-97) [facility]/20[place] Estab. patient 30-39min; chronic exacerbation, 2 stable chronic or 1 acute illness add add modifier 95 for video, (do not use for phone, instead use 87380-36) [facility] [place] Estab. patient 30-39min; chronic exacerbation, 2 stable chronic or 1 acute illness add add modifier 95 for video, (do not use for phone, instead use 07318-62) [facility] [place] Estab. patient 30-39min; chronic exacerbation, 2 stable chronic or 1 acute illness add add modifier 95 for video, (do not use for phone, instead use 54469-71) [facility] [place]/2022 Estab. patient 30-39min; chronic exacerbation, 2 stable chronic or 1 acute illness add add modifier 95 for video, (do not use for phone, instead use 52875-13) [facility] [place] 10[place]/2022 Estab. patient 30-39min; chronic exacerbation, 2 stable chronic or 1 acute illness add add modifier 95 for video, (do not use for phone, instead use 27700-40) [facility]/20[place] Estab. patient 30-39min; chronic exacerbation, 2 stable chronic or 1 acute illness add add modifier 95 for video, (do not use for phone, instead use 35580-77) [facility] 03[place]24/2023 Type 2 diabetes [...] (do not use for phone, instead use 23888-83) [facility] 03[place]24/20[place] Estab. patient 30-39min; chronic exacerbation, 2 stable chronic or 1 acute illness add add modifier 95 for video, (do not use for phone, instead use 77617-14) [facility] 03[place]24/2023 Estab. patient 30-39min; chronic exacerbation, 2 stable chronic or 1 acute illness add add modifier 95 for video, (do not use for phone, instead use 56057-04) [facility] 03/24/2023 Estab. patient 30-39min; chronic exacerbation, 2 stable chronic or 1 acute illness add add modifier 95 for video, (do not use for phone, instead use 89100-06) [facility] 03[place]24/2023 Estab. patient 30-39min; chronic exacerbation, 2 stable chronic or 1 acute illness add add modifier 95 for video, (do not use for phone, instead use 35127-39) [facility] 03/24/2023 Estab. patient 30-39min; chronic exacerbation, 2 stable chronic or 1 acute illness add add modifier 95 for video, (do not use for phone, instead use 22297-02) [facility] 03/24/2023 Estab. patient 30-39min; chronic exacerbation, 2 stable chronic or 1 acute illness add add modifier 95 for video, (do not use for phone, instead use 25722-09) [facility] 03[place]24/2023 Estab. patient 30-39min; chronic exacerbation, 2 stable chronic or 1 acute illness add add modifier 95 for video, (do not use for phone, instead use 06532-72) [facility] 03/24/2023 Estab. patient 30-39min; chronic exacerbation, 2 stable chronic or 1 acute illness add add modifier 95 for video, (do not use for phone, instead use 31376-11) [facility] 03[place]/2023 Estab. patient 20-29min; 1 stable chronic or 2 minor; add add modifier 95 for video, modifier 93 for phone [facility] [place] 05/01/2024 Type 2 diabetes mellitus wit [...] 95 for video, modifier 93 for phone [facility] Estab. patient 20-29min; 1 stable chronic or 2 minor; add add modifier 95 for video, modifier 93 for phone [facility]/01/20[place] Estab. patient 20-29min; 1 stable chronic or 2 minor; add add modifier 95 for video, modifier 93 for phone [facility] 05/01/2024 Estab. patient 20-29min; 1 stable chronic or 2 minor; add add modifier 95 for video, modifier 93 for phone [facility] 05/01/2024 Estab. patient 20-29min; 1 stable chronic or 2 minor; add add modifier 95 for video, modifier 93 for phone [facility]/01/2024 Estab. patient 20-29min; 1 stable chronic or 2 minor; add add modifier 95 for video, modifier 93 for phone [facility] 05/01/2024 Estab. patient 20-29min; 1 stable chronic or 2 minor; add add modifier 95 for video, modifier 93 for phone [facility] 05/01/2024 Estab. patient 20-29min; 1 stable chronic or 2 minor; add add modifier 95 for video, modifier 93 for phone [facility] 05/01/2024 Vital Signs Date of Collection Vitals [...] tive Time Current Smoking Status Never smoker 2024-11-05 1 Sex Female History of Procedures Procedures [...] 95 for video, modifier 93 for phone [id number] 2022-01-25 No Data Available No Data Availa ble DBP <80 (3078F) 3078F 2022-01-25 No Data Available No Data Available SBP >= 140 3077F 2022-01-25 No Data Available No Data Available Estab. patient 30-39min; chronic exacerbation, 2 stable chronic or 1 acute illness add add modifier 95 for video, (do not use for phone, instead use 86584-61) [id number] 2022-10-04 No Data Available No Data Availa [...] (do not use for phone, instead use 67548-02) 48059 2023-03-24 No Data Available No Data Availa [...] 95 for video, modifier 93 for phone 67544 2024-05-01 No Data Available No Data Availa [...] lives with daughter an d grandson 2022-01-25 [employer] M[employer]PER[employer] is her grand daughter 2022-10-04 Mental Status [...] with diabetic chronic kidney disease, CKD stage G3a/F3Qiytuugnyhdw heart disease with stage 3a chronic kidney [...] CG reportmetoprolol tartrate BID on Plavix (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] 4 03/24/23metoprolol tartrate BID on Plavix (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- aprx 20 years ago)in remissionfollows with oncologist s/p surgery/removal of cancerous lesionavoid nephrotoxic medicationstay hydrated encouraged A1c control and bp control Lab ResultsComponent Value TnylXTQJ4G 7.8 (A) 02/14/2023HGBA1C 6.3 (H) 02/01/2022Lab ResultsComponent [...] QDAY d/ t hypoglycemia Lab ResultsComponent Value AbceFZZR7R 7.8 (A) 02/14/2023HGBA1C 6.3 (H) 02/01/2022 2024-05-01 [...] joint pain increased [facility]. Follow-up with [facility] as needed for any acute or disease education needs that may arise 27/09.what should be done when the member calls: see each individual diagnosis for contingency planesomeprazole Recommend famotidine 20 mg twice daily as needed for dyspepsia-- Smoking cessation encouranged-- Dietary and life style changes encouraged-- Calcium/Vit D and osteoporosis surveillance stressed-- Risk of rodent exterminator PPI use discussed-- Antireflux diet: avoid [...] QDAY d/ t hypoglycemia Lab ResultsComponent Value WpzoCWZW8G 7.8 (A) 02/14/2023HGBA1C 6.3 (H) 02/01/2022Lab ResultsComponent [...] organ damage (headache, vision changes, chest pain)/ Utilization Review Nurse on proper BP monitoring technique and reassess/ [...] up prn.metoprolol tartrate BID on Plavix (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 Yes, preferred proxy but not named POAIf so, Who? HCP: grand daughter Kerry Waldrop Do you have a written Advance Directive?Other details of discussion: (Who was present, patients description of wishes/goals)Today's plan:1123F : AD or surrogate was documented in the medical record.
--- OUTSIDE RECORDS SUMMARY | 2024-11-15 12:21 | XMS_ITS | Patient Health Record ---
Author Organization [facility] Address [address] [place] [address] Care Team Providers Care Senior Sql Dba Name Role Phone Felice (DO NOT USE), [facility] Provi yareli Unavailable Adrian Robles Unavailable [phone] Reason For Referral No Information Medications Medication SIG (Take, Route, Frequency, Duration) Notes Start Date End Date Status metFORMIN HCl 1000mg Active Plavix 75mg Active glipiZIDE 10mg Activ e traMADol HCl Active Lipitor 40mg Active Metoprolol Tartrate 25mg Active Furosemide 20mg Acti ve NexIUM 40mg Active Problems Problem Type SNOMED Code ICD Code Onset Dates Problem Status W/U Status Risk Notes Problem 643822329 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 [address] [place] [address] [id number] HANNAH MONK Self - patient is the insured Medical (General) History Medical History History ICD Code EGD 07-06-2011-small area of Jo's-no dysplasia; small HH Colonoscopy 04-04-2009-hyperplastic polyp NIDDM Colon polyps--tubular adenomas removed i n 2002 and in 2005 Hyperlipidemia GERD She denies any history of IL, stroke,josh al disease, nor lung disease CAD--on Plavix--Cardiac cath in 1998--no IL--does not think she has any stents in Colonoscopy in 12/2014--smal l adenomas, diverticulosis and internal hemorrhoids Surgical History Surgery Date(Month/Year) PATRICIA
== END 2024-11-15 10:21 | disposition home or self-care (01) ==
LOC: HO.PMC 10:09
PROVIDERS: PCP Internal Medicine Geriatric Medicine; Visit Provider Nurse Practitioner Family
DX: M47.817 Spondylosis without myelopathy or radiculopathy, lumbosacral region (principal); M51.369 Other intervertebral disc degeneration, lumbar region without mention of lumbar back pain or lower extremity pain; M54.50 Low back pain, unspecified; M25.561 Pain in right knee
CPT/HCPCS: 99213; G2211

== ENCOUNTER → 2024-11-15 10:08 | Outpatient (BNVA) | payer OTHER, SELFPAY | PROVIDERS: PCP Internal Medicine Geriatric Medicine; Visit Provider Nurse Practitioner Family | DX: M25.561 Pain in right knee (principal); M54.50 Low back pain, unspecified; M51.369 Other intervertebral disc degeneration, lumbar region without mention of lumbar back pain or lower extremity pain; M47.817 Spondylosis without myelopathy or radiculopathy, lumbosacral region; Z98.890 Other specified postprocedural states | CPT/HCPCS: 99212 ==

== ENCOUNTER 2024-12-04 14:03 | Outpatient (REF) | payer OTHER, SELFPAY ==
--- NOTE | ~2024-12-04 | CT_ITS ---
EXAMINATION: CT ABDOMEN AND PELVIS WITHOUT AND WITH CONTRAST CLINICAL INFORMATION: R 31.0. Gross hematuria. COMPARISON: CT abdomen pelvis dated September 21, 2021. TECHNIQUE: Noncontrast CT of the abdomen and pelvis is performed followed by split bolus contrast-enhanced images using 85 mL Omnipaque 350 contrast. Postcontrast imaging is performed during the combined nephrogram and excretion phase. Sagittal and coronal reformatted images were obtained on the technologist's workstation for both the precontrast and postcontrast phases. This CT examination was performed using dose optimization techniques as appropriate, variously including the following: *Automated exposure control *Adjustment of mA and/or kV according to patient size (this includes techniques or standardized protocols for targeted exams where dose is matched to indication/reason for exam; i.e. extremities or head) *Use of iterative reconstruction technique. DLP: 644 mGy centimeter. FINDINGS: LUNG BASES: No acute airspace disease. LIVER, GALLBLADDER, AND BILIARY TREE: Liver measures 12 cm. Subtle nodular surface. No focal mass. No intrahepatic biliary ductal dilatation. Main portal veins, hepatic veins and intrahepatic portion of the IVC are patent. Gallbladder is contracted with intraluminal focal 9 mm calcification. No pericholecystic fluid collection or gallbladder wall thickening. Common bile duct measures 4 mm. PANCREAS: No focal mass. No peripancreatic fluid collection. No main pancreatic ductal dilatation. SPLEEN: 8 cm. No focal mass. ADRENAL GLANDS: Soft tissue fullness without nodular lesion. KIDNEYS AND URETERS: No hydronephrosis. No nephrolithiasis. No enhancing mass. Normal enhancement of the renal parenchyma. Subcentimeter cysts, left kidney. Normal urinary excretion into the collecting system. BLADDER: Fluid-filled. GASTROINTESTINAL TRACT: Abundant stool within nondilated large intestine. No intestinal obstruction pattern. Appendix is normal. No gross intestinal wall thickening. No ascites. No pneumoperitoneum. ABDOMINAL WALL: Small fat-containing umbilical hernia. LYMPH NODES: No mesenteric or retroperitoneal lymphadenopathy. VASCULAR: Mixed plaques throughout the abdominal aorta wall and iliac arteries without aneurysm or dissection. Calcified plaques in the origin of the mesenteric arteries and femoral arteries. PELVIC VISCERA: Absent uterus OSSEUS STRUCTURES: Multilevel thoracolumbar spondylosis pronounced at L3-4 resulting in central spinal canal and bilateral neuroforamina stenosis. Grade 1 retrolisthesis at L3-4. Levoconvex rotoscoliosis apex at L2-3. Degenerative changes in the symphysis pubis sacroiliac joints and to a lesser extent both coxofemoral joints. CT/CT urogram IMPRESSION: No hydronephrosis or nephrolithiasis. No gross renal mass. Subcentimeter cysts, left kidney. Probable hepatocellular disease. Cholelithiasis. Multilevel thoracolumbar spondylosis and levoconvex rotoscoliosis resulting in central spinal canal and bilateral neuroforamina stenosis at multiple levels.. Electronically signed by: Jose D Alas MD 12/05/2024 08:16 AM EDT
--- OUTSIDE RECORDS SUMMARY | 2024-12-04 15:26 | XMS_ITS ---
Author Name [facility]icitas [facility] [place] Aria Arceo Address [address] [place] [address] Phone [phone] Organization [facility] Care Team Providers Care Visual Developer Name Role Phone Aria Polk Unavailable [phone] NameTyson Unavailable [phone] Reason for Referral Not Available Allergies, adverse [...] 2021-05-11 No Data Available OneTouch Delica Plus [id number] Miscellaneous TEST BLOOD SUGAR TWICE DAILY 2021-05-15 [...] 50 mg Tab TAKE 1 TABLET BY [facility] EVERY MORNING 2023-09-21 No Data Available calcium 600 mg (as carbonate)-vitamin D3 10 mcg (400 unit) tablet TAKE 1 TABLET BY MOUTH TWICE DAILY IN THE MORNING AND IN THE EVENING 2024-01-13 No Data Available Divalproex Sodium ER 250 mg Tab ER 24hr TAKE 1 TABLET BY MOUTH AT BEDTIME 2023-10-06 No Data Available Furosemide 20 mg Tab TAKE 1 TABLET BY [facility] EVERY MORNING 2024-03-20 No Data Available Problem [...] and osteoporosis surveillance stressed-- 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 of 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 worker PPI use discussed-- Antireflux diet: avoid tomatoes, [...] QDAY d/ t hypoglycemia Lab ResultsComponent Value XpjgBADC7Q 7.8 (A) 02/14/2023HGBA1C 6.3 (H) 02/01/2022Lab ResultsComponent Value DateGLUCOSE 121 (H) 11/19/2022NA 144 3K 4.5 11/19/2022CO2 26 11/19/2022L 109 (H) 3BUN 14 11/19/2022REATININE 1.05 11/19/2022FR = 53 02/01/2022 [...] QDAY d/ t hypoglycemia Lab ResultsComponent Value TeghOBZV0C 7.8 (A) 02/14/2023HGBA1C 6.3 (H) 02/01/2022 Hyperlipidemia [...] organ damage (headache, vision changes, chest pain)/ Appeals Writer on proper BP monitoring technique and reassess/ [...] metoprolol t artrate BID on Plavix (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- aprx [...] control and bp control Lab ResultsComponent Value PfcxCYCQ8G 7.8 (A) 02/14/2023HGBA1C 6.3 (H) 02/01/2022Lab ResultsComponent Value DateGLUCOSE 121 (H) 11/19/2022NA 144 3K 4.5 3CO2 26 11/19/2022L 109 (H) 3BUN 14 11/19/2022REATININE 1.05 11/19/2022 SOB (shortness of breath)COPD Active 2022-01-25 N/A prn albuterol inhalerfollows with pulmonology Encounters Encounters Type Facility Date of Service Diagnosis/Co mplaint Pain Assessment - Pain Documented on a Pain Scale (1125F) [facility] [place]20[place] Pain Assessment - Pain Documented on a Pain Scale (1125F) [facility] [place] Pain Assessment - Pain Documented on a Pain Scale (1125F) [facility] [place]2022 Pain Assessment - Pain Documented on a Pain Scale (1125F) [facility] [place]2022 Pain Assessment - Pain Documented on a Pain Scale (1125F) [facility] [place] 01/[place]/2022 Pain Assessment - Pain Documented on a Pain Scale (1125F) [facility] [place]/2022 Pain Assessment - Pain Documented on a Pain Scale (1125F) [facility] 01[place]/2022 Hyperlipidemia, unspecifiedGastro-esophageal reflux disease without esophagitisInsomnia, unspecifiedType 2 diabetes mellitus without complicationsEssential (primary) hypertensionAge-related osteoporosis without current pathological fractureOveractive bladderShortness of breathUnspecified dementia without behavioral disturbanceOther thrombophiliaUnspecified atrial fibrillationPersonal history of malignant neoplasm of breast Pain Assessment - Pain Documented on a Pain Scale (1125F) [facility] ([place] 01[place]22 Pain Assessment - Pain Documented on a Pain Scale (1125F) [facility] [place] 01/[place]/20[place] Estab. patient 30-39min; chronic exacerbation, 2 stable chronic or 1 acute illness add add modifier 95 for video, (do not use for phone, instead use 55650-15) [facility] [place] 10[place]04/2022 Type 2 diabetes mellitus wit h [...] (do not use for phone, instead use 93507-80) [facility] [place] Estab. patient 30-39min; chronic exacerbation, 2 stable chronic or 1 acute illness add add modifier 95 for video, (do not use for phone, instead use 90530-17) [facility] 10[place] Estab. patient 30-39min; chronic exacerbation, 2 stable chronic or 1 acute illness add add modifier 95 for video, (do not use for phone, instead use 57784-85) [facility] [place] 10[place]/20[place] Estab. patient 30-39min; chronic exacerbation, 2 stable chronic or 1 acute illness add add modifier 95 for video, (do not use for phone, instead use 89971-45) [facility] [place] 10[place]/2022 Estab. patient 30-39min; chronic exacerbation, 2 stable chronic or 1 acute illness add add modifier 95 for video, (do not use for phone, instead use 02397-57) [facility] [place] 10[place]/2022 Estab. patient 30-39min; chronic exacerbation, 2 stable chronic or 1 acute illness add add modifier 95 for video, (do not use for phone, instead use 06213-87) [facility] [place] 10[place]/2022 Estab. patient 30-39min; chronic exacerbation, 2 stable chronic or 1 acute illness add add modifier 95 for video, (do not use for phone, instead use 99559-54) [facility] [place] 10[place]04/2022 Estab. patient 30-39min; chronic exacerbation, 2 stable chronic or 1 acute illness add add modifier 95 for video, (do not use for phone, instead use 47368-17) [facility] [place] 10/04/2022 Estab. patient 30-39min; chronic exacerbation, 2 stable chronic or 1 acute illness add add modifier 95 for video, (do not use for phone, instead use 03731-97) [facility] [place] 10[place]04/2022 Estab. patient 30-39min; chronic exacerbation, 2 stable chronic or 1 acute illness add add modifier 95 for video, (do not use for phone, instead use 40288-57) [facility] [place] 03/24/2023 Type 2 diabetes mellitus wit h [...] (do not use for phone, instead use 50915-64) [facility] 03[place]24/20[place] Estab. patient 30-39min; chronic exacerbation, 2 stable chronic or 1 acute illness add add modifier 95 for video, (do not use for phone, instead use 08271-06) [facility] 03[place]24/[place] Estab. patient 30-39min; chronic exacerbation, 2 stable chronic or 1 acute illness add add modifier 95 for video, (do not use for phone, instead use 92139-14) [facility] 03[place]24/2023 Estab. patient 30-39min; chronic exacerbation, 2 stable chronic or 1 acute illness add add modifier 95 for video, (do not use for phone, instead use 97125-58) [facility] 03[place]24/2023 Estab. patient 30-39min; chronic exacerbation, 2 stable chronic or 1 acute illness add add modifier 95 for video, (do not use for phone, instead use 38324-50) [facility] 03/24/2023 Estab. patient 30-39min; chronic exacerbation, 2 stable chronic or 1 acute illness add add modifier 95 for video, (do not use for phone, instead use 65858-70) [facility] 03/24/2023 Estab. patient 30-39min; chronic exacerbation, 2 stable chronic or 1 acute illness add add modifier 95 for video, (do not use for phone, instead use 37068-78) [facility] 03[place]24/2023 Estab. patient 30-39min; chronic exacerbation, 2 stable chronic or 1 acute illness add add modifier 95 for video, (do not use for phone, instead use 06332-81) [facility] 03/24/2023 Estab. patient 30-39min; chronic exacerbation, 2 stable chronic or 1 acute illness add add modifier 95 for video, (do not use for phone, instead use 70901-29) [facility] 03/24/2023 Estab. patient 20-29min; 1 stable chronic or 2 minor; add add modifier 95 for video, modifier 93 for phone [facility] [place] 05/01/2024 Type 2 diabetes mellitus [...] 95 for video, modifier 93 for phone [facility] [place]/01/2024 Estab. patient 20-29min; 1 stable chronic or 2 minor; add add modifier 95 for video, modifier 93 for phone [facility] [place] 05/01/2024 Estab. patient 20-29min; 1 stable chronic or 2 minor; add add modifier 95 for video, modifier 93 for phone [facility] [place] 05/01/2024 Estab. patient 20-29min; 1 stable chronic or 2 minor; add add modifier 95 for video, modifier 93 for phone [facility] [place] 05/01/2024 Estab. patient 20-29min; 1 stable chronic or 2 minor; add add modifier 95 for video, modifier 93 for phone [facility] [place] 05/01/2024 Estab. patient 20-29min; 1 stable chronic or 2 minor; add add modifier 95 for video, modifier 93 for phone [facility] [place] 05/01/2024 Estab. patient 20-29min; 1 stable chronic or 2 minor; add add modifier 95 for video, modifier 93 for phone [facility] [place] 05/01/2024 Estab. patient 20-29min; 1 stable chronic or 2 minor; add add modifier 95 for video, modifier 93 for phone [facility] [place] 05/01/2024 Vital Signs Date of Collection Vitals [...] tive Time Current Smoking Status Never smoker 2024-11-07 0 Sex Female History of Procedures Procedures [...] 95 for video, modifier 93 for phone [id number] 2022-01-25 No Data Available No Data Availa ble DBP <80 (3078F) 3078F 2022-01-25 No Data Available No Data Available SBP >= 140 3077F 2022-01-25 No Data Available No Data Available Estab. patient 30-39min; chronic exacerbation, 2 stable chronic or 1 acute illness add add modifier 95 for video, (do not use for phone, instead use 56648-49) 69248 2022-10-04 No Data Available No Data Availa [...] (do not use for phone, instead use 27504-76) 84272 2023-03-24 No Data Available No Data Availa [...] 95 for video, modifier 93 for phone [id number] 2024-05-01 No Data Available No Data Availa [...] lives with daughter tommie d grandson 2022-01-25 SHOP COORDINATOR is her grand daughter 2022-10-04 Mental Status [...] with diabetic chronic kidney disease, CKD stage G3a/Y8Flqnvuqknptt heart disease with stage 3a chronic kidney [...] CG reportmetoprolol tartrate BID on Plavix (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- aprx [...] and osteoporosis surveillance stressed-- Risk of terminal worker PPI use discussed-- Antireflux diet: avoid tomatoes, [...] with pulmonologymetoprolol tartrate BID on Plavix (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- aprx [...] and osteoporosis surveillance stressed-- Risk of terminal worker PPI use discussed-- Antireflux diet: avoid tomatoes, [...] QDAY d/ t hypoglycemia Lab ResultsComponent Value TxleKATL0P 7.8 (A) 02/14/2023HGBA1C 6.3 (H) 02/01/2022Lab ResultsComponent Value DateGLUCOSE 121 (H) 11/19/2022NA 144 3K 4.5 11/19/2022CO2 26 11/19/2022L 109 (H) 3BUN 14 11/19/2022REATININE 1.05 3GFR = 53 02/01/2022 [...] your log in next visit.Lab ResultsComponent Value JnjdSCJT9V 7.8 (A) 02/14/2023HGBA1C 6.3 (H) 02/01/2022Lab ResultsComponent [...] 4 03/24/23metoprolol tartrate BID on Plavix (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- aprx 20 years ago)in remissionfollows with oncologist s/p surgery/removal of cancerous lesionavoid nephrotoxic medicationstay hydrated encouraged A1c control and bp control Lab ResultsComponent Value QamzVLMX4K 7.8 (A) 02/14/2023HGBA1C 6.3 (H) 02/01/2022Lab ResultsComponent [...] QDAY d/ t hypoglycemia Lab ResultsComponent Value FqtsFYIB7Q 7.8 (A) 02/14/2023HGBA1C 6.3 (H) 02/01/2022 2024-05-01 [...] and osteoporosis surveillance stressed-- Risk of terminal worker PPI use discussed-- Antireflux diet: avoid tomatoes, [...] QDAY d/ t hypoglycemia Lab ResultsComponent Value PrjaOKIL0A 7.8 (A) 02/14/2023HGBA1C 6.3 (H) 02/01/2022Lab ResultsComponent [...] organ damage (headache, vision changes, chest pain)/ Appeals Writer on proper BP monitoring technique and reassess/ [...] up prn.metoprolol tartrate BID on Plavix (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- aprx [...] QDAY d/ t hypoglycemia Lab ResultsComponent Value VzhpFWPY2V 7.8 (A) 02/14/2023HGBA1C 6.3 (H) 02/01/2022 Goals [...] okDo you have a Durable Power of Ecommerce Marketing Specialist for Healthcare, or Healthcare Proxy Or Guardianship? Yes, preferred proxy but not named POAIf so, Who? HCP: grand daughter Kerry Waldrop do you have a written Advance Directive?Other details of discussion: (Who was present, patients description of wishes/goals)Today's plan:1123F : AD or surrogate was documented in the medical record.
--- OUTSIDE RECORDS SUMMARY | 2024-12-04 15:27 | XMS_ITS | Encounter Summary ---
Author Organization [employer] Address [address] [facility] [address] [place] [address] Care Team Providers Care Devil Dog Name Role Phone Name, Tyson MCKINNON Primary Care Provider [phone] Encounter Details Date Type Department Care Team (Late st Contact Info) Description 05/14/2022 Orders Only [facility] P[facility]S [address] [place], [place] [phone] Faith Tavares LPN Social History Tobacco Use [...] Description 12/18/2024 2:00 PM EDT Office Visit [facility] MEDICINE [address] [place] [address] NameTyson MD [address] [place] [address] documented as of this encounter Visit Diagnoses Not on filedocumented in this encounter Care Teams Devil Dog Relationship Specialty Start Date End Date Tyson March MD [address] [place] [address] PCP - General Family Medicine 01/18/19 documented as of this encounter
--- OUTSIDE RECORDS SUMMARY | 2024-12-04 15:27 | XMS_ITS | Encounter Summary ---
Author Organization [employer] Address [address] [facility] [address] [place] [address] Care Team Providers Care Film Mounter Name Role Phone Name, Tyson MCKINNON Primary Care Provider [phone] Reason for Visit * Reason Comments Med Refill Encounter Details Date Type Department Care Team ([facility] st Contact Info) Description 06/18/2024 Refill [facility] MED [facility] PEDS [address] [place], [place] [phone] Rose Quintana, MARCOS [address] [place], [place] [phone] Chronic pain of both knees Social History [...] Description 12/18/2024 2:00 PM EDT Office Visit [facility] MEDICINE [address] [place] [phone] NameTyson MD [address] [place] [address] documented as of this encounter Visit Diagnoses Diagnosis Chronic pain of both knees documented in this encounter Additional Health Concerns Assessment Noted Time PHQ-9 Depression Total Score: 0 05/17/19 24 2:27 PM EDT documented as of this encounter Care Teams Film Mounter Relationship Specialty Start Date End Date NameTyson MD [address] [place] [address] PCP - General Family Medicine 01/18/19 documented as of this encounter
--- OUTSIDE RECORDS SUMMARY | 2024-12-04 15:27 | XMS_ITS | Clinical Summary ---
Author Organization [employer] Address [address] [facility] 7[address] [place] [address] Care Team Providers Care Community Development Manager Name Role Phone Name, Tyson MCKINNON Primary Care Provider [phone] Allergies Active Allergy Reactions Criticality Noted Date Comments Aspirin 10/07/2011 Medications verapamil (Calan) 40 MG tabletIndication s:Hypertension, unspecified type TAKE 1 TABLET BY MOUTH TWICE DAILY IN THE MORNING AND IN THE EVENING 60 tablet 2 3 Active acetaminophen (Tylenol 8 Hour) 650 MG ER tablet TAKE 1 TABLET BY MOUTH EVERY 8 HOURS NEEDED MILD PAIN DO NOT BREAK, CRUSH, DISSOLVE OR CHEW 30 tablet 3 Active memantine (Namenda) 5 MG tablet Take 5 mg by mouth 2 times daily. 3 Active donepezil (Aricept) 10 MG tabletIndication s:Hypertension, unspecified type TAKE 1 TABLET BY MOUTH EVERY EVENING 30 tablet 2 3 Active raloxifene (Evista) 60 MG tablet Take 60 mg by mouth in the morning. 3 Active nitroglycerin (Nitrostat) 0.[address] 1 tablet (0.4 mg) under the tongue every 5 (five) minutes if needed for chest pain. 90 tablet 12 4 Active OneTouch Ultra Test test strip USE DIRECTED TO TEST BLOOD SUGAR TWICE DAILY DIRECTED 50 strip 11 4 Active divalproex (Depakote ER) 250 MG 24 hr tablet Take 1 tablet (250 mg) by mouth Once per day. Do not crush, chew, or split. 4 Active sertraline (Zoloft) 50 MG tablet Take 1 tablet (50 mg) by mouth Once per day. 4 Active metoprolol tartrate (Lopressor) 25 MG tabletIndication s:Hypertension, unspecified type TAKE 1 TABLET BY MOUTH TWICE DAILY AT NOON AND IN THE EVENING 180 tablet 3 4 Active Lancets (OneTouch Delica Plus [id number]) miscIndications: Type 2 diabetes mellitus with other specified complication, without long-term current use of insulin (HCC) TEST BLOOD SUGAR TWICE DAILY 100 each 3 5 Active losartan (Cozaar) 25 MG tabletIndication s:Hypertension, unspecified type TAKE 1 TABLET BY MOUTH EVERY EVENING 90 tablet 3 5 Active Ferrous Sulfate (iron) 325 (65 Fe) MG tabletIndication s:Type 2 diabetes mellitus with other specified complication, unspecified whether terminal press operator insulin use (HCC) TAKE 1 TABLET BY MOUTH EVERY EVENING 90 tablet 3 5 Active furosemide (Lasix) 20 MG tablet Take 20 mg by mouth in the morning. 5 Active atorvastatin (Lipitor) 40 MG tabletIndication s:High cholesterol TAKE 1 TABLET BY MOUTH EVERY EVENING 90 tablet 3 5 Active Ascorbic Acid (vitamin C) 500 MG tabletIndication s:High cholesterol TAKE 1 TABLET BY MOUTH EVERY EVENING 90 tablet 3 5 Active esomeprazole (NexIUM) [address] capsuleIndicatio ns:High cholesterol TAKE 1 CAPSULE BY MOUTH EVERY MORNING 90 capsule 3 5 Active metFORMIN (Glucophage) 500 MG tablet TAKE 1 TABLET TWICE DAILY IN THE MORNING AND IN THE EVENING WITH FOOD 60 tablet 11 5 Active clopidogrel (Plavix) 75 MG tablet TAKE 1 TABLET BY MOUTH AT BEDTIME 90 tablet 1 5 Active Calcium Carb-Cholecalcif rachel 600-10 MG-MCG tablet TAKE 1 TABLET BY MOUTH TWICE DAILY IN THE MORNING AND IN THE EVENING 180 tablet 1 5 Active traMADol (Ultram) 50 MG tabletIndication s:Chronic knee pain, unspecified laterality TAKE 1/2 TABLET BY MOUTH EVERY TWELVE HOURS NEEDED FOR SEVERE PAIN 28 tablet 5 Active mirtazapine (Remeron) 30 MG tablet TAKE 1 TABLET BY MOUTH AT BEDTIME 30 tablet 1 5 Active Active Problems Problem Noted Date Diagnosed Date Primary osteoarthritis of both knees 12/05/2023 B12 deficiency 2022 Anemia 07/02/2022 Daily headache 07/02/2022 Mild cognitive disorder 07/02/2022 Stage 3a chronic kidney disease (CMS/HCC) 2022 Knee pain 07/06/2018 Type 2 diabetes mellitus 04/11/2018 Psychophysiologic insomnia 08/03/2017 Depressive disorder 04/12/2014 Intraductal carcinoma in situ of breast 09/04/19 14 Onychomycosis 01/21/2012 Non-compliance 12/22/2011 Coronary artery disease involving [place] coronar y artery 09/20/2011 Hiatal hernia 09/20/2011 Mixed hyperlipidemia 08/12/2011 Jo's esophagus 07/21/2011 Chest pain 07/20/2011 Dizziness and giddiness 07/20/2011 Essential hypertension 07/20/2011 Migraine 07/20/2011 Osteopenia of multiple sites 08/09/2005 Encounters Date Type Department Care Team Description 11/01/2024 Refill [facility] [address] [place] [address] NameTyson MD 10/10/2024 Telephone [facility] [address] [place] [address] Rylee Darby MA november recalls 10/08/2024 Refill [facility] [address] [place] [address] Rose Quintana NP Chronic knee pain, unspecified laterality 09/13/2024 Orders Only GENERIC EXTERNAL DATA DEPARTMENT Provider, Generic External Data 09/06/2024 Refill [facility] [address] [place] [address] Tyson March MD 09/03/2024 Orders Only [facility] External Provider, [facility] from Last 3 Months Immunizations Immunization Administration [...] Description 12/18/2024 2:00 PM EDT Office Visit [facility] [address] [place] [address] Name, MD Tyson [address] [place] [address] Health Maintenance Due Date Last Done Comments [...] exists Depression Screening 05/16/2024 05/17/2023, 05/17/19 24 SDOH Screening 08/30/2024 08/31/2023 Diabetes: Hemoglobin A1C 10/08/2024 025, 12/02/2023, 08/31/2023, Additional history exists COVID-19 Vaccine ( season) 2024 12/02/2023, 04/17/2021, 09/09/2020, Additional history exists Influenza Vaccine (#1) 2024 [...] 4+ VIEWS Routine 09/03/2024 2:00 PM EDT POCT GLYCATED HEMOGLOBIN, TOTAL Routine 04/10/2024 3:23 PM EST Type 2 diabetes mellitus with other specified complication, without long-term current use of insulin ([facility]) LIPID PANEL, STANDARD Routine 12/08/2023 10:10 AM EDT Type 2 diabetes mellitus with other specified complication, without long-term current use of insulin ([facility]) Chronic knee pain, unspecified laterality Venous insufficiency [...] 5:01 PM EDT 09/14/2024 10:00 AM EDT [facility] - 09/17/2024 11:39 AM EDT ----- ------- Name: Nadine Clement Age/Sex: 84/F : 1940 Unit#: [id number] Attend Dr: Nivia Guy [facility] Re09/13/24 Status: DEP REF [facility] Disch: ----- ------- SPEC : [id number] RECD: 09/14/24 STATUS: HAYLEE MYRON NUM: [id number] MARIEL: 09/13/24-[address] [facility] [address]: Nivia Guy [facility] ENTERED: 09/14/24111 SP TYPE: Cytology OTHR DR: [...] developed and their performance characteristics determined by [facility]. They have not been cleared or approved by the U.S. Food and Drug Administration (FDA). However, the FDA has determined that such clearance or approval is not necessary. This laboratory is certified under the Clinical Laboratory Improvement Amendments of 1988 (CLIA) as qualified to perform high complexity clinical laboratory testing. Copies To: Nivia Guy [facility] [address] [place] [address] [address] [place] [address] [email or web address] Name,Tyson MCKINNON [address] [facility] [place] [address] CONTINUED ON NEXT PAGE ----- ------- Name: UrbanoNadine Age/Sex: 84/F : 1940 Unit#: [id number] Attend Dr: Nivia Guy [facility] Re09/13/24 Status: DEP REF [facility] Disch: ----- ------- SPEC : [id number] RECD: 09/14/24 STATUS: HAYLEE SANCHES NUM: [id number] MARIEL: 09/13/24-[address] [facility] [address]: Nivia Guy [facility] ENTERED: 09/14/24-1112 SP TYPE: Cytology OTHR DR: NameTyson MD ORDERED: Cyto-enhanced ----- ------- Signed (signature on file) Manfred Hannon MD 09/17/24 1139 ----- ------- END OF REPORT us Generic External Data Provider LAB CYTOLOGY ORDAbhishek YOON Final Result [facility] [address] [place] [phone] * BI Mammogram Screening Tomosynthesis Bilateral (09/11/2024 3:15 PM EDT) Anatomical Region Laterality Modality Breast Bilateral Mammography 09/11/2024 3:15 PM EDT Narrative 09/25/2024 9:12 AM EDT [facility] [address] [place] [address] Mammography Report Signed Patient: Nadine Clement MR#: [id number] 69 : 1940 Acct:[id number] Age/Sex: 84 / F ADM Date: 09/11/24 Loc: HO.MAMMO Attending Dr: Tyson March MD Ordering Physician: Tyson March MD Results: 2Benign [facility] [place]) Date of Service: 09/11/24 Follow Up: 1 Year From Orig ina Mammogram Procedure(s): MM tomosynthesis screening BI Accession Number(s): [id number] cc: Tyson March MD EXAMINATION: MM SCREENING [...] Luci Trevizo DO 09/25/2024 09:09 AM EDT RP Dictated By: Luci Trevizo DO Signed By: <Electronically signed by Luci Trevizo DO in OV> 09/25/24 0909 DD/ 151 TD/TT: 09/11/24 1535 Payroll And Benefits Specialist: Procedure Note Donotuseinterpreter, Image - 09/25/2024 [facility] [address] [place] [address] Mammography Report Signed Patient: Nadine ClementMR#: [id number] 69 : 1940cct:[id number] Age/Sex: 84 / FADM Date: 09/11/24 Loc: .MAMMO Attending Dr: Tyson March MD Ordering Physician: Tyson March MDResults: 2Benign Fi ndings Date of Service: 09/11/24Follow Up: 1 Year From Orig ina Mammogram Procedure(s): MM tomosynthesis screening BI Accession Number(s): [id number] cc: Tyson March MD EXAMINATION: MM SCREENING [...] Luci Trevizo DO 09/25/2024 09:09 AM EDT RP Dictated By: Luci Trevizo DO Signed By: <Electronically signed by Luci Trevizo DO in OV> 09/25/24 09 DD/ 151 TD/TT: 09/11/24 153 Payroll And Benefits Specialist: Tyson March MD IMG BI PROCEDURES Final Result * XR Lumbar Spine Complete 4+ Views (09/03/2024 2:00 PM EDT) Anatomical Region Laterality Modality Spine, L-spine Radiographic Samanta ging 09/03/2024 2:00 PM EDT Narrative 09/03/2024 3:54 PM EDT [place] [address] XRay Report Signed Patient: Nadine Clement MR#: [id number] [birth year] : 1940 Acct:[id number] Age/Sex: 84 / F ADM Date: 09/03/24 Loc: [facility] Attending Dr: Ernestine FERRARI Ordering Physician: Ernestine Jc Date of Service: 09/03/24 Procedure(s): XR lumbar spine 4V min Accession Number(s): [id number] cc: Ernestine Jc; Name,Tyson MCKINNON EXAMINATION: X-ray [...] 09/03/24 1551 DD/ 1400 TD/TT: 09/03/24 1417 Payroll And Benefits Specialist: Procedure Note Donotuseinterpreter, Image - 09/03/2024 [place] [address] XRay Report Signed Patient: Nadine ClementMR#: [id number] [birth year] : [birth year]Acct:[id number] Age/Sex: 84 / FADM Date: 09/03/24 Loc: [facility] Attending Dr: Ernestine FERRARI Ordering Physician: Ernestine Jc Date of Service: 09/03/24 Procedure(s): XR lumbar spine 4V min Accession Number(s): [id number] cc: Ernestine Jc; Name,Tyson MCKINNON EXAMINATION: X-ray [...] 09/03/24 1551 DD/ 1400 TD/TT: 09/03/24 1417 Payroll And Benefits Specialist: [facility] External Provider IMG XR PROCEDURES Final Result * (ABNORMAL) POCT HGB A1C (04/10/2024 3:23 PM EST) Hemoglobin A1C 6.8(A) 4.0 - 6.0 % QC Media Lot # [id number] Lot# Expiration Date 7740 Blood 04/10/2024 3:23 PM EST Tyson March MD POINT OF CARE TEST ENTER/EDIT OR DERABLES Final Result * Lipid Panel, Standard (12/08/2023 10:10 AM EDT) Triglycerides 82 <150 mg/dL [facility] Comment:Desirable Triglyceri de: less than 150 mg/dLBorderline High Triglyceride 150-199 mg/dLHigh Triglyceride: 200-499 mg/dLVery High Triglyceride: greater than or equal to 5OO mg/dL Cholesterol 123 <200 mg/dL [facility] Comment:Desirable Cholestero l: less than 200 mg/dLBorderline High Cholesterol: 200-239 mg/dLHigh Cholesterol: greater than 239 mg/dL LDL Cholesterol Calculated 47 <100 mg/dL [facility] Comment:Desirable LDL: less than 100 mg/dLNear Optimal/Above Optimal LDL: 110- 129 mg/dLBorderline High LDL: 130-159 mg/dLHigh LDL: 160-189 mg/dLVery High LDL: greater than or equal to 190 mg/dL HDL Cholesterol 60 >40 mg/dL [facility] Comment:Desirable HDL: great er than 40 mg/dL Note: This HDL assay may give artificially low results in patients with liver disease. Blood Venous blood specimen / Unknown 12/08/2023 10:10 AM EDT 12/08/2023 11:16 AM EDT Tyson March MD LAB BLOOD ORDERABLES Final Resul t Performing Organization Address [facility] Co de Phone Number [facility] [address] [place] [phone] * Albumin, Random Urine W/Creatinine (02/07/2023 10:15 AM EST) Creatinine, Urine 75.20 mg/dL [facility] Microalbumin Urine 8.0 mg/L [facility] Microalbum Creatinine Ratio Ur 10.6 <30 ug/mg cr [facility] Comment:Albumin/Creatinine R atio Reference Ranges: Normal: < 30 ug/mg creatinine Microalbuminuria: 30 - 300 ug/mg creatinineClinical Albuminuria: > 300 ug/mg creatinine 02/07/2023 10:1 5 AM EST 02/07/2023 11:06 AM EST us Tyson March MD LAB URINE ORDERABLES Final Resul t Performing Organization Address [facility] Co de Phone Number [facility] [address] [place] [phone] from Last 3 Months or Most Recently Relevant to Health Maintenance Insurance [facility] [employer] Member Subscriber Plan / Payer (Ef fective 2019-Present) Name:Nadine Clement Relation to Subscriber:Self Name:Nadine Clement Payer ID:Not on file Group ID:[id number] Type:Not on file Address: [address] [address] DUAL COMPLETE DENTAL-[facility] MEDICAID STAND [facility] Care Teams Community Development Manager Relationship Specialty Start Date End Date Name, MD Tyson [address] [place] [address] PCP - General Family Medicine 01/18/19
--- OUTSIDE RECORDS SUMMARY | 2024-12-04 15:27 | XMS_ITS | Encounter Summary ---
Author Organization [employer] Address [address] [facility] 7t [place] [address] Care Team Providers Care Tax Appraiser Name Role Phone Name, Tyson MCKINNON Primary Care Provider [phone] Encounter Details Date Type Department Care Team ([facility] st Contact Info) Description 07/01/2022 Orders Only [facility] [address] [place], [place] [phone] Ernestine Aceves LPN Social History Tobacco Use [...] AM EDT documented as of this encounter Functional Status * Over the past 2 weeks, how often have you been bothered by any of the following problems? Question Answer Date of Assessment Author Patient Health Questionnaire-2 Score 2 07/02/2022 11:45 AM EDT Vero Katz [place] * If you checked off any problems on this questionnaire so far, Question Answer Date of Assessment Author How difficult have these problems made it for you to do your work, take care of things at home, or get along with other people? Somewhat difficult 07/02/2022 11:45 AM Vero Dickinson [place] * Over the past 2 weeks, how often have you been bothered by any of the following problems? Question Answer Date of Assessment Author Little interest or pleasure in doing things Several days 07/02/2022 11:45 AM Vero Riley MA Feeling down, depressed, or hopeless Several days 07/02/2022 11:45 AM Vero Dickinson [place] Trouble falling or staying asleep, or sleeping too much Nearly every day 07/02/2022 11:45 AM Vero Dickinson [place] Feeling tired or having little energy Several days 07/02/2022 11:45 AM Vero Dickinson [place] Poor appetite or overeating Several days 07/02/2022 11:45 AM Vero Dickinson [place] Feeling bad about yourself - or that you are a failure or have let yourself or your family down Several days 07/02/2022 11:45 AM Vero Dickinson MA Trouble concentrating on things, such as reading the newspaper or watching television Several days 07/02/2022 11:45 AM Vero Dickinson MA Moving or speaking so slowly that other people could have noticed? Or the opposite - being so fidgety or restless that you have been moving around a lot more than usual. Several days 07/02/2022 11:45 AM Vero Dickinson MA Thoughts that you would be better off or hurting yourself in some way Not at all 07/02/2022 11:45 AM Vero Dickinson MA Patient Health Questionnaire-9 Score 10 07/02/2022 11:45 AM Vero Harley MA documented as of this encounter Plan of Treatment Upcoming Encounters Date Type Department Care Team (Late st Contact Info) Description 12/18/2024 2:00 PM EDT Office Visit [facility] [address] [place] [address] Name, MD Tyson [address] [place] [address] documented as of this encounter Visit Diagnoses Not on filedocumented in this encounter Care Teams Tax Appraiser Relationship Specialty Start Date End Date Name, MD Tyson [address] [place] [address] PCP - General Family Medicine 01/18/19 documented as of this encounter
--- OUTSIDE RECORDS SUMMARY | 2024-12-04 15:27 | XMS_ITS | Encounter Summary ---
Author Organization [employer] Address [address] [facility] 7t [place] [address] Care Team Providers Care Sack Sewer Name Role Phone Name, Tyson MCKINNON Primary Care Provider [phone] Encounter Details Date Type Department Care Team (Late Contact Info) Description 10/18/2022 Orders Only [facility]S [address] [place], [place] [phone] Ernestine Aceves LPN Social History Tobacco Use [...] Description 12/18/2024 2:00 PM EDT Office Visit [facility] [address] [place], [place] [phone] Name, MD Tyson [address] [place], [place] [phone] documented as of this encounter Visit Diagnoses Not on filedocumented in this encounter Additional Health Concerns Assessment Noted Time PHQ-9 Depression Total Score: 10 023 11:45 AM EDT documented as of this encounter Care Teams Sack Sewer Relationship Specialty Start Date End Date Name, MD Tyson [address] [place] [address] PCP - General Family Medicine 01/18/19 documented as of this encounter
--- OUTSIDE RECORDS SUMMARY | 2024-12-04 15:27 | XMS_ITS | Encounter Summary ---
Author Organization [employer] Address [address] [facility] 7t [place] [address] Care Team Providers Care Solutions Operator Name Role Phone Name, Tyson MCKINNON Primary Care Provider [phone] Reason for Visit * Reason Comments Med Refill Encounter Details Date Type Department Care Team ([facility] st Contact Info) Description 11/17/2023 Refill [facility] [address] [place], [place] [phone] Name, MD Tyson [address] [place] [address] Social History Tobacco Use Types Packs/Day Years [...] Description 12/18/2024 2:00 PM EDT Office Visit [facility] [address] [place] [address] Name, MD Tyson [address] [place] [address] documented as of this encounter Visit Diagnoses Not on filedocumented in this encounter Additional Health Concerns Assessment Noted Time PHQ-9 Depression Total Score: 0 05/17/19 24 2:27 PM EDT documented as of this encounter Care Teams Solutions Operator Relationship Specialty Start Date End Date NameTyson MD [address] [place] [address] PCP - General Family Medicine 01/18/19 documented as of this encounter
--- OUTSIDE RECORDS SUMMARY | 2024-12-04 15:27 | XMS_ITS | Patient Health Record ---
Author Organization [facility] Address [address] [place] [address] Care Team Providers Care Director Strategic Account Management Name Role Phone Felice (DO NOT USE), Samirformerly [facility] Primary Care Provi yareli Unavailable Adrian Roblse Unavailable [phone] Reason For Referral No Information Medications Medication SIG (Take, Route, Frequency, Duration) Notes Start Date End Date Status metFORMIN HCl 1000mg Active Plavix 75mg Active glipiZIDE 10mg Activ e traMADol HCl Active Lipitor 40mg Active Metoprolol Tartrate 25mg Active Furosemide 20mg Acti ve NexIUM 40mg Active Problems Problem Type SNOMED Code ICD Code Onset Dates Problem Status W/U Status Risk Notes Problem [id number] 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 [address] [place] [address] [id number] HANNAH MONK Self - patient is the insured Medical (General) History Medical History History ICD Code EGD 07-06-2011-small area of Jo's-no dysplasia; small HH Colonoscopy 04-04-2009-hyperplastic polyp NIDDM Colon polyps--tubular adenomas removed i n 2002 and in 2005 Hyperlipidemia GERD She denies any history of AR, stroke,josh al disease, nor lung disease CAD--on Plavix--Cardiac cath in 1998--no AR--does not think she has any stents in Colonoscopy in 12/2014--smal l adenomas, diverticulosis and internal hemorrhoids Surgical History Surgery Date(Month/Year) PATRICIA
--- OUTSIDE RECORDS SUMMARY | 2024-12-04 15:27 | XMS_ITS | Encounter Summary ---
Author Organization [employer] Address [address] [facility] 7t [place] [address] Care Team Providers Care Paediatrician Name Role Phone Name, Tyson MCKINNON Primary Care Provider Encounter Details Date Type Department Care Team (Late st Contact Info) Description 04/15/2022 Orders Only [facility] PEDS [address] [place], [place] [phone] Faith Tavares LPN Social History Tobacco Use [...] 2:00 PM EDT Office Visit [facility] [address] [place] [address] NameTyson MD [address] [place] [address] documented as of this encounter Visit Diagnoses Not on filedocumented in this encounter Care Teams Paediatrician Relationship Specialty Start Date End Date Tyson March MD [address] [place] [address] PCP - General Family Medicine 01/18/19 documented as of this encounter
--- OUTSIDE RECORDS SUMMARY | 2024-12-04 15:27 | XMS_ITS | Encounter Summary ---
Author Organization [employer] Address [address] [facility] 7t [place] [address] Care Team Providers Care Master Baker Name Role Phone Name, Tyson MCKINNON Primary Care Provider [phone] Encounter Details Date Type Department Care Team (Late Contact Info) Description 07/19/2022 Orders Only [facility] [address] [place], [place] [phone] Faith Tavares LPN Social History Tobacco Use [...] Department Care Team (Late Contact Info) Description 12/18/2024 2:00 PM EDT Office Visit [facility] [address] [place], [place] [phone] Name, MD Tyson [address] [place], [place] [phone] documented as of this encounter Visit Diagnoses Not on filedocumented in this encounter Additional Health Concerns Assessment Noted Time PHQ-9 Depression Total Score: 10 023 11:45 AM EDT documented as of this encounter Care Teams Master Baker Relationship Specialty Start Date End Date Name, MD Tyson [address] [place] [address] PCP - General Family Medicine 01/18/19 documented as of this encounter
--- OUTSIDE RECORDS SUMMARY | 2024-12-04 15:27 | XMS_ITS | Encounter Summary ---
Author Organization [employer] Address [address] [facility] [address] [place] [address] Care Team Providers Care Compounder Flavorings Name Role Phone Name, Tyson MCKINNON Primary Care Provider [phone] Reason for Visit * Reason Comments Med Refill Encounter Details Date Type Department Care Team ([facility] Contact Info) Description 04/01/[address] [facility] [address] [place] [address] [phone] NameTyson MD [address] [place] [address] [phone] Migraine, unspecified, not intractable, without status migrainosus [...] Upcoming Encounters Date Type Department Care Team ([facility] Contact Info) Description 12/18/2024 2:00 PM EDT Office Visit [facility] [address] [place] [phone] Tyson March MD [address] [place] [address] [phone] documented as of this encounter Visit Diagnoses Diagnosis Migraine, unspecified, not intractable, without status migrainosus documented in this encounter Care Teams Compounder Flavorings Relationship Specialty Start Date End Date NameTyson MD [address] [place] [address] [phone] PCP - General Family Medicine 01/18/19 documented as of this encounter
[2024-12-04] MEDS: iohexoL 350 MG/ML 100 ML INFUS..BTL IV (17:03)
[2024-12-04 17:04] LABS: Creatinine POC 1.2 mg/dL (0.5-1.4); GFR POC 46
== END 2024-12-04 14:04 | disposition home or self-care (01) ==
LOC: HO.CT 14:03
PROVIDERS: PCP Internal Medicine Geriatric Medicine; Visit Provider Nurse Practitioner Family
DX: R31.0 Gross hematuria (principal)
CPT/HCPCS: 74178; 82565; Q9967

== ENCOUNTER → 2024-12-04 14:08 | Outpatient (BNV) | payer OTHER, SELFPAY | PROVIDERS: PCP Internal Medicine Geriatric Medicine; Visit Provider Radiology Diagnostic Radiology | DX: K80.20 Calculus of gallbladder without cholecystitis without obstruction (principal); N28.1 Cyst of kidney, acquired; M47.815 Spondylosis without myelopathy or radiculopathy, thoracolumbar region; M48.061 Spinal stenosis, lumbar region without neurogenic claudication | CPT/HCPCS: 74178 ==

== ENCOUNTER 2024-12-27 14:31 | Outpatient (AMB) | payer OTHER, SELFPAY ==
--- NOTE | 2024-12-27 14:48 | A.OFFVIS_ITS ---
Intake Visit Reasons: Cysto/CT Intake Note: Patient presents today for a cysto/CT * 12/[address] Urology Medication: none Antibiotic Allergies: None Blood Thinners: Clopidogrel Lot #: [id number] Exp:08/14/27 Meat Team Member Required: Yes Meat Team Member Services: Meat Team Member Offered & Declined Trade Manager: Trade Manager Present Accompanied by: Daughter Allergies aspirin (ASA) Adverse Reaction (Verified 12/27/24 14:48) Unknown HPI Comments Details: 12/27/24--Here for office cystoscopy. LV --09/13/24 with POSTAL SERVICE WINDOW CLERK---FU hematuria. There is no history of cigarette smoking. Pt's daughter states she saw blood and is unsure if it was related to urine or vaginal. H/o breast cancer Results - CT scan: No suspicious kidney masses or kidney stones - Urine test today: Negative blood - Cystoscopy findings: No suspicious bladder lesions, mild/mod bladder wall thickening - pelvic exam- vaginal atrophy, urethral caruncle, pt has not had a embedded software design engineer exam in >7 years 20 minutes spent in review of records pertaining to this visit and including [id number] discussion with the patient and documentation of this visit. 09/13/24--Nadine is a very pleasant 84nyear old Lao speaking female patient of Dr. March who is accompanied by her grandaughter at todays visit. 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 She presents to the office today for a follow up of her overactive bladder. In discussion with the patient today she reports to be doing and feeling well. She reports since her last office visit here she has had 2 episodes of bleeding however is unsure if this was vaginal or hematuria. She reports she continues with left lower abdominal. In office urinalysis results reviewed with the patient today no microscopic hematuria noted. She also reports noting intermittent episodes of bladder pressure. She also reports episodes of urinary urgency and frequency after taking her diuretic. We did discussed correlation of diuresis and lower urinary tract symptoms. She otherwise denies incontinence, nocturia, dysuria, foul smelling urine, changes to urinary stream, flank pain, fever, and or chills. PVR 143 mL. Previous workup has included a retroperitoneal ultrasound 02/27 noting bilateral kidneys with dilated pyramids otherwise no calculi, lesions, and or hydronephrosis. Pre void bladder volume is approximately 240 mL. Postvoid bladder volume was approximately 50 mL. We discussed at length pote ntial causes of bladder pressure as well as potential gross hematuria. Patient had previously trialed VESIcare for potential bladder spasms however experience incomplete bladder emptying with increase in PVR. All questions were answered She otherwise offers no issues or concerns at this time. COUNTS INCLUDE 234 BEDS AT THE [facility] Medical History Alzheimer dementia Temporomandibular disorder Analgesic overuse headache Chronic tension type headache Migraine Osteoarthritis of left knee B12 deficiency Ductal carcinoma in situ (DCIS) of right breast Surgical History History of cystoscopy (~2015) Hx of cataract extraction (~10/11/16) History of lumpectomy of right breast (~10/09/13) Hx of breast biopsy Hx of angioplasty Hx of total hypophysectomy (~1994) Family History Maternal Uncle Hx of cancer of lung Mother Hx of cancer of lung Diabetes Sister Diabetes Brother Diabetes Social History Household Members: Other Household Members Other:: [facility] Housing: House Are you a primary personal care attendant to a significant other at home: No Do you presently have visiting nurse or other home services: Yes Alcohol intake: never Patient Tobacco Use Status: Never used Tobacco e-Cigarette/Vaping Use: Never Used service: No Current occupational status: retired Review of Systems Const All systems reviewed & are unremarkable except as noted in HPI and below Reports no additional complaints Eyes Reports no additional complaints ENT Reports no additional complaints Card Reports no additional complaints Resp Reports no additional complaints GI Reports no additional complaints Reports as per HPI Musc Reports no additional complaints Skin/Breast Reports system reviewed and no additional complaints, except as documented Neuro Reports no additional complaints Psych Reports no additional complaints Endo Reports no additional complaints Oni/Lymph Reports no additional complaints Aller/Immun Reports no additional complaints Office Procedures Cystoscopy Consent Discussed risk and benefit or proposed procedure with the patient. Information consent for procedure given to the patient. Discussed technical aspects, risks, benefits and alternatives in full. Addressed all of the patient's questions and concerns regarding the procedure. The patient demonstrated knowledge and understanding. They wish to proceed with this procedure. Preparation The patient was prepped in the usual manner. A utility agent was present and in the room. Genitalia was prepped with betadine solution in a sterile manner. Lidocaine Jelly 2% was placed into the urethra and 16Fr flexible Olympus cystoscope was inserted into the meatus after adequate lubrication. Procedure Time out per protocol performed. Speculum used as indicated for adequate visualization of urethra, the flexible cystoscope is passed transurethrally: The bladder was inspected in its entirety with utilization retroflexion displaying: Tumor(s): no suspicious bladder lesions visualized Trabeculation: Mild Mucosal Erthema: Orifices: normal shape and position Urethra: normal Cystoscopy findings: no suspicious bladder lesions visualized [id number] DISPOSABLE SCOPE URO-G FLEXIBLE SCOPE Procedure code (CPT) selection complete Office Meds lidocaine HCl 2 % mucosal jelly in applicator Performing Provider: Gilberto Wagner MD [place] [facility] [place] [facility] Administered by: Abigail Ford RN on 12/27/24 15:22 Dose Route Admin Location Dispensed Lot Number Expiration Date NDC Pony Rougher 20 mL intra-urethral 20 mL ciprofloxacin HCl 500 mg tablet Performing Provider: Gilberto Wagner MD [place] [facility] [place] [facility] Administered by: Abigail Ford RN on 12/27/24 15:22 Dose Route Admin Location Dispensed Lot Number Expiration Date NDC Pony Rougher 500 mg PO 1 tab phenazopyridine 200 mg tablet Performing Provider: Gilberto Wagner MD [place] [facility] [place] [facility] Administered by: Abigail Ford RN on 12/27/24 15:22 Dose Route Admin Location Dispensed Lot Number Expiration Date NDC Pony Rougher 200 mg PO 1 tab Results AMB Urinalysis, Automated UA Leukoctes 500 Landon/uL Last Edit by Rafaela Wellington on 12/27/24 17:32 UA Nitrite Negative Last Edit by Rafaela Wellington on 12/27/24 17:32 UA Urobilinogen 0.2 mg/dL Last Edit by Rafaela Wellington on 12/27/24 17:32 UA Protein 0 mg/dL Last Edit by Rafaela Wellington on 12/27/24 17:32 UA pH 5.5 Last Edit by Rafaela Wellington on 12/27/24 17:32 UA Blood 0 Nael/uL Last Edit by Crystal Wellington on 12/27/24 17:32 UA Specific [place] 1.015 Last Edit by Crystal Wellington on 12/27/24 17:32 UA Ketone Negative Last Edit by Crystal Wellington on 12/27/24 17:32 UA Bilirubin 0 mg/dL Last Edit by Crystal Wellington on 12/27/24 17:32 UA Glucose 0 mg/dL Last Edit by Rafaela Wellington on 12/27/24 17:32 Results Reviewed Results Reviewed: Laboratory Last Values Urine pH (Auto) 5.5 12/27/24 16:32 Specific [place] (Auto) 1.015 12/27/24 16:32 Urine Protein (Auto) 0 mg/dL 12/27/24 16:32 Glucose (UA)(Auto) 0 mg/dL 12/27/24 16:32 Urine Ketones (Auto) Negative 12/27/24 16:32 Urine Blood (Auto) 0 Nael/uL 12/27/24 16:32 Urine Nitrite (Auto) Negative 12/27/24 16:32 Urine Bilirubin (Auto) 0 mg/dL 12/27/24 16:32 Urine Urobilinogen (Auto) 0.2 mg/dL 12/27/24 16:32 Leukocyte Esterase (Auto) 500 [place]andon/uL 12/27/24 16:32 Date of Service: 12/04/24 EXAMINATION: CT ABDOMEN AND PELVIS WITHOUT AND WITH CONTRAST CLINICAL INFORMATION: R 31.0. Gross hematuria. COMPARISON: CT abdomen pelvis dated September 21, 2021. TECHNIQUE: Noncontrast CT of the abdomen and pelvis is performed followed by split bolus contrast-enhanced images using 85 mL Omnipaque 350 contrast. Postcontrast imaging is performed during the combined nephrogram and excretion phase. Sagittal and coronal reformatted images were obtained on the technologist's workstation for both the precontrast and postcontrast phases. This CT examination was performed using dose optimization techniques as appropriate, variously including the following: *Automated exposure control *Adjustment of mA and/or kV according to patient size (this includes techniques or standardized protocols for targeted exams where dose is matched to indication/reason for exam; i.e. extremities or head) *Use of iterative reconstruction technique. DLP: 644 mGy centimeter. FINDINGS: LUNG BASES: No acute airspace disease. LIVER, GALLBLADDER, AND BILIARY TREE: Liver measures 12 cm. Subtle nodular surface. No focal mass. No intrahepatic biliary ductal dilatation. Main portal veins, hepatic veins and intrahepatic portion of the IVC are patent. Gallbladder is contracted with intraluminal focal 9 mm calcification. No pericholecystic fluid collection or gallbladder wall thickening. Common bile duct measures 4 mm. PANCREAS: No focal mass. No peripancreatic fluid collection. No main pancreatic ductal dilatation. SPLEEN: 8 cm. No focal mass. ADRENAL GLANDS: Soft tissue fullness without nodular lesion. KIDNEYS AND URETERS: No hydronephrosis. No nephrolithiasis. No enhancing mass. Normal enhancement of the renal parenchyma. Subcentimeter cysts, left kidney. Normal urinary excretion into the collecting system. BLADDER: Fluid-filled. GASTROINTESTINAL TRACT: Abundant stool within nondilated large intestine. No intestinal obstruction pattern. Appendix is normal. No gross intestinal wall thickening. No ascites. No pneumoperitoneum. ABDOMINAL WALL: Small fat-containing umbilical hernia. LYMPH NODES: No mesenteric or retroperitoneal lymphadenopathy. VASCULAR: Mixed plaques throughout the abdominal aorta wall and iliac arteries without aneurysm or dissection. Calcified plaques in the origin of the mesenteric arteries and femoral arteries. PELVIC VISCERA: Absent uterus OSSEUS STRUCTURES: Multilevel thoracolumbar spondylosis pronounced at L3-4 resulting in central spinal canal and bilateral neuroforamina stenosis. Grade 1 retrolisthesis at L3-4. Levoconvex rotoscoliosis apex at L2-3. Degenerative changes in the symphysis pubis sacroiliac joints and to a lesser extent both coxofemoral joints. IMPRESSION: No hydronephrosis or nephrolithiasis. No gross renal mass. Subcentimeter cysts, left kidney. Other findings as above. Assessment & Plan Assessment & Plan (1) History of breast cancer: Code(s): Z85.3 - Personal history of malignant neoplasm of breast Category: Medical (2) Urinary urgency: Code(s): R39.15 - Urgency of urination Category: Medical (3) Incomplete bladder emptying: Code(s): R33.9 - Retention of urine, unspecified Category: Medical (4) Sensation of pressure in bladder area: Code(s): R39.89 - Other symptoms and signs involving the genitourinary system Category: Medical (5) Gross hematuria: Code(s): R31.0 - Gross hematuria Category: Medical Plan There is no history of cigarette smoking. Pt's daughter states she saw blood and is unsure if it was related to urine or vaginal. H/o breast cancer Results - CT scan: No suspicious kidney masses or kidney stones - Urine test today: Negative blood - Cystoscopy findings: No suspicious bladder lesions, mild/mod bladder wall thickening - pelvic exam- vaginal atrophy, urethral caruncle, pt has not had a embedded software design engineer exam in >7 years Plan referral to LINUX SYSTEMS ADMINISTRATOR. Cont FU with POSTAL SERVICE WINDOW CLERK Nivia Guy for LUTS Orders: Orders AMB Cystoscopy 12/27/24 R31.0 - Gross hematuria AMB Urinalysis Automated 12/27/24 R31.0 - Gross hematuria Patient Instructions: The patient had an opportunity to ask questions regarding treatment plan. The patient expressed understanding and agreement with the above treatment plan. The patient is aware they should contact our office by phone for worsening of their current condition or the appearance of new symptoms. Compliance is e ncouraged with any medications and followup testing that is ordered. It is a privilege to be allowed the opportunity to participate in the urologic care of your patient. If you have any questions or concerns regarding treatment for the above conditions please do not hesitate to contact me. The office telephone contact is [phone]. This note is constructed in part using voice recognition software. While every effort has been made to ensure accuracy physical metallurgist errors may have been included. Yours sincerely, Gilberto Wagner MD Scribe Plan - Not visible on output: Patient was informed and verbally consented to the use of an ambient scribe for clinic note documentation during this visit. Coding Level of Care Code Est Pt Level 3 (37432) Diagnoses History of breast cancer Z85.3 Urinary urgency R39.15 Incomplete bladder emptying R33.9 Sensation of pressure in bladder area R39.89 Gross hematuria R31.0 CPT Codes Cystoscopy - CPT: 13116-[id number] ([id number])
--- OUTSIDE RECORDS SUMMARY | 2024-12-27 18:22 | XMS_ITS ---
Author Name [facility] [place]. Aria Arceo Address [address] [place] [address] Phone [phone] Organization [facility] Care Team Providers Care Machine Ii Coremaker Name Role Phone Aria Polk Unavailable [phone] NameTyson Unavailable [phone] Reason for Referral Not Available Allergies, adverse [...] 2021-05-11 No Data Available OneTouch Delica Plus Knpkqs87V Miscellaneous TEST BLOOD SUGAR TWICE DAILY 2021-05-15 [...] 50 mg Tab TAKE 1 TABLET BY [facility] EVERY MORNING 2023-09-21 No [...] 20 mg Tab TAKE 1 TABLET BY [facility] EVERY MORNING 2024-03-20 No [...] QDAY d/ t hypoglycemia Lab ResultsComponent Value WhpuPEYV9V 7.8 (A) 02/14/2023HGBA1C 6.3 (H) 02/01/2022Lab ResultsComponent [...] QDAY d/ t hypoglycemia Lab ResultsComponent Value QynrCOWT6K 7.8 (A) 02/14/2023HGBA1C 6.3 (H) 02/01/2022 Hyperlipidemia [...] organ damage (headache, vision changes, chest pain)/ Sign Language Teacher on proper BP monitoring technique and reassess/ [...] metoprolol t artrate BID on Plavix (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- aprx [...] control and bp control Lab ResultsComponent Value PhlqVYEN3S 7.8 (A) 02/14/2023HGBA1C 6.3 (H) 02/01/2022Lab ResultsComponent Value DateGLUCOSE 121 (H) 11/19/2022NA 144 3K 4.5 3CO2 26 11/19/2022L 109 (H) 3BUN 14 11/19/2022REATININE 1.05 11/19/2022 SOB (shortness of breath)COPD Active 2022-01-25 N/A prn albuterol inhalerfollows with pulmonology Encounters Encounters Type Facility Date of Service Diagnosis/Co mplaint Pain Assessment - Pain Documented on a Pain Scale (1125F) [facility] [place]/2022 Pain Assessment - Pain Documented on a Pain Scale (1125F) [facility] [place] 01[place]/2022 Pain Assessment - Pain Documented on a Pain Scale (1125F) [facility] [place] 01/25/2022 Pain Assessment - Pain Documented on a Pain Scale (1125F) [facility] [place] 01/25/2022 Pain Assessment - Pain Documented on a Pain Scale (1125F) [facility] [place] 01/25/2022 Pain Assessment - Pain Documented on a Pain Scale (1125F) [facility] [place] 01/25/2022 Pain Assessment - Pain Documented on a Pain Scale (1125F) [facility] [place] 01/25/2022 Hyperlipidemia, unspecifiedGastro-esophageal reflux disease without esophagitisInsomnia, unspecifiedType 2 diabetes mellitus without complicationsEssential (primary) hypertensionAge-related osteoporosis without current pathological fractureOveractive bladderShortness of breathUnspecified dementia without behavioral disturbanceOther thrombophiliaUnspecified atrial fibrillationPersonal history of malignant neoplasm of breast Pain Assessment - Pain Documented on a Pain Scale (1125F) [facility], ([place]) 01/25/2022 Pain Assessment - Pain Documented on a Pain Scale (1125F) [facility] ([place] 01/25/2022 Estab. patient 30-39min; chronic exacerbation, 2 stable chronic or 1 acute illness add add modifier 95 for video, (do not use for phone, instead use 86055-21) [facility] [place] 10/04/2022 Type 2 diabetes mellitus wit [...] (do not use for phone, instead use 85985-38) [facility] [place] 10[place]04/[place] Estab. patient 30-39min; chronic exacerbation, 2 stable chronic or 1 acute illness add add modifier 95 for video, (do not use for phone, instead use 05097-32) [facility] [place] 10[place]04/20[place] Estab. patient 30-39min; chronic exacerbation, 2 stable chronic or 1 acute illness add add modifier 95 for video, (do not use for phone, instead use 30432-16) [facility] [place] 10/04/2022 Estab. patient 30-39min; chronic exacerbation, 2 stable chronic or 1 acute illness add add modifier 95 for video, (do not use for phone, instead use 62566-96) [facility] [place] 10/04/2022 Estab. patient 30-39min; chronic exacerbation, 2 stable chronic or 1 acute illness add add modifier 95 for video, (do not use for phone, instead use 29051-37) [facility] [place] 10/04/2022 Estab. patient 30-39min; chronic exacerbation, 2 stable chronic or 1 acute illness add add modifier 95 for video, (do not use for phone, instead use 53712-81) [facility] [place] 10/04/2022 Estab. patient 30-39min; chronic exacerbation, 2 stable chronic or 1 acute illness add add modifier 95 for video, (do not use for phone, instead use 28164-09) [facility] [place] 10/04/2022 Estab. patient 30-39min; chronic exacerbation, 2 stable chronic or 1 acute illness add add modifier 95 for video, (do not use for phone, instead use 36789-89) [facility] [place] 10/04/2022 Estab. patient 30-39min; chronic exacerbation, 2 stable chronic or 1 acute illness add add modifier 95 for video, (do not use for phone, instead use 47996-21) [facility] [place] 10/04/2022 Estab. patient 30-39min; chronic exacerbation, 2 stable chronic or 1 acute illness add add modifier 95 for video, (do not use for phone, instead use 34715-62) [facility] [place] 03/24/2023 Type 2 diabetes mellitus wit h [...] (do not use for phone, instead use 41527-84) [facility] [place] 03/24/2023 Estab. patient 30-39min; chronic exacerbation, 2 stable chronic or 1 acute illness add add modifier 95 for video, (do not use for phone, instead use 71035-84) [facility] [place] 03/24/2023 Estab. patient 30-39min; chronic exacerbation, 2 stable chronic or 1 acute illness add add modifier 95 for video, (do not use for phone, instead use 95498-63) [facility] [place] 03/24/2023 Estab. patient 30-39min; chronic exacerbation, 2 stable chronic or 1 acute illness add add modifier 95 for video, (do not use for phone, instead use 22412-75) [facility] [place] 03/24/2023 Estab. patient 30-39min; chronic exacerbation, 2 stable chronic or 1 acute illness add add modifier 95 for video, (do not use for phone, instead use 70586-42) [facility] [place] 03/24/2023 Estab. patient 30-39min; chronic exacerbation, 2 stable chronic or 1 acute illness add add modifier 95 for video, (do not use for phone, instead use 97806-15) [facility] [place] 03/24/2023 Estab. patient 30-39min; chronic exacerbation, 2 stable chronic or 1 acute illness add add modifier 95 for video, (do not use for phone, instead use 74724-32) [facility] [place] 03/24/2023 Estab. patient 30-39min; chronic exacerbation, 2 stable chronic or 1 acute illness add add modifier 95 for video, (do not use for phone, instead use 46456-05) [facility] [place] 03/24/2023 Estab. patient 30-39min; chronic exacerbation, 2 stable chronic or 1 acute illness add add modifier 95 for video, (do not use for phone, instead use 31059-29) [facility] [place] 03/24/2023 Estab. patient 20-29min; 1 stable chronic or 2 minor; add add modifier 95 for video, modifier 93 for phone [facility] [place] 05/01/2024 Type 2 diabetes mellitus wit [...] 95 for video, modifier 93 for phone [facility] [place] 05/01/20[place] Estab. patient 20-29min; 1 stable chronic or 2 minor; add add modifier 95 for video, modifier 93 for phone [facility] [place] 05/01/2024 Estab. patient 20-29min; 1 stable chronic or 2 minor; add add modifier 95 for video, modifier 93 for phone [facility] [place] 05/01/2024 Estab. patient 20-29min; 1 stable chronic or 2 minor; add add modifier 95 for video, modifier 93 for phone [facility] [place] 05/01/2024 Estab. patient 20-29min; 1 stable chronic or 2 minor; add add modifier 95 for video, modifier 93 for phone [facility] [place] 05/01/2024 Estab. patient 20-29min; 1 stable chronic or 2 minor; add add modifier 95 for video, modifier 93 for phone [facility] [place] 05/01/2024 Estab. patient 20-29min; 1 stable chronic or 2 minor; add add modifier 95 for video, modifier 93 for phone [facility] [place] 05/01/2024 Estab. patient 20-29min; 1 stable chronic or 2 minor; add add modifier 95 for video, modifier 93 for phone [facility] [place] 05/01/2024 Vital Signs Date [...] tive Time Current Smoking Status Never smoker 2024-12-06 3 Sex Female History of Procedures Procedures [...] 95 for video, modifier 93 for phone 11762 2022-01-25 No Data Available No Data Availa ble DBP <80 (3078F) 3078F 2022-01-25 No Data Available No Data Available SBP >= 140 3077F 2022-01-25 No Data Available No Data Available Estab. patient 30-39min; chronic exacerbation, 2 stable chronic or 1 acute illness add add modifier 95 for video, (do not use for phone, instead use 84132-61) 52210 2022-10-04 No Data Available No Data Availa [...] (do not use for phone, instead use 24439-53) 80618 2023-03-24 No Data Available No Data Availa [...] 95 for video, modifier 93 for phone 77820 2024-05-01 No Data Available No Data Availa [...] lives with daughter tommie d grandson 2022-01-25 [employer] PAD is her grand daughter 2022-10-04 Mental Status [...] with diabetic chronic kidney disease, CKD stage G3a/D2Qvhzpznqteyo heart disease with stage 3a chronic kidney [...] CG reportmetoprolol tartrate BID on Plavix (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- aprx [...] and osteoporosis surveillance stressed-- Risk of terminal manager PPI use discussed-- Antireflux diet: avoid [...] with pulmonologymetoprolol tartrate BID on Plavix (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- aprx [...] and osteoporosis surveillance stressed-- Risk of terminal manager PPI use discussed-- Antireflux diet: avoid [...] QDAY d/ t hypoglycemia Lab ResultsComponent Value PjhnBYDO6Z 7.8 (A) 02/14/2023HGBA1C 6.3 (H) 02/01/2022Lab ResultsComponent [...] your log in next visit.Lab ResultsComponent Value SgccNHDO3M 7.8 (A) 02/14/2023HGBA1C 6.3 (H) 02/01/2022Lab ResultsComponent [...] 4 03/24/23metoprolol tartrate BID on Plavix (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- aprx 20 years ago)in remissionfollows with oncologist s/p surgery/removal of cancerous lesionavoid nephrotoxic medicationstay hydrated encouraged A1c control and bp control Lab ResultsComponent Value TjghULIM2K 7.8 (A) 02/14/2023HGBA1C 6.3 (H) 02/01/2022Lab ResultsComponent [...] QDAY d/ t hypoglycemia Lab ResultsComponent Value JqfaOBZC8C 7.8 (A) 02/14/2023HGBA1C 6.3 (H) 02/01/2022 2024-05-01 [...] QDAY d/ t hypoglycemia Lab ResultsComponent Value NtsuENJL8K 7.8 (A) 02/14/2023HGBA1C 6.3 (H) 02/01/2022Lab ResultsComponent [...] organ damage (headache, vision changes, chest pain)/ Sign Language Teacher on proper BP monitoring technique and reassess/ [...] up prn.metoprolol tartrate BID on Plavix (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 Yes, preferred proxy but not named POAIf so, Who? HCP: grand daughter Kerry Waldrop do you have a written Advance Directive?Other details of discussion: (Who was present, patients description of wishes/goals)Today's plan:1123F : AD or surrogate was documented in the medical record.
--- OUTSIDE RECORDS SUMMARY | 2024-12-27 18:23 | XMS_ITS | Encounter Summary ---
Author Organization [employer] Address [address] [facility] [address] [place] [address] Care Team Providers Care Communications Billing Analyst Name Role Phone Name, Tyson MCKINNON Primary Care Provider [phone] Encounter Details Date Type Department Care Team ([facility] st Contact Info) Description 05/14/2022 Orders Only [facility] CH[facility] MED & PEDS [address] [place], [place] [phone] Faith Tavares LPN Social History Tobacco Use [...] on filedocumented in this encounter Care Teams Communications Billing Analyst Relationship Specialty Start Date End Date Name, MD Tyson [address] [place] [address] PCP - General Family Medicine 01/18/19 documented as of this encounter
--- OUTSIDE RECORDS SUMMARY | 2024-12-27 18:23 | XMS_ITS | Encounter Summary ---
Author Organization [employer] Address [address] [facility] [address]t [place] [address] Care Team Providers Care Senior Accounts Payable Clerk Name Role Phone Name, Tyson MCKINNON Primary Care Provider [phone] Encounter Details Date Type Department Care Team ([facility] st Contact Info) Description 04/15/2022 Orders Only [facility] MED & PEDS [address] [place], [place] [phone] Faith Tavares LPN Social History Tobacco Use [...] on filedocumented in this encounter Care Teams Senior Accounts Payable Clerk Relationship Specialty Start Date End Date Name, MD Tyson [address] [place] [address] PCP - General Family Medicine 01/18/19 documented as of this encounter
--- OUTSIDE RECORDS SUMMARY | 2024-12-27 18:23 | XMS_ITS | Encounter Summary ---
Author Organization [employer] Address [address] [facility] 7[address] [place] [address] Care Team Providers Care Drill Sharpener Operator Name Role Phone Name, Tyson MCKINNON Primary Care Provider [phone] Reason for Visit * Reason Comments Med Refill Encounter Details Date Type Department Care Team ([facility] st Contact Info) Description 06/18/2024 Refill [facility] CHC MED & PEDS [address] [place], [place] [phone] Rose Quintana, MARCOS [address] [place], [place] [phone] Chronic pain of both knees Social History [...] documented as of this encounter Care Teams Drill Sharpener Operator Relationship Specialty Start Date End Date Name, MD Tyson [address] [place] [address] PCP - General Family Medicine 01/18/19 documented as of this encounter
--- OUTSIDE RECORDS SUMMARY | 2024-12-27 18:23 | XMS_ITS | Encounter Summary ---
Author Organization [employer] Address [address] [facility] 7[address] [place] [address] Care Team Providers Care Offset Printing Operator Name Role Phone Name, Tyson MCKINNON Primary Care Provider [phone] Reason for Visit * Reason Comments Med Refill Encounter Details Date Type Department Care Team (Late st Contact Info) Description 04/01/2022 Refill [facility] MEDICINE [address] [place], [place] [phone] Name, MD Tyson [address] [place] [address] Migraine, unspecified, not intractable, without status migrainosus [...] migrainosus documented in this encounter Care Teams Offset Printing Operator Relationship Specialty Start Date End Date Name, MD Tyson [address] [place] [phone] PCP - General Family Medicine 01/18/19 documented as of this encounter
--- OUTSIDE RECORDS SUMMARY | 2024-12-27 18:23 | XMS_ITS | Encounter Summary ---
Author Organization [employer] Address [address] [facility] [address] [place] [address] Care Team Providers Care Radiosonde Specialist Name Role Phone Name, Tyson MCKINNON Primary Care Provider [phone] Encounter Details Date Type Department Care Team ([facility] Contact Info) Description 07/19/2022 Orders Only [facility] CHC MED & PEDS [address] [place], [place] [phone] Faith Tavares LPN Social History Tobacco Use [...] documented as of this encounter Care Teams Radiosonde Specialist Relationship Specialty Start Date End Date Name, MD Tyson [address] [place] [address] PCP - General Family Medicine 01/18/19 documented as of this encounter
--- OUTSIDE RECORDS SUMMARY | 2024-12-27 18:23 | XMS_ITS | Data Portability ---
Author Organization [place] [facility], [facility] Address [address] [place] [phone] Care Team Providers Care Medical Accounts Receivable Specialist Name Role Phone NAME, KATYA Primary Care Provider [phone] Assessment Encounter Date Assessment Date Assessment LastModified [...] sensorine ural hearing loss of left ear 91160226024 107 Active 2021 Mixed conductiv e and sensorine ural hearing loss, unilatera l, left ear with restricte d hearing on the contralat eral side; Note: Date Diagnosed : 06/12/2021 2:25 PM (H90.A32) Not Available [facility] 4 03:18:06 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 318613750 Active 2021 Nasal polyp, unspecifi ed; Note: Date Diagnosed : 06/12/2021 1:57 PM (J33.9) Not Available [facility] 4 03:18:06 Bilateral chronic serous otitis 432216184 Active 2021 Chronic serous otitis media, bilateral ; Note: Date Diagnosed : 06/12/2021 1:50 PM (H65.23) Not Available [facility] 4 03:18:07 Sensorine ural hearing loss in right ear 52563427427 100 Active 2021 Sensorine ural hearing loss, unilatera l, right ear, with restricte d hearing on the contralat eral side; Note: Date Diagnosed : 06/12/2021 2:25 PM (H90.A21) Not Available [facility] 4 03:18:06 Tinnitus of left ear 70947293813 06 Active 2021 Tinnitus, left ear; Note: Date Diagnosed : 06/12/2021 1:57 PM (H93.12) Not Available [facility] 4 03:18:07 Disorder of nasal sinus 9075503 Active 2023 Other specified disorders of nose and nasal sinuses; Note: Date Diagnosed : 04/01/2023 4:38 PM (J34.89) Not Available [facility] 4 03:18:06 Disorder of the nose 84379460 Active 2023 Other specified disorders of nose and nasal sinuses; Note: Date Diagnosed : 04/01/2023 4:38 PM (J34.89) Not Available [facility] 4 03:18:06 Polyp of nasal cavity 847886879 Active 2023 MARTINA SIMMONS MD [address] [place] [address],[place] [address], [place], [phone] , [facility] - [facility] 4 13:09:18 Nasal congestio n 44279598 Active 2023 MARTINA SIMMONS MD [address] [place] [address],[place] [address], [place], [phone] , [facility] - [facility] 4 13:15:27 Problem Notes None recorded. Procedures Surgical History Date Name Laterality Status Provider Name and Address Organization Details Recorded Time 06/28/2024 NasalEndos copy_DP completed Rahul Smith [facility] 06/28/2024 16:08:32 12/26/2023 NasalEndos copy_DP completed MARTINA SIMMONS MD [address] [place] [address], [phone], [facility] 12/26/2023 13:15:08 Imaging Results None recorded. Procedure Notes None recorded. Medical Equipment None Reported. Allergies Allergen ID Allergen Name Allergen Category Reaction Reaction Severity Criticality Documentation Date Start Date Code Code System Note Provider Name and Address Organization Details Recorded Time 16213 aspirin medicatio n other Not available Not available 07/19/2023 1191 RxNorm React ion: Unkno wn; Not Available [facility] 00:48:40 Medications Name Sig Start Date Stop [...] tablet,de layed release active Medicati on ID: 259727 B rand Name: divalpro ex Send Method: [...] 50 mg tablet active Medicati on ID: 897610 B rand Name: trazodon e Send Method: E-Prescr ibed Sub s Allowed: subs OK Speci al Instruct ion: TAKE 1/2 TABLET BY MOUTH AT BEDTIME Medicati onGeneri cName: trazodon e Not Available Not Available Not Available glipizide ER 10 mg tablet, extended release 24 hr active Medicati on ID: 139539 B rand Name: glipizid e Send Method: E-Prescr ibed Sub s Allowed: subs OK Speci al Instruct ion: TAKE 1 TABLET BY MOUTH EVERYDAY AT NOON [facility]: glipizid e Not Available Not [...] 1,000 mg tablet active Medicati on ID: 178305 B rand Name: metformi n Send Method: [...] 10 mg tablet active Medicati on ID: 962139 B rand Name: lisinopr il Send Method: [...] 5 mg tablet active Medicati on ID: 494056 B rand Name: melatoni n Send Method: E-Prescr ibed Sub s Allowed: subs OK Speci al Instruct ion: TAKE 2 TABLETS BY MOUTH EVERY DAY AT BEDTIME Medicati onGeneri cName: melatoni n Not Available Not Available Not Available OneTouch Ultra2 Meter active Medicati on ID: 136396 B rand Name: OneTouch Ultra2 Meter Se nd Method: E-Prescr ibed Sub s Allowed: subs OK Speci al Instruct ion: TEST BLOOD SUGAR THREE [...] BARTHOL[place]W [place] [facility] 06/28/2024 15:25:03 Date Recorded Body height Body mass index (BMI) Body weight Provider Name and Address Organization Details Last Updated DateTime 12/26/2023 157.48 cm 30.7 kg/m2 44598.52 g Doreen Mary [place] - [facility] 12/26/2023 13:06:36 Social History None recorded. Functional Status None recorded. Mental Status None recorded. Family History Nothing Reported. Medical History No medical history recorded. Gynecological HistoryNo gynecological history recorded. Obstetrics History GPAL:G 0 P 0 0 0 0 Past Encounters Encounter ID Performer Location Encounter Start Date Encounter Closed Date Diagnosis/Indication Diagnosis SNOMED-CT Code Diagnosis ICD10 Code Diagnosis IMO Codes Diagnosis Note [id number] MARTINA SIMMONS MD [facility] [address] [address] 12/26/2023 12:51:33 12/26/2023 13:20:22 Polyp of nasal cavity 360222079 J33.0 Nasal endo was notable for a [...] nasal congestion or facial pain. Nasal congestion 1356657 0 R09.81 No signfician t congesiton . I asked her to call if she develops worsening congestion . [id number] RAHUL SMITH PA-C [facility] [address] [address] 06/28/2024 15:19:17 06/28/2024 15:54:52 Polyp of nasal cavity 149518311 J33.0 Health Concerns Section Related Observation LastModified by Organization Detai ls LastModified Time None Recorded Concern Status LastModified by Organization Details LastModified Time None Recorded Advance Directives Directive None Recorded Payers Insurance Date Sequence Insurance Name Policy Number Policy Malik Covered Member ID Malik Member ID Guarantor Name 06/28/2024 1 [facility] (MEDICARE REPLACEMENT/ ADVANTAGE - HMO) Nadine Clement [facility] [id number] Nadine Clement 06/28/2024 2 [place] [facility] Genna Clement [id number] Nadine Urbano Notes Date Note Type Note Provider Name and Address Organization Details Recorded Time 12/26/2023 text/html Nasal polypShe had an MRI brain with contrast at [facility] which showed bilateral mastoid effusions and concern for a left nasal polyp in 2020. We obtained a CT which showed a left nasal polyp 15mm without destructive features. Denies epistaxis. Denies facial pain. Still on plavix. Biopsy wasdeferred due to plavix. MARTINA SIMMONS MD [address] [place] [address], [phone], [place] [facility] 12/26/2023 13:15:55 06/28/2024 text/html ROS as noted in the HPI 83 year old female presents for routine follow up of left nasal polyp. Biopsy has been deferred due to Plavix. She denies nasal congestion. She does not use any nasal sprays. NAVEEN CARBONE MD [address] [place] [address],[address], [address], [place] - [facility] 07/01/2024 09:49:26 OBGyn Episode No OBEpisode recorded.
--- OUTSIDE RECORDS SUMMARY | 2024-12-27 18:23 | XMS_ITS | Encounter Summary ---
Author Organization [facility] Address [address] [facility] [address] [place] [address] Care Team Providers Care Telecom Assistant Name Role Phone Name, Tyson MCKINNON Primary Care Provider [phone] Reason for Visit * Reason Comments Med Refill Encounter Details Date Type Department Care Team ([facility] st Contact Info) Description 11/17/2023 Refill [facility] MEDICINE [address] [place], [place] [phone] Name, MD Tyson [address] [place] [address] Social History Tobacco Use Types Packs/Day Years [...] documented as of this encounter Care Teams Telecom Assistant Relationship Specialty Start Date End Date Name, MD Tyson [address] [place] [address] PCP - General Family Medicine 01/18/19 documented as of this encounter
--- OUTSIDE RECORDS SUMMARY | 2024-12-27 18:23 | XMS_ITS | Encounter Summary ---
Author Organization [facility] Address [address] [facility] [address] [place] [address] Care Team Providers Care Retail Pricing Coordinator Name Role Phone Name, Tyson MCKINNON Primary Care Provider [phone] Encounter Details Date Type Department Care Team ([facility] st Contact Info) Description 10/18/2022 Orders Only [facility] [address] [place], [place] [phone] Ernestine Aceves LPN Social History Tobacco Use [...] documented as of this encounter Care Teams Retail Pricing Coordinator Relationship Specialty Start Date End Date Name, MD Tyson [address] [place], [place] [phone] PCP - General Family Medicine 01/18/19 documented as of this encounter
--- OUTSIDE RECORDS SUMMARY | 2024-12-27 18:23 | XMS_ITS | Patient Health Record ---
Author Organization [facility] Address [address] [place] [address] Care Team Providers Care Systems Administrator Name Role Phone [employer] (DO NOT USE), [facility] Provi yareli Unavailable Adrian Robles Unavailable [phone] Reason For Referral No Information Medications Medication SIG (Take, Route, Frequency, Duration) Notes Start Date End Date Status metFORMIN HCl 1000mg Active Plavix 75mg Active glipiZIDE 10mg Activ e traMADol HCl Active Lipitor 40mg Active Metoprolol Tartrate 25mg Active Furosemide 20mg Acti ve NexIUM 40mg Active Problems Problem Type SNOMED Code ICD Code Onset Dates Problem Status W/U Status Risk Notes Problem Jo's esophagus (674426292) 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 [address] [place] [phone] [id number] HANNAH MONK Self - patient is the insured Medical (General) History Medical History History ICD Code EGD 07-06-2011-small area of Jo's-no dysplasia; small HH Colonoscopy 04-04-2009-hyperplastic polyp NIDDM Colon polyps--tubular adenomas removed i n 2002 and in 2005 Hyperlipidemia GERD She denies any history of ID, stroke,josh al disease, nor lung disease CAD--on Plavix--Cardiac cath in 1998--no ID--does not think she has any stents in Colonoscopy in 12/2014--smal l adenomas, diverticulosis and internal hemorrhoids Surgical History Surgery Date(Month/Year) PATRICIA
--- OUTSIDE RECORDS SUMMARY | 2024-12-27 18:23 | XMS_ITS | Encounter Summary ---
Author Organization [facility] Address [address] [facility] [address] [place] [address] Care Team Providers Care Gang Worker Name Role Phone Name, Tyson MCKINNON Primary Care Provider [phone] Encounter Details Date Type Department Care Team ([facility] st Contact Info) Description 07/01/2022 Orders Only [facility] MEDICINE [address] [place], [place] [phone] Ernestine Aceves LPN Social History Tobacco Use [...] on filedocumented in this encounter Care Teams Gang Worker Relationship Specialty Start Date End Date Name, MD Tyson [address] [place] [id number] PCP - General Family Medicine 01/18/19 documented as of this encounter
--- OUTSIDE RECORDS SUMMARY | 2024-12-27 18:23 | XMS_ITS | Clinical Summary ---
Author Organization [employer] Address [address] [facility] [facility] [address] [place] [address] Care Team Providers Care Manager University Name Role Phone Name, Tyson MCKINNON Primary Care Provider [phone] Allergies Active Allergy Reactions Criticality Noted Date [...] not crush, chew, or split. 12/02/19 24 Active sertraline (Zoloft) 50 MG tablet Take 1 tablet (50 mg) by mouth Once per day. 12/02/19 24 Active metoprolol tartrate (Lopressor) 25 MG tabletIndicatio ns:Hypertension , unspecified type TAKE 1 TABLET BY MOUTH TWICE DAILY AT NOON AND IN THE EVENING 180 tablet 3 02/06/20 24 Active Lancets (OneTouch Delica Plus [id number]) miscIndications :Type 2 diabetes mellitus with other [...] mellitus with other specified complication, unspecified whether ocean transportation intermediary insulin use (HCC) TAKE 1 TABLET BY [...] BY MOUTH AT BEDTIME 30 tablet 1 11/02/19 25 Active traMADol (Ultram) 50 MG tabletIndicatio ns:Chronic knee pain, unspecified laterality TAKE 1/2 TABLET BY MOUTH EVERY TWELVE HOURS NEEDED FOR SEVERE PAIN 28 tablet 10/03/20 25 Active traMADol (Ultram) 50 MG tabletIndicatio ns:Chronic knee pain, unspecified laterality TAKE 1/2 TABLET BY MOUTH EVERY TWELVE HOURS NEEDED FOR SEVERE PAIN 28 tablet 10/10/19 25 025 Discontinued Active Problems Problem Noted Date Diagnosed Date Primary osteoarthritis of both knees 12/05/2023 Disorder of nasal sinus 04/01/2023 Overview (12/18/2024): Other specified disorders of nose and nasal sinuses; Note: Date Diagnosed: 04/01/2023 4:38 PM (J34.89) Other specified disorders of nose and nasal sinu ses 04/01/2023 Overview (12/18/2024): Other specified disorders of nose and nasal sinuses; Note: Date Diagnosed: 04/01/2023 4:38 PM (J34.89) Peripheral vascular disease 10/04/2022 B12 deficiency 2022 Daily headache 07/02/2022 Mild cognitive disorder 07/02/2022 Stage 3a chronic kidney disease (CMS/HCC) 2022 Dementia (CMS/HCC) 01/25/2022 HX: breast cancer 01/25/2022 Hypercoagulability due to atrial fibrillation (C MS/HCC) 01/25/2022 OAB (overactive bladder) 01/25/2022 Other problems related to [facility] and other health care 01/25/2022 Shortness of breath 01/25/2022 Type 2 diabetes mellitus wit h diabetic chronic kidney disease 01/25/2022 Bilateral chronic serous otitis media 06/12/2021 Overview (12/18/2024): Chronic serous otitis media, bilateral; Note: Date Diagnosed: 06/12/2021 1:50 PM (H65.23) Mixed conductive and sensorineural hearing loss of left ear 06/12/2021 Overview (12/18/2024): Mixed conductive and sensorineural hearing loss, unilateral, left ear with restricted hearing on the contralateral side; Note: Date Diagnosed: 06/12/2021 2:25 PM (H90.A32) Polyp of nasal cavity 06/12/2021 Overview (12/18/2024): Nasal polyp, unspecified; Note: Date Diagnosed: 06/12/2021 1:57 PM (J33.9) Sensorineural hearing loss (SNHL) of right ear 0 06/12/2021 Overview (12/18/2024): Sensorineural hearing loss, unilateral, right ear, with restricted hearing on the contralateral side; Note: Date Diagnosed: 06/12/2021 2:25 PM (H90.A21) Tinnitus of left ear 06/12/2021 Overview (12/18/2024): Tinnitus, left ear; Note: Date Diagnosed: 06/12/2021 1:57 PM (H93.12) Knee pain 07/06/2018 Type 2 diabetes mellitus 04/11/2018 Psychophysiologic insomnia 08/03/2017 Depressive disorder 04/12/2014 Intraductal carcinoma in situ of breast 09/04/19 14 Onychomycosis 01/21/2012 Non-compliance 12/22/2011 Coronary artery disease involving tlingit & haida coronar y artery 09/20/2011 Hiatal hernia 09/20/2011 Mixed hyperlipidemia 08/12/2011 Jo's esophagus 07/21/2011 Dizziness and giddiness 07/20/2011 Essential hypertension 07/20/2011 Migraine 07/20/2011 Osteopenia of multiple sites 08/09/2005 Resolved Problems Problem Noted Date Diagnosed Date Resolved Date Nasal congestion 12/26/2023 12/18/2024 Anemia 07/02/2022 12/18/2024 Chest pain 07/20/2011 12/18/2024 Encounters Date Type Department Care Team Description 12/18/2024 2:00 PM EDT Office Visit [facility] [address] [place] [address] Name, MD Tyson Type 2 diabetes mellitus with other specified complication, without long-term current use of insulin (HCC) (Primary Dx); Urinary frequency; Encounter for immunization 12/18/2024 Travel 12/11/2024 Patient Outreach [facility] [address] [place] [address] Tyson March MD Pre-visit Planning (SDOH negative, Tobacco screening negative. ) 12/07/2024 Refill [facility] [address] [place] [address] Tyson March MD Chronic knee pain, unspecified laterality 12/04/2024 Orders Only GENERIC EXTERNAL DATA DEPARTMENT Provider, Generic External Data 11/01/2024 Refill [facility] [address] [place] [address] Tyson March MD 10/10/2024 Telephone [facility] [address] [place] [address] Rylee Darby [place] november recalls 10/08/2024 Refill [facility] [address] [place] [address] Rose Quintana NP Chronic knee pain, unspecified laterality from Last 3 Months Immunizations Immunization Administration Dates Next Due Hep A, Adult 04/12/2012,08/12/2011 Hep B, adult 04/12/2012,09/10/2011,08/12/2011 Influenza High-dose Quadriva lent Preservative Free 11/29/2022,11/28/2019 Influenza injectable quadriv alent IIV4 with preservative 02/10/2017 Influenza injectable quadriv alent preservative free 01/26/2022,02/23/2018 Influenza, High Dose Seasona l, Preservative Free 12/18/2024,12/02/2023,02/15/2019 Influenza, IIV3, injectable 01/07/2014 Influenza, Injectable, MDCK, [...] housing situation today? I have yvon masha 12/11/[address] you li ve. Do you have problems with any of the following? None of the above 12/11/2024 Food Insecurity Answer Date Recorded Within the past 12 months, y ou worried that your food would run out before you got money to buy more: Never True 12/11/2024 Within the past 12 months,th e food you bought just didn't last and you didn't have enough money to get more: Never True 09/2024 Transportation Answer Date Recorded In the past 12 months, has l ack of transportation kept you from medical appts, meetings, work or from getting things needed for daily living? No 12/11/2024 Utilities Answer Date Recorded In the past 12 months, has t he electric, gas, oil or water company threatened to shut off services in your home? No 12/11/2024 Depression Answer Date Recorded Patient Health Questionnaire-2 Score 0 05/17/2023 Internet Access Answer Date Recorded Internet Access Q1 Yes 12/11/2024 Internet Access Q2 Not on file 12/11/2024 Comments Unknown Sex and Gender Information Value Date Recorded Sex Assigned at Female 01/04/2022 10:15 AM EDT Legal Sex Female 10:15 AM EDT Gender Identity Female 01/04/2022 10:15 AM EDT Sexual Orientation Straight 01/04/2022 10 :15 AM EDT Last Filed Vital Signs Vital Sign Reading Time Taken Comments Blood Pressure 124/82 12/18/2024 2:20 PM EDT Pulse 89 12/18/2024 2:20 PM EDT Temperature 36.5 C (97.7 F) 12/18/2024 2:20 PM EDT Respiratory Rate 18 12/18/2024 2:20 PM EDT Oxygen Saturation 97% 12/18/2024 2:20 PM EDT Inhaled Oxygen Concentration - - Weight 69.1 kg (152 lb 6.4 oz) 12/18/2024 2:20 P M EDT Height 167.6 cm (5' 6 ) 12/18/2024 2:20 PM EDT Body Mass Index 24.6 12/18/2024 2:20 PM EDT Plan of Treatment Health Maintenance Due Date Last Done Comments Alcohol/Substance Use Screening 1950 RSV Patients and Patients Aged 60 years or older (1 - 1-dose 75+ series) 2013 Dental Prophylaxis 10/29/2013 04/30/2013, 08/14/2012 Zoster Vaccines (2 of 3) 03/31/2015 02/03/2015 Dental Oral Exam 04/11/2021 10/08/2020, 02/14/2013 Dental X-Ray: Bitewings 10/09/2021 10/08/2020, 02/14 Dental X-Ray: Full Mouth 10/10/2023 10/08/2020 Depression Screening 05/16/2024 05/17/2023, 05/17/19 24 COVID-19 Vaccine ( season) 2024 12/02/2023, 04/17/2021, 09/09/2020, Additional history exists Diabetes: Foot Exam 12/01/2024 12/02/2023, 12/02/2023, 12/02/2023, Additional history exists Lipid Panel 12/07/2024 12/08/2023, 11/05, 02/01/2022, Additional history exists Diabetes: Hemoglobin A1C 06/18/2025 025, 04/10/2024, 12/02/2023, Additional history exists SDOH Screening 12/11/2025 12/11/2024 Tobacco Screening 12/18/2025 12/18/2024 Eye Exam 11/22/2026 11/22/2024 DTaP/Tdap/Td Vaccines (3 - Td or Tdap) 02/14/2033 02/14/2023, 08/12/2011, 12/09/1999 Hepatitis A Vaccines Aged Out 04/12/2012, 08/12/19 12 No longer eligible based on patient's age to complete this topic Hepatitis B Vaccines Completed 04/12/2012, 09/10/2011, 08/12/2011 Pneumococcal Vaccine: 50+ Years Completed 10/29/2020, 01/24/2015, 03/10/2005 Influenza Vaccine Completed 12/18/2024, , 11/29/2022, Additional history exists HIB Vaccines Aged Out [...] Procedure Name Priority Date/Time Associated Diagnosis Comments POCT GLYCATED HEMOGLOBIN, TOTAL Routine 12/18/2024 2:22 PM EDT Type 2 diabetes mellitus with other specified complication, without long-term current use of insulin ([facility]) POCT GLUCOSE Routine 12/18/2024 2:21 PM EDT Type 2 diabetes mellitus with other specified complication, without long-term current use of insulin ([facility]) CT UROGRAM WO CONTRAST Routine 12/04/2024 2:33 PM EDT POCT CREATININE GFR Routine 12/04/2024 2 :17 PM EDT HM DIABETES EYE EXAM Routine 11/22/2024 LIPID PANEL, STANDARD Routine 12/08/2023 10:10 AM EDT Type 2 diabetes mellitus with other specified complication, without long-term current use of insulin ([facility]) Chronic knee pain, unspecified laterality Venous insufficiency of both lower extremities INTRAORAL - COMPLETE SERIES OF RADIOGRAPHIC IMAGES Routine 10/08/2020 12:00 AM EDT COMPREHENSIVE ORAL EVALUATION - NEW OR ESTABLISHED PATIENT Routine 10/08/2020 12:00 AM EDT PROPHYLAXIS - ADULT Routine 04/30/2013 1 2:00 AM EST from Last 3 Months or Most Recently Relevant to Health Maintenance Results * (ABNORMAL) POCT Hgb A1c (12/18/2024 2:22 PM EDT) Hemoglobin A1C 6.5(A) 4.0 - 5.7 % QC Media Lot # [id number] Lot# Expiration Date 41,627 Blood 12/18/2024 2:22 PM EDT us Tyson March MD POINT OF CARE TEST ENTER/EDIT OR DERABLES Final Result * POCT Glucose (12/18/2024 2:21 PM EDT) Glucose Blood, POC 134 60 - 200 mg/dL QC Media Lot # [id number] Lot# Expiration Date 31,126 Blood Capillary blood specimen / Unknown 12/18/2024 2:21 PM EDT us Tyson March MD POINT OF CARE TEST ENTER/EDIT OR DERABLES Final Result * CT Urogram w/o Contrast (12/04/2024 2:33 PM EDT) Anatomical Region Laterality Modality Ureter, Upper urinary tract Comp uted Tomography 12/04/2024 2:33 PM EDT Narrative 12/05/2024 8:19 AM EDT [address] [address] [address] Scan Report Signed Patient: Nadine Clement MR#: [id number] 67 : 1940 Acct:[id number] Age/Sex: 84 / F ADM Date: 12/04/24 Loc: HO.CT Attending Dr: Nivia CARRERO Ordering Physician: Nivia Guy Date of Service: 12/04/24 Procedure(s): CT urogram Accession Number(s): [id number] cc: Nivia Guy [facility]; Name,Tyson MCKINNON Report Number: [id number]: Total DLP = 644.00 mGy-cm Reason for Exam: R31.0 - Gross hematuria EXAMINATION: CT ABDOMEN AND PELVIS WITHOUT AND WITH CONTRAST CLINICAL INFORMATION: R 31.0. Gross hematuria. COMPARISON: CT abdomen pelvis dated September 21, 2021. TECHNIQUE: Noncontrast CT of the abdomen and pelvis is performed followed by split bolus contrast-enhanced images using 85 mL Omnipaque 350 contrast. Postcontrast imaging is performed during the combined nephrogram and excretion phase. Sagittal and coronal reformatted images were obtained on the technologist's workstation for both the precontrast and postcontrast phases. This CT examination was performed using dose optimization techniques as appropriate, variously including the following: *Automated exposure control *Adjustment of mA and/or kV according to patient size (this includes techniques or standardized protocols for targeted exams where dose is matched to indication/reason for exam; i.e. extremities or head) *Use of iterative reconstruction technique. DLP: 644 mGy centimeter. FINDINGS: LUNG BASES: No acute airspace disease. LIVER, GALLBLADDER, AND BILIARY TREE: Liver measures 12 cm. Subtle nodular surface. No focal mass. No intrahepatic biliary ductal dilatation. Main portal veins, hepatic veins and intrahepatic portion of the IVC are patent. Gallbladder is contracted with intraluminal focal 9 mm calcification. No pericholecystic fluid collection or gallbladder wall thickening. Common bile duct measures 4 mm. PANCREAS: No focal mass. No peripancreatic fluid collection. No main pancreatic ductal dilatation. SPLEEN: 8 cm. No focal mass. ADRENAL GLANDS: Soft tissue fullness without nodular lesion. KIDNEYS AND URETERS: No hydronephrosis. No nephrolithiasis. No enhancing mass. Normal enhancement of the renal parenchyma. Subcentimeter cysts, left kidney. Normal urinary excretion into the collecting system. BLADDER: Fluid-filled. GASTROINTESTINAL TRACT: Abundant stool within nondilated large intestine. No intestinal obstruction pattern. Appendix is normal. No gross intestinal wall thickening. No ascites. No pneumoperitoneum. ABDOMINAL WALL: Small fat-containing umbilical hernia. LYMPH NODES: No mesenteric or retroperitoneal lymphadenopathy. VASCULAR: Mixed plaques throughout the abdominal aorta wall and iliac arteries without aneurysm or dissection. Calcified plaques in the origin of the mesenteric arteries and femoral arteries. PELVIC VISCERA: Absent uterus OSSEUS STRUCTURES: Multilevel thoracolumbar spondylosis pronounced at L3-4 resulting in central spinal canal and bilateral neuroforamina stenosis. Grade 1 retrolisthesis at L3-4. Levoconvex rotoscoliosis apex at L2-3. Degenerative changes in the symphysis pubis sacroiliac joints and to a lesser extent both coxofemoral joints. CT/CT urogram IMPRESSION: No hydronephrosis or nephrolithiasis. No gross renal mass. Subcentimeter cysts, left kidney. Probable hepatocellular disease. Cholelithiasis. Multilevel thoracolumbar spondylosis and levoconvex rotoscoliosis resulting in central spinal canal and bilateral neuroforamina stenosis at multiple levels.. Electronically signed by: Jose D Alas MD 12/05/2024 08:16 AM EDT RP Dictated By: Jose D Huertas MD Signed By: <Electronically signed by Jose D Spears MD in OV> 12/05/24 0816 DD/ 1433 TD/TT: 12/04/24 1703 Center Lead Consultant: Procedure Note Donotuseinterpreter, Image - 12/05/[address] [place] [address] [address] Scan Report Signed Patient: Nadine ClementMR#: [id number] 67 : 1940cct:[id number] Age/Sex: 84 / FADM Date: 12/04/24 Loc: HO.CT Attending Dr: Nivia CARRERO Ordering Physician: Nivia Guy Date of Service: 12/04/24 Procedure(s): CT urogram Accession Number(s): [id number] cc: Nivia Guy; Name,Tyson MCKINNON Report Number: [id number]: Total DLP = 644.00 mGy-cm Reason for Exam: R31.0 - Gross hematuria EXAMINATION: CT ABDOMEN AND PELVIS WITHOUT AND WITH CONTRAST CLINICAL INFORMATION: R 31.0. Gross hematuria. COMPARISON: CT abdomen pelvis dated September 21, 2021. TECHNIQUE: Noncontrast CT of the abdomen and pelvis is performed followed by split bolus contrast-enhanced images using 85 mL Omnipaque 350 contrast. Postcontrast imaging is performed during the combined nephrogram and excretion phase. Sagittal and coronal reformatted images were obtained on the technologist's workstation for both the precontrast and postcontrast phases. This CT examination was performed using dose optimization techniques as appropriate, variously including the following: *Automated exposure control *Adjustment of mA and/or kV according to patient size (this includes techniques or standardized protocols for targeted exams where dose is matched to indication/reason for exam; i.e. extremities or head) *Use of iterative reconstruction technique. DLP: 644 mGy centimeter. FINDINGS: LUNG BASES: No acute airspace disease. LIVER, GALLBLADDER, AND BILIARY TREE: Liver measures 12 cm. Subtle nodular surface. No focal mass. No intrahepatic biliary ductal dilatation. Main portal veins, hepatic veins and intrahepatic portion of the IVC are patent. Gallbladder is contracted with intraluminal focal 9 mm calcification. No pericholecystic fluid collection or gallbladder wall thickening. Common bile duct measures 4 mm. PANCREAS: No focal mass. No peripancreatic fluid collection. No main pancreatic ductal dilatation. SPLEEN: 8 cm. No focal mass. ADRENAL GLANDS: Soft tissue fullness without nodular lesion. KIDNEYS AND URETERS: No hydronephrosis. No nephrolithiasis. No enhancing mass. Normal enhancement of the renal parenchyma. Subcentimeter cysts, left kidney. Normal urinary excretion into the collecting system. BLADDER: Fluid-filled. GASTROINTESTINAL TRACT: Abundant stool within nondilated large intestine. No intestinal obstruction pattern. Appendix is normal. No gross intestinal wall thickening. No ascites. No pneumoperitoneum. ABDOMINAL WALL: Small fat-containing umbilical hernia. LYMPH NODES: No mesenteric or retroperitoneal lymphadenopathy. VASCULAR: Mixed plaques throughout the abdominal aorta wall and iliac arteries without aneurysm or dissection. Calcified plaques in the origin of the mesenteric arteries and femoral arteries. PELVIC VISCERA: Absent uterus OSSEUS STRUCTURES: Multilevel thoracolumbar spondylosis pronounced at L3-4 resulting in central spinal canal and bilateral neuroforamina stenosis. Grade 1 retrolisthesis at L3-4. Levoconvex rotoscoliosis apex at L2-3. Degenerative changes in the symphysis pubis sacroiliac joints and to a lesser extent both coxofemoral joints. CT/CT urogram IMPRESSION: No hydronephrosis or nephrolithiasis. No gross renal mass. Subcentimeter cysts, left kidney. Probable hepatocellular disease. Cholelithiasis. Multilevel thoracolumbar spondylosis and levoconvex rotoscoliosis resulting in central spinal canal and bilateral neuroforamina stenosis at multiple levels.. Electronically signed by: Jose D Alas MD 12/05/2024 08:16 AM EDT RP Dictated By: Jose D Huertas MD Signed By: <Electronically signed by Jose D Spears MDin OV> 12/05/24 0816 DD/ 1433 TD/TT: 12/04/24 1703 Center Lead Consultant: [facility] External Provider IMG CT PROCEDURES Final Result * POCT Creatinine GFR (12/04/2024 2:17 PM EDT) POCT Creatinine 1.2 0.5 - 1.4 mg/dL [facility] GFR POC 46 [facility] Comment:Chronic Kidney Disea se: Estimated GFR < 60 mL/min/[id number] Kidney Disease: Estimated GFR < 15 mL/min/1.73m2 12/04/2024 2:17 PM EDT 12/04/2024 5:03 PM EDT Narrative [facility] - 12/04/2024 5:04 PM EDT [id number] Generic External Data Provider LAB POINT OF CARE TEST DOCKED DEVICE ORDERABLES Final Result [facility] [address] [place] [phone] * (ABNORMAL) Diabetes Eye Exam (11/22/2024) Eye Exam Abnormal( A) Normal Comment:11/22/24, Ashley Ey e and Lasix, mild non proliferative retinopathy, repeat in a year us Historical Provider HEALTH MAINTENANCE Final Result * Lipid Panel, Standard (12/08/2023 10:10 AM EDT) Triglycerides 82 <150 mg/dL [facility] Comment:Desirable Triglyceri de: less than 150 mg/dLBorderline High Triglyceride 150-199 mg/dLHigh Triglyceride: 200-499 mg/dLVery High Triglyceride: greater than or equal to 5OO mg/dL Cholesterol 123 <200 mg/dL [facility] Comment:Desirable Cholestero l: less than 200 mg/dLBorderline High Cholesterol: 200-239 mg/dLHigh Cholesterol: greater than 239 mg/dL LDL Cholesterol Calculated 47 <100 mg/dL [facility] Comment:Desirable LDL: less than 100 [...] EDT 12/08/2023 11:16 AM EDT us Tyson Name LAB BLOOD ORDERABLES Final Resul t [facility] [address] [place] [address] [phone] from Last 3 Months or Most Recently Relevant to Health Maintenance Insurance [facility] [place] AD[place] Care Teams Manager University Relationship Specialty Start Date End Date Name, MD Tyson [address] [place] [address] PCP - General Family Medicine 01/18/19
== END 2024-12-27 16:05 | disposition home or self-care (01) ==
LOC: HO.HUSH 14:32
PROVIDERS: PCP Internal Medicine Geriatric Medicine; Visit Provider Urology
DX: R31.0 Gross hematuria (principal)
CPT/HCPCS: 52000

== ENCOUNTER → 2024-12-27 14:31 | Outpatient (BNVA) | payer OTHER, SELFPAY | PROVIDERS: PCP Internal Medicine Geriatric Medicine; Visit Provider Urology | DX: R31.0 Gross hematuria (principal); R39.89 Other symptoms and signs involving the genitourinary system; R33.9 Retention of urine, unspecified; R39.15 Urgency of urination; Z85.3 Personal history of malignant neoplasm of breast | CPT/HCPCS: 52000; 81003 ==

== ENCOUNTER 2025-01-16 09:07 | Outpatient (REF) | payer OTHER, SELFPAY ==
--- OUTSIDE RECORDS SUMMARY | 2025-01-16 09:53 | XMS_ITS | Encounter Summary ---
Author Organization [employer] Address [address] [place] [address] Care Team Providers Care Sleeve Machine Tender Name Role Phone Name, Tyson MCKINNON Primary Care Provider [phone] Encounter Details Date Type Department Care Team ([facility] st Contact Info) Description 10/18/2022 Orders Only [facility] [address] [place], [place] [phone] Ernestine Aceves LPN Social History Tobacco Use [...] documented as of this encounter Care Teams Sleeve Machine Tender Relationship Specialty Start Date End Date Name, MD Tyson [address] [place], [place] [phone] PCP - General Family Medicine 01/18/19 documented as of this encounter
--- OUTSIDE RECORDS SUMMARY | 2025-01-16 09:53 | XMS_ITS ---
Author Name [facility] Aria Arceo Address [address] [place] [address] Phone [phone] [facility] Care Team Providers Care Light Armored Vehicle Officer Name Role Phone Aria Polk Unavailable [phone] NameTyson Unavailable [phone] Reason for Referral Not Available Allergies, adverse [...] 2021-05-11 No Data Available OneTouch Delica Plus Omoylc16N Miscellaneous TEST BLOOD SUGAR TWICE DAILY 2021-05-15 [...] 50 mg Tab TAKE 1 TABLET BY [facility] EVERY MORNING 2023-09-21 No Data Available calcium 600 mg (as carbonate)-vitamin D3 10 mcg (400 unit) tablet TAKE 1 TABLET BY MOUTH TWICE DAILY IN THE MORNING AND IN THE EVENING 2024-01-13 No Data Available Divalproex Sodium ER 250 mg Tab ER 24hr TAKE 1 TABLET BY MOUTH AT BEDTIME 2023-10-06 No Data Available Furosemide 20 mg Tab TAKE 1 TABLET BY [facility] EVERY MORNING 2024-03-20 No Data Available [...] D and osteoporosis surveillance stressed-- Risk of long term acute care registered nurse PPI use discussed-- Antireflux diet: avoid tomatoes, [...] QDAY d/ t hypoglycemia Lab ResultsComponent Value JifvSXUG8F 7.8 (A) 02/14/2023HGBA1C 6.3 (H) 02/01/2022Lab ResultsComponent [...] QDAY d/ t hypoglycemia Lab ResultsComponent Value TdmkUSXX2P 7.8 (A) 02/14/2023HGBA1C 6.3 (H) 02/01/2022 Hyperlipidemia [...] organ damage (headache, vision changes, chest pain)/ Topographical Drafter on proper BP monitoring technique and reassess/ [...] metoprolol t artrate BID on Plavix (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- aprx [...] control and bp control Lab ResultsComponent Value ChumCARR1P 7.8 (A) 02/14/2023HGBA1C 6.3 (H) 02/01/2022Lab ResultsComponent Value DateGLUCOSE 121 (H) 11/19/2022NA 144 3K 4.5 3CO2 26 11/19/2022L 109 (H) 3BUN 14 11/19/2022REATININE 1.05 11/19/2022 SOB (shortness of breath)COPD Active 2022-01-25 N/A prn albuterol inhalerfollows with pulmonology Encounters Encounters Type Facility Date of Service Diagnosis/Co mplaint Pain Assessment - Pain Documented on a Pain Scale (1125F) [facility] [place] Pain Assessment - Pain Documented on a Pain Scale (1125F) [facility] Pain Assessment - Pain Documented on a Pain Scale (1125F) [facility] [place] Pain Assessment - Pain Documented on a Pain Scale (1125F) [facility] Pain Assessment - Pain Documented on a Pain Scale (1125F) [facility] Pain Assessment - Pain Documented on a Pain Scale (1125F) [facility] Pain Assessment - Pain Documented on a Pain Scale (1125F) [facility] Hyperlipidemia, unspecifiedGastro-esophageal reflux disease without esophagitisInsomnia, unspecifiedType 2 diabetes mellitus without complicationsEssential (primary) hypertensionAge-related osteoporosis without current pathological fractureOveractive bladderShortness of breathUnspecified dementia without behavioral disturbanceOther thrombophiliaUnspecified atrial fibrillationPersonal history of malignant neoplasm of breast Pain Assessment - Pain Documented on a Pain Scale (1125F) [facility] Pain Assessment - Pain Documented on a Pain Scale (1125F) [facility] Estab. patient 30-39min; chronic exacerbation, 2 stable chronic or 1 acute illness add add modifier 95 for video, (do not use for phone, instead use 03132-39) [facility]2022 Type 2 diabetes mellitus wit h [...] (do not use for phone, instead use 64537-24) [facility] [place] Estab. patient 30-39min; chronic exacerbation, 2 stable chronic or 1 acute illness add add modifier 95 for video, (do not use for phone, instead use 01456-92) [facility] Estab. patient 30-39min; chronic exacerbation, 2 stable chronic or 1 acute illness add add modifier 95 for video, (do not use for phone, instead use 59118-00) [facility] Estab. patient 30-39min; chronic exacerbation, 2 stable chronic or 1 acute illness add add modifier 95 for video, (do not use for phone, instead use 21855-08) [facility] Estab. patient 30-39min; chronic exacerbation, 2 stable chronic or 1 acute illness add add modifier 95 for video, (do not use for phone, instead use 73114-19) [facility] [place] Estab. patient 30-39min; chronic exacerbation, 2 stable chronic or 1 acute illness add add modifier 95 for video, (do not use for phone, instead use 66077-46) [facility] [place] Estab. patient 30-39min; chronic exacerbation, 2 stable chronic or 1 acute illness add add modifier 95 for video, (do not use for phone, instead use 96208-74) [facility] Estab. patient 30-39min; chronic exacerbation, 2 stable chronic or 1 acute illness add add modifier 95 for video, (do not use for phone, instead use 54871-83) [facility] [place]/20[place] Estab. patient 30-39min; chronic exacerbation, 2 stable chronic or 1 acute illness add add modifier 95 for video, (do not use for phone, instead use 93619-18) [facility] [place]/2022 Estab. patient 30-39min; chronic exacerbation, 2 stable chronic or 1 acute illness add add modifier 95 for video, (do not use for phone, instead use 94021-73) [facility] [place] 03/[place]/2023 Type 2 diabetes mellitus wit h [...] (do not use for phone, instead use 90060-02) [facility] 03[place] Estab. patient 30-39min; chronic exacerbation, 2 stable chronic or 1 acute illness add add modifier 95 for video, (do not use for phone, instead use 24098-09) [facility] 03[place] Estab. patient 30-39min; chronic exacerbation, 2 stable chronic or 1 acute illness add add modifier 95 for video, (do not use for phone, instead use 77444-50) [facility] 03[place]/2023 Estab. patient 30-39min; chronic exacerbation, 2 stable chronic or 1 acute illness add add modifier 95 for video, (do not use for phone, instead use 47172-30) [facility] 03[place]/2023 Estab. patient 30-39min; chronic exacerbation, 2 stable chronic or 1 acute illness add add modifier 95 for video, (do not use for phone, instead use 51876-13) [facility] [place] 03[place]23 Estab. patient 30-39min; chronic exacerbation, 2 stable chronic or 1 acute illness add add modifier 95 for video, (do not use for phone, instead use 47330-02) [facility] [place] 03[place]23 Estab. patient 30-39min; chronic exacerbation, 2 stable chronic or 1 acute illness add add modifier 95 for video, (do not use for phone, instead use 81882-34) [facility] 03[place]23 Estab. patient 30-39min; chronic exacerbation, 2 stable chronic or 1 acute illness add add modifier 95 for video, (do not use for phone, instead use 89482-03) [facility] [place] 03[place]23 Estab. patient 30-39min; chronic exacerbation, 2 stable chronic or 1 acute illness add add modifier 95 for video, (do not use for phone, instead use 55329-70) [facility] 03[place]23 Estab. patient 20-29min; 1 stable chronic or 2 minor; add add modifier 95 for video, modifier 93 for phone [facility] [place] 05/01/2024 Type 2 diabetes mellitus [...] 95 for video, modifier 93 for phone [facility]01/2024 Estab. patient 20-29min; 1 stable chronic or 2 minor; add add modifier 95 for video, modifier 93 for phone [facility] [place] 05/01/2024 Estab. patient 20-29min; 1 stable chronic or 2 minor; add add modifier 95 for video, modifier 93 for phone [facility] 05/01/2024 Estab. patient 20-29min; 1 stable chronic or 2 minor; add add modifier 95 for video, modifier 93 for phone [facility] 05/01/2024 Estab. patient 20-29min; 1 stable chronic or 2 minor; add add modifier 95 for video, modifier 93 for phone [facility] 05/01/2024 Estab. patient 20-29min; 1 stable chronic or 2 minor; add add modifier 95 for video, modifier 93 for phone [facility] 05/01/2024 Estab. patient 20-29min; 1 stable chronic or 2 minor; add add modifier 95 for video, modifier 93 for phone [facility] [place] 05/01/2024 Estab. patient 20-29min; 1 stable chronic or 2 minor; add add modifier 95 for video, modifier 93 for phone [facility] [place] 05/01/2024 Vital Signs Date of Collection Vitals [...] tive Time Current Smoking Status Never smoker 2025-01-05 2 Sex Female History of Procedures Procedures Service [...] 95 for video, modifier 93 for phone 60784 2022-01-25 No Data Available No Data Availa ble DBP <80 (3078F) 3078F 2022-01-25 No Data Available No Data Available SBP >= 140 3077F 2022-01-25 No Data Available No Data Available Estab. patient 30-39min; chronic exacerbation, 2 stable chronic or 1 acute illness add add modifier 95 for video, (do not use for phone, instead use 71084-97) 31347 2022-10-04 No Data Available No Data Availa [...] (do not use for phone, instead use 05974-60) 24729 2023-03-24 No Data Available No Data Availa [...] 95 for video, modifier 93 for phone 23413 2024-05-01 No Data Available No Data Availa [...] lives with daughter tommie d grandson 2022-01-25 CORPORATE TAX MANAGER is her grand daughter 2022-10-04 Mental Status [...] with diabetic chronic kidney disease, CKD stage G3a/X2Vnobabkrpulh heart disease with stage 3a chronic kidney [...] CG reportmetoprolol tartrate BID on Plavix (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] 4 03/24/23metoprolol tartrate BID on Plavix (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- aprx 20 years ago)in remissionfollows with oncologist s/p surgery/removal of cancerous lesionavoid nephrotoxic medicationstay hydrated encouraged A1c control and bp control Lab ResultsComponent Value SjgtFOGS1C 7.8 (A) 02/14/2023HGBA1C 6.3 (H) 02/01/2022Lab ResultsComponent [...] QDAY d/ t hypoglycemia Lab ResultsComponent Value EuezFGRI8R 7.8 (A) 02/14/2023HGBA1C 6.3 (H) 02/01/2022 2024-05-01 [...] D and osteoporosis surveillance stressed-- Risk of long term acute care registered nurse PPI use discussed-- Antireflux diet: avoid tomatoes, [...] QDAY d/ t hypoglycemia Lab ResultsComponent Value AqsnNIGL9I 7.8 (A) 02/14/2023HGBA1C 6.3 (H) 02/01/2022Lab ResultsComponent [...] organ damage (headache, vision changes, chest pain)/ Topographical Drafter on proper BP monitoring technique and reassess/ [...] up prn.metoprolol tartrate BID on Plavix (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 Yes, preferred proxy but not named POAIf so, Who? HCP: grand daughter Kerry Waldrop do you have a written Advance Directive?Other details of discussion: (Who was present, patients description of wishes/goals)Today's plan:1123F : AD or surrogate was documented in the medical record.
--- OUTSIDE RECORDS SUMMARY | 2025-01-16 09:53 | XMS_ITS | Patient Health Record ---
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 [address] [place] [address] [phone] [id number] HANNAH MONK Self - patient is the insured Medical (General) History Medical History History ICD Code EGD 07-06-2011-small area of Jo's-no dysplasia; small HH Colonoscopy 04-04-2009-hyperplastic polyp NIDDM Colon polyps--tubular adenomas removed i n 2002 and in 2005 Hyperlipidemia GERD She denies any history of CA, stroke,josh al disease, nor lung disease CAD--on Plavix--Cardiac cath in 1998--no CA--does not think she has any stents in Colonoscopy in 12/2014--smal l adenomas, diverticulosis and internal hemorrhoids Surgical History Surgery Date(Month/Year) PATRICIA
--- OUTSIDE RECORDS SUMMARY | 2025-01-16 09:53 | XMS_ITS | Encounter Summary ---
Author Organization [employer] Address [address] [place] [address] Care Team Providers Care Heat Reader Name Role Phone Name, Tyson MCKINNON Primary Care Provider Encounter Details Date Type Department Care Team ([facility] Contact Info) Description 07/19/2022 Orders Only [facility]S [address] [place], [place] [phone] Faith Tavares LPN Social History Tobacco Use [...] documented as of this encounter Care Teams Heat Reader Relationship Specialty Start Date End Date Name, MD Tyson [address] [place] [address] PCP - General Family Medicine 01/18/19 documented as of this encounter
--- OUTSIDE RECORDS SUMMARY | 2025-01-16 09:53 | XMS_ITS | Clinical Summary ---
Author Organization [employer] Address [address] [facility] [address] [place] [address] Care Team Providers Care Business System Consultant Name Role Phone Name, Tyson MCKINNON Primary Care Provider [phone] Allergies Active Allergy Reactions Criticality Noted Date [...] 02/06/20 24 Active Lancets (OneTouch Delica Plus Yeqqbo16R) miscIndications :Type 2 diabetes mellitus with other [...] mellitus with other specified complication, unspecified whether rat exterminator insulin use (HCC) TAKE 1 TABLET BY [...] HOURS NEEDED FOR SEVERE PAIN 28 tablet 12/08/19 25 Active Calcium Carb-Cholecalci ferol 600-10 MG-MCG tablet TAKE 1 TABLET BY MOUTH TWICE DAILY IN THE MORNING AND IN THE EVENING 180 tablet 1 01/02/20 25 Active clopidogrel (Plavix) 75 MG tablet TAKE 1 TABLET BY MOUTH AT BEDTIME 90 tablet 1 01/02/20 25 Active mirtazapine (Remeron) 30 MG tablet TAKE 1 TABLET BY MOUTH AT BEDTIME 30 tablet 1 01/04/20 25 Active clopidogrel (Plavix) 75 MG tablet TAKE 1 TABLET BY MOUTH AT BEDTIME 90 tablet 1 07/18/19 25 025 Discontinued Calcium Carb-Cholecalci ferol 600-10 MG-MCG tablet TAKE 1 TABLET BY MOUTH TWICE DAILY IN THE MORNING AND IN THE EVENING 180 tablet 1 07/18/19 25 025 Discontinued mirtazapine (Remeron) 30 MG tablet TAKE 1 TABLET BY MOUTH AT BEDTIME 30 tablet 1 11/02/19 25 025 Discontinued Active Problems Problem Noted [...] (overactive bladder) 01/25/2022 Other problems related to [facility] facilities and other health care 01/25/2022 [...] 01/21/2012 Non-compliance 12/22/2011 Coronary artery disease involving [place] coronar y artery 09/20/2011 Hiatal hernia 09/20/2011 Mixed hyperlipidemia 08/12/2011 Jo's esophagus 07/21/2011 Dizziness and giddiness 07/20/2011 Essential hypertension 07/20/2011 Migraine 07/20/2011 Osteopenia of multiple sites 08/09/2005 Resolved Problems Problem Noted Date Diagnosed Date Resolved Date Nasal congestion 12/26/2023 12/18/2024 Anemia 07/02/2022 12/18/2024 Chest pain 07/20/2011 12/18/2024 Encounters Date Type Department Care Team Description 01/03/2025 Refill [facility] [address] [place] [address] Name, MD Tyson 12/31/2024 Refill [facility] [address] [place] [address] Tyson March MD 12/18/2024 2:00 PM EDT Office Visit [facility] [address] [place] [address] Tyson March MD Type 2 diabetes mellitus with other specified complication, without long-term current use of insulin (HCC) (Primary Dx); Urinary frequency; Encounter for immunization 12/18/2024 Travel 12/11/2024 Patient Outreach [facility] [address] [place] [address] Tyson March MD Pre-visit Planning (SDOH negative, Tobacco screening negative. ) 12/07/2024 Refill [facility] [address] [place] [address] Tyson March MD Chronic knee pain, unspecified laterality 12/04/2024 Orders Only GENERIC EXTERNAL DATA DEPARTMENT Provider, Generic External Data 11/01/2024 Refill [facility] [address] [place] [address] Tyson March MD from Last 3 Months Immunizations Immunization Administration [...] housing situation today? I have yvon flanagan 12/11/[address] you li [...] without long-term current use of insulin (HCC) POCT GLUCOSE Routine 12/18/2024 2:21 PM EDT Type 2 diabetes mellitus with other specified complication, without long-term current use of insulin (HCC) CT UROGRAM WO CONTRAST Routine 12/04/2024 2:33 PM EDT POCT CREATININE GFR Routine 12/04/2024 2 :17 PM EDT HM DIABETES EYE EXAM Routine 11/22/2024 LIPID PANEL, STANDARD Routine 12/08/2023 10:10 AM EDT Type 2 diabetes mellitus with other specified complication, without long-term current use of insulin ([facility]) Chronic knee pain, unspecified laterality Venous [...] PM EDT Narrative 12/05/2024 8:19 AM EDT [address] [address] [address] Scan Report Signed Patient: Nadine Clement MR#: [id number] 69 : 1940 Acct:[id number] Age/Sex: 84 / F ADM Date: 12/04/24 Loc: HO.CT Attending Dr: Nivia CARRERO Ordering Physician: Nivia Guy Date of Service: 12/04/24 Procedure(s): CT urogram Accession Number(s): [id number] cc: Nivia Guy; Name,Tyson Report Number: [id number]: Total DLP = 644.00 mGy-cm Reason for [...] 12/05/24 0816 DD/ 1433 TD/TT: 12/04/24 1703 Paid Search Manager: Procedure Note Donotuseinterpreter, Image - 12/05/[address] [place] [address] [address] Scan Report Signed Patient: Nadine ClementMR#: [id number] [birth year] : [birth year]Acct:[id number] Age/Sex: 84 / FADM Date: 12/04/24 Loc: HO.CT Attending Dr: Nivia CARRERO Ordering Physician: Nivia Guy Date of Service: 12/04/24 Procedure(s): CT urogram Accession Number(s): [id number] cc: Nivia Guy; Name,Tyson MCKINNON Report Number: [id number]: Total DLP = 644.00 mGy-cm Reason for [...] 12/05/24 0816 DD/ 1433 TD/TT: 12/04/24 1703 Paid Search Manager: [facility] External Provider IMG CT PROCEDURES Final Result * POCT Creatinine GFR (12/04/2024 2:17 PM EDT) POCT Creatinine 1.2 0.5 - 1.4 mg/dL [facility] GFR POC 46 [facility] Comment:Chronic Kidney Disea se: Estimated GFR < 60 mL/min/1.86x5Xkwker Kidney Disease: Estimated GFR < 15 mL/min/1.73m2 12/04/2024 2:1 7 PM EDT 12/04/2024 5:03 PM EDT Narrative [facility] - 12/04/2024 5:04 PM EDT [id number] Generic External Data Provider LAB POINT OF CARE TEST DOCKED DEVICE ORDERABLES Final Result [facility] [address] [place] [phone] * (ABNORMAL) Diabetes Eye Exam (11/22/2024) Eye Exam Abnormal( A) Normal Comment:11/22/24, [place] [facility] [place], mild non proliferative retinopathy, repeat in a year [facility] Provider HEALTH MAINTENANCE Final Result * Lipid Panel, Standard (12/08/2023 10:10 AM EDT) Triglycerides 82 <150 mg/dL [facility] Comment:Desirable Triglyceri de: less than 150 mg/dLBorderline High Triglyceride 150-199 mg/dLHigh Triglyceride: 200-499 mg/dLVery High Triglyceride: greater than or equal to 5OO mg/dL Cholesterol 123 <200 mg/dL [facility] Comment:Desirable Cholestero l: less than 200 mg/dLBorderline High Cholesterol: 200-239 mg/dLHigh Cholesterol: greater than 239 mg/dL LDL Cholesterol Calculated 47 <100 mg/dL [facility] Comment:Desirable LDL: less than 100 mg/dLNear Optimal/Above Optimal LDL: 110- 129 mg/dLBorderline High LDL: 130-159 mg/dLHigh LDL: 160-189 mg/dLVery High LDL: greater than or equal to 190 mg/dL HDL Cholesterol 60 >40 mg/dL [facility] Comment:Desirable HDL: great er than 40 mg/dL Note: This HDL assay may give artificially low results in patients with liver disease. Blood Venous blood specimen / Unknown 12/08/2023 10:10 AM EDT 12/08/2023 11:16 AM EDT us Tyson Name LAB BLOOD ORDERABLES Final Resul t [facility] [address] [place] [address] [phone] from Last 3 Months or Most Recently Relevant to Health Maintenance Insurance [facility]PLETE Care Teams Business System Consultant Relationship Specialty Start Date End Date Name, MD Tyson [address] [place] [address] PCP - General Family Medicine 01/18/19
--- OUTSIDE RECORDS SUMMARY | 2025-01-16 09:53 | XMS_ITS | Encounter Summary ---
Author Organization [employer] Address [address] [facility] 7[address] [place] [address] Care Team Providers Care Tobacco Hanger Name Role Phone Name, Tyson MCKINNON Primary Care Provider [phone] Reason for Visit * Reason Comments Med Refill Encounter Details Date Type Department Care Team ([facility] st Contact Info) Description 06/18/2024 Refill [facility] & PEDS [address] [place], [place] [phone] Rose Quintana, MARCOS [address] [place], [place] [phone] Chronic pain of both knees Social History [...] documented as of this encounter Care Teams Tobacco Hanger Relationship Specialty Start Date End Date Name, MD Tyson [address] [place] [address] PCP - General Family Medicine 01/18/19 documented as of this encounter
--- OUTSIDE RECORDS SUMMARY | 2025-01-16 09:53 | XMS_ITS | Encounter Summary ---
Author Organization [employer] Address [address] [place] [address] Care Team Providers Care Claim Approver Name Role Phone Name, Tyson MCKINNON Primary Care Provider [phone] Reason for Visit * Reason Comments Med Refill Encounter Details Date Type Department Care Team ([facility] st Contact Info) Description 11/17/2023 Refill [facility] [address] [place], [place] [phone] Name, MD Tyson [address] [place] [address] Social History Tobacco Use Types Packs/Day Years [...] documented as of this encounter Care Teams Claim Approver Relationship Specialty Start Date End Date Name, MD Tyson [address] [place] [address] PCP - General Family Medicine 01/18/19 documented as of this encounter
--- OUTSIDE RECORDS SUMMARY | 2025-01-16 09:54 | XMS_ITS | Encounter Summary ---
Author Organization [employer] Address [address] [facility] 7t [place] [address] Care Team Providers Care Missile Inspector Name Role Phone Name, Tyson MCKINNON Primary Care Provider [phone] Encounter Details Date Type Department Care Team ([facility] st Contact Info) Description 04/15/2022 Orders Only [facility] MED & PEDS [address] [place], [place] [phone] Faith Tavares LPN Social History Tobacco Use [...] on filedocumented in this encounter Care Teams Missile Inspector Relationship Specialty Start Date End Date Name, MD Tyson [address] [place] [address] PCP - General Family Medicine 01/18/19 documented as of this encounter
--- OUTSIDE RECORDS SUMMARY | 2025-01-16 09:54 | XMS_ITS | Encounter Summary ---
Author Organization [employer] Address [address] [facility] [address]t [place] [address] Care Team Providers Care Plumber Pipe Fitting Name Role Phone Name, Tyson MCKINNON Primary Care Provider [phone] Reason for Visit * Reason Comments Med Refill Encounter Details Date Type Department Care Team (Late st Contact Info) Description 04/01/2022 Refill [facility] MEDICINE [address] [place], [place] [phone] Name, MD Tyson [address] [place] [address] Migraine, unspecified, not intractable, without status migrainosus [...] migrainosus documented in this encounter Care Teams Plumber Pipe Fitting Relationship Specialty Start Date End Date Name, MD Tyson [address] [place] [address] [phone] PCP - General Family Medicine 01/18/19 documented as of this encounter
--- OUTSIDE RECORDS SUMMARY | 2025-01-16 09:54 | XMS_ITS | Encounter Summary ---
Author Organization [employer] Address [address] [facility] 7t [place] [address] Care Team Providers Care Environmental Studies Professor Name Role Phone Name, Tyson MCKINNON Primary Care Provider [phone] Encounter Details Date Type Department Care Team ([facility] st Contact Info) Description 07/01/2022 Orders Only [facility] MEDICINE [address] [place], [place] [phone] Ernestine Aceves LPN Social History Tobacco Use [...] 11:45 AM EDT Vero Katz MA * How difficult have these problems made it for you to do your work, take care of things at home, or get along with other people? Answer Date of Assessment Author Somewhat difficult 07/02/2022 11:45 AM EDT eVro Ortega [place] * Over the past 2 weeks, [...] on filedocumented in this encounter Care Teams Environmental Studies Professor Relationship Specialty Start Date End Date Name, MD Tyson [address] [place] [id number] PCP - General Family Medicine 01/18/19 documented as of this encounter
--- OUTSIDE RECORDS SUMMARY | 2025-01-16 09:54 | XMS_ITS | Encounter Summary ---
Author Organization [employer] Address [address] [facility] 7t [place] [address] Care Team Providers Care Water/Wastewater Project Engineer Name Role Phone Name, Tyson MCKINNON Primary Care Provider [phone] Encounter Details Date Type Department Care Team ([facility] st Contact Info) Description 05/14/2022 Orders Only [facility] MED & PEDS [address] [place], [place] [phone] Faith Tavares LPN Social History Tobacco Use [...] on filedocumented in this encounter Care Teams Water/Wastewater Project Engineer Relationship Specialty Start Date End Date Name, MD Tyson [address] [place] [address] PCP - General Family Medicine 01/18/19 documented as of this encounter
[2025-01-16 12:38] LABS: Alanine Aminotransferase 8 U/L (0-31); Albumin Level 4.2 g/dL (3.5-5.0); Alkaline Phosphatase 63 U/L (39-117); Anion Gap 12 (12-20); Aspartate Amino Transferase 26 U/L (5-31); Blood Urea Nitrogen 26 mg/dL (9-16); Calcium 8.6 mg/dL (8.4-10.2); Carbon Dioxide 30 mmol/L (22-29); Chloride 106 mmol/L (96-108); Cholesterol 121 mg/dL (<200); Estimated Glomerular Filt Rate 39; HDL Cholesterol 58 mg/dL (>40); Potassium 4.2 mmol/L (3.3-5.1); Sodium 144 mmol/L (135-145); Total Protein 6.6 g/dL (6.5-8.0); Triglycerides 100 mg/dL (<150)
== END 2025-01-16 09:08 | disposition home or self-care (01) ==
LOC: HO.HHCL 09:07
PROVIDERS: Nurse Practitioner Family; PCP Internal Medicine Geriatric Medicine; Visit Provider Internal Medicine Geriatric Medicine
DX: E11.69 Type 2 diabetes mellitus with other specified complication (principal)
CPT/HCPCS: 36415; 80053; 80061

== ENCOUNTER 2025-01-17 15:44 | Outpatient (REF) | payer OTHER, SELFPAY ==
[2025-01-17 18:02] LABS: Appearance Urine Clear; Glucose Urine UA Negative (Negative); PH 5.0 (5.0-9.0); Specific Gravity - Urine 1.010 (1.005-1.025); UMIC TRIGGER UACC YES
--- OUTSIDE RECORDS SUMMARY | 2025-01-17 18:35 | XMS_ITS ---
Author Name [facility]icit[facility] [place] [place]. Aria Arceo Address [address] [place] [address] Phone [phone] Organization [facility] Care Team Providers Care Quiller Hand Name Role Phone Aria Polk Unavailable [phone] NameTyson Unavailable [phone] Reason for Referral Not Available Allergies, adverse [...] 2021-05-11 No Data Available OneTouch Delica Plus Dyrjba40Q Miscellaneous TEST BLOOD SUGAR TWICE DAILY 2021-05-15 [...] 50 mg Tab TAKE 1 TABLET BY [facility] EVERY MORNING 2023-09-21 No Data Available calcium 600 mg (as carbonate)-vitamin D3 10 mcg (400 unit) tablet TAKE 1 TABLET BY MOUTH TWICE DAILY IN THE MORNING AND IN THE EVENING 2024-01-13 No Data Available Divalproex Sodium ER 250 mg Tab ER 24hr TAKE 1 TABLET BY MOUTH AT BEDTIME 2023-10-06 No Data Available Furosemide 20 mg Tab TAKE 1 TABLET BY [facility] EVERY MORNING 2024-03-20 No Data Available [...] D and osteoporosis surveillance stressed-- Risk of rn long term care PPI use discussed-- Antireflux diet: avoid tomatoes, [...] QDAY d/ t hypoglycemia Lab ResultsComponent Value WvvqEJPX7D 7.8 (A) 02/14/2023HGBA1C 6.3 (H) 02/01/2022Lab ResultsComponent [...] QDAY d/ t hypoglycemia Lab ResultsComponent Value SjqfRTBT3D 7.8 (A) 02/14/2023HGBA1C 6.3 (H) 02/01/2022 Hyperlipidemia [...] organ damage (headache, vision changes, chest pain)/ Steerer on proper BP monitoring technique and reassess/ [...] metoprolol t artrate BID on Plavix (h/o [place]- clot to heart vessel per CG- aprx [...] control and bp control Lab ResultsComponent Value SsqgQPJH0M 7.8 (A) 02/14/2023HGBA1C 6.3 (H) 02/01/2022Lab ResultsComponent Value DateGLUCOSE 121 (H) 11/19/2022NA 144 3K 4.5 3CO2 26 11/19/2022L 109 (H) 3BUN 14 11/19/2022REATININE 1.05 11/19/2022 SOB (shortness of breath)COPD Active 2022-01-25 N/A prn albuterol inhalerfollows with pulmonology Encounters Encounters Type Facility Date of Service Diagnosis/Co mplaint Pain Assessment - Pain Documented on a Pain Scale (1125F) [facility] [place]/2022 Pain Assessment - Pain Documented on a Pain Scale (1125F) [facility] [place] Pain Assessment - Pain Documented on a Pain Scale (1125F) [facility] [place]22 Pain Assessment - Pain Documented on a Pain Scale (1125F) [facility]/2022 Pain Assessment - Pain Documented on a Pain Scale (1125F) [facility]/2022 Pain Assessment - Pain Documented on a Pain Scale (1125F) [facility]/2022 Pain Assessment - Pain Documented on a Pain Scale (1125F) [facility]/2022 Hyperlipidemia, unspecifiedGastro-esophageal reflux disease without esophagitisInsomnia, unspecifiedType 2 diabetes mellitus without complicationsEssential (primary) hypertensionAge-related osteoporosis without current pathological fractureOveractive bladderShortness of breathUnspecified dementia without behavioral disturbanceOther thrombophiliaUnspecified atrial fibrillationPersonal history of malignant neoplasm of breast Pain Assessment - Pain Documented on a Pain Scale (1125F) [facility] [place]22 Pain Assessment - Pain Documented on a Pain Scale (1125F) [facility]/20[place] Estab. patient 30-39min; chronic exacerbation, 2 stable chronic or 1 acute illness add add modifier 95 for video, (do not use for phone, instead use 33306-12) [facility]2022 Type 2 diabetes mellitus wit h [...] (do not use for phone, instead use 87605-40) [facility] Estab. patient 30-39min; chronic exacerbation, 2 stable chronic or 1 acute illness add add modifier 95 for video, (do not use for phone, instead use 43559-96) [facility] Estab. patient 30-39min; chronic exacerbation, 2 stable chronic or 1 acute illness add add modifier 95 for video, (do not use for phone, instead use 10667-69) [facility] Estab. patient 30-39min; chronic exacerbation, 2 stable chronic or 1 acute illness add add modifier 95 for video, (do not use for phone, instead use 71328-79) [facility] Estab. patient 30-39min; chronic exacerbation, 2 stable chronic or 1 acute illness add add modifier 95 for video, (do not use for phone, instead use 16046-70) [facility] Estab. patient 30-39min; chronic exacerbation, 2 stable chronic or 1 acute illness add add modifier 95 for video, (do not use for phone, instead use 04052-07) [facility] Estab. patient 30-39min; chronic exacerbation, 2 stable chronic or 1 acute illness add add modifier 95 for video, (do not use for phone, instead use 91958-97) [facility] Estab. patient 30-39min; chronic exacerbation, 2 stable chronic or 1 acute illness add add modifier 95 for video, (do not use for phone, instead use 64369-78) [facility] Estab. patient 30-39min; chronic exacerbation, 2 stable chronic or 1 acute illness add add modifier 95 for video, (do not use for phone, instead use 73779-98) [facility]20[place] Estab. patient 30-39min; chronic exacerbation, 2 stable chronic or 1 acute illness add add modifier 95 for video, (do not use for phone, instead use 47619-52) [facility] 03/24/2023 Type 2 diabetes mellitus wit h [...] (do not use for phone, instead use 48199-04) [facility] Estab. patient 30-39min; chronic exacerbation, 2 stable chronic or 1 acute illness add add modifier 95 for video, (do not use for phone, instead use 98303-88) [facility] 03[place] Estab. patient 30-39min; chronic exacerbation, 2 stable chronic or 1 acute illness add add modifier 95 for video, (do not use for phone, instead use 84199-74) [facility] 03[place]/2023 Estab. patient 30-39min; chronic exacerbation, 2 stable chronic or 1 acute illness add add modifier 95 for video, (do not use for phone, instead use 95389-56) [facility] 03[place]/2023 Estab. patient 30-39min; chronic exacerbation, 2 stable chronic or 1 acute illness add add modifier 95 for video, (do not use for phone, instead use 69207-00) [facility] 03[place]/20[place] Estab. patient 30-39min; chronic exacerbation, 2 stable chronic or 1 acute illness add add modifier 95 for video, (do not use for phone, instead use 15676-68) [facility] 03[place]/2023 Estab. patient 30-39min; chronic exacerbation, 2 stable chronic or 1 acute illness add add modifier 95 for video, (do not use for phone, instead use 14296-50) [facility] 03[place]/2023 Estab. patient 30-39min; chronic exacerbation, 2 stable chronic or 1 acute illness add add modifier 95 for video, (do not use for phone, instead use 25907-79) [facility] 03[place]/2023 Estab. patient 30-39min; chronic exacerbation, 2 stable chronic or 1 acute illness add add modifier 95 for video, (do not use for phone, instead use 90029-85) [facility] 03/[place]/2023 Estab. patient 20-29min; 1 stable chronic or 2 minor; add add modifier 95 for video, modifier [address] [facility] 05[place]01/2024 Type 2 diabetes [...] 95 for video, modifier 93 for phone [facility]01/20[place] Estab. patient 20-29min; 1 stable chronic or 2 minor; add add modifier 95 for video, modifier 93 for phone [facility] 05/01/2024 Estab. patient 20-29min; 1 stable chronic or 2 minor; add add modifier 95 for video, modifier 93 for phone [facility] 05/01/2024 Estab. patient 20-29min; 1 stable chronic or 2 minor; add add modifier 95 for video, modifier 93 for phone [facility] 05/01/2024 Estab. patient 20-29min; 1 stable chronic or 2 minor; add add modifier 95 for video, modifier 93 for phone [facility] 05/01/2024 Estab. patient 20-29min; 1 stable chronic or 2 minor; add add modifier 95 for video, modifier 93 for phone [facility] 05/01/2024 Estab. patient 20-29min; 1 stable chronic or 2 minor; add add modifier 95 for video, modifier 93 for phone [facility] 05/01/2024 Estab. patient 20-29min; 1 stable chronic or 2 minor; add add modifier 95 for video, modifier 93 for phone [facility] 05/01/2024 Vital Signs Date of Collection Vitals [...] Time Current Smoking Status Never smoker 2025-01-05 3 Sex Female History of Procedures Procedures [...] 95 for video, modifier 93 for phone [id number] 2022-01-25 No Data Available No Data Availa ble DBP <80 (3078F) 3078F 2022-01-25 No Data Available No Data Available SBP >= 140 3077F 2022-01-25 No Data Available No Data Available Estab. patient 30-39min; chronic exacerbation, 2 stable chronic or 1 acute illness add add modifier 95 for video, (do not use for phone, instead use 79423-93) 71247 2022-10-04 No Data Available No Data Availa [...] (do not use for phone, instead use 06352-04) 48600 2023-03-24 No Data Available No Data Availa [...] 95 for video, modifier 93 for phone 47934 2024-05-01 No Data Available No Data Availa [...] lives with daughter tommie d grandson 2022-01-25 [employer] is her grand daughter 2022-10-04 Mental Status [...] with diabetic chronic kidney disease, CKD stage G3a/R9Zfxhweqencgq heart disease with stage 3a chronic kidney [...] CG reportmetoprolol tartrate BID on Plavix (h/o [place]- clot to heart vessel per CG- aprx [...] with pulmonologymetoprolol tartrate BID on Plavix (h/o [place]- clot to heart vessel per CG- aprx [...] QDAY d/ t hypoglycemia Lab ResultsComponent Value DutxXHOZ3L 7.8 (A) 02/14/2023HGBA1C 6.3 (H) 02/01/2022Lab ResultsComponent [...] your log in next visit.Lab ResultsComponent Value KwrcLIWA9X 7.8 (A) 02/14/2023HGBA1C 6.3 (H) 02/01/2022Lab ResultsComponent [...] 4 03/24/23metoprolol tartrate BID on Plavix (h/o [place]- clot to heart vessel per CG- aprx 20 years ago)in remissionfollows with oncologist s/p surgery/removal of cancerous lesionavoid nephrotoxic medicationstay hydrated encouraged A1c control and bp control Lab ResultsComponent Value WewaHKKN0A 7.8 (A) 02/14/2023HGBA1C 6.3 (H) 02/01/2022Lab ResultsComponent [...] QDAY d/ t hypoglycemia Lab ResultsComponent Value UqlmAJGA3E 7.8 (A) 02/14/2023HGBA1C 6.3 (H) 02/01/2022 2024-05-01 [...] D and osteoporosis surveillance stressed-- Risk of rn long term care PPI use discussed-- Antireflux diet: avoid tomatoes, [...] QDAY d/ t hypoglycemia Lab ResultsComponent Value VspzELCV4E 7.8 (A) 02/14/2023HGBA1C 6.3 (H) 02/01/2022Lab ResultsComponent [...] organ damage (headache, vision changes, chest pain)/ Steerer on proper BP monitoring technique and reassess/ [...] up prn.metoprolol tartrate BID on Plavix (h/o [place]- clot to heart vessel per CG- aprx [...] QDAY d/ t hypoglycemia Lab ResultsComponent Value FxubANVD6R 7.8 (A) 02/14/2023HGBA1C 6.3 (H) 02/01/2022 Goals [...] okDo you have a Durable Power of Waste Water Operator for Healthcare, or Healthcare Proxy Or Guardianship? Yes, preferred proxy but not named POAIf so, Who? HCP: grand daughter Kerry Waldrop do you have a written Advance Directive?Other details of discussion: (Who was present, patients description of wishes/goals)Today's plan:1123F : AD or surrogate was documented in the medical record.
--- OUTSIDE RECORDS SUMMARY | 2025-01-17 18:35 | XMS_ITS | Patient Health Record ---
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 [address] [place] [phone] [id number] HANNAH MONK Self - patient is [...]
--- OUTSIDE RECORDS SUMMARY | 2025-01-17 18:36 | XMS_ITS | Encounter Summary ---
Author Organization [employer] Address [address] [facility] [address] [place] [address] Care Team Providers Care Paddle Dyeing Machine Operator Name Role Phone Name, Tyson MCKINNON Primary Care Provider [phone] Reason for Visit * Reason Comments Med Refill Encounter Details Date Type Department Care Team ([facility] st Contact Info) Description 11/17/2023 Refill [facility] MEDICINE [address] [place], [place] [phone] Name, MD Tyson [address] [place] [address] Social History Tobacco Use Types Packs/Day Years [...] documented as of this encounter Care Teams Paddle Dyeing Machine Operator Relationship Specialty Start Date End Date Name, MD Tyson [address] [place] [address] PCP - General Family Medicine 01/18/19 documented as of this encounter
--- OUTSIDE RECORDS SUMMARY | 2025-01-17 18:36 | XMS_ITS | Data Portability ---
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 [id number] 107 Active 2021 Mixed conductiv e and sensorine ural hearing loss, unilatera l, left ear with restricte d hearing on the contralat eral side; Note: Date Diagnosed : 06/12/2021 2:25 PM (H90.A32) Not Available [facility] 4 03:18:06 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 535178802 Active 2021 Nasal polyp, unspecifi ed; Note: Date Diagnosed : 06/12/2021 1:57 PM (J33.9) Not Available [facility] 4 03:18:06 Bilateral chronic serous otitis 292318058 Active 2021 Chronic serous otitis media, bilateral ; Note: Date Diagnosed : 06/12/2021 1:50 PM (H65.23) Not Available [facility] 4 03:18:07 Sensorine ural hearing loss in right ear 02601118230 100 Active 2021 Sensorine ural hearing loss, unilatera l, right ear, with restricte d hearing on the contralat eral side; Note: Date Diagnosed : 06/12/2021 2:25 PM (H90.A21) Not Available [facility] 4 03:18:06 Tinnitus of left ear 94437598879 06 Active 2021 Tinnitus, left ear; Note: Date Diagnosed : 06/12/2021 1:57 PM (H93.12) Not Available [facility] 4 03:18:07 Disorder of nasal sinus 7668482 Active 2023 Other specified disorders of nose and nasal sinuses; Note: Date Diagnosed : 04/01/2023 4:38 PM (J34.89) Not Available [facility] 4 03:18:06 Disorder of the nose 46760327 Active 2023 Other specified disorders of nose and nasal sinuses; Note: Date Diagnosed : 04/01/2023 4:38 PM (J34.89) Not Available [facility] 4 03:18:06 Polyp of nasal cavity 516232847 Active 2023 MARTINA SIMMONS MD [address] [place] [address],[place] [address], [place], [address] , [facility] - [facility] 4 13:09:18 Nasal congestio n 66488914 Active 2023 MARTINA SIMMONS MD [address] [place] [address],[place] [address], [place], [address] , [facility] - [facility] 4 13:15:27 Problem Notes None recorded. Procedures Surgical History Date Name Laterality Status Provider Name and Address Organization Details Recorded Time 01/03/2025 NasalEndos copy_DP completed MARTINA SIMMONS MD [address] [place] [address], [phone], [facility] 01/03/2025 14:46:13 06/28/2024 NasalEndos copy_DP completed Princess Smith [facility] 06/28/2024 16:08:32 12/26/2023 NasalEndos copy_DP completed MARTINA SIMMONS MD [address] [place] [address],[address], [address], [facility] 12/26/2023 13:15:08 Imaging Results None recorded. Procedure Notes None recorded. Medical Equipment None Reported. Allergies Allergen ID Allergen Name Allergen Category Reaction Reaction Severity Criticality Documentation Date Start Date Code Code System Note Provider Name and Address Organization Details Recorded Time 11122 aspirin medicatio n other Not available Not available 07/19/2023 1191 RxNorm React ion: Unkno wn; Not Available [facility] 4 00:48:40 Medications Name Sig Start Date Stop Date Status Note LastModified by Organization Details LastModified Time medbox status USE DIRECTED active Not Available Not Available No t Available losartan 50 mg tablet TAKE 1 TABLET BY MOUTH EVERY EVENING active Not Available Not Available No t Available atorvasta tin 40 mg tablet TAKE 1 TABLET BY MOUTH EVERY EVENING active Not Available Not Available No t Available metformin 500 mg tablet TAKE 1 TABLET BY [...] tablet,de layed release active Medicati on ID: [id number] B rand Name: divalpro ex Send Method: [...] 50 mg tablet active Medicati on ID: [id number] B rand Name: trazodon e Send Method: E-Prescr ibed Sub s Allowed: subs OK Speci al Instruct ion: TAKE 1/2 TABLET BY MOUTH AT BEDTIME Medicati onGeneri cName: trazodon e Not Available Not Available Not Available glipizide ER 10 mg tablet, extended release 24 hr active Medicati on ID: [id number] B rand Name: glipizid e Send Method: E-Prescr ibed Sub s Allowed: subs OK Speci al Instruct ion: TAKE 1 TABLET BY MOUTH EVERYDAY AT NOON Med [facility] enericNa me: glipizid e Not Available Not Available [...] mg tablet TAKE 1/2 TABLET BY MOUTH EVERY TWELVE HOURS NEEDED FOR SEVERE PAIN active Not Available Not Available No t Available GeoDigitalTouch Ultra Test strips TEST BLOOD SUGAR TWICE DAILY DIRECTED active Not Available Not Available No t Available cyanocoba elen (vit B-12) 1,000 mcg/mL injection solution INJECT INTRAMUS CULARLY ONCE PER MONTH active Not Available Not Available No t Available mirtazapi ne 30 mg tablet TAKE 1 TABLET BY MOUTH AT BEDTIME active Not Available Not Available No t Available ferrous sulfate 325 mg (65 mg iron) tablet TAKE 1 TABLET BY MOUTH EVERY EVENING active Not Available Not Available No t Available metformin 1,000 mg tablet active Medicati on ID: [id number] B rand Name: metformi n Send Method: [...] 10 mg tablet active Medicati on ID: [id number] B rand Name: lisinopr il Send Method: [...] (vit B-12) 1,000 mcg sublingua l tablet DISSOLVE 1 TABLET UNDER THE TONGUE EVERY DAY active Not Available Not Available No t Available furosemid e 20 mg tablet TAKE 1 TABLET BY MOUTH EVERY MORNING active Not Available Not Available No t Available BD Luer-Milena Syringe 3 mL 21 gauge x 1 1/2 USE DIRECTED active Not Available Not Available No t Available sertralin e 50 mg tablet TAKE 1 TABLET BY MOUTH EVERY MORNING active Not Available Not Available No t Available amoxicill in 875 mg-potass ium clavulana te 125 mg tablet TAKE 1 TABLET BY MOUTH TWICE DAILY 06/28 completed Not Available Not Available Not Available divalproe x ER 250 mg tablet,ex tended release 24 hr TAKE 1 TABLET BY MOUTH AT BEDTIME [...] 5 mg tablet active Medicati on ID: [id number] B rand Name: cait andrade Send Method: E-Prescr ibed Sub s Allowed: subs OK Speci al Instruct ion: TAKE 2 TABLETS BY MOUTH EVERY DAY AT BEDTIME Medicati onGeneri cName: melatocharlotte n Not Available Not Available Not Available Best Response Strategies2 Meter active Medicati on ID: [id number] B rand Name: OneTouch Ultra2 Meter Se nd Method: E-Prescr ibed Sub s Allowed: subs OK Speci al Instruct ion: TEST BLOOD SUGAR THREE TIMES DAILY DIRECTED Medicat ionGener icName: OneTouch Ultra2 Meter Not Available Not Available Not Available OneTouch Delica Plus Lancet 33 gauge USE DIRECTED TO TEST BLOOD SUGAR TWICE DAILY active Not Available Not Available No t Available Vitals Date Recorded Body height Provider Name an d Address Organization Details Last Updated DateTime 06/28/2024 157.48 cm EDDY BECKETTMick [place] [facility] 06/28/2024 15:25:03 Date Recorded Body height Body mass index (BMI) Body weight Provider Name and Address Organization Details Last Updated DateTime 12/26/2023 157.48 cm 30.7 kg/m2 39554.52 g Doreen Mary [facility] 12/26/2023 13:06:36 Date Recorded Body height Body mass index (BMI) Body weight Systolic And Diastolic Provider Name and Address Organization Details Last Updated DateTime 01/03/2025 157.48 cm 27.8 kg/m2 18238.04 g 144/64 mm[Hg] Shaylee Humberto [place] [facility] 01/03/2025 14:34:42 Social History None recorded. Functional Status None recorded. Mental Status None recorded. Family History Nothing Reported. Medical History No medical history recorded. Gynecological HistoryNo gynecological history recorded. Obstetrics History GPAL:G 0 P 0 0 0 0 Past Encounters Encounter ID Performer Location Encounter Start Date Encounter Closed Date Diagnosis/Indication Diagnosis SNOMED-CT Code Diagnosis ICD10 Code Diagnosis IMO Codes Diagnosis Note [id number] MARTINA SIMMONS MD [facility] [address] [address] 12/26/2023 12:51:33 12/26/2023 13:20:22 Polyp of nasal cavity 885970123 J33.0 Nasal endo was notable for a [...] nasal congestion or facial pain. Nasal congestion 1518863 0 R09.81 No signfician t congesiton . I asked her to call if she develops worsening congestion . [id number] PRINCESS SMITH PA-C [facility] [address] [place] [address] 06/28/2024 15:19:17 06/28/2024 15:54:52 Polyp of nasal cavity 556706999 J33.0 [id number] MARTINA SIMMONS MD [facility] [address] [place] [address] 01/03/2025 14:25:25 01/03/2025 14:51:10 Polyp of nasal cavity 326880228 J33.0 Nasal endo was notable for a small benign appearing polyp medial to the left MT which is stable. She is on plavix due to blood clots. We again discussed biopsy of the polyp to confirm it is not a neoplasm, inverted papilloma or cancer but given the lack of progressio n of the polyp and that she is on plavix we agreed the risks of coming off plavix for a biopsy outweighs the benefit of a biopsy given it's benign behavior. We will plan to reevaluate in 6 months. She will call if she developsep istaxis, increased nasal congestion or facial pain. Nasal congestion 4929738 0 R09.81 No significan t congestion . I asked her to call if she develops worsening congestion . Health Concerns Section Related Observation LastModified by Organization Detai ls LastModified Time None Recorded Concern Status LastModified by Organization Details LastModified Time None Recorded Advance Directives Directive None Recorded Payers Insurance Date Sequence Insurance Name Policy Number Policy Malik Covered Member ID Malik Member ID Guarantor Name 01/03/2025 1 [facility] (MEDICARE REPLACEMENT/ ADVANTAGE - HMO) Nadine Morris [id number] Nadine Clement 01/03/2025 2 [place] [facility] Genna Clement [id number] Nadine Clement Notes Date Note Type Note Provider Name and Address Organization Details Recorded Time 12/26/2023 text/html Nasal polypShe had an MRI brain with contrast at [facility] which showed bilateral mastoid effusions and concern for a left nasal polyp in 2020. We obtained a CT which showed a left nasal polyp 15mm without destructive features. Denies epistaxis. Denies facial pain. Still on plavix. Biopsy wasdeferred due to plavix. MARTINA SIMMONS MD [address] [facility],[address], [address], [place] [facility] 12/26/2023 13:15:55 06/28/2024 text/html ROS as noted in the HPI 83 year old female presents for routine follow up of left nasal polyp. Biopsy has been deferred due to Plavix. She denies nasal congestion. She does not use any nasal sprays. NAVEEN CARBONE MD [address] [facility],[address], [address], [place] [facility] 07/01/2024 09:49:26 01/03/2025 text/html Nasal polypShe had an MRI brain with contrast at [facility] which showed concern for a left nasal polyp in 2020. We obtained a CT which showed a left nasal polyp 15mm without destructive features. Denies epistaxis. Denies facial pain. Still on plavix. Biopsy wasdeferred due to plavix. MARTINA SIMMONS MD [address] [facility],[address], [address], [place] [facility] 01/03/2025 14:52:14 OBGyn Episode No OBEpisode recorded.
--- OUTSIDE RECORDS SUMMARY | 2025-01-17 18:36 | XMS_ITS | Encounter Summary ---
Author Organization [employer] Address [address] [facility] [address] [place] [address] Care Team Providers Care Auto Driver Name Role Phone Name, Tyson MCKINNON Primary Care Provider [phone] Encounter Details Date Type Department Care Team ([facility] st Contact Info) Description 04/15/2022 Orders Only [facility] MED & PEDS [address] [place], [place] [phone] Faith Tavares LPN Social History Tobacco Use [...] on filedocumented in this encounter Care Teams Auto Driver Relationship Specialty Start Date End Date Name, MD Tyson [address] [place] [address] PCP - General Family Medicine 01/18/19 documented as of this encounter
--- OUTSIDE RECORDS SUMMARY | 2025-01-17 18:36 | XMS_ITS | Encounter Summary ---
Author Organization [employer] Address [address] [facility] [address]t [place] [address] Care Team Providers Care Chief Executive Or Managing Director Name Role Phone Name, Tyson MCKINNON Primary Care Provider [phone] Encounter Details Date Type Department Care Team ([facility] st Contact Info) Description 07/01/2022 Orders Only [facility] [address] [place], [place] [phone] Ernestine Aceves LPN Social History Tobacco Use [...] Author Somewhat difficult 07/02/2022 11:45 AM EDT Vero Ortega [place] * Over the past 2 [...] on filedocumented in this encounter Care Teams Chief Executive Or Managing Director Relationship Specialty Start Date End Date Name, MD Tyson [address] [place] [id number] PCP - General Family Medicine 01/18/19 documented as of this encounter
--- OUTSIDE RECORDS SUMMARY | 2025-01-17 18:36 | XMS_ITS | Encounter Summary ---
Author Organization [employer] Address [address] [facility] [address] [place] [address] Care Team Providers Care Shoeshiner Name Role Phone Name, Tyson MCKINNON Primary Care Provider [phone] Encounter Details Date Type Department Care Team ([facility] st Contact Info) Description 05/14/2022 Orders Only [facility] MED & PEDS [address] [place], [place] [phone] Faith Tavares LPN Social History Tobacco Use [...] on filedocumented in this encounter Care Teams Shoeshiner Relationship Specialty Start Date End Date Name, MD Tyson [address] [place] [address] PCP - General Family Medicine 01/18/19 documented as of this encounter
--- OUTSIDE RECORDS SUMMARY | 2025-01-17 18:36 | XMS_ITS | Encounter Summary ---
Author Organization [employer] Address [address] [facility] [address] [place] [address] Care Team Providers Care Kitchen Steward Name Role Phone Name, Tyson MCKINNON Primary Care Provider Encounter Details Date Type Department Care Team ([facility] Contact Info) Description 07/19/2022 Orders Only [facility] MED & PEDS [address] [place], [place] [phone] Faith Tavares LPN Social History Tobacco Use [...] documented as of this encounter Care Teams Kitchen Steward Relationship Specialty Start Date End Date Name, MD Tyson [address] [place] [address] PCP - General Family Medicine 01/18/19 documented as of this encounter
--- OUTSIDE RECORDS SUMMARY | 2025-01-17 18:36 | XMS_ITS | Encounter Summary ---
Author Organization [employer] Address [address] [facility] [address] [place] [address] Care Team Providers Care Clinical Operations Manager Name Role Phone Name, Tyson MCKINNON Primary Care Provider [phone] Reason for Visit * Reason Comments Med Refill Encounter Details Date Type Department Care Team ([facility] st Contact Info) Description 06/18/2024 Refill [facility] MED & PEDS [address] [place], [place] [phone] Rose Quintana, MARCOS [address] [place], [place] [phone] Chronic pain of both knees Social History [...] documented as of this encounter Care Teams Clinical Operations Manager Relationship Specialty Start Date End Date Name, MD Tyson [address] [place] [address] PCP - General Family Medicine 01/18/19 documented as of this encounter
--- OUTSIDE RECORDS SUMMARY | 2025-01-17 18:36 | XMS_ITS | Clinical Summary ---
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 (HCC) TAKE 1 TABLET BY [...] IN THE EVENING WITH FOOD 60 tablet 01/17/2025 3:57 PM EST 06/05/19 25 Active traMADol (Ultram) 50 MG tabletIndicatio ns:Chronic knee pain, unspecified laterality TAKE 1/2 TABLET BY MOUTH EVERY TWELVE HOURS NEEDED FOR SEVERE PAIN 28 tablet 12/08/19 25 Active Calcium Carb-Cholecalci ferol 600-10 MG-MCG tablet TAKE 1 TABLET BY MOUTH TWICE DAILY IN THE MORNING AND IN THE EVENING 180 tablet 1 01/17/2025 3:57 PM EST 01/02/20 25 Active clopidogrel (Plavix) 75 MG tablet TAKE 1 TABLET BY MOUTH AT BEDTIME 90 tablet 1 01/17/2025 3:57 PM EST 01/02/20 Active mirtazapine (Remeron) 30 MG tablet TAKE 1 TABLET BY MOUTH AT BEDTIME 30 tablet 1 01/17/2025 3:57 PM EST 01/04/20 Active clopidogrel (Plavix) 75 MG tablet TAKE [...] (overactive bladder) 01/25/2022 Other problems related to [facility] facilities and other health care 01/25/2022 [...] 01/21/2012 Non-compliance 12/22/2011 Coronary artery disease involving [place] coronar y artery 09/20/2011 Hiatal hernia 09/20/2011 Mixed hyperlipidemia 08/12/2011 Jo's esophagus 07/21/2011 Dizziness and giddiness 07/20/2011 Essential hypertension 07/20/2011 Migraine 07/20/2011 Osteopenia of multiple sites 08/09/2005 Resolved Problems Problem Noted Date Diagnosed Date Resolved Date Nasal congestion 12/26/2023 12/18/2024 Anemia 07/02/2022 12/18/2024 Chest pain 07/20/2011 12/18/2024 Encounters Date Type Department Care Team Description 01/03/2025 Refill [facility] [address] [place] [address] Tyson March MD 12/31/2024 Refill [facility] [address] [place] [address] Tyson March MD 12/18/2024 2:00 PM EDT Office Visit [facility] [address] [place] [address] Tyson March MD Type 2 diabetes mellitus with other specified complication, without long-term current use of insulin (HCC) (Primary Dx); Urinary frequency; Encounter for immunization 12/18/2024 Travel 12/11/2024 Patient Outreach [facility] [address] [place] [address] Tyson March MD Pre-visit Planning (SDOH negative, Tobacco screening negative. ) 12/07/2024 Refill [facility] [address] [place] [address] Tyson March MD Chronic knee pain, unspecified laterality 12/04/2024 Orders Only GENERIC EXTERNAL DATA DEPARTMENT Provider, Generic External Data 11/01/2024 Refill [facility] [address] [place] [address] Tyson March MD from Last 3 Months [...] 12/01/2024 12/02/2023, 12/02/2023, 12/02/2023, Additional history exists Diabetes: Hemoglobin A1C 06/18/202512/18/ 025, 04/10/2024, 12/02/2023, Additional history exists SDOH Screening 12/11/2025 12/11/2024 Tobacco Screening 12/18/2025 12/18/2024 Lipid Panel 01/16/2026 01/16/2025, 05/2023, 11/19/2022, Additional history exists Eye Exam 11/22/2026 11/22/2024 DTaP/Tdap/Td Vaccines (3 [...] URINALYSIS, COMPLETE, WITH REFLEX TO CULTURE Routine 01/17/2025 3:45 PM EST Urinary frequency ALBUMIN, RANDOM URINE W/CREATININE Routine 01/17/2025 3:45 PM EST Type 2 diabetes mellitus with other specified complication, without long-term current use of insulin (HCC) LIPID PANEL, STANDARD Routine 01/16/2025 9:17 AM EST Type 2 diabetes mellitus with other specified complication, without long-term current use of insulin (HCC) COMPREHENSIVE METABOLIC PANEL Routine 01/16/2025 9:17 AM EST Type 2 diabetes mellitus with other specified complication, without long-term current use of insulin (HCC) POCT GLYCATED HEMOGLOBIN, TOTAL Routine 12/18/2024 2:22 PM EDT Type 2 diabetes mellitus with other specified complication, without long-term current use of insulin (HCC) POCT GLUCOSE Routine 12/18/2024 2:21 PM EDT Type 2 diabetes mellitus with other specified complication, without long-term current use of insulin (HCC) CT UROGRAM WO CONTRAST Routine 2:33 PM EDT POCT CREATININE GFR Routine 12/04/2024 2 :17 PM EDT HM DIABETES EYE EXAM Routine 11/22/2024 INTRAORAL - COMPLETE SERIES OF RADIOGRAPHIC IMAGES Routine 10/08/2020 12:00 AM EDT COMPREHENSIVE ORAL EVALUATION - NEW OR ESTABLISHED PATIENT Routine 10/08/2020 12:00 AM EDT PROPHYLAXIS - ADULT Routine 04/30/2013 1 2:00 AM EST from Last 3 Months or Most Recently Relevant to Health Maintenance Results * (ABNORMAL) Urinalysis, Complete, with Reflex to Culture (01/17/2025 3:45 PM EST) Color Urine Yellow [facility] Appearance Urine Clear [facility] PH 5.0 5.0 - 9.0 [facility] Glucose Urine UA Negative Negative mg/dL [facility] Urine Blood Negative Negative [facility] Specific [place] - Urine 1.010 1.005 - 1.025 [facility] Urine Protein Negative Neg-Trace mg/dL [facility] Urine Ketones Negative Negative mg/dL [facility] Nitrite Urine Negative Negative [facility] Leukocyte Esterase Urine Trace(A) Negative [facility] RBC Urine 0-2 0 - 2 /HPF [facility] Urine WBC 0-5 0 - 5 /HPF [facility] Urine Squamous Epithelial Cell 0-2 0 - 2 /HPF [facility] Urine Bacteria None Seen None Seen [facility] Hyaline Casts, Urine 0-2 0 - 2 /LPF [facility] Urine 01/17/2025 3:45 PM EST 01/17/2025 5:40 PM EST Narrative [facility] - 01/17/2025 6:12 PM EST Urine, Clean Catch us Tyson March MD LAB URINE ORDERABLES Final Resul t Performing Organization Address [facility] Co de Phone Number [facility] [address] [place] [phone] * Albumin, Random Urine W/Creatinine (01/17/2025 3:45 PM EST) Creatinine, Urine 41.15 mg/dL [facility] Microalbumin Urine <5.0 mg/L [facility] Microalbum Creatinine Ratio Ur TNP <30 ug/mg cr [facility] Comment:Unable to calculate albumin/creatinine ratio due to lowmicroalbumin or creatinine result. Urine (Urine, Random) 01/17/2025 3:45 PM EST 01/17/2025 5:40 PM EST us Tyson March MD LAB URINE ORDERABLES Final Resul t Performing Organization Address [facility] Co de Phone Number [facility] [address] [place] [phone] * Lipid Panel, Standard (01/16/2025 9:17 AM EST) Triglycerides 100 <150 mg/dL [facility] Comment:Desirable Triglyceri de: less than 150 mg/dLBorderline High Triglyceride 150-199 mg/dLHigh Triglyceride: 200-499 mg/dLVery High Triglyceride: greater than or equal to 5OO mg/dL Cholesterol 121 <200 mg/dL [facility] Comment:Desirable Cholestero l: less than 200 mg/dLBorderline High Cholesterol: 200-239 mg/dLHigh Cholesterol: greater than 239 mg/dL LDL Cholesterol Calculated 43 <100 mg/dL [facility] Comment:Desirable LDL: less than 100 mg/dLNear Optimal/Above Optimal LDL: 110- 129 mg/dLBorderline High LDL: 130-159 mg/dLHigh LDL: 160-189 mg/dLVery High LDL: greater than or equal to 190 mg/dL HDL Cholesterol 58 >40 mg/dL [facility] Comment:Desirable HDL: great er than 40 mg/dL Note: This HDL assay may give artificially low results in patients with liver disease. Blood Venous blood specimen / Unknown 01/16/2025 9:17 AM EST 01/16/2025 12:00 PM EST us Tyson March MD LAB BLOOD ORDERABLES Final Resul t [facility] [address] [place], [place] [phone] * (ABNORMAL) Comprehensive Metabolic Panel (01/16/2025 9:17 AM EST) Sodium 144 135 - 145 mmol/L [facility] Potassium 4.2 3.3 - 5.1 mmol/L [facility] Chloride 106 96 - 108 mmol/L [facility] Carbon Dioxide 30(H) 22 - 29 mmol/L [facility] Anion Gap 12 12 - 20 [facility] Urea Nitrogen (BUN) 26(H) 9 - 16 mg/dL [facility] Creatinine, Serum 1.29 0.5 - 1.4 mg/dL [facility] Estimated Glomerular Filt Rate 39 [facility] Comment:Chronic Kidney Disea se: Estimated GFR < 60 mL/min/1.97e3Rdljhg Kidney Disease: Estimated GFR < 15 mL/min/1.73m2 Glucose 120(H) 60 - 115 mg/dL [facility] Calcium 8.6 8.4 - 10.2 mg/dL [facility] Bilirubin, Total 0.6 0.0 - 1.0 mg/dL [facility] Aspartate Amino Transferase 26 5 - 31 U/L [facility] Alanine Aminotransferase 8 0 - 31 U/L [facility] Total Protein 6.6 6.5 - 8.0 g/dL [facility] Albumin Level 4.2 3.5 - 5.0 g/dL [facility] Alkaline Phosphatase 63 39 - 117 U/L [facility] Blood Venous blood specimen / Unknown 01/16/2025 9:17 AM EST 01/16/2025 12:00 PM EST us Tyson March MD LAB BLOOD ORDERABLES Final Resul t [facility] [address] [place], [place] [phone] * (ABNORMAL) POCT Hgb A1c (12/18/2024 2:22 [...] PM EDT Narrative 12/05/2024 8:19 AM EDT [address] [address] [address] Scan Report Signed Patient: Nadine Clement MR#: [id number] : 1940 Acct:[id number] Age/Sex: 84 / F ADM Date: 12/04/24 Loc: HO.CT [facility] Ordering Physician: Nivia Guy Date of Service: 12/04/24 Procedure(s): CT urogram Accession Number(s): [id number] cc: [facility]; Name,Tyson MCKINNON Report Number: [id number]: Total DLP = 644.00 mGy-cm Reason for [...] D Alas MD 12/05/2024 08:16 AM EDT Dictated By: Jose D Huertas MD Signed By: <Electronically signed by Jose D Spears MD in OV> 12/05/24 0816 DD/ 1433 TD/TT: 12/04/24 [address] Consultant: Procedure Note Donotuseinterpreter, Image - 12/05/[address] [address] [address] Scan Report Signed Patient: Nadine ClementMR#: [id number] [birth year] : 9Acct:[id number] Age/Sex: 84 / FADM Date: 12/04/24 Loc: HO.CT Attending Dr: Nivia CARRERO Ordering Physician: Nivia Guy Date of Service: 12/04/24 Procedure(s): CT urogram Accession Number(s): [id number] cc: Nivia Guy [employer]; Name,Tyson Report Number: [id number]: Total DLP = 644.00 mGy-cm Reason for [...] D Alas MD 12/05/2024 08:16 AM EDT Dictated By: Jose D Huertas MD Signed By: <Electronically signed by Jose D Spears MDin OV> 12/05/24 0816 DD/ 1433 TD/TT: 12/04/24 1703 [address] Consultant: [facility] External Provider IMG CT PROCEDURES Final Result * POCT Creatinine GFR (12/04/2024 2:17 PM EDT) POCT Creatinine 1.2 0.5 - 1.4 mg/dL [facility] GFR POC 46 [facility] Comment:Chronic Kidney Disea se: Estimated GFR < 60 mL/min/1.89f5Rvbgdb Kidney Disease: Estimated GFR < 15 mL/min/1.73m2 12/04/2024 2:17 PM EDT 12/04/2024 5:03 PM EDT Narrative [facility] - 12/04/2024 5:04 PM EDT [id number].[facility] us Generic External Data Provider LAB POINT OF CARE TEST DOCKED DEVICE ORDERABLES Final Result [facility] [address] [place] [address] [phone] * (ABNORMAL) Diabetes Eye Exam (11/22/2024) [facility] Signature Eye Exam Abnormal( A) Normal Comment:11/22/24, [facility] e and Lasix, mild non proliferative retinopathy, repeat in a year Historical Provider MD HEALTH MAINTENANCE Final Result from Last 3 Months Insurance [facility] DUAL COMPLETE D[place] STAND ADULT Care Teams Conductor Freight Relationship Specialty Start Date End Date Name, MD Tyson [address] [place] [phone] PCP - General Family Medicine 01/18/19
--- OUTSIDE RECORDS SUMMARY | 2025-01-17 18:36 | XMS_ITS | Continuity of Care Document ---
Author Organization [place] - [facility], [facility] Address [address] [place] [address] Care Team Providers Care Painter Shipyard Name Role Phone NAME, KATYA Primary Care Provider [phone] Assessment No assessment recorded. 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 28803344084 107 Active 2021 Mixed conductiv e and sensorine ural hearing loss, unilatera l, left ear with restricte d hearing on the contralat eral side; Note: Date Diagnosed : 06/12/2021 2:25 PM (H90.A32) Not Available [facility] 4 03:18:06 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 782403658 Active 2021 Nasal polyp, unspecifi ed; Note: Date Diagnosed : 06/12/2021 1:57 PM (J33.9) [facility] 4 03:18:06 Bilateral chronic serous otitis 014600463 Active 2021 Chronic serous otitis media, bilateral ; Note: Date Diagnosed : 06/12/2021 1:50 PM (H65.23) Not Available [facility] 4 03:18:07 Sensorine ural hearing loss in right ear 93411152183 100 Active 2021 Sensorine ural hearing loss, unilatera l, right ear, with restricte d hearing on the contralat eral side; Note: Date Diagnosed : 06/12/2021 2:25 PM (H90.A21) Not Available [facility] 4 03:18:06 Tinnitus of left ear 53616813702 06 Active 2021 Tinnitus, left ear; Note: Date Diagnosed : 06/12/2021 1:57 PM (H93.12) Not Available [facility] 4 03:18:07 Disorder of nasal sinus 8504087 Active 2023 Other specified disorders of nose and nasal sinuses; Note: Date Diagnosed : 04/01/2023 4:38 PM (J34.89) Not Available [facility] 4 03:18:06 Disorder of the nose 33627838 Active 2023 Other specified disorders of nose and nasal sinuses; Note: Date Diagnosed : 04/01/2023 4:38 PM (J34.89) Not Available [facility] 4 03:18:06 Polyp of nasal cavity 913799391 Active 2023 MARTINA SIMMONS MD [address] [place] [address], [facility] [place], [phone] , [facility] 4 13:09:18 Nasal congestio n 62149117 Active 2023 MARTINA SIMMONS MD [address] [place] [address], [place], [phone] , [facility] 4 13:15:27 Problem Notes None recorded. Procedures Surgical History Date Name Laterality Status Provider Name and Address Organization Details Recorded Time 01/03/2025 NasalEndos copy_DP completed MARTINA SIMMONS MD [address] [place] [address], [place], [phone], [facility] - [facility] 01/03/2025 14:46:13 06/28/2024 NasalEndos copy_DP completed Princess Meng [place] - [facility] 06/28/2024 16:08:32 12/26/2023 NasalEndos copy_DP completed MARTINA SIMMONS MD [address] [place] [address], [place], [phone], [place] - [facility] 12/26/2023 13:15:08 Imaging Results None recorded. Procedure Notes None recorded. Medical Equipment None Reported. Allergies Allergen ID Allergen Name Allergen Category Reaction Reaction Severity Criticality Documentation Date Start Date Code Code System Note Provider Name and Address Organization Details Recorded Time 95336 aspirin medicatio n other Not available Not available 07/19/2023 1191 RxNorm React ion: Unkno wn; Not Available [facility] 4 00:48:40 Medications Name Sig Start [...] tablet,de layed release active Medicati on ID: 921669 B rand Name: divalpro ex Send Method: [...] 50 mg tablet active Medicati on ID: 812032 B rand Name: trazodon e Send Method: E-Prescr ibed Sub s Allowed: subs OK Speci al Instruct ion: TAKE 1/2 TABLET BY MOUTH AT BEDTIME Medicati onGeneri cName: trazodon e Not Available Not Available Not Available glipizide ER 10 mg tablet, extended release 24 hr active Medicati on ID: 285452 B rand Name: glipizid e Send Method: E-Prescr ibed Sub s Allowed: subs OK Speci al Instruct ion: TAKE 1 TABLET BY MOUTH EVERYDAY AT NOON [facility] me: glipizid e Not Available Not [...] 1,000 mg tablet active Medicati on ID: 780134 B rand Name: metformi n Send Method: [...] 10 mg tablet active Medicati on ID: 324102 B rand Name: lisinopr il Send Method: [...] 5 mg tablet active Medicati on ID: 682032 B rand Name: cait n Send Method: E-Prescr ibed Sub s Allowed: subs ANIYAH Sutherlandi al Instruct ion: TAKE 2 TABLETS BY MOUTH EVERY DAY AT BEDTIME Medicati onGeneri cName: melatoni n Not Available Not Available Not Available OneTouch Ultra2 Meter active Medicati on ID: 627123 B rand Name: OneTouch Ultra2 Meter Se nd Method: E-Prescr ibed Sub s Allowed: subs OK Enai al Instruct ion: TEST BLOOD SUGAR THREE [...] Updated DateTime 01/03/2025 157.48 cm 27.8 kg/m2 46284.04 g 144/64 mm[Hg] Shaylee Paul [place] - [facility] 01/03/2025 14:34:42 Social History None recorded. Functional Status None recorded. Mental Status None recorded. Family History Nothing Reported. Medical History No medical history recorded. Gynecological HistoryNo gynecological history recorded. Obstetrics History GPAL:G 0 P 0 0 0 0 Past Encounters Encounter ID Performer Location Encounter Start Date Encounter Closed Date Diagnosis/Indication Diagnosis SNOMED-CT Code Diagnosis ICD10 Code Diagnosis IMO Codes Diagnosis Note [id number] MARTINA SIMMONS MD [facility] [address] [place] [address] 01/03/2025 14:25:25 01/03/2025 14:51:10 Polyp of nasal cavity [id number] J33.0 Nasal endo was notable for a [...] nasal congestion or facial pain. Nasal congestion 3956138 0 R09.81 No significan t congestion . I asked her to call if she develops worsening congestion . Health Concerns Section Related Observation LastModified by Organization Detai ls LastModified Time None Recorded Concern Status LastModified by Organization Details LastModified Time None Recorded Payers Encounter Date Sequence Insurance Name Policy Number Policy Malik Covered Member ID Malik Member ID Guarantor Name 01/03/2025 1 [facility] (MEDICARE REPLACEMENT/ ADVANTAGE - HMO) Nadine Morris [id number] Nadine Clement 01/03/2025 2 [place] [facility] Genna Clement [id number] Nadine Clement Notes Date Note Type Note Provider Name and Address Organization Details Recorded Time 01/03/2025 text/html Nasal polypShe had an MRI brain with contrast at [facility] which showed concern for a left nasal polyp in 2020. We obtained a CT which showed a left nasal polyp 15mm without destructive features. Denies epistaxis. Denies facial pain. Still on plavix. Biopsy wasdeferred due to plavix. MARTINA SIMMONS MD [address] [place] [address], [place], [phone], [facility] - [facility] 01/03/2025 14:52:14 OBGyn Episode No OBEpisode recorded.
--- OUTSIDE RECORDS SUMMARY | 2025-01-17 18:36 | XMS_ITS | Encounter Summary ---
Author Organization [employer] Address [address] [facility] 7t [place] [address] Care Team Providers Care Managed Care Director Name Role Phone Name, Tyson MCKINNON Primary Care Provider [phone] Encounter Details Date Type Department Care Team ([facility] st Contact Info) Description 10/18/2022 Orders Only [facility]S [address] [place], [place] [phone] Ernestine Aceves LPN Social History Tobacco Use [...] documented as of this encounter Care Teams Managed Care Director Relationship Specialty Start Date End Date Name, MD Tyson [address] [place], [place] [phone] PCP - General Family Medicine 01/18/19 documented as of this encounter
--- OUTSIDE RECORDS SUMMARY | 2025-01-17 18:36 | XMS_ITS | Encounter Summary ---
Author Organization [employer] Address [address] [facility] [address] [place] [address] Care Team Providers Care Safety Administrator Name Role Phone Name, Tyson MCKINNON Primary Care Provider [phone] Reason for Visit * Reason Comments Med Refill Encounter Details Date Type Department Care Team (Late st Contact Info) Description 04/01/2022 Refill [facility] MEDICINE [address] [place], [place] [phone] Name, MD Tyson [address] [place] [address] Migraine, unspecified, not intractable, without status migrainosus [...] migrainosus documented in this encounter Care Teams Safety Administrator Relationship Specialty Start Date End Date Name, MD Tyson [address] [place] [address] [phone] PCP - General Family Medicine 01/18/19 documented as of this encounter
== END 2025-01-17 15:45 | disposition home or self-care (01) ==
LOC: HO.HHCL 15:44
PROVIDERS: PCP Internal Medicine Geriatric Medicine; Visit Provider Internal Medicine Geriatric Medicine
DX: E11.69 Type 2 diabetes mellitus with other specified complication (principal); R35.0 Frequency of micturition
CPT/HCPCS: 81001; 82570